=== PATIENT | female | born 1950 | race Caucasian/White ===

== ENCOUNTER → 2019-06-04 15:56 | Outpatient (CLI) | payer MEDICARE, SELFPAY ==
--- NOTE | 2019-06-04 16:10 | RAD_ITS ---
STUDY: X-RAY - PELVIS AND RIGHT HIP REASON FOR EXAM: Female, 69 years old. Right hip pain TECHNIQUE: 3 views of the pelvis and hip. COMPARISON: None. FINDINGS: There is a non-specific bowel gas pattern. Normal visualized soft tissue structures. Normal bilateral iliac wings, sacroiliac joints and visualized sacrum. Normal bilateral superior and inferior pubic rami. Normal pubic symphysis. Normal bilateral ischial tuberosities. Normal visualized femoral head. Normal acetabulum. Normal hip joint. RAD/HIP, UNI W/ Pelvis 2-3 Views IMPRESSION: Normal x-ray examination of the pelvis and hip. Electronically Signed: Bandar Alfaro MD at 16:38 EDT Tel , Service support ,
--- NOTE | 2019-06-04 16:10 | RAD_ITS ---
STUDY: X-RAY - LUMBAR SPINE REASON FOR EXAM: Female, 69 years old. Low back pain, right hip pain. TECHNIQUE: 3 view(s) of the lumbar spine were obtained. COMPARISON: None FINDINGS: Normal lumbar lordosis. There is no substantial scoliosis. 8 mm of anterolisthesis of L5 on S1. Moderate loss of height of the L5 vertebral body consistent with a moderate compression fracture. There is retropulsion of the superior endplate and the spinal canal. This may be acute, subacute, or chronic. MRI would be useful. Normal disc space heights. The soft tissue structures are unremarkable. RAD/Lumbar Spine 2 or 3 Views IMPRESSION: Moderate compression fracture of L5 which may be acute, subacute, or chronic. MRI would be useful. Electronically Signed: Bandar Alfaro MD at 16:37 EDT Tel , Service support ,
== END ==
LOC: MTRAD 16:04
PROVIDERS: Family Provider Family Medicine; PCP Family Medicine; Referring Provider Family Medicine; Visit Provider Family Medicine
DX: M54.5 Low back pain (principal); M25.551 Pain in right hip
CPT/HCPCS: 72100; 73502

== ENCOUNTER → 2019-06-14 16:15 | Outpatient (CLI) | payer MEDICARE, OTHER, SELFPAY ==
--- NOTE | 2019-06-14 16:24 | MRI_ITS ---
STUDY: MRI LUMBAR SPINE WITHOUT CONTRAST REASON FOR EXAM: Female, 69 years old. low back pain into R hip x 1 mon. TECHNIQUE: Standardized fat and water weighted pulse sequences were obtained in the sagittal and axial planes. COMPARISON: X-ray dated June 04, 2019 FINDINGS: There is straightening of the normal lumbar lordosis. There is no substantial scoliosis. Normal conus medullaris that terminates at the L1 L1-2: There is minimal disc space narrowing and endplate spondylosis. There is no significant disc herniation, central canal or foraminal stenosis. L2-3: There is mild disc space narrowing and endplates spondylosis. There is a minimal disc bulge and facet pathology without significant central canal or foraminal stenosis. L3-4: There is moderate disc space narrowing and endplates spondylosis. 2 small disc bulge and facet arthropathy without significant central canal stenosis. There is mild right and mild left foraminal stenosis. There is a chronic Schmorl's node at superior endplate of L4 L4-5: There is mild disc space narrowing and endplates spondylosis. There is mild disc bulge and facet arthropathy with mild central canal stenosis. There is moderate right and mild left foraminal stenosis. There is superior endplate depression at L5 with edema, consistent with subacute fracture. There is approximately 50% vertebral body height loss. There is minimal retropulsion of the posterior superior endplate resulting in mild central canal stenosis. Findings are stable since the prior examination. L5-S1: There is minimal disc space narrowing and endplates spondylosis. There is mild disc bulge and facet discopathy without significant central canal stenosis. There is mild right and mild left foraminal stenosis. There is spondylolysis with minimal grade 1 anterolisthesis. Normal visualized sacral ala. Normal visualized paraspinous soft tissue structures. MRI/Spine Lumbar (Routine) IMPRESSION: Subacute L5 fracture. Minimal retropulsion. L4/L5: Moderate right foraminal stenosis. L5/S1: Spondylolysis with minimal anterolisthesis. Electronically Signed: Ja Zelaya MD at 12:06 EDT Tel , Service support ,
== END ==
PROVIDERS: Family Provider Family Medicine; PCP Family Medicine; Referring Provider Family Medicine; Visit Provider Family Medicine
DX: S32.000A Wedge compression fracture of unspecified lumbar vertebra, initial encounter for closed fracture (principal)
CPT/HCPCS: 72148

== ENCOUNTER → 2019-07-03 15:39 | Outpatient (CLI) | payer MEDICARE, OTHER, SELFPAY ==
--- NOTE | 2019-07-03 15:46 | BD_ITS ---
STUDY: DUAL ENERGY X-RAY ABSORPTIOMETRY / DXA REASON FOR EXAM: Female, 69 years old. The patient is postmenopausal. Loss of height. TECHNIQUE: Bone Mineral Density (BMD) measurements of lumbar spine and bilateral hips were obtained. COMPARISON: None. FINDINGS: Lumbar Spine (L1-L4): g/cm2 (1.103) / T-score (-0.6) / Z-score (1.1) Findings are suggestive of normal bone density with a low fracture risk. Left Femur Total: g/cm2 (0.880) / T-score (-1.0) / Z-score (0.5) Left Femoral Neck: g/cm2 (0.765) / T-score (-2.0) / Z-score (-0.2) Right Femur Total: g/cm2 (0.858) / T-score (-1.2) / Z-score (0.3) Right Femoral Neck: g/cm2 (0.790) / T-score (-1.8) / Z-score (0.0) BD/Dexa Bone Density Study IMPRESSION: The patient is considered osteopenic as outlined below according to World Christopher Organization (WHO) criteria with a moderate fracture risk. Reference Information: The T-score is the number of standard deviations above or below the standard which is normal for young adults at their peak bone mineral density. The World Health Organization (WHO) interprets the T-scores as follows: Above -1 Normal bone density Between -1 and -2.5 Osteopenia Equal to / or below -2.5 Osteoporosis As a practical clinical guideline, osteopenia may be graded as follows: Mild -1 through -1.5 Moderate -1.6 through -2.0 Severe -2.1 through -2.4 The Z-score is the number of standard deviations above or below age-matched controls. A Z-score of less than -1.5 would be considered abnormal. References: 1. NIH Osteoporosis and Related Bone Diseases http://www.osteo.org 2. International Society for Clinical Densitometry http://www.iscd.org 3. National Osteoporosis Foundation http://www.nof.org Electronically Signed: Jason Oreilly, at 13:18 EST , Service support ,
== END ==
PROVIDERS: Family Provider Family Medicine; PCP Family Medicine; Referring Provider Family Medicine; Visit Provider Family Medicine
DX: S32.009A Unspecified fracture of unspecified lumbar vertebra, initial encounter for closed fracture (principal); Z78.0 Asymptomatic menopausal state
CPT/HCPCS: 77080

== ENCOUNTER 2019-08-21 14:30 | Outpatient (RCR) | payer MEDICARE, OTHER, SELFPAY ==
--- NOTE | 2019-07-05 13:29 | HP.PTEVAL ---
Patient's Visit Information MK ERIC is a 69 year old F referred to Physical Therapy by Alex Neil DO with a diagnosis of spondylolisthesis L5s1. Date of Evaluation: 07/05/19 Physical Therapist: Matt Kennedy, DPT, OCS, CSCS - Visit Plan Frequency: 2x /Week Duration: 4-6 Weeks Plan: 2x/week for 4-6 weeks ... Start in the pool for B HS stretches, LE strength, core strength in neuttral spine and general ex to I. - Subjective Findings: Katherine sister present today. Is here because R hip hurts. Sees Dr. Neil for MRI adn xray showed compression fracture L45, adn stenosis. Pain is in LB adn R hip and upper thigh. It started moving heavy boxes in april at the end. Severe pain the next morning. Thought it was muscle strain and rested adn took ibuprofen. Then saw [place] family and got muscle relaxer which did nto help, 2 days later tried prednisone whcih did not help. Then 5 days later got x ray and MRI and sent to Dr. Neil. Pain 35% better. Has not been able to walk far. Was 8/10 pain early on and now it is closer to 5/10. Worse walking now and comfortable at rest on pain meds sitting. Sleep is good. Denies numness except intermittently right hip. Transfers can be painful. Not employed. When healthy spends day jus. Can still do that. Also does most of cooking and dishwashing and can do those things but has to sit. 200 feet back to eval room is longest she has walked without aid. Feels better walking with walker. - Pain LB adn R hip Pain Intensity (Out of 10): 0 Pain Intensity Range: 0, 5 - Objective Walks slow and hunched and stiff but I to eval room 200 feet short steps. Transfers slow and stiff but I with UE to and fro sit. Has bracing on for LB whcih she is wearing all the time. Trasnfer to adn fro supine is I. LB AROM ext painful and mod limited, flexion fulla dn slightly painful R hip. SB are min limited without pain. R HS -30 adn L -10, - SLR, - slump test. reflexes 0/3 B patella adna chilles. Sensation is WNL to gross light touch in LE. Strength LE hips 3+ B, knees 4- and ankles 4/5 B all without myotomal abnormalities. UE aROM WFL and without pain. Stadning balance is good. - Goals Goal 1:: Walk normal without pain> 2/10 300 feet Goal Time Frame: 4-6 Weeks Goal 2:: Patient feel pain is 75% better and oswestry less than 20% disability Goal Time Frame: 4-6 Weeks Goal 3:: I apporp HEP pool or and for HEP to minimize future problems. Goal Time Frame: 4-6 Weeks Goal 4:: Stand to do dishes without increased pain. Goal Time Frame: 4-6 Weeks - Rehabilitation Potential Physical Therapy Diagnosis: degenerative changes in low back causing pain. Rehabilitation Potential: Fair - Anticipated Interventions Patient/Client Instruction: Educate patient on: Condition, Plan of Care For the Purpose of:: To decrease pain, To improve muscle performance and motor function, To increase tolerance to activity/condition/position, To improve ability of physical actions for home/community/work/leisure, To improve gait and locomotor functions Therapeutic Exercise to Include: Strength training, Postural training, Flexibilty training, Gait and locomotor training, In an aquatic setting, Dynamic Lumbar Stabilization For the Purpose of:: To decrease pain, To increase ROM, To improve muscle performance and motor function, To increase tolerance to activity/condition/position, To improve gait and locomotor functions Thank you for the opportunity to evaluate your patient. For Medicare and Medicare HMO plans, please review the plan of care and approve it. It will need to be FAXED BACK to us at [phone] for Medicare purposes. For Medicare only, by signing this I certify the plan of care. Please let me know if there are questions or concerns regarding this plan of care. Physician Signature: Date:
--- NOTE | 2019-08-03 13:22 | HP.PTREVAL ---
Alex Neil, DO, It has been my pleasure to treat MK ERIC over the last 7 visits for spondylolisthesis L5s1. Please see the progress note below for an update on the physical therapy plan of care! Subjective: Couldn't walk on Tuesday after injections whcih she got due to pain. Hard time walking afterwards for 4 hours but then better. 95% better overall. Pool helped. Was getting better in pool. sleeping wonderfully . Walking better. Walked to the mailbox 100+ feet. Dr Matos gave injection. No f/u with [facility] or pain management. Objective/Function: Full ROM L/S without pain except slight at end of ext. Walking up tall and I with gait and steps reciprocal with one rail. safe adn I with trasnfers adn no walker needed. Plan Plan: f/u two weeks for d/c and possibly progression to mat based core strength if patient wishes. New goal and fair prognosis Goals Goal 1:: Walk normal without pain> 2/10 300 feet Goal Time Frame: 4-6 Weeks Goal Progress: Goal Met Goal 2:: Patient feel pain is 75% better and oswestry less than 20% disability Goal Time Frame: 4-6 Weeks Goal Progress: Goal Met Goal 3:: I apporp HEP pool or and for HEP to minimize future problems. Goal Time Frame: 4-6 Weeks Goal Progress: Goal Met Goal 4:: Stand to do dishes without increased pain. Goal Time Frame: 4-6 Weeks Goal Progress: Goal Met Goal 5:: Maintain improvements in pain with holiday acitivity and HEP Goal Time Frame: 2-4 Weeks Goal Progress: NEW GOAL Anticipated Interventions Patient/Client Instruction: Educate patient on: Condition, Plan of Care For the Purpose of:: To decrease pain, To improve muscle performance and motor function, To increase tolerance to activity/condition/position, To improve ability of physical actions for home/community/work/leisure, To improve gait and locomotor functions Therapeutic Exercise to Include: Strength training, Postural training, Flexibilty training, Gait and locomotor training, In an aquatic setting, Dynamic Lumbar Stabilization For the Purpose of:: To decrease pain, To increase ROM, To improve muscle performance and motor function, To increase tolerance to activity/condition/position, To improve gait and locomotor functions Please do not hesitate to contact me at [phone] by phone or if you have questions or concerns regarding this new plan of care! Sincerely, Matt Kennedy, DPT, OCS, CSCS
--- NOTE | 2019-10-19 13:43 | HP.PT.NRP ---
HP - Discharge Summary (1) - Patient Information MK ERIC was seen in my office for initial evaluation on 07/05/19. The following Plan of Care was established for this patient: Initial Frequency: 2x /Week Initial Duration: 4-6 Weeks - Anticipated Interventions Patient/Client Instruction: Educate patient on: Condition, Plan of Care For the Purpose of:: To decrease pain, To improve muscle performance and motor function, To increase tolerance to activity/condition/position, To improve ability of physical actions for home/community/work/leisure, To improve gait and locomotor functions Therapeutic Exercise to Include: Strength training, Postural training, Flexibilty training, Gait and locomotor training, In an aquatic setting, Dynamic Lumbar Stabilization For the Purpose of:: To decrease pain, To increase ROM, To improve muscle performance and motor function, To increase tolerance to activity/condition/position, To improve gait and locomotor functions This patient was last seen in our office 08/21/19. Pertinent comments regarding their Physical therapy will appear below: Pt seen 8 visits of POC and 75% better. Pt was to call after last session if she wished to cotninue POC but has not. I will discontinue at this time per last POC. At this point I will be discontinuing this patient from physical therapy. I would be happy to see this patient again in the future if found appropriate by the physician. Thank you! Matt Kennedy, DPT, OCS, CSCS
== END 2019-08-21 19:00 | disposition home or self-care (01) ==
LOC: PT 14:30
PROVIDERS: Family Provider Family Medicine; PCP Family Medicine; Referring Provider Orthopaedic Surgery; Visit Provider Orthopaedic Surgery
DX: M43.17 Spondylolisthesis, lumbosacral region (principal)
CPT/HCPCS: 97110; 97113; 97162; 97164; 97530

== ENCOUNTER → 2019-09-19 08:00 | Outpatient (CLI) | payer MEDICARE, OTHER, SELFPAY ==
[2019-09-18 14:48] VITALS: BMI 28.0
--- NOTE | 2019-09-19 08:00 | MRI_ITS ---
STUDY: BILATERAL BREAST MR WITHOUT AND WITH CONTRAST REASON FOR EXAM: Female, 69 years old. History of right breast cancer. TECHNIQUE: Multi-sequence multi-echo imaging of both breasts was performed with a dedicated breast coil. T1-weighted and T2-weighted images were performed before the administration of contrast. T1-weighted images were also performed after the administration of Dotarem 17ml iv without complications. COMPARISON: Right diagnostic mammogram dated September 06, 2019, ultrasound guided biopsy images of right breast dated September 06, 2019, bilateral mammogram dated August 06, 2019 and right diagnostic mammogram with right breast ultrasound dated August 31, 2019 FINDINGS: RIGHT BREAST: The breast tissue is fatty with minimal background enhancement. At the 9:00 position of the right breast approximately 8.5 cm behind the nipple there is an irregular enhancing mass measuring 1.7 cm x 1.1 cm x 1.3 cm corresponding to the index lesion. LEFT BREAST: The breast tissue is fatty with minimal background enhancement. There are no abnormal enhancing masses or areas of non-mass enhancement in the left breast. There are no enlarged or abnormal lymph nodes. There is no abnormality in the visualized regions of the chest or liver. MRI/Breast Bilateral W/O and W IMPRESSION: Irregular enhancing mass measuring 1.7 cm x 1.1 cm x 1.3 cm corresponding to the known index lesion. No other abnormalities in either breast. CATEGORY: BIRADS Category 6: Known Biopsy-Proven Malignancy - Appropriate Action Should Be Taken. A letter regarding these results will be sent to the patient by the facility within 30 days. Electronically Signed: Jay Romero MD at 14:47 EST , Service support ,
[2019-09-19 09:05] LABS: CREATININE FINGERSTICK 0.7 mg/dL (0.55-1.02); EGFR FINGERSTICK > 60.0000 mL/min (>60)
== END ==
PROVIDERS: PCP Family Medicine; Referring Provider Surgery; Visit Provider Surgery
DX: C50.911 Malignant neoplasm of unspecified site of right female breast (principal)
CPT/HCPCS: 77049; A9575; A4216; C8908

== ENCOUNTER → 2019-09-21 07:01 | Outpatient (CLI) | payer MEDICARE, OTHER, SELFPAY ==
[2019-09-18 14:48] VITALS: BMI 28.0
[2019-09-20 11:43] VITALS: BMI 28.4
--- NOTE | 2019-09-21 13:00 | PFTCOMP ---
COMPLETE PULMONARY FUNCTION TEST INTERPRETATION Brief HPI: Patient is a 69 year old female, currently under the care of Dr. Sanchez, who presents to [facility] for complete pulmonary function tests secondary to diagnosis of COPD. Respiratory therapist reports good effort and reproducible results. Interpretation: Forced expiration spirometry shows a moderately severe large airways obstructive ventilatory defect with an FEV1 of 60% predicted. There is no significant bronchodilator response by strict ATS criteria. Spirograms are of good quality and plateau slowly, indicating slowly emptying areas of the lungs. The respiratory flow volume loop shows decreased expiratory flow rates at all lung volumes consistent with airway obstruction. Lung volumes by body plethysmography show a normal total lung capacity at 4.9 L, 92% predicted. FRC and RV are elevated out of proportion. Lung volume measurements are consistent with air-trapping. Diffusion capacity by carbon monoxide is decreased at 58% predicted. The airway resistance is slightly elevated. No previous pulmonary function tests were available for review. Impression: Irreversible moderately severe large airways obstructive ventilatory defect with a symmetric reduction diffusing capacity, and a pattern consistent with COPD.
== END ==
PROVIDERS: PCP Family Medicine; Referring Provider Family Medicine; Visit Provider Family Medicine
DX: J43.9 Emphysema, unspecified (principal)
CPT/HCPCS: 94060; 94726; 94729

== ENCOUNTER 2019-10-04 13:19 | Inpatient (IN) | payer MEDICARE, OTHER, SELFPAY ==
--- NOTE | 2019-09-25 01:11 | HP_ITS ---
Intake Vital Signs 09/25/19 BMI 28.4 Intake Visit Reasons: F/U Discuss Surgery Chief Complaint: discuss surgery Battery Stacker Required: No Is patient in pain?: No Allergies haloperidol [From Haldol] Allergy (Severe, Verified 09/25/19 13:00) Other Medications albuterol sulfate 90 mcg/actuation aerosol inhaler 1 inh INHALATION ONCE 09/18/19 [History Confirmed 09/25/19] levothyroxine 75 mcg capsule 75 mcg PO DAILY 09/18/19 [History Confirmed 09/25/19] meloxicam 15 mg tablet 15 mg PO DAILY 09/18/19 [History Confirmed 09/25/19] olanzapine 7.5 mg tablet 7.5 mg PO DAILY 09/18/19 [History Confirmed 09/25/19] risperidone 4 mg tablet 4 mg PO DAILY 09/18/19 [History Confirmed 09/25/19] Is last menstrual period known: No Post menopausal: Yes Patient : No PFSH Medical History COPD (chronic obstructive pulmonary disease) with emphysema (Chronic) Schizophrenia (Chronic) Hypothyroid (Chronic) Lobular carcinoma of breast (Acute) Breast cancer (Acute) Surgical History S/P arteriovenous (AV) fistula creation (Acute) S/P breast biopsy (Acute) S/P tonsillectomy (Acute) Family History Mother No problems noted. Grandfather No problems noted. Father Leukemia Social History (Updated 09/25/19 @ 13:14 by Barron Bailey MD) Smoking Status: Former smoker alcohol intake: current alcohol intake frequency: a few times a week HPI HPI HPI: MK ERIC, is a 69 F who presents to the office today for HPI HPI Surgical H&P: Yes HPI: MK ERIC, is a 69 F who presents to the office today for Intake Visit Reasons: breast CA/2nd lesion Battery Stacker Required: No Is patient in pain?: Yes (left leg ) Allergies haloperidol [From Haldol] Allergy (Mild, Verified 09/18/19 14:52) Other Medications albuterol sulfate 90 mcg/actuation aerosol inhaler 1 inh INHALATION ONCE 09/18/19 [History Confirmed 09/18/19] levothyroxine 75 mcg capsule 75 mcg PO DAILY 09/18/19 [History] meloxicam 15 mg tablet 15 mg PO DAILY 09/18/19 [History Confirmed 09/18/19] olanzapine 7.5 mg tablet 7.5 mg PO DAILY 09/18/19 [History Confirmed 09/18/19] risperidone 4 mg tablet 4 mg PO DAILY 09/18/19 [History Confirmed 09/18/19] PFS Medical History Breast cancer (Acute) Hypothyroid (Acute) Schizophrenia (Acute) Surgical History S/P arteriovenous (AV) fistula creation (Acute) S/P breast biopsy (Acute) S/P tonsillectomy (Acute) Family History Mother Cancer Grandfather Cancer Social History (Updated 09/18/19 @ 16:29 by Barron Bailey MD) Smoking Status: Former smoker alcohol intake: current alcohol intake frequency: a few times a week HPI HPI HPI: MK ERIC, is a 69 F who presents to the office today for surgical consultation regarding biopsy-proven outer mid right breast cancer. The patient is referred by Dr. Peng Sanchez and a written copy of my surgical consult recommendations will be returned to him. This is a 69-year-old female. G0. Menarche at age 11. No family history of breast cancer. She was on oral Contrave susceptive pills remotely. She was a long-term chronic cigarette smoker having quit in 2016. She has just recently moved from the [facility]. She had routine screening mammograms performed at [facility] on August 06, 2019.. Subsequent diagnostic right mammogram and breast ultrasound showed 2 adjacent irregular masses right breast 9 o'clock position. They are approximately 6 mm apart. Total expanse of these 2 areas 2 cm. She had had previous a focal density in the upper inner right breast that did not persist on diagnostic imaging. Subsequently on September 10, 2019 she had a ultrasound-guided needle core biopsy of 1 of the 2 densities. Invasive lobular carcinoma with tubular lobular features well differentiated. Carcinoma measures 0.5 cm in greatest dimension involves 2 of 2 core fragments. Lymphovascular invasion is not identified. Ductal carcinoma in situ is not identified. Atypical lobular hyperplasia is identified. There was not enough material to obtain receptors. The patient then moved from that area. On August 31, 2019 because of a 40+-pack-year history of cigarette smoking she had a CT scan of the chest. This demonstrated moderate centrilobular emphysema. Scattered linear scarring in the mid and lower lung zones. No suspicious nodules. The patient has had an unusual previous history of schizophrenia which was attempted to be treated with a left forearm AV fistula and hemodialysis. That apparently was not successful. The patient apparently was also treated with high-dose Haldol therapy. As a consequence of that therapy she had seizures but she has not had any since that therapy was discontinued. She is accompanied by her sister today. They both recently have the loss of their mother. Their mother lived locally. HPI HPI HPI: MK ERIC, is a 69 F who presents to the office today for ROS General General: Yes weight change, fatigue and breast cancer; no appetite, colon cancer or weakness HEENT HEENT: No difficulty swallowing, eye injury, eye surgery, swollen glands or hoarseness Endo Endocrine: Yes thyroid disease; no diabetes mellitus, thyroid cancer, Hair loss, heat intolerance or cold intolerance Skin Skin: No rash or changing moles Breast Breast: Yes right breast lump, abnormal mammogram and abnormal US; no left breast lump, nipple discharge, breast pain or breast enlargement Musc Musculoskeletal: Yes back problems; no arthritis, rheumatoid arthritis, gout or joint pain Cardio Cardiovascular: No murmur, pacemaker, heart disease, atrial fibrillation, high blood pressure, heart attack, heart stent, palpitations, shortness of breat with exertion or chest pain Psych Psychiatric: No depression, anxiety or hearing voices Resp Respiratory: Yes shortness of breath, No sleep apnea, No cough, Yes COPD, No asthma, No emphysema, No wheezing Gastro Gastrointestinal: No abdominal pain, Yes nausea or vomiting, No diarrhea, No constipation, No blood in stool, Yes acid reflux, No hemorrhoids, No ulcers, No gallbladder problem, No black,tarry stools Rajendra Hematologic: No blood thinners, Yes blood disorders, No bleeding, No anemia, No blood clots Neuro Neurologic: No system reviewed and no additional complaints, except as docu, No as per HPI, No abnormal walking, No abnormal hearing, No abnormal movements, No abnormal speech, No behavioral changes, No burning sensations, No confusion, No seizure-like activity, No unsteadiness, No dizziness, No localized weakness, No frequent falls, No headache(s), No lack of coordination, No loss of vision, No memory loss, No numbness, No other visual disturbances, No radiating pain, No restless legs, No sensory deficit, No fainting, No tingling, No tremor(s), No weakness, No other Exam Const General: comfortable, no acute distress Nutritional Appearance: overweight Orientation: alert, awake [facility] Head: normal to inspection Chest Breast Palpation: No nipple discharge Other: Increased anterior posterior diameter, mild kyphosis Right breast: Slight retraction of the nipple. No focal mass. No nipple discharge. No axillary or clavicular adenopathy Left breast: No focal mass. No nipple discharge. No axillary or clavicular adenopathy Resp Other: Clear breath sounds in the apices however coarse breath sounds in both bases with fine dry rales, scattered wheeze Cardio Rate: regular rate Rhythm: regular rhythm Heart Sounds: no murmurs Musc Cervical Spine: normal cervical lordosis Neuro Cognition: normal cognition Extrem General: no calf tenderness bilaterally Psych Affect: normal affect Assessment & Plan Problems 1. Lobular carcinoma of right breast C50.911 Plan 69-year-old female. She has biopsy-proven lobular carcinoma 9 o'clock position right breast. There are 2 adjacent similar-appearing lesions. There approximately 6 mm apart. Only the larger of the 2 lesions was biopsied. I recommended the patient bilateral breast MRI. On clinical examination the patient has significant pulmonary findings with coarse bilateral breath sounds and dry rales and scattered wheeze. CT scan recently performed shows moderate centrilobular emphysema. Prior to a general anesthetic I am hopeful that additional medical maximization can be pursued. By patient report she is not currently routinely utilizing an inhaler. I will ask for some additional assistance from Dr. Peng Sanchez in this matter. I have provided written descriptive information in addition to discussing surgical treatment options. We discussed breast conservation surgery. We discussed radiation treatment. We discussed the need for receptor levels to see if she would be a candidate for hormonal treatment. We discussed that staging will determine the benefit risk of chemotherapy. We compared and contrasted this to a right mastectomy with or without reconstruction. We briefly discussed various reconstruction techniques. My present concern is that the patient has baseline pulmonary disease. Her clinical exam is remarkable. The patient has lobular carcinoma on biopsy. I have discussed the potential for multicentric and multifocal disease. Hopefully an MRI will define to some degree possible additional disease. I offered the patient an appointment with but she afterwards asked for a switch to Dr Weldon. I will subsequently have the patient return for further office discussion and treatment planning. She has an initially offered an opinion that she would be leaning toward a right mastectomy. We did discussed sentinel lymph node biopsy utilizing nuclear tracer and blue dye and we did discuss potential conversion to an axillary lymph node dissection if indicated. The patient's schizophrenia does have present with a flat affect. It seems apparent that she is quite sedentary. I have vigorously encouraged the patient with her sister present to be much more physically active as we get closer to definitive surgery. I appreciate the opportunity of assisting with her surgical care Cc: Dr. Sanchez and Dr. Shiraz Bailey M.D., F.A.C.S. Orders Orders: Breast Bilateral W/O and W Today C50.911 Referrals: Oncology C50.911 Coding Level of Care Code Comprehensive,High Diagnoses Lobular carcinoma of right breast C50.911 Laterality: right 09/18/19 1629<Electronically signed by Barron Bailey MD> Date Barron Bailey MD [facility] Imaging Services [address] [place] [address] Breast Bilateral W/O and W MR#: [id number]:[id number] Name: MK ERICRep #:[id number] : [id number] From: Jay Romero MD PCP:Peng Sanchez MD Status:REG CLI Study:Breast Bilateral W/O and W Date of Exam:09/19/19 Exam#[id number] Ordering Dr: Barron Bailey MD STUDY: BILATERAL BREAST MR WITHOUT AND WITH CONTRAST REASON FOR EXAM: Female, 69 years old. History of right breast cancer. TECHNIQUE: Multi-sequence multi-echo imaging of both breasts was performed with a dedicated breast coil. T1-weighted and T2-weighted images were performed before the administration of contrast. T1-weighted images were also performed after the administration of Dotarem 17ml iv without complications. COMPARISON: Right diagnostic mammogram dated September 06, 2019, ultrasound guided biopsy images of right breast dated September 06, 2019, bilateral mammogram dated August 06, 2019 and right diagnostic mammogram with right breast ultrasound dated August 31, 2019 FINDINGS: RIGHT BREAST: The breast tissue is fatty with minimal background enhancement. At the 9:00 position of the right breast approximately 8.5 cm behind the nipple there is an irregular enhancing mass measuring 1.7 cm x 1.1 cm x 1.3 cm corresponding to the index lesion. LEFT BREAST: The breast tissue is fatty with minimal background enhancement. There are no abnormal enhancing masses or areas of non-mass enhancement in the left breast. There are no enlarged or abnormal lymph nodes. There is no abnormality in the visualized regions of the chest or liver. MRI/Breast Bilateral W/O and W IMPRESSION: Irregular enhancing mass measuring 1.7 cm x 1.1 cm x 1.3 cm corresponding to the known index lesion. No other abnormalities in either breast. CATEGORY: BIRADS Category 6: Known Biopsy-Proven Malignancy - Appropriate Action Should Be Taken. A letter regarding these results will be sent to the patient by the facility within 30 days. Electronically Signed: Jay Romero MD at 14:47 EST , Service support , ROS General General: Yes weight change, fatigue and breast cancer; no appetite, colon cancer or weakness HEENT HEENT: No difficulty swallowing, eye injury, eye surgery, swollen glands or hoarseness Endo Endocrine: Yes thyroid disease; no diabetes mellitus, thyroid cancer, Hair loss, heat intolerance or cold intolerance Skin Skin: No rash or changing moles Breast Breast: Yes right breast lump, abnormal mammogram and abnormal US; no left breast lump, nipple discharge, breast pain or breast enlargement Musc Musculoskeletal: Yes back problems; no arthritis, rheumatoid arthritis, gout or joint pain Cardio Cardiovascular: No murmur, pacemaker, heart disease, atrial fibrillation, high blood pressure, heart attack, heart stent, palpitations, shortness of breat with exertion or chest pain Psych Psychiatric: No depression, anxiety or hearing voices Resp Respiratory: Yes shortness of breath, No sleep apnea, No cough, Yes COPD, No asthma, No emphysema, No wheezing Gastro Gastrointestinal: No abdominal pain, Yes nausea or vomiting, No diarrhea, No constipation, No blood in stool, Yes acid reflux, No hemorrhoids, No ulcers, No gallbladder problem, No black,tarry stools Rajendra Hematologic: No blood thinners, Yes blood disorders, No bleeding, No anemia, No blood clots Neuro Neurologic: No weakness Exam Chest Breast Palpation: No nipple discharge Cardio Heart Sounds: no murmurs Assessment & Plan Problems 1. Malignant neoplasm of central portion of right female breast, unspecified estrogen receptor status C50.111 2. Lobular carcinoma of right breast C50.911 Plan The patient returns today with her sister. They have had an opportunity to review the written information provided. They are aware that the MRI does demonstrate 2 foci right breast 9:00 central position. They have also been seen in consultation by Dr. Oksana Weldon. They have had an opportunity to ask and have questions answered. At this point she would like to proceed with a mastectomy. I propose nuclear medicine and blue dye sentinel lymph node biopsy with subsequent right mastectomy and conversion to an axillary lymph node dissection if indicated. She is indeed aware of technique, benefit, risks, alternatives. She has had an extensive opportunity to discuss other surgical treatment options. At the conclusion of her previous appointment she was suggesting that she would desire a mastectomy and again on this appointment she states that she wants to proceed with a mastectomy. We will schedule and proceed at her discretion. CC: Dr. Peng Sanchez and Dr. Oksana Bailey M.D., F.A.C.S. Coding Level of Care Code Off vis,est,level 2 Diagnoses Malignant neoplasm of central portion of right female breast, unspecified estrogen receptor status C50.111 ??Breast location: central portion of breast ??Estrogen receptor status: unspecified Lobular carcinoma of right breast C50.911 ??Laterality: right 09/25/19 1315 <Electronically signed by Barron mercedes MD> Date _ Barron Bailey MD I have re-examined the patient. There are no clinical changes since date of exam.
[2019-09-25 13:10] VITALS: BMI 28.4
[2019-10-01 13:18] VITALS: BP 126/72; PULSE 79; RESP 16; TEMP 36.6; BMI 28.1
--- NOTE | 2019-10-01 13:56 | RAD_ITS ---
STUDY: X-RAY CHEST REASON FOR EXAM: Female, 69 years old. Chest pain and pressure TECHNIQUE: PA and lateral views of the chest. COMPARISON: None. FINDINGS: The lungs are clear and expanded. There is no demonstrated pleural abnormality. Normal size heart. Normal mediastinum and gustavo. Normal visualized pulmonary arteries. Normal visualized aortic arch and descending thoracic aorta. Normal visualized thoracic spine. Normal visualized ribs, clavicles, and shoulders. There is no demonstrated abnormality of the visualized soft tissue structures of the upper abdomen. RAD/Chest PA and Lateral IMPRESSION: No acute pulmonary process Electronically Signed: Denver Alvarez MD at 16:24 EST , Service support ,
[2019-10-01 14:11] LABS: Hematocrit 40.1 % (37-47); Hemoglobin 12.8 g/dL (12.0-15.0); Mean Corp Hgb Conc 31.9 g/dL (32-36); Mean Corpuscular Hgb 28.1 pg (27.0-32.0); Mean Corpuscular Volume 87.9 fL (81-99); Mean Platelet Vol. 8.9 fl (6.2-12.0); Platelet Count 306 K/mm3 (150-450); RBC Distribution Width CV 12.7 % (11.6-14.6); RBC Distribution Width SD 40.9 fl (35.1-43.9); Red Blood Count 4.56 M/mm3 (4.2-5.4); White Blood Count 7.7 K/mm3 (4.4-11.0)
[2019-10-01 14:45] LABS: ALB/GLOB Ratio 1.2 RATIO (0.9-2.4); AST(SGOT) 13 U/L (15-37); Alanine Aminotransfer ALT/SGPT 23 U/L (13-56); Albumin, Serum 3.5 g/dL (3.2-5.0); Alkaline Phosphatase 64 U/L (45-117); Anion Gap 3 (5-15); BUN 7 mg/dL (7-18); BUN/Creat Ratio 10.4 RATIO (10-20); Calcium,Total 8.6 mg/dL (8.5-10.1); Chloride 105 mmol/L (98-107); Creatinine, Serum 0.68 mg/dL (0.55-1.02); EST Glomerular Filtration Rate 91 mL/min (>60); Est Glom Filt Rate - Afr Amer 111 mL/min (>60); Globulin 2.9 g/dL (2.2-4.2); Glucose 108 mg/dL (74-106); Potassium 4.4 mmol/L (3.5-5.1); Protein, Total 6.4 g/dL (6.4-8.2); Sodium Level 138 mmol/L (136-145); Thyroid Stim Hormone (TSH) 2.83 uIU/mL (0.358-3.74)
[2019-10-04] VITALS (16 sets, daily range): BP systolic 86–136; BP diastolic 48–82; PULSE 65–93; RESP 15–18; TEMP 36.2–37.1; O2SAT 92–100; BMI 28.1
--- NOTE | 2019-10-04 | BREAST_PTH ---
PATIENT: MK ERIC LOC: MS3 U#:[id number] AGE/SX: 69/F ROOM: MS311 RE10/04/[address]: Dr. Barron Bailey MD : 1950 BED: 1 DIS: 10/05/2019 SPEC #: [id number] RECD: 10/04/19 12:13 STATUS: ERIKA COLLINSFay #: [id number] KEATON: 10/04/19 00:[address]: Barron Bailey DEPT: SURGICAL PATHOLOGY RECD BY: Brissa Shabazz ENTERED: 10/04/19 13:27 SP TYPE: BREAST OTHR DR: Dr. Peng Sanchez MD Tissues: A - Axillary lymph node, NOS B - Right breast, NOS Procedures: Frozen Section (charge) Frozen Section Add'l ([facility]) Surgery Specimen Level V Surgery Specimen Level HEADER OPERATION: Mastectomy with sentinel lymph node biopsy, Radiotracer PRE-OP DIAGNOSIS: Malignant neoplasm of central portion of right breast, lobular CA right breast TISSUE SUBMITTED: A - Right sentinel nodes for frozen section, B - Right breast, suture kimbrough axillary contents FROZEN SECTION DIAGNOSIS A. Right axillary sentinel lymph nodes, biopsy: Two out of two lymph nodes, negative for carcinoma. AM:cj 10/04/19 MICROSCOPIC DIAGNOSIS A. Right axillary sentinel lymph nodes, biopsy: Two out of two lymph nodes, negative for metastatic carcinoma. See comment. B. Right breast, modified radical mastectomy: Invasive lobular carcinoma. Five out of five lymph nodes are negative for metastatic carcinoma. See cancer summary below.. SJ: 10/09/19 BREAST CANCER SUMMARY Procedure: Total mastectomy (including nipple and skin) Specimen Laterality: Right Tumor site: Lower outer quadrant Tumor size: 1.5 x 1 x 0.7 cm Histologic type: Invasive lobular carcinoma. Histologic grade (Sonu grade): Glandular/tubular differentiation score: 3 Nuclear pleomorphism score: 1 Mitotic count score: 1 Overall grade: 1 (score of 5) Tumor focality: single focus of invasive carcinoma. Ductal Carcinoma In Situ: Not identified Lobular Carcinoma In Situ: Not identified Tumor extension: Skin: Skin is present and uninvolved. Nipple: Ductal carcinoma in situ does not involve nipple epidermis. Skeletal muscle: No skeletal muscle is present. Margins Involved by Invasive Carcinoma: The tumor is 1.5 cm away from the closest inferior margin. Ductal carcinoma in situ margin: Not applicable Regional Lymph Nodes: Number of lymph nodes examined: 7 (including specimen A & B) Number of sentinel lymph nodes examined: 2 Number of lymph nodes with macrometastases, micrometastases or isolated tumor cells: 0 Treatment Effect: No known presurgical therapy. Lymphvascular invasion: Not identified Dermal lymphvascular invasion: Not identified Distant metastasis: Not applicable Additional Pathologic Findings: Fibrocystic changes. Diffuse ductal ectasia with periductal chronic inflammation and focal dystrophic calcification. Ancillary Studies: Previously performed on same tumor ([id number]) ER: positive (>95%, strong intensity) SD: negative (0) Her2: negative (0) Microcalcifications: Not identified Clinical History: Right breast, 9 o'clock, 7 cm from nipple ([facility] [id number]) with diagnosis of invasive lobular carcinoma with tubulolobular features, well differentiated. Carcinoma measures 0.5 cm in greatest dimension and involves 2 of 2 core fragments. Radiologic findings: As per EMR, breast ultrasound showed two irregular masses, right breast, 9 o'clock position. Pathologic Stage: pT1c pN0 Mx The above summary is in compliance with [employer] (CAP) Cancer Protocol Checklist and [place] Joint Committee on Cancer (AJCC) Staging Manual, 8th Ed. COMMENT A. The lymph nodes are negative for metastatic carcinoma on multiple H & E levels and immunohisto-chemical stains for cytokeratins ([id number]). B. The lymph nodes are negative for metastatic carcinoma on multiple H & E levels and immunohisto-chemical stains for cytokeratins ([id number]). Case has been reviewed in consultation with Dr. Lind who concurs with the above diagnosis. IDC:AM MICROSCOPIC DESCRIPTION Slides are reviewed. GROSS DESCRIPTION A - Received fresh for frozen section diagnosis labeled with the patient's name is a specimen designated right sentinel lymph node. The specimen consists of a piece of fibroadipose tissue measuring 3.5 x 2.5 x 1 cm. Two nodules consistent with lymph nodes are identified measuring 1 and 1.5 cm in greatest dimension. The lymph nodes are submitted in entirety for frozen section diagnosis as follows: 1??smaller lymph node, 2 - frozen section, larger lymph node bisected. / AM:cj 10/04/19 B - Received in fixative is one container labeled with the patient's name and designated right breast. The specimen consists of a modified radical mastectomy specimen consisting of breast tissue with overlying skin ellipse and axillary contents. The axillary contents are identified by a suture. The breast tissue measures 25 x 23 x 5 cm and the overlying skin ellipse measures 21 x 7.5 cm. The nipple is retracted and measures 1 cm in greatest dimension. The axillary contents measures 5 x 5.5 x 2 cm. The specimen is inked as follows: posterior - black, superior - blue, inferior - green, medial - red and lateral - orange. Skeletal muscle tissue is not seen. The entire axilla is inked orange. More dictation will follow after overnight fixation. / SJ:cj 10/04/19 Sections of the axillary contents reveal multiple lymph nodes. The largest lymph node consists of fatty lymph node and measures 3 cm in greatest dimension. Sections of the breast tissue reveal a hoffman, indurated mass in the lower outer portion of the breast measuring 1.5 x 1 x 0.7 cm. This mass is 1.5 cm away from the closest inferior margin. Sections of the rest of the breast tissue reveal hoffman-yellow fibroadipose cut surfaces mixed with hoffman-white fibrous areas. A second indurated area is also noted in the central portion of the breast measuring 3 cm in greatest dimension. This area is 4 cm away from the closest posterior margin. Cnc Service Technician sections?are submitted as follows: 1 - one serially sectioned lymph node, 2 - multiple lymph nodes, 3 & 4 - one bisected lymph node, largest lymph node, 5 - nipple, 6??perpendicular superior, inferior and posterior margins, 7??perpendicular medial and lateral margins, 8?& 9 - hoffman, indurated mass, 10-16 - second indurated area, 724 - retail wireless sales representative sections from the other area. Sections will be submitted after additional fixation. / ASA:cj 10/05/19 TC:0 CPT: 49266, 39289, 81062, 18105
--- NOTE | 2019-10-04 | IMM_PTH ---
PATIENT: MK ERIC LOC: MS3 U#:[id number] AGE/SX: 69/F ROOM: MS311 RE10/04/[address]: Dr. Barron Bailey MD : [id number] BED: 1 DIS: 10/05/2019 SPEC #: [id number] RECD: 10/09/19 11:52 STATUS: ERIKA REFay #: [id number] KEATON: 10/04/19 00:[address]: Barron Bailey DEPT: IMMUNOHISTOCHEMISTRY RECD BY: Brissa Shabazz ENTERED: 10/09/19 11:56 SP TYPE: IMMUNO OTHR DR: Dr. Peng Sanchez MD Tissues: A - Axillary lymph node, NOS B - Right breast, NOS Procedures: CALPONIN-1 (add) CK7 (add) CK8 (add) E-CAD (add) ER (add) HER2 LUZ (add) WY (add) Pankeratin (initial) Pankeratin (add) P40 (add) PHYSICIAN & [address] [address] SPECIMEN INFORMATION: Tissue Source: A - Right axillary sentinel lymph nodes, B - Right breast Clinical Info: Malignant neoplasm right breast; lobular CA right breast Specimen Number: [id number] A1, A2, B1, B2, B3, B4, B8 CPT code: 71019 x2, 18664 x15, 21174 x3 METHODOLOGY: Deparaffinized sections of prefer/formalin-fixed tissue or PAP/DQ stained slides are incubated with monoclonal/polyclonal antibodies/oligonucleotide probes. Localization is made via biotin free immunoperoxidase method. Appropriate controls are performed and reacted as expected. Results on target cell population are indicated in the following table: RESULTS: ANTIBODY / CLONE RESULT Block A1 AE1-3 (AE1/AE3/PCK26) negative CK7 (OV-TL12/30) negative Block A2 AE1-3 (AE1/AE3/PCK26) negative CK7 (OV-TL12/30) negative Block B1 AE1-3 (AE1/AE3/PCK26) negative CK7 (OV-TL12/30) negative Block B2 AE1-3 (AE1/AE3/PCK26) negative CK7 (OV-TL12/30) negative Block B3 AE1-3 (AE1/AE3/PCK26) negative CK7 (OV-TL12/30) negative Block B4 AE1-3 (AE1/AE3/PCK26) negative CK7 (OV-TL12/30) negative Block B8 E-Cad (ECH-6) negative CK8 ([id number]) positive, weak P40 (BC28) negative Calponin-1 (GG559B) negative AE1-3 (AE1/AE3/PCK26) positive MORPHOMETRIC ANALYSIS ER (clone 6F11) >95%, strong intensity WY (clone 16/1E2) 0 Her-2Neu (clone CB11) 0 The prognostic test for HER2 is performed on formalin-fixed paraffin embedded tissue. A 3+ (positive) staining pattern is defined as intense, homogeneous, complete, circumferential membranous staining in >10% of contiguous tumor cells. A similar weak (2+) staining pattern is interpreted as equivocal. SUZANNE follow-up testing is recommended for all equivocal cases. Positivity/negativity for ER/WY is reported if > or < 1% of the tumor cells are immuno- reactive, respectively. The ASCO/CAP criteria is used for scoring. Reference: Journal of Clinical Oncology, 2013; 31:0029-7068 & 2010; 16:4437-9070. Duration of fixation: 6.5 Hrs; Sample Adequate: Yes. These assays have not been validated on decalcified tissues. Results should be interpreted with caution given the likelihood of false negativity on decalcified specimens. These tests were developed and their performance characteristics determined by [facility]. They may not have been cleared or approved by the U.S. Food and Drug Administration. The FDA has determined that such clearance or approval is not necessary. The above immunohistochemical/dualISH markers are ordered and reviewed by the Pathologist. INTERPRETATION: A. Right axillary sentinel lymph nodes, biopsy: Two out of two lymph noes, negative for metastatic carcinoma. B. Right breast, mastectomy: Invasive lobular carcinoma. Five out of five lymph nodes, negative for metastatic carcinoma. Positive for estrogen receptors (favorable prognostic indicator). Negative for progesterone receptors (unfavorable prognostic indicator). Negative for overexpression of YHA6alw. This case has been reviewed in consultation with Dr. Lind who concurs with the above diagnosis. SJ:cj 10/10/19
--- NOTE | 2019-10-04 08:16 | NM_ITS ---
PROCEDURE: NUCLEAR MEDICINE Injection [place] Node - RIGHT breast(s). REASON FOR EXAM: Female, 69 years old. Right breast cancer. TECHNIQUE: [place] node localization using radionuclide methods of the RIGHT breast(s) was performed following subcutaneous administration of 1.1 mCi of of sulfur colloid Tc-99m. FINDINGS: 1.1 mCi of technetium labeled sulfur colloid was injected in 4 equal aliquots in the lower outer aspect of the right breast. NM/Lymph Node Injection Only IMPRESSION: Subcutaneous injection of 1.1 mCi of technetium sulfur colloid in the outer slightly lower quadrant of the right breast for sentinel node imaging. Electronically Signed: Jason Oreilly, at 9:54 EST , Service support ,
[2019-10-04] MEDS: Lactated Ringers 1,000 ML 75 ML IV (08:45)
[2019-10-04] MEDS: Cefazolin 2 GM in 0.9% Normal Saline 100 ML IV (11:06)
--- NOTE | 2019-10-04 11:06 | DCINST_ITS ---
Discharge Diet: No Restrictions Discharge Activity: May Not Drive - for 2-3 days or while taking narcotic pain meds., May Not Shower May shower in (days): 0 Lifting Restrictions: 10 pounds for 1 week. Call your doctor if your incision/area has: Continuous Slow Oozing, Sudden Increased Bleeding Call your doctor if you observe: Fever of 101 or Higher Suture Line Care: Avoid Pulling/Pushing, Avoid Pinching/Bending Remove Dressing in (days):: 1 Additional Dressing/Incision Instructions:: You may remove the dressings daily. The incision itself should not require care. Use a Q-tip and peroxide to cleanse around the drain sites. We cover with dry gauze and bias ply wrap. Empty, measure, and record the drain output and bring that recorded she in with you to the office appointment please Allergies/Adverse Reactions: Allergies haloperidol [From Haldol] Allergy (Severe, Verified 10/04/19 08:24) Other Medications to take at Discharge meloxicam 15 mg tablet 7.5 mg PO DAILY PRN 09/18/19 olanzapine 7.5 mg tablet 25 mg PO QHS 09/18/19 risperidone 4 mg tablet 1 mg PO DAILY 09/18/19 Albuterol IH (ProAir) [Proair Hfa] 1 - 2 puff INHALATION Q4H PRN PRN 10/01/19 Levothyroxine [Synthroid] 50 mcg PO DAILY 10/01/19 Risperidone 3.5 mg PO QHS 10/01/19 Umeclidinium Ava Inhaler [Incruse Ellipta Inhaler] 1 puff IH DAILY 10/01/19 Hydrocodone Bitart/Apap 5-325 [[place] 5MG-325MG] 1 tablet PO Q6H PRN PRN 2 Days #5 tablet 10/05/19 The following prescriptions were given: Hydrocodone Bitart/Apap 5-325 [[place] 5MG-325MG] 1 tablet PO Q6H PRN PRN 2 Days #5 tablet PRN Reason: Pain Transmission Status: Sent to [facility]/pharmacy #[id number] Primary Care Physician: Peng Sanchez MD [Primary Care Provider] - Please Follow Up With: Barron Bailey MD When: [phone] Appt. Zandra/Caio Monday 10/09
[2019-10-04] MEDS: Isosulfan Blue 1% 5 ML Vial (12:30)
--- NOTE | 2019-10-04 13:24 | PCM.OPRPT ---
Problem List (1) Cancer of right female breast Status: Acute Qualifiers: Breast location: central portion of breast Estrogen receptor status: positive Qualified Code(s): C50.111 - Malignant neoplasm of central portion of right female breast; Z17.0 - Estrogen receptor positive status [ER+] (2) Lobular carcinoma of breast Status: Acute Qualifiers: Laterality: right Report of Operation Date of Procedure: 10/04/19 Pre-Operative Diagnosis: Invasive lobular carcinoma central 9 o'clock position right breast Post-Operative Diagnosis: Same Surgery/Procedure Performed:: Right total mastectomy with right axillary nuclear tracer and blue dye sentinel lymph node biopsy Description of Surgical Findings:: Timeout and informed consent was obtained. 69-year-old female had nuclear tracer injected in radiology. She was subsequently taken the operating place upon the table. She underwent general anesthesia. The right arm was carefully wrapped with soft roll and placed at regular to the table. The right breast was prepped with alcohol. 2 and half cc cc of isosulfan blue dye was injected retroareolar area massage performed for 4 minutes. The right breast and axilla were sterilely prepped and draped. A transverse elliptical excision was performed of the right breast nipple areolar complex. Superior flaps were created first using sharp dissection electrocautery dissection. Hemostasis was obtained with electrocautery and hemoclips. The dissection was then performed so as to gain access to the right axilla. Blue dye tracking lymphatics were identified to 2 lymph nodes which were dissected free. They were submitted for pathology. Visual inspection of the right axilla failed to demonstrate any additional lymph nodes. The neoprobe was not utilized today intraoperatively. The blue dye tracking was very clear. Inferior flap was now created again with electrocautery. The right breast was taken off the pectoralis major including the fascia with the specimen using electrocautery. Then it was dissected free laterally. A suture was placed in the more axillary tissue area of the specimen. The right chest wall was irrigated with sterile water. Hemostasis was assured. 215 round MAHAMED drains were exited inferiorly and laterally and secured there with 3-0 nylon. The medial drain went to the inferior and superior flaps well the lateral drain went to the axilla and was trimmed. Multiple pleating stitches of 3-0 Vicryl now placed to complete the flaps to the chest wall. The wound was then closed with multiple interrupted 3-0 Vicryl subdermal sutures. Steri-Strips Telfa bulky dry dressings sponge and instrument and needle counts reported to surgically correct. Blood loss was quite minimal at less than 100 cc. She tolerated the procedure well was taken to the recovery room in satisfactory edition without apparent complication. Specimens right axillary sentinel lymph nodes x2. Right mastectomy specimen. Drains two 15 round MAHAMED drains. Blood loss less than 100 cc. Barron Bailey M.D., F.A.C.S. Type of Anesthesia:: General Anesthesiologist: Marvin Bhatti
[2019-10-04] MEDS: Lactated Ringers 1,000 ML 30 ML IV (15:55)
[2019-10-04] MEDS: HYDROcodone Bitartrate/Apap 5/325 Tablet PO (15:55)
[2019-10-04] MEDS: Ipratropium 0.5 MG/2.5 ML SOLUTION INHALATION (19:22)
[2019-10-04] MEDS: OLANZapine 10 MG Tablet 25 MG PO (21:36)
[2019-10-04] MEDS: RisperiDONE 1 MG Tablet 3.5 MG PO (21:37)
[2019-10-05] VITALS (7 sets, daily range): BP systolic 113–120; BP diastolic 55–68; PULSE 72–82; RESP 16–18; TEMP 36.9–37.4; O2SAT 84–94
--- NOTE | 2019-10-05 05:48 | PCM.PN.SRG ---
Subjective: Pt very lethargic C/o back pain - Physical Exam Vitals/I&O's: Vital Signs Temp Pulse Resp BP Pulse Ox 98.4 F 75 18 113/64 94 10/05/19 01:27 10/05/19 01:27 10/05/19 01:33 10/05/19 01:27 10/05/19 01:33 Oxygen Flow Rate (L/min) 2 Oxygen Delivery Method Nasal Cannula Weight: 177 lb 0.499 oz Body Mass Index (BMI) 28.1 Intake and Output for Last 24 Hours 10/03/19 10/04/19 10/05/19 23:59 23:59 23:59 Intake Total 1573.75 / 1573.75 Output Total 82 / 82 Balance 1491.75 / 1491.75 Lungs: Clear to auscultation, - - right chest clean wound, JPs serosanquinous Current Medications Acetaminophen (Tylenol) 650 mg PO Q6H PRN PRN PRN Reason: Pain Score 1-10/10 Hydrocodone Bitart/Acetaminophen ([place] 5mg-325mg) 1 - 2 tablet PO Q4H PRN PRN PRN Reason: Pain Score 1-10/10 Last Admin: 10/04/19 15:55 Dose: 2 tablet Documented by: Albuterol Sulfate (Ventolin Aerosols) 2.5 mg INHALATION Q4H PRN PRN Reason: SHORTNESS OF BREATH Lactated Ringer's () 1,000 mls @ 30 mls/hr IV .[id number] [facility] Last Admin: 10/04/19 15:55 Dose: 30 mls/hr Documented by: Ipratropium [place] (Atrovent) 0.5 mg INHALATION Q6HWA.RT [facility] Last Admin: 10/04/19 19:22 Dose: 0.5 mg Documented by: Levothyroxine Sodium (Synthroid) 50 mcg PO DAILY@0600 [facility] Meloxicam (Mobic) 7.5 mg PO DAILY PRN PRN Reason: Pain or Fever Olanzapine (Zyprexa) 25 mg PO QHS [facility] Last Admin: 10/04/19 21:36 Dose: 25 mg Documented by: Ondansetron HCl (Zofran) 4 mg IV Q8H PRN PRN PRN Reason: NAUSEA Risperidone (Risperdal) 3.5 mg PO QHS [facility] Last Admin: 10/04/19 21:37 Dose: 3.5 mg Documented by: Risperidone (Risperdal) 1 mg PO DAILY VÍCTOR Sodium Chloride () 10 - 40 ml IV UD PRN PRN Reason: SALINE FLUSH Medical Necessity - Tobacco Use Smoking Status: Former smoker Assessment/Plan All Active Problems (Last Reviewed 09/25/19 @ 13:00 by Karen Shook) Cancer of right female breast (Acute) Lobular carcinoma of breast (Acute) Discharge today Back pain likely secondary to bedrest and lack of mobilization Dressing change today
[2019-10-05] MEDS: Levothyroxine 50 MCG Tablet PO (05:49)
[2019-10-05] MEDS: 0.9% Saline Lock 10 ML Syringe IV (06:15)
[2019-10-05] MEDS: Ipratropium 0.5 MG/2.5 ML SOLUTION INHALATION (07:10)
[2019-10-05] MEDS: RisperiDONE 1 MG Tablet PO (07:59)
[2019-10-05] MEDS: HYDROcodone Bitartrate/Apap 5/325 Tablet PO ×2 (07:59→14:16)
--- NOTE | 2019-10-05 09:16 | CASEMGMT ---
Social Work Note MARGOT reviewed chart, pt has recent diagnosis of breast cancer and had mastectomy. SW met with pt and introduced self and role at [facility]. Pt is alert and orientated x3. Pt's sister present in room and pt gave this worker permission to speak to her in front of her guest. Pt states that she recently moved from [place], [place] and confirms she was recently diagnosed with breast cancer. Pt states that she has good support through her family and friends and has had lots of prayers. SW offered support to pt. Pt denied additional needs or concerns at this time, states she was previously independent with ADLs. Hoa Massey [employer], [employer] JOINTER
--- NOTE | 2019-10-05 09:57 | NURSING ---
Was asked to see patient for dressing and drain care. dressing changed with patient's sister Katherine. Katherine states she lives with patient and plans to help her at home. there was minimal old drainage noted on the dressing. incision is well approximated with steri strips in place. cleaned around the drains with peroxide. applied new split gauze followed by gauze pad and taped over entire dressing. showed sister how to empty drains and record drainage to take to follow up appt. sister states understanding and denies further questions. supplies will be sent home with patient. dates for support group given to patient as well.
--- NOTE | 2019-10-05 10:30 | CASEMGMT ---
Addendum entered by Fredrick Carrasco 10/05/19 16:42: 1430: Per MIKE Multani, oxygen has been delivered to pt's room. 1330: Per MIKE Multani, home oxygen testing completed again this afternoon and findings remained the same. Pt qualifies for O2 @ 2 L/M continuously and 4 L/M w/exertion. Addendum entered by Fredrick Carrasco 10/05/19 16:40: 1330: Pt qualifies for Home O2. RN HUGO to room to talk with pt/sister. Given list of local DME companies. [employer] is 1st choice. Script obtained from Dr Bailey's office and faxed to [employer]. Call placed to Vira @ [employer] and she was made aware. She states will have oxygen delivered to pt's room soon. Original Note: RN CM TELECOMMUNICATIONS CONSULTANT CM to room to meet with patient for initial transition planning/care coordination assessment. MIKE ARIAS introduced self and role at [facility]. Pt voices understanding and consents to assessment at this time. Pt sitting up in recliner chair in no distress at this time. SisterKatherine, @ bedside. Pt is A/O at this time. Pt able to answer questions, but Katherine lau, able to give more detail and provide more information. Care providers, pharmacy, and demographics verified/updated at this time. PCP: Dr Peng Sanchez Specialists: Dr Weldon--oncology, Dr Any Bailey Preferred Pharmacy: [facility] [place] Insurance: MCR, [employer] Prescription Benefit: Yes Living Will/HPOA: does not have LW or HCPOA . Interested in more information but does not want to talk with SW at this time to complete paperwork. Provided information on advanced directives and given Social Service rac card with number to call if chooses in the future to utilize [facility] social work for advanced directive completion. LNOK: Katherine Lau. Also has a brother. Living Arrangements: Lives with her sister. Independent with ADL's. Pt/sister share home mgmt tasks. Transportation: Sister. Denies transportation concerns. DME: has the following DME: cane. Does not have home O2. Has a shower chair and walker available but does not use. Pt states no need for further DME at this time. HHC/SNF: No history of either. Denies needs. Pt states she just finished OP PT @ [facility] after a compression fx. Denies needing further therapy at this time. Pt wishes to return home and states has no concerns with going home at time of discharge. CM to follow for home oxygen needs and any further discharge planning/needs. Pt voices no further concerns/needs at this time. Advised pt to ask for CM if any further questions/concerns/needs arise. Voices understanding. PLAN: Home w/family support and discharge plans in place. Follow for Home oxygen needs. Emerson DONG RN CM
--- NOTE | 2019-10-05 10:33 | NURSING ---
Tried to wean off 2L oxygen. Room air pulse ox at rest was 84%. 2L applied while sitting in the chair and oxygen saturation improved to 92%. Walked lap in [place] and pt required 4L oxygen to maintain saturation at 91%. Dr. Bailey updated as well as case management. Sister and pt would like to walk again after lunch to see if there are any improvements. Will keep case management updated on oxygen requirements.
== END 2019-10-05 15:12 | disposition home or self-care (01) | DRG 581 ==
LOC: SDC 10-05 06:56 → MS3 10-05 06:56
PROVIDERS: Anesthesiology; Admitting Provider Surgery; PCP Family Medicine; Referring Provider Surgery; Visit Provider Surgery
PROC: 0HTT0ZZ Resection of Right Breast, Open Approach (ICD-10-PCS; CPT 19307; principal; 2019-10-04 10:45)
DX: C50.111 Malignant neoplasm of central portion of right female breast (principal); F20.9 Schizophrenia, unspecified; J43.2 Centrilobular emphysema; Z87.891 Personal history of nicotine dependence
CPT/HCPCS: 38792; 71046; 80053; 84443; 85027; 88305; 88307; 88309; 88331; 88332; 88341; 88342; 94640; 99251; 99406; A9541; J7120; A4216; G0463; J2405; Q9968

== ENCOUNTER → 2020-03-04 11:04 | Outpatient (CLI) | payer MEDICARE, OTHER, SELFPAY ==
[2020-01-16 13:29] VITALS: BMI 27.6
[2020-03-04 11:00] VITALS: PULSE 74; PULSE 81; PULSE 86; PULSE 95; PULSE 96; PULSE 97; PULSE 98; PULSE 99; O2SAT 85; O2SAT 90; O2SAT 91; O2SAT 92; O2SAT 94
--- NOTE | 2020-03-04 11:54 | CPS ---
Pt arrived on RA with saturation of 90%. At 1 min pt was 85% on RA. Test was stopped and pt was placed on 2lpm. SPO2 increased to 96%. Remainder of test performed with 2 lpm. Tomy and monet notified. Pt picking tank up from [facility]
--- NOTE | 2020-03-04 13:13 | WT_ITS ---
PSN 6 Minute Walk Test - 6 Minute Walk Test 6 Minute Walk Test: 6 Minute Walk Test PSN:6-Minute Walk Test Start: 03/04/20 11:48 Freq: Status: Active Protocol: RESP.6MINW Document 03/04/20 11:00 [facility] (Rec: 03/04/20 12:00 [facility] [id number]) 6 Minute Walk Test Date Performed 03/04/20 Time Performed 11:00 Height 5 ft 6 in Weight: 75.189 kg Weight in Pounds 165.[address]: Dr Morataya Assistive device used: None Pre-test Oxygen Delivery Method Room Air Pulse Ox (%) 90 Pulse Rate (60-100 beats/min) 74 Dyspnea Pradip Scale (0-10) 0 Exertion Pradip Scale (6-20) 6 1st minute Oxygen Delivery Method Room Air Pulse Ox (%) 85 Pulse Rate (60-100 beats/min) 86 Dyspnea Pradip Scale (0-10) 2 Exertion Pradip Scale (6-20) 10 Number of Rests Taken 1 2nd minute Oxygen Flow Rate (L/min) (L/min) 2 Oxygen Delivery Method Nasal Cannula Pulse Ox (%) 94 Pulse Rate (60-100 beats/min) 97 3rd minute Oxygen Flow Rate (L/min) (L/min) 2 Oxygen Delivery Method Nasal Cannula Pulse Ox (%) 92 Pulse Rate (60-100 beats/min) 98 4th minute Oxygen Flow Rate (L/min) (L/min) 2 Oxygen Delivery Method Nasal Cannula Pulse Ox (%) 94 Pulse Rate (60-100 beats/min) 95 5th minute Oxygen Flow Rate (L/min) (L/min) 2 Oxygen Delivery Method Nasal Cannula Pulse Ox (%) 92 Pulse Rate (60-100 beats/min) 96 6th minute Oxygen Flow Rate (L/min) (L/min) 2 Oxygen Delivery Method Nasal Cannula Pulse Ox (%) 91 Pulse Rate (60-100 beats/min) 99 Dyspnea Pradip Scale (0-10) 1 Exertion Pradip Scale (6-20) 8 Post-test Oxygen Delivery Method Room Air Pulse Ox (%) 92 Pulse Rate (60-100 beats/min) 81 Full Laps Walked 11 Partial Lap, Number of Tiles Walked 0 Total Distance Walked (ft) 649 03/04/20 11:54 Cardiopulmonary Services by Rhonda Mckenna Pt arrived on RA with saturation of 90%. At 1 min pt was 85% on RA. Test was stopped and pt was placed on 2lpm. SPO2 increased to 96%. Remainder of test performed with 2 lpm. Tomy and monet notified. Pt picking tank up from [facility] Initialized on 03/04/20 11:54 - END OF NOTE - Interpretation Interpretation: The patient was noted to be 90% on room air at rest. However, patient desaturated to 85% within the first minute. The patient was then placed on 2 L nasal cannula for the remaining the study. In total, the patient traveled 649 feet over the course of 6 minutes with no assistive devices. No significant tachycardia was noted. These findings are consistent with a respiratory limitation exercise tolerance. - Recommendations Recommendations: The patient requires no supplemental oxygen at rest, but should be using 2 L nasal cannula with any exertion.
== END ==
PROVIDERS: PCP Family Medicine; Referring Provider Internal Medicine Critical Care Medicine; Visit Provider Internal Medicine Critical Care Medicine
DX: J43.9 Emphysema, unspecified (principal)
CPT/HCPCS: 94618

== ENCOUNTER → 2020-09-02 12:02 | Outpatient (CLI) | payer MEDICARE, OTHER, SELFPAY ==
[2020-03-24 09:40] VITALS: BMI 28.0
[2020-07-23 14:50] VITALS: BMI 30.2
--- NOTE | 2020-09-02 12:05 | BI_ITS ---
MAMMOGRAPHY - UNILATERAL SCREENING: LEFT BREAST REASON FOR EXAM: Female, 70 years old. Routine annual screening examination (unilateral). PERTINENT HISTORY: Personal history of breast cancer. Prior right mastectomy. TECHNIQUE: Digital unilateral breast bhavna (3D mammographic acquisition) in the CC and MLO projections. 2-D mediolateral oblique (MLO) and craniocaudad (CC) views of both breasts were obtained. CAD: Full Field Digital Mammography with Computer Added Detection was performed. COMPARISON: Comparison is made with prior outside examination dated 08/06/2019. FINDINGS: Breast Composition: The breasts are heterogeneously dense, which may obscure small masses. Possible new 1.5 cm nodular density in the medial retroareolar region of the left breast No other significant abnormalities are identified. BI/SCREEN MAMM (CAD) W/BHAVNA UNI L IMPRESSION: Possible new 1.5 cm nodular density in the medial retroareolar region of the left breast. Correlation with ultrasound is recommended. ASSESSMENT CATEGORY: BIRADS Category 0: Incomplete. Need additional imaging evaluation. A letter regarding these results will be sent to the patient by the facility within 30 days. Approximately 10% of breast cancers are not detected by mammography. A normal mammogram should not delay biopsy of a clinically suspicious abnormality. [id number] Electronically Signed: Jason Oreilly MD at 14:11 EST , Service support ,
== END ==
PROVIDERS: PCP Family Medicine; Referring Provider Surgery; Visit Provider Surgery
DX: Z12.31 Encounter for screening mammogram for malignant neoplasm of breast (principal)
CPT/HCPCS: 77063; 77067

== ENCOUNTER → 2020-09-03 11:03 | Outpatient (CLI) | payer MEDICARE, OTHER, SELFPAY ==
--- NOTE | 2020-09-03 11:05 | US_ITS ---
STUDY: ULTRASOUND BREAST - LEFT REASON FOR EXAM: Female, 70 years old. Abnormal screening mammogram. TECHNIQUE: Axial and longitudinal images of the LEFT breast were performed with a high resolution ultrasound transducer. # OF IMAGES: 58 COMPARISON: Comparison is made with prior mammogram dated 09/02/2020. FINDINGS: LEFT Breast: The area of concern was examined by ultrasound. There is dense fibroglandular tissue. No sonographic abnormality is seen. US/Breast Limited Unilateral IMPRESSION: No sonographic abnormality is seen. ASSESSMENT CATEGORY: BIRADS Category 1: Negative. A letter regarding these results will be sent to the patient by the facility within 30 days. Electronically Signed: Jason Oreilly MD at 13:34 EST , Service support ,
== END ==
PROVIDERS: PCP Family Medicine; Referring Provider Surgery; Visit Provider Surgery
DX: R92.8 Other abnormal and inconclusive findings on diagnostic imaging of breast (principal)
CPT/HCPCS: 76642

== ENCOUNTER → 2020-09-16 15:49 | Outpatient (CLI) | payer MEDICARE, OTHER, SELFPAY ==
--- NOTE | 2020-09-16 14:30 | PET_ITS ---
EXAMINATION: FDG PET/CT INDICATIONS: A 70-year-old female with reported history of pulmonary nodularity. COMPARISON EXAMINATION: CT of the chest report dated 09/02/20 TECHNIQUE: Following the intravenous administration of 14.6 mCi of F-18 deoxyglucose via the left antecubital fossa, multiplanar image acquisitions of the neck, chest, abdomen and pelvis to level of mid thigh, obtained at one hour post radiopharmaceutical administration contemporaneously interpreted with the current CT of the neck, chest, abdomen and pelvis to level of mid thigh, dated 09/16/[address] of the chest report dated 09/02/20 reveal: SERUM GLUCOSE LEVEL: 90 mg/dl. HEIGHT: 66 inches. WEIGHT: 175 lbs. FINDINGS: 1. There is no quantitative scintigraphic evidence of abnormal increased glucose metabolism within the context of the right hemithorax pulmonary parenchyma-right middle lobe to correlate with structural changes noted on review of CT of the thorax dated 09/16/20. 2. Normal physiologic distribution of the radiopharmaceutical is apparent in the hepatic and splenic parenchyma, both renal units, bladder and visualized intestinal tract. The visualized portion of the cerebral cortex demonstrate symmetric and preserved glucose metabolism. Diffuse radiopharmaceutical concentration is noted in all four quadrants of the abdomen and pelvis. Prominent uptake is defined in the left ventricular myocardium commensurate with the [place]. (Jeny and Sheila, Journal of Nuclear Medicine Technology 31:3, 2003). Pertinent CT findings are as follows: CHEST: There is atherosclerotic calcification defined in the thoracic aorta without evidence of dilatation-aneurysm formation. Coronary arterial calcification is observed. Bilateral axillary soft tissue densities with fatty hilus are ametabolic. Surgical clip placement is noted in the right axillary region. The right breast is surgically absent. Emphysematous changes are defined in the bilateral upper lung zones. Parenchymal densities defined in the right lower anterior lung-right middle lobe, right lower posterior lung-right lower lobe reveal no evidence of increased tracer uptake. ABDOMEN AND PELVIS: There is atherosclerotic calcification defined in the abdominal aorta without evidence of dilatation-aneurysm formation. Pelvic arterial calcification is observed. The urinary bladder appears distended. Right and left inguinal soft tissue densities reveal no evidence of increased tracer uptake. SKELETAL: Degenerative changes are noted in the cervical, thoracic and lumbar spine without evidence of increased radiopharmaceutical concentration. PET/PET/CT Tumor Base -Thigh Init IMPRESSION: 1. NEGATIVE EXAMINATION. There is no quantitative scintigraphic evidence of abnormal increased glucose metabolism within the context of the right lower anterior lung-right middle lobe and right lower posterior lung-right lower lobe to correlate with structural changes noted on review of CT of the thorax dated 09/16/20. 2. Anatomic stability may be ensured in the nonglucose avid right middle and right lower lobe parenchymal densities with repeat CT of the thorax in 3-6 months if clinically indicated. (Mic, Seminars in Thoracic and Cardiovascular Surgery 14:292, 2002). Electronic Signature Bandar Tom D.O. Accurate Quantification of SUVs for this report are calculated using the exclusive [employer]? Technology.??Exclusive U.S. Patent [employer]an? Technology (U.S. Patent No. [id number] [id number]). Electronically Signed: Bandar Tom DO at 22:59 EST Tel , Service support ,
== END ==
PROVIDERS: PCP Family Medicine; Referring Provider Nurse Practitioner Acute Care; Visit Provider Nurse Practitioner Acute Care
DX: R91.8 Other nonspecific abnormal finding of lung field (principal)
CPT/HCPCS: 78815; A9552

== ENCOUNTER → 2020-09-17 11:33 | Outpatient (CLI) | payer MEDICARE, OTHER, SELFPAY ==
[2020-07-23 14:50] VITALS: BMI 30.2
--- NOTE | 2020-09-17 11:35 | MRI_ITS ---
STUDY: BILATERAL BREAST MR WITHOUT AND WITH CONTRAST REASON FOR EXAM: Female, 70 years old. History of right breast cancer status post mastectomy. Follow-up. TECHNIQUE: Multi-sequence multi-echo imaging of both breasts was performed with a dedicated breast coil. T1-weighted and T2-weighted images were performed before the administration of contrast. T1-weighted images were also performed after the administration of IV Yes without complications. COMPARISON: Mammogram dated 09/02/2020 and left breast ultrasound dated 09/03/2020. FINDINGS: RIGHT BREAST: Right mastectomy. No abnormality of the mastectomy site. LEFT BREAST: The breast tissue is heterogeneously dense with minimal background enhancement. There are no abnormal enhancing masses or areas of non-mass enhancement in the left breast. There are no enlarged or abnormal lymph nodes. There is no abnormality in the visualized regions of the chest or liver. MRI/Breast Bilateral W/O and W IMPRESSION: Changes of right mastectomy with no abnormality in the mastectomy site. Left breast shows no suspicious nodules. Yearly follow-up mammogram would be appropriate. CATEGORY: BIRADS Category 2: Benign. A letter regarding these results will be sent to the patient by the facility within 30 days. Electronically Signed: Jay Romero MD at 13:58 EST , Service support ,
== END ==
PROVIDERS: PCP Family Medicine; Referring Provider Surgery; Visit Provider Surgery
DX: R92.8 Other abnormal and inconclusive findings on diagnostic imaging of breast (principal); C50.911 Malignant neoplasm of unspecified site of right female breast
CPT/HCPCS: 77049; A9575; C8908

== ENCOUNTER → 2020-09-18 10:55 | Outpatient (CLI) | payer MEDICARE, OTHER, SELFPAY ==
[2020-06-18 12:51] VITALS: BMI 29.2
[2020-07-23 14:50] VITALS: BMI 30.2
--- NOTE | 2020-09-18 14:41 | PFTCOMP ---
COMPLETE PULMONARY FUNCTION TEST INTERPRETATION Brief HPI: Patient is a 70 year old female, currently under the care of myself, who presents to [facility] for complete pulmonary function tests secondary to diagnosis of chronic respiratory failure. Respiratory therapist reports good effort and reproducible results. Interpretation: Forced expiration spirometry shows a moderate large airways obstructive ventilatory defect with an FEV1 of 66% predicted. There is no significant bronchodilator response by strict ATS criteria. Spirograms are of good quality and plateau slowly, indicating slowly emptying areas of the lungs. The respiratory flow volume loop shows decreased expiratory flow rates at all lung volumes consistent with airway obstruction. Lung volumes by body plethysmography show a normal total lung capacity at 5.17 L, 99% predicted. All other lung volumes are within normal limits. Diffusion capacity by carbon monoxide is decreased at 52% predicted. The airway resistance is normal. Compared to previous pulmonary function tests from 09/21/2019, there is been a significant improvement in FVC and FEV1 by 15% and 20% respectively. Impression: Irreversible moderate large airways obstructive ventilatory defect with a symmetric reduction diffusing capacity, but some improvement compared to previous testing.
== END ==
PROVIDERS: PCP Family Medicine; Visit Provider Internal Medicine Critical Care Medicine
DX: J96.11 Chronic respiratory failure with hypoxia (principal)
CPT/HCPCS: 94060; 94726; 94729

== ENCOUNTER → 2021-01-13 11:00 | Outpatient (CLI) | payer MEDICARE, OTHER, SELFPAY ==
[2020-10-27 15:08] VITALS: BMI 30.7
[2021-01-13 12:25] LABS: Absolute Lymphocyte Count 1.87 X10^3/uL (0.83-4.51); Absolute Neutrophil Count 4.6 X10^3/uL (2.0-7.7); Basophil# 0.07 X10^3/uL; Eosinophil# 0.08 X10^3/uL; Eosinophils% 1.1 % (0-5); Hematocrit 41.4 % (37-47); Lymphocyte # 1.87 X10^3/ul (0.83-4.51); Mean Corp Hgb Conc 31.4 g/dL (32-36); Mean Corpuscular Hgb 27.7 pg (27.0-32.0); Mean Corpuscular Volume 88.1 fL (81-99); Mean Platelet Vol. 9.3 fl (6.2-12.0); Monocyte# 0.59 X10^3/uL; Monocyte% 8.2 % (0-10); NRBC Flagged by Analyzer 0 % (0-5); Neutrophil # 4.55 X10^3/uL (2.7-7.7); Neutrophil % 63.4 % (47-70); Platelet Count 359 K/mm3 (150-450); RBC Distribution Width CV 12.2 % (11.6-14.6); RBC Distribution Width SD 39.7 fl (35.1-43.9); White Blood Count 7.2 K/mm3 (4.4-11.0)
[2021-01-13 12:56] LABS: ALB/GLOB Ratio 1.2 RATIO (0.9-2.4); AST(SGOT) 12 U/L (15-37); Alanine Aminotransfer ALT/SGPT 28 U/L (13-56); Albumin, Serum 3.7 g/dL (3.2-5.0); Alkaline Phosphatase 43 U/L (45-117); Anion Gap 7 (5-15); BUN 8 mg/dL (7-18); BUN/Creat Ratio 12.5 RATIO (10-20); Calcium,Total 8.5 mg/dL (8.5-10.1); Chloride 99 mmol/L (98-107); Creatinine, Serum 0.64 mg/dL (0.55-1.02); EST Glomerular Filtration Rate 97 mL/min (>60); Est Glom Filt Rate - Afr Amer 117 mL/min (>60); Glucose 114 mg/dL (74-106); Potassium 4.5 mmol/L (3.5-5.1); Protein, Total 6.7 g/dL (6.4-8.2); Sodium Level 133 mmol/L (136-145); Thyroid Stim Hormone (TSH) 4.01 uIU/mL (0.358-3.74)
== END ==
PROVIDERS: PCP Family Medicine; Referring Provider Family Medicine; Visit Provider Family Medicine
DX: E03.9 Hypothyroidism, unspecified (principal)
CPT/HCPCS: 36415; 80053; 84443; 85025

== ENCOUNTER → 2021-02-05 15:44 | Outpatient (CLI) | payer MEDICARE, OTHER, SELFPAY ==
[2021-01-22 10:47] VITALS: BMI 29.6
== END ==
PROVIDERS: PCP Family Medicine; Referring Provider Family Medicine; Visit Provider Family Medicine
DX: K52.9 Noninfective gastroenteritis and colitis, unspecified (principal)
CPT/HCPCS: 87177; 87209

== ENCOUNTER → 2021-02-06 11:34 | Outpatient (CLI) | payer MEDICARE, OTHER, SELFPAY ==
[2021-01-22 10:47] VITALS: BMI 29.6
== END ==
PROVIDERS: PCP Family Medicine; Referring Provider Family Medicine; Visit Provider Family Medicine
DX: K52.9 Noninfective gastroenteritis and colitis, unspecified (principal)
CPT/HCPCS: 87493; 87506

== ENCOUNTER 2021-03-27 08:22 | Day surgery (SDC) | payer MEDICARE, OTHER, SELFPAY ==
[2021-03-06 09:11] VITALS: BMI 29.2
--- NOTE | 2021-03-27 08:29 | PCM.HP.BLA ---
History and Physical Date of Admission: 03/27/21 Intake Visit Reasons: Diarrhea Chief Complaint: diarrhea [employer] Supervisor Required: No Is patient in pain?: No Allergies haloperidol [From Haldol] Allergy (Severe, Verified 03/06/21 09:12) Other Medications meloxicam 15 mg tablet 7.5 mg PO DAILY PRN 09/18/19 [History Confirmed 03/06/21] olanzapine 7.5 mg tablet 25 mg PO QHS 09/18/19 [History Confirmed 03/06/21] risperidone 4 mg tablet 1 mg PO DAILY 09/18/19 [History Confirmed 03/06/21] levothyroxine 50 mcg PO DAILY 10/01/19 [History Confirmed 03/06/21] risperidone 3.5 mg PO QHS 10/01/19 [History Confirmed 03/06/21] albuterol sulfate 90 mcg/actuation aerosol inhaler 1 - 2 puff INHALATION Q4H PRN PRN #18 g 09/24/20 [Rx Confirmed 03/06/21] umeclidinium 62.5 mcg-vilanterol 25 mcg/actuation powdr for inhalation 1 inh INHALATION Q24H #60 ea 09/24/20 [Rx Confirmed 03/06/21] anastrozole 1 mg tablet 1 mg PO DAILY #90 tab 01/22/21 [Rx Confirmed 03/06/21] bhqspvu-jewxevhlm-pqex 333 mg-133 mg-5 mg tablet tab PO 01/22/21 [History Confirmed 03/06/21] cholecalciferol (vitamin D3) 25 mcg (1,000 unit) tablet 25 mcg PO DAILY 01/22/21 [History Confirmed 03/06/21] inositol-choline qky-wwkldpkgb-taw B complex and C 500 mg tablet tab PO 01/22/21 [History Confirmed 03/06/21] multivitamin 1 tab PO DAILY 01/22/21 [History Confirmed 03/06/21] dicyclomine 20 mg tablet tablet PO 03/06/21 [History Confirmed 03/06/21] [facility] Medical History (Updated 03/06/21 @ 09:[address] Barron Bailey MD) Abnormal mammogram of left breast Back pain Breast cancer COPD (chronic obstructive pulmonary disease) with emphysema Hypothyroid Lobular carcinoma of breast Nausea Schizophrenia Surgical History History of right mastectomy (~09/2019) S/P arteriovenous (AV) fistula creation S/P breast biopsy S/P tonsillectomy Family History Mother No problems noted. Grandfather No problems noted. Father Leukemia Social History Smoking Status: Former smoker alcohol intake: current alcohol intake frequency: a few times a week HPI HPI HPI: MK ERIC, is a 70 F who presents to the office today for surgical consultation regarding chronic diarrhea. The patient is being referred by Dr. Peng Sanchez and a written copy of my surgical consult and recommendations will return to him. One of the patient's additional complaints is that she is having nausea. Complaining that her stomach is bothering her. She states her symptoms are somewhat better after eating.. Patient is accompanied by her sister today. She has not noticed any bright red blood per rectum or melena. For 3 to 4 months though she has had distinct change in bowel habits. Much looser stools. She thinks her previous colonoscopy was 5 years ago. She thinks there were polyps present then. She has not had unexpected weight loss. As of January 22, 2021 white count was 8.2 with a hemoglobin 13.1 hematocrit 40.3 platelet count 317,000. BUN was 9 creatinine 0.73. Liver function tests essentially normal. Ova and parasite exam on February 05 was unremarkable ROS General General: Yes weight change, fatigue and breast cancer; No appetite, colon cancer or weakness HEENT HEENT: No difficulty swallowing, eye injury, eye surgery, swollen glands or hoarseness Endo Endocrine: No thyroid disease, diabetes mellitus, thyroid cancer, Hair loss, heat intolerance or cold intolerance Skin Skin: No rash or changing moles Breast Breast: No left breast lump, right breast lump, nipple discharge, breast pain, abnormal mammogram, abnormal US or breast enlargement Musc Musculoskeletal: No back problems, arthritis, rheumatoid arthritis, gout or joint pain Cardio Cardiovascular: No murmur, pacemaker, heart disease, atrial fibrillation, high blood pressure, heart attack, heart stent, palpitations, shortness of breat with exertion or chest pain Psych Psychiatric: Yes depression; No anxiety or hearing voices Resp Respiratory: Yes shortness of breath, No sleep apnea, No cough, Yes COPD, No asthma, No emphysema and No wheezing Gastro Gastrointestinal: No abdominal pain, No nausea or vomiting, Yes diarrhea, No constipation, No blood in stool, Yes acid reflux, No hemorrhoids, No ulcers, No gallbladder problem and No black,tarry stools Rajendra Hematologic: No blood thinners, No blood disorders, No bleeding, No anemia and No blood clots Neuro Neurologic: No system reviewed and no additional complaints, except as documented, No as per HPI, No abnormal gait, No abnormal hearing, No abnormal movements, No abnormal speech, No behavioral changes, No burning sensations, No confusion, No convulsions, No disequilibrium, No dizziness, No localized weakness, No frequent falls, No headache(s), No lack of coordination, No loss of vision, No memory loss, No numbness, No other visual disturbances, No radicular pain, No restless legs, No sensory deficit, No syncope, No tingling, No tremor(s), No weakness and No other Exam Const General: cooperative, comfortable and no acute distress Nutritional Appearance: overweight HENMT Head: normal to inspection Eyes General: appearance normal, both eyes and all related structures Resp Effort & Inspection: normal respiratory effort Auscultation: clear to auscultation bilaterally Cardio Rate: regular rate Rhythm: regular rhythm GI Palpation: soft Percussion: normal to percussion Musc Cervical Spine: normal cervical lordosis Skin General: no rashes or lesions noted Neuro General: patient alert and patient awake Extrem General: no calf tenderness Psych Affect: flat COVID (Procedure Consent) Procedure Criteria Procedure Criteria: Yes Elective The surgeon/proceduralist and patient have discussed in detail the risk of exposure to and/or potential harm posed by the COVID-19 virus with having a surgery/procedure at this time versus the risk of delaying the surgery/procedure. It is not possible to know either the risk of delaying the surgery or procedure or chance of getting an infection with perfect accuracy, but a joint decision was made between the patient and the surgeon/proceduralist to proceed at this time with the scheduled surgery/procedure as indicated on the consent form. Assessment and Plan Assessment and Plan (1) Diarrhea: Qualifiers: Diarrhea type: unspecified type Qualified Code(s): R19.7 - Diarrhea, unspecified (2) Heartburn: Status: Acute Plan - Dr. Barron Bailey MD: 70-year-old female. She has problems with aggravated generalized abdominal discomfort cramping increased heartburn and looser stools. Previous colonoscopy about 5 years ago. Report verbally of colon polyps. This exam might have been performed at [facility]. The patient is accompanied by her sister. The patient does have schizophrenia. I propose for her a esophagogastroduodenoscopy with possible biopsy very careful inspection for any type of upper GI discomfort. I propose for her a colonoscopy with possible biopsy or polypectomy as indicated. Careful inspection and/or biopsy of potential source for looser diarrheal stools. She has had an opportunity to ask and have questions answered. We will schedule and proceed at her discretion. I very much appreciate the kind opportunity of continue to assist with her surgical care. Copy: Dr. Peng Bailey M.D., F.A.C.S. I have re-examined the patient. There are no clinical changes since date of exam.
[2021-03-27 08:57] VITALS: BP 115/77; PULSE 79; RESP 16; TEMP 36.3; O2SAT 94; BMI 28.7
[2021-03-27] MEDS: Lactated Ringers 1,000 ML 100 ML IV (09:17)
--- NOTE | 2021-03-27 09:30 | COLBX_PTH ---
PATIENT: MK ERIC LOC: EN U#:[id number] AGE/SX: 70/F ROOM: RE03/27/[address]: Dr. Barron Bailey MD : 1950 BED: DIS: 03/27/2021 SPEC #: [id number] RECD: 03/27/21 10:54 STATUS: ERIKA STOUT #: [id number] KEATON: 03/27/21 09:[address]: Barron Bailey DEPT: SURGICAL PATHOLOGY RECD BY: Preethi Wells ENTERED: 03/27/21 14:00 SP TYPE: COLON BX OTHR DR: Dr. Peng Sanchez MD Tissues: A - Duodenum, NOS B - Gastric mucous membrane C - Esophagus, NOS D - Colon, NOS E - Descending colon Procedures: Surgery Specimen Level IV HEADER OPERATION: Colonoscopy, EGD ([facility] [place]) PRE-OP DIAGNOSIS: Diarrhea, heartburn TISSUE SUBMITTED: A ? Duodenum biopsy, B ? Antrum biopsy for H. pylori and path, C ? Distal esophagus biopsy, D ? Random colon biopsy, E ? Descending colon polyp biopsy MICROSCOPIC DIAGNOSIS A. Duodenum, biopsy: A fragment of small intestine mucosa, no pathologic diagnosis. B. Antrum, biopsy: Mild gastritis. See microscopic description and comment. C. Distal esophagus, biopsy: Fragments of squamous mucosa with changes consistent with gastroesophageal reflux disease. Mild chronic inflammation. D. Colon, random biopsy: Fragments of colonic mucosa, no pathologic diagnosis. E. Descending colon polyp, biopsy: A fragment of colonic mucosa, no pathologic diagnosis.. See comment. SJ:cj 03/30/2021 COMMENT B. The results of immunohistochemistry for Helicobacter pylori will be reported separately ([id number]). E. Hyperplastic or adenomatous changes are not identified. MICROSCOPIC DESCRIPTION Slides are reviewed. GROSS DESCRIPTION A - Received in fixative is one container labeled with the patient's name and designated duodenum biopsy. The specimen consists of one irregular fragment of light hoffman soft tissue that measures 0.4 x 0.4 x 0.1 cm. The specimen is totally submitted in one cassette. B - Received in fixative is one container labeled with the patient's name and designated antrum biopsy. The specimen consists of two irregular fragments of light hoffman soft tissue that in aggregate measure 0.6 x 0.3 x 0.1 cm. The specimen is totally submitted in one cassette. C - Received in fixative is one container labeled with the patient's name and designated distal esophagus biopsy. The specimen consists of two irregular fragments of light hoffman soft tissue that in aggregate measure 0.5 x 0.2 x 0.1 cm. The specimen is totally submitted in one cassette. D - Received in fixative is one container labeled with the patient's name and designated random colonic biopsy. The specimen consists of multiple irregular fragments of light hoffman soft tissue that in aggregate measure 1.2 x 1 x 0.1 cm. The specimen is totally submitted in one cassette. E - Received in fixative is one container labeled with the patient's name and designated descending colon polyp biopsy. The specimen consists of one irregular fragment of light hoffman soft tissue that measures 0.4 x 0.4 x 0.1 cm. The specimen is totally submitted in one cassette. / SJ:rg 03/27/21 TC:5 CPT: 59716 x5
--- NOTE | 2021-03-27 09:30 | IMM_PTH ---
PATIENT: MK ERIC LOC: EN U#:[id number] AGE/SX: 70/F ROOM: RE03/27/[address]: Dr. Barron Bailey MD : 1950 BED: DIS: 03/27/2021 SPEC #: [id number] RECD: 03/27/21 13:03 STATUS: ERIKA STOUT #: [id number] KEATON: 03/27/21 09:[address]: Barron Bailey DEPT: IMMUNOHISTOCHEMISTRY RECD BY: Brissa Shabazz ENTERED: 03/27/21 13:05 SP TYPE: IMMUNO OTHR DR: Dr. Peng Sanchez MD Tissues: B - Stomach, NOS Procedures: H Pylori (initial) PHYSICIAN & INSTITUTION [place] [address] SPECIMEN INFORMATION: Tissue Source: B ? Antrum biopsy Clinical Info: Diarrhea, heartburn Specimen Number: [id number] CPT code: 84018 METHODOLOGY: Deparaffinized sections of prefer/formalin-fixed tissue or PAP/DQ stained slides are incubated with monoclonal/polyclonal antibodies/oligonucleotide probes. Localization is made via biotin free immunoperoxidase method. Appropriate controls are performed and reacted as expected. Results on target cell population are indicated in the following table: RESULTS: ANTIBODY / CLONE RESULT Block B H Pylori (polyclonal) negative These tests were developed and their performance characteristics determined by [facility]. They may not have been cleared or approved by the U.S. Food and Drug Administration. The FDA has determined that such clearance or approval is not necessary. INTERPRETATION: B. Antrum biopsy: Negative for Helicobacter pylori organisms. SJ:cj 03/30/2021
[2021-03-27 10:45] VITALS: BP 113/80; BP 115/77; PULSE 74; RESP 16; TEMP 36.3; O2SAT 94
[2021-03-27 10:50] VITALS: BP 115/77; BP 127/70; PULSE 68; RESP 16; O2SAT 95
[2021-03-27 10:55] VITALS: BP 115/77; BP 132/77; PULSE 73; RESP 16; O2SAT 96
[2021-03-27 11:00] VITALS: BP 115/77; BP 123/81; PULSE 67; RESP 16; TEMP 36.3; O2SAT 93
[2021-03-27 11:32] VITALS: BP 115/77
--- NOTE | 2021-03-30 09:54 | OP.EGD_ITS ---
Patient Name: Nargis Song Procedure Date: 03/27/2021 9:50 AM Date of : 1950 Age: 70 Procedure: Upper GI endoscopy Indications: Generalized abdominal pain Providers: Barron Bailey MD Medicines: See the Anesthesia note for documentation of the administered medications Complications: No immediate complications. Procedure: Pre-Anesthesia Assessment: - Prior to the procedure, a History and Physical was performed, and patient medications and allergies were reviewed. The patient's tolerance of previous anesthesia was also reviewed. The risks and benefits of the procedure and the sedation options and risks were discussed with the patient. All questions were answered, and informed consent was obtained. Prior Anticoagulants: The patient has taken no previous anticoagulant or antiplatelet agents. ASA Grade Assessment: II - A patient with mild systemic disease. After reviewing the risks and benefits, the patient was deemed in satisfactory condition to undergo the procedure. After obtaining informed consent, the endoscope was passed under direct vision. Throughout the procedure, the patient's blood pressure, pulse, and oxygen saturations were monitored continuously. The gastroscope was introduced through the mouth, and advanced to the second part of duodenum. The upper GI endoscopy was accomplished without difficulty. The patient tolerated the procedure well. Scope In: 9:58:41 AM Scope Out: 10:04:01 AM Total Procedure Duration Time 0 hours 5 minutes 20 seconds Findings: Esophagitis with no bleeding was found 39 cm from the incisors. Biopsies were taken with a cold forceps for histology. Diffuse mildly erythematous mucosa without bleeding was found in the entire examined stomach. Biopsies were taken with a cold forceps for histology. The examined duodenum was normal. Biopsies were taken with a cold forceps for histology. A small hiatal hernia was present. Impression: - Reflux esophagitis. Biopsied. - Erythematous mucosa in the stomach. Biopsied at antrum - Normal examined duodenum. Biopsied. Recommendation: - Discharge patient to home. - Resume previous diet. - Continue present medications. - Use Pepcid (famotidine) 20 mg PO daily. Mild gastritis could correlate with pts concern over pain. Procedure Code(s): --- Professional --- 85047, Esophagogastroduodenoscopy, flexible, transoral; with biopsy, single or multiple Diagnosis Code(s): --- Professional --- K21.0, Gastro-esophageal reflux disease with esophagitis K31.89, Other diseases of stomach and duodenum R10.84, Generalized abdominal pain CPT copyright 2017 [employer]. All rights reserved. The codes documented in this report are preliminary and upon decorating consultant review may be revised to meet current compliance requirements. Barron Bailey MD 03/27/2021 10:42:28 AM This report has been signed electronically. Number of Addenda: 0 Note Initiated On: 03/27/2021 9:50 AM
--- NOTE | 2021-03-30 09:54 | OP.COLON_ITS ---
Patient Name: Nargis Song Procedure Date: 03/27/2021 10:07 AM Date of : 1950 Age: 70 Procedure: Colonoscopy Indications: Generalized abdominal pain Providers: Barron Bailey MD Medicines: See the Anesthesia note for documentation of the administered medications Patient Profile: Last Colonoscopy: none. The patient's first colonoscopy is today. Complications: No immediate complications. Procedure: Pre-Anesthesia Assessment: - Prior to the procedure, a History and Physical was performed, and patient medications and allergies were reviewed. The patient's tolerance of previous anesthesia was also reviewed. The risks and benefits of the procedure and the sedation options and risks were discussed with the patient. All questions were answered, and informed consent was obtained. Prior Anticoagulants: The patient has taken no previous anticoagulant or antiplatelet agents. ASA Grade Assessment: II - A patient with mild systemic disease. After reviewing the risks and benefits, the patient was deemed in satisfactory condition to undergo the procedure. After I obtained informed consent, the scope was passed under direct vision. Throughout the procedure, the patient's blood pressure, pulse, and oxygen saturations were monitored continuously. The Colonoscope was introduced through the anus and advanced to the cecum, identified by appendiceal orifice and ileocecal valve. The colonoscopy was extremely difficult due to a redundant colon. The patient tolerated the procedure well. The quality of the bowel preparation was good. The ileocecal valve was photographed. Scope In: 10:08:31 AM Scope Withdrawal Time 0 hours 8 minutes 12 seconds Scope Out: 10:34:26 AM Total Procedure Duration Time 0 hours 25 minutes 55 seconds Findings: lax anal tone A 5 mm polyp was found in the descending colon. The polyp was sessile. The polyp was removed with a cold biopsy forceps. Resection and retrieval were complete. The colon (entire examined portion) was significantly redundant. Advancing the scope required changing the patient to a supine position and using manual pressure. Biopsies for histology were taken with a cold forceps from the entire colon for evaluation of microscopic colitis. Impression: - One 5 mm polyp in the descending colon, removed with a cold biopsy forceps. Resected and retrieved. - Redundant colon. - Biopsies were taken with a cold forceps from the entire colon for evaluation of microscopic colitis. Recommendation: - Discharge patient to home. - Resume previous diet. - Continue present medications. - Repeat colonoscopy in 5 years for surveillance based on pathology results. - Telephone my office for pathology results in 1 week. Procedure Code(s): --- Professional --- 23744, Colonoscopy, flexible; with biopsy, single or multiple Diagnosis Code(s): --- Professional --- D12.4, Benign neoplasm of descending colon R10.84, Generalized abdominal pain Q43.8, Other specified congenital malformations of intestine CPT copyright 2017 [employer]. All rights reserved. The codes documented in this report are preliminary and upon cake winder review may be revised to meet current compliance requirements. Barron Bailey MD 03/27/2021 10:46:28 AM This report has been signed electronically. Number of Addenda: 0 Note Initiated On: 03/27/2021 10:07 AM
--- NOTE | 2021-03-30 09:54 | OP.CCLET_ITS ---
03/30/2021 Peng Sanchez Md Re : Upper GI endoscopy procedure for Nargis Song Dear Laura This procedure was performed on Saturday, March 27, 2021. My impressions and recommendations are as follows: Impressions : - Reflux esophagitis. Biopsied. - Erythematous mucosa in the stomach. Biopsied at antrum - Normal examined duodenum. Biopsied. Recommendations : - Discharge patient to home. - Resume previous diet. - Continue present medications. - Use Pepcid (famotidine) 20 mg PO daily. Mild gastritis could correlate with pts concern over pain. My findings are described in the full procedure note, which is enclosed. If I can be of further assistance, please feel free to contact me at Doctor phone number(s): Work: . Sincerely, Barron Bailey MD 03/27/2021 10:42:28 AM This report has been signed electronically.
--- NOTE | 2021-03-30 09:54 | OP.CCLET_ITS ---
03/30/2021 Peng Sanchez Md Re : Colonoscopy procedure for Nargis Song Myrar Laura This procedure was performed on Saturday, March 27, 2021. My impressions and recommendations are as follows: Impressions : - One 5 mm polyp in the descending colon, removed with a cold biopsy forceps. Resected and retrieved. - Redundant colon. - Biopsies were taken with a cold forceps from the entire colon for evaluation of microscopic colitis. Recommendations : - Discharge patient to home. - Resume previous diet. - Continue present medications. - Repeat colonoscopy in 5 years for surveillance based on pathology results. - Telephone my office for pathology results in 1 week. My findings are described in the full procedure note, which is enclosed. If I can be of further assistance, please feel free to contact me at Doctor phone number(s): Work: . Sincerely, Barron Bailey MD 03/27/2021 10:46:28 AM This report has been signed electronically.
== END 2021-03-27 11:33 ==
LOC: EN 08:23 → AC 08:24
PROVIDERS: PCP Family Medicine; Referring Provider Family Medicine; Visit Provider Surgery
PROC: 0DJD8ZZ Inspection of Lower Intestinal Tract, Via Natural or Artificial Opening Endoscopic (ICD-10-PCS; CPT 45378; principal; 2021-03-27 09:25)
DX: R10.84 Generalized abdominal pain (principal); Q43.8 Other specified congenital malformations of intestine; D12.3 Benign neoplasm of transverse colon; J44.9 Chronic obstructive pulmonary disease, unspecified; E03.9 Hypothyroidism, unspecified; F20.9 Schizophrenia, unspecified; Z87.891 Personal history of nicotine dependence; Z79.899 Other long term (current) drug therapy; K21.00 Gastro-esophageal reflux disease with esophagitis, without bleeding
CPT/HCPCS: 43239; 45380; 88305; 88342; J7120; J2405

== ENCOUNTER → 2021-04-04 09:52 | Outpatient (CLI) | payer MEDICARE, OTHER, SELFPAY ==
[2021-03-06 09:11] VITALS: BMI 29.2
--- NOTE | 2021-04-04 09:53 | CT_ITS ---
STUDY: CT CHEST WITHOUT CONTRAST REASON FOR EXAM: Female, 71 years old. Follow mass RADIATION DOSAGE (If Supplied By Facility): CTDIvol = ( 14.82 ) mGy, DLP = ( 541.00 ) mGycm TECHNIQUE: Transaxial imaging was performed without the administration of intravenous contrast material. Multiplanar coronal and sagittal images were reformatted. Individualized dose optimization techniques were used for this CT. COMPARISON: 09/16/2020 PET/CT FINDINGS: There are emphysematous changes of the lungs with several areas of parenchymal scarring and a small right lung base bleb. There is no demonstrated pleural abnormality. Normal heart and pericardium. Normal mediastinum. Normal hilar regions. Normal unenhanced pulmonary arteries. Normal aorta arch and descending thoracic aorta. There are multi-level degenerative changes of the thoracic spine. Right mastectomy noted. There is no demonstrated abnormality of the visualized upper abdomen. CT/Chest without Contrast IMPRESSION: Emphysema and areas of scarring in both lungs without finding of nodularity or mass. Electronically Signed: Alphonso Carr MD at 8:13 EDT Tel , Service support ,
== END ==
PROVIDERS: PCP Family Medicine; Referring Provider Nurse Practitioner Acute Care; Visit Provider Nurse Practitioner Acute Care
DX: R91.8 Other nonspecific abnormal finding of lung field (principal)
CPT/HCPCS: 71250

== ENCOUNTER → 2021-08-05 15:28 | Outpatient (CLI) | payer MEDICARE, OTHER, SELFPAY ==
[2021-08-05 20:49] LABS: Thyroid Stim Hormone (TSH) 2.39 uIU/mL (0.358-3.74); Vitamin D,25 Hydroxy 30.6 ng/mL
== END ==
PROVIDERS: PCP Nurse Practitioner Family; Referring Provider Nurse Practitioner Family; Visit Provider Nurse Practitioner Family
DX: E03.9 Hypothyroidism, unspecified (principal); E55.9 Vitamin D deficiency, unspecified
CPT/HCPCS: 36415; 82306; 84443

== ENCOUNTER 2021-09-21 11:19 | Outpatient (CLI) | payer MEDICARE, OTHER, SELFPAY | END 2021-09-21 23:59 | disposition home or self-care (01) | PROVIDERS: PCP Family Medicine; Visit Provider Nurse Practitioner Acute Care | DX: G47.33 Obstructive sleep apnea (adult) (pediatric) (principal) | CPT/HCPCS: 95806 ==

== ENCOUNTER 2021-09-23 09:24 | Outpatient (CLI) | payer MEDICARE, OTHER, SELFPAY ==
--- NOTE | 2021-09-24 10:47 | PFT ---
INTRODUCTION: The patient is a 71-year-old female that presents for pulmonary function studies secondary to a diagnosis of emphysema. Respiratory therapy reported good patient effort. Bronchodilators were used during testing. INTERPRETATION: Forced expiration spirometry demonstrates the presence of a moderate large airways obstructive ventilatory defect. There was no significant response to aerosolized bronchodilators, based upon strict ATS criteria. Spirograms are of good quality but do not plateau indicating slow emptying of the lungs. Body plethysmography was performed and revealed an elevated RV to 177% of predicted, indicative of underlying air trapping. Diffusion capacity by single breath CO is reduced at 52% of predicted. IMPRESSION: Irreversible moderate large airways obstructive ventilatory defect with associated air trapping and symmetric reduction in diffusing capacity.
== END 2021-09-23 23:59 | disposition home or self-care (01) ==
LOC: PSN 09:30
PROVIDERS: PCP Family Medicine; Referring Provider Internal Medicine Critical Care Medicine; Visit Provider Internal Medicine Critical Care Medicine
DX: J43.2 Centrilobular emphysema (principal)
CPT/HCPCS: 94060; 94726; 94729

== ENCOUNTER 2021-09-30 09:48 | Outpatient (CLI) | payer MEDICARE, OTHER, SELFPAY ==
--- NOTE | 2021-09-30 09:52 | BI_ITS ---
MAMMOGRAPHY - UNILATERAL SCREENING: LEFT BREAST REASON FOR EXAM: Female, 71 years old. Routine annual screening examination (unilateral). PERTINENT HISTORY: Personal history of breast cancer. Prior right mastectomy. Aunt with breast cancer. TECHNIQUE: Digital unilateral breast bhavna (3D mammographic acquisition) in the CC and MLO projections. 2-D mediolateral oblique (MLO) and craniocaudad (CC) views of both breasts were obtained. CAD: Full Field Digital Mammography with Computer Added Detection was performed. COMPARISON: Comparison is made with prior examination dated 09/02/2020. FINDINGS: Breast Composition: The breasts are heterogeneously dense, which may obscure small masses. There are no dominant masses or suspicious calcifications. No other significant abnormalities are identified. There has been no significant change since the prior study. BI/SCREEN MAMM (CAD) W/BHAVNA UNI L IMPRESSION: Stable unilateral screening mammogram. Yearly follow-up mammogram recommended. (A) ASSESSMENT CATEGORY: BIRADS Category 1: Negative. A letter regarding these results will be sent to the patient by the facility within 30 days. Approximately 10% of breast cancers are not detected by mammography. A normal mammogram should not delay biopsy of a clinically suspicious abnormality. [id number] Electronically Signed: Jason Oreilly MD at 11:01 EST ,
--- NOTE | 2021-09-30 09:56 | BD_ITS ---
STUDY: DUAL ENERGY X-RAY ABSORPTIOMETRY / DXA REASON FOR EXAM: Female, 71 years old. H/O BREAST CANCER ON AI THERAPY TECHNIQUE: Bone Mineral Density (BMD) measurements of lumbar spine and bilateral hips were obtained. COMPARISON: Comparison is made with prior study dated 07/03/2019. FINDINGS: Lumbar Spine (L1-L4): g/cm2 (0.972) / T-score (-0.4) / Z-score (1.8) Findings are suggestive of normal bone density with a low fracture risk. Left Femur Total: g/cm2 (0.830) / T-score (-0.9) / Z-score (0.8) Left Femoral Neck: g/cm2 (0.685) / T-score (-1.5) / Z-score (0.5) Right Femur Total: g/cm2 (0.828) / T-score (-0.9) / Z-score (0.8) Right Femoral Neck: g/cm2 (0.643) / T-score (-1.9) / Z-score (0.1) The T-Scores on the most recent prior examination were: Lumbar Spine (L1-L4): There has been worsening of bone density since the previous examination. Left Femur Total: which represents an improvement of 1.6%. Right Femur Total: which represents an improvement of 4%. BD/Dexa Bone Density Study IMPRESSION: The patient is considered osteopenic as outlined below according to World Christopher Organization (WHO) criteria with a moderate fracture risk. There has been improvement of bone density since the previous examination. Reference Information: The T-score is the number of standard deviations above or below the standard which is normal for young adults at their peak bone mineral density. The World Health Organization (WHO) interprets the T-scores as follows: Above -1 Normal bone density Between -1 and -2.5 Osteopenia Equal to / or below -2.5 Osteoporosis As a practical clinical guideline, osteopenia may be graded as follows: Mild -1 through -1.5 Moderate -1.6 through -2.0 Severe -2.1 through -2.4 The Z-score is the number of standard deviations above or below age-matched controls. A Z-score of less than -1.5 would be considered abnormal. References: 1. NIH Osteoporosis and Related Bone Diseases www osteo.org 2. International Society for Clinical Densitometry www iscd.org 3. National Osteoporosis Foundation www nof.org Electronically Signed: Jason Oreilly MD at 9:24 EST ,
== END 2021-09-30 23:59 | disposition home or self-care (01) ==
LOC: OPBD 09:49
PROVIDERS: PCP Family Medicine; Referring Provider Internal Medicine Hematology & Oncology; Visit Provider Internal Medicine Hematology & Oncology
DX: Z12.31 Encounter for screening mammogram for malignant neoplasm of breast (principal); Z79.811 Long term (current) use of aromatase inhibitors
CPT/HCPCS: 77063; 77067; 77080

== ENCOUNTER 2021-11-05 10:41 | Outpatient (CLI) | payer MEDICARE, OTHER, SELFPAY ==
[2021-11-05 13:21] LABS: Anion Gap 6 (5-15); BUN 11 mg/dL (7-18); BUN/Creat Ratio 18.8 RATIO (10-20); Calcium,Total 9.5 mg/dL (8.5-10.1); Chloride 102 mmol/L (98-107); Cholesterol 243 mg/dL (200); Creatinine, Serum 0.58 mg/dL (0.55-1.02); EST Glomerular Filtration Rate 107 mL/min (>60); Est Glom Filt Rate - Afr Amer 130 mL/min (>60); Free T3 2.4 pg/mL (2.18-3.98); Glucose 100 mg/dL (74-106); High Density Lipoprotein 78 mg/dL; Potassium 4.2 mmol/L (3.5-5.1); Sodium Level 135 mmol/L (136-145); T4 Free Direct 1.23 ng/dL (0.76-1.46); Triglycerides 126 mg/dL; Very Low Density Lipoprotein 25 mg/dL (5-40)
== END 2021-11-05 23:59 | disposition home or self-care (01) ==
LOC: MFPLAB 10:45
PROVIDERS: PCP Family Medicine; Referring Provider Family Medicine; Visit Provider Family Medicine
DX: Z00.00 Encounter for general adult medical examination without abnormal findings (principal); E03.9 Hypothyroidism, unspecified
CPT/HCPCS: 36415; 80048; 80061; 84439; 84443; 84481

== ENCOUNTER → 2022-03-31 | Outpatient (CLI) | payer MEDICARE, OTHER, SELFPAY ==
--- NOTE | 2022-03-31 16:05 | CT_ITS ---
STUDY: CT Chest W/O Contrast Injection 03/31/2022 5:00 PM REASON FOR EXAM: Female, 71 years old. continued surveil ance Individualized dose optimization techniques were used for this CT. TECHNIQUE: Transaxial imaging was performed withoutIV contrast material. COMPARISON: Apr 04 2021 9:59am . FINDINGS: There are degenerative changes of the shoulders. There is no pneumothorax. There is no demonstrated pleural abnormality. There are scattered blebs and bullae. This can be seen in pulmonary emphysema. There are multiple metallic clips in the right axilla. This is consistent for a prior axillary dissection. There are mastectomy changes noted. There are calcifications of the coronary arteries. Normal mediastinum. Normal hilar regions. Normal pulmonary arteries. There is atherosclerotic calcification of the aortic arch with tortuosity and elongation of the aortic arch and descending thoracic aorta. There are multi-level degenerative changes of the thoracic spine. There are no acute findings of the upper abdomen. CT/Chest without Contrast IMPRESSION: Right mastectomy changes. There are no acute findings. Electronically Signed: Vinayak Jenkins MD at 17:02 EDT ,
== END | disposition home or self-care (01) ==
LOC: CT 16:05
PROVIDERS: PCP Family Medicine; Referring Provider Nurse Practitioner Acute Care; Visit Provider Nurse Practitioner Acute Care
DX: R91.8 Other nonspecific abnormal finding of lung field (principal)
CPT/HCPCS: 71250

== ENCOUNTER → 2022-10-05 | Outpatient (CLI) | payer MEDICARE, OTHER, SELFPAY ==
--- NOTE | 2022-10-05 13:01 | BI_ITS ---
MAMMOGRAPHY - UNILATERAL SCREENING: LEFT BREAST REASON FOR EXAM: Female, 72 years old. Routine annual screening examination (unilateral). PERTINENT HISTORY: Personal history of breast cancer. Prior right mastectomy. Aunt with breast cancer. TECHNIQUE: Digital unilateral breast bhavna (3D mammographic acquisition) in the CC and MLO projections. 2-D mediolateral oblique (MLO) and craniocaudad (CC) views of both breasts were obtained. CAD: Full Field Digital Mammography with Computer Added Detection was performed. COMPARISON: Comparison is made with prior study dated 09/30/2021 and 09/02/2020. FINDINGS: Breast Composition: The breasts are heterogeneously dense, which may obscure small masses. There are no dominant masses or suspicious calcifications. No other significant abnormalities are identified. There has been no significant change since the prior study. BI/SCREEN MAMM (CAD) W/BHAVNA UNI L IMPRESSION: Stable unilateral screening mammogram. Yearly follow-up mammogram recommended. (A) ASSESSMENT CATEGORY: BIRADS Category 1: Negative. A letter regarding these results will be sent to the patient by the facility within 30 days. Approximately 10% of breast cancers are not detected by mammography. A normal mammogram should not delay biopsy of a clinically suspicious abnormality. [id number] Electronically Signed: Jason Oreilly MD at 14:06 EST ,
== END | disposition home or self-care (01) ==
LOC: OPBI 12:59
PROVIDERS: PCP Family Medicine; Visit Provider Internal Medicine Hematology & Oncology
DX: Z12.31 Encounter for screening mammogram for malignant neoplasm of breast (principal)
CPT/HCPCS: 77063; 77067

== ENCOUNTER 2022-10-28 10:00 | Outpatient (RCR) | payer MEDICARE, OTHER, SELFPAY ==
--- NOTE | 2022-06-01 11:22 | HP.PTEVAL_ITS ---
Patient's Visit Information MK ERIC is a 72 year old F referred to Physical Therapy by Dr. Vivian Matos MD with a diagnosis of BACK AND LEG PAIN. Date of Evaluation: 06/01/22 Physical Therapist: Boone Caro, PT, Cert MDT, OCS - Visit Plan Frequency: 2x /Week Duration: 4 Weeks Plan: PT INTERVETIONS DLS ,PSOTURAL EX'S ,STRENGTHENING ESPECIALLY RIGHT LEG ,LUMBAR ROM ,AND MODALTIES ORN - Subjective This 72 y/o female presents to physical therapy with back and leg pain. Patient location symmetrical and right leg. Patient has back pain many years but did have fall 2019 with a fall. Seen family DR recommended pain management. Patient has had several epidural injections although most recent in Mar 2021 . Patient did have MRI showed fracture L5 and and stenosis in 2019. Aggravating walking, standing ,lifting bending affects ADL's. Alleviating factors rest . Meds Meloxicam. Patient denies paresthesia/tingling. Coughing/sneezing-. Bowel/bladder -. Patient pain affects QOL and function. Patient is able to sleep. Patient lives with sister due to mental issues. Patient has seen spine DR in 2019. Patient has had therapy in past in with water. Patient occasional use fww at home. SOCAIL: lives with sister. VOACTION: retired - Pain Bilateral Back Pain Intensity (Out of 10): 8 Pain Intensity Range: 10 Right Lower Extremity Pain Intensity (Out of 10): 5 Pain Intensity Range: 10 - Objective POSTURE: mild forward posture. SYMMTRIES: align. PALAPTION: tender LS. NEURO: denies paresthesia/tingling ,reflexes L3-4 ,L4-L5,L5-S1 1/3. GAIT: reciprocal pattern but leans to right with decrease stance time. LUMBAR ROM: flexion min loss ,extension mod loss ,side glides min loss. FLEXABLITY: hamstrings min tight. MMT( peak force) : quads right 24.9,hip flexion 12,5,hip abd 11.2 ,hamstrings 22.9 - Special Tests L/S Slump test left side: Negative L/S Slump test right side: Negative L/S Left Straight Leg Raise: Negative L/S Right Straight Leg Raise: Negative Lumbar Standing: Flexion - Mechanical Response: No effect Lumbar Standing: Flexion - Symptoms During Testing: Increases Lumbar Standing: Flexion - Symptoms After Testing: No worse Lumbar Standing: Extension - Mechanical Response: No effect Lumbar Standing: Extension - Symptoms During Testing: Increases Lumbar Standing: Extension - Symptoms After Testing: No worse Lumbar Standing: Right Side Glides - Mechanical Response: No effect Lumbar Standing: Right Side [place] - Symptoms During Testing: No effect Lumbar Standing: Right Side [place] - Symptoms After Testing: No effect Lumbar Standing: Left Side [place] - Mechanical Response: No effect Lumbar Standing: Left Side [place] - Symptoms During Testing: No effect Lumbar Standing: Left Side [place] - Symptoms After Testing: No effect - Balance/Special Test Scores Oswestry Low Back Score: 29 - Goals Goal 1:: Patient to be I with HEP for back Goal Time Frame: 4-6 Weeks Goal 2:: Patient to demonstrate 50% improvement with improved function and less pain. Goal Time Frame: 4-6 Weeks Goal 3:: Patient to improve lumbar ROM for function of recovery to tie shoes Goal Time Frame: 4-6 Weeks Goal 4:: Patient to improve MMT peak force right leg by 5-10 to improve gait Goal Time Frame: 4-6 Weeks Goal 5:: Patient to increase back oswestry by 5points to improve function and QOL Goal Time Frame: 4-6 Weeks - Rehabilitation Potential Physical Therapy Diagnosis: This patient has back and right leg pain worse with positioning and motion testing ,weakness in right leg ,thus will benefit from skilled PT Rehabilitation Potential: Good - Anticipated Interventions Patient/Client Instruction: Educate patient on: Condition, Plan of Care For the Purpose of:: To decrease pain, To increase ROM, To improve muscle performance and motor function, To improve ability to perform ADL's, To increase tolerance to activity/condition/position, To improve performance and independence with ADL's, To improve ability of physical actions for home/community/work/leisure, To improve gait and locomotor functions, To improve health of tissue, To decrease soft tissue restriction, To increase flexibility/ROM, To improve tolerance to ADL's Therapeutic Exercise to Include: Strength training, Endurance training, Balance training, Postural training, Flexibilty training, Gait and locomotor training, Dynamic Lumbar Stabilization For the Purpose of:: To decrease pain, To increase ROM, To improve muscle performance and motor function, To increase tolerance to activity/condition/position, To decrease level of supervision to perform tasks, To improve gait and locomotor functions, To improve health of tissue, To decrease soft tissue restriction, To increase flexibility/ROM, To improve tolerance to ADL's Thank you for the opportunity to evaluate your patient. For Medicare and Medicare HMO plans, please review the plan of care and approve it. It will need to be FAXED BACK to us at [phone] for Medicare purposes. For Medicare only, by signing this I certify the plan of care. Please let me know if there are questions or concerns regarding this plan of care. Physician Signature: Date:
--- NOTE | 2022-07-29 14:29 | HP.PTREVAL_ITS ---
Dr. Vivian Matos MD, It has been my pleasure to treat MK ERIC over the last 16 visits for BACK AND LEG PAIN. Please see the progress note below for an update on the physical therapy plan of care! Subjective: Would like to better Objective/Function: POSTURE: mild forward posture. GAIT: reciprocal pattern. LUMBAR ROM: flexion min loss ,extension min/mod ,side glides min. MMT: ( peak force) quads 27.6 right, hams 26.8 ,hip flexion right 25.6 ,left 24.5 ,hamstrings right 26.4 ,left 25.7 Plan Plan: CONT WITH POC. PT INTERVETIONS DLS ,PSOTURAL EX'S ,STRENGTHENING ESPECIALLY RIGHT LEG ,LUMBAR ROM ,AND MODALTIES PRN. ADD BALANCE PROGRAM Balance/Gait/Functional tests - Balance/Special Test Scores Oswestry Low Back Score: 24 Goals Goal 1:: Patient to be I with HEP for back Goal Time Frame: 4-6 Weeks Goal Progress: Progressing Goal 2:: Patient to demonstrate 50% improvement with improved function and less pain. Goal Time Frame: 4-6 Weeks Goal Progress: Progressing Goal 3:: Patient to improve lumbar ROM for function of recovery to tie shoes Goal Time Frame: 4-6 Weeks Goal Progress: Progressing Goal 4:: Patient to improve MMT peak force right leg by 5-10 to improve gait Goal Time Frame: 4-6 Weeks Goal Progress: Progressing Goal 5:: Patient to increase back oswestry by 5points to improve function and QOL Goal Time Frame: 4-6 Weeks Goal Progress: Progressing Anticipated Interventions Patient/Client Instruction: Educate patient on: Condition, Plan of Care For the Purpose of:: To decrease pain, To increase ROM, To improve muscle performance and motor function, To improve ability to perform ADL's, To increase tolerance to activity/condition/position, To improve performance and independence with ADL's, To improve ability of physical actions for home/community/work/leisure, To improve gait and locomotor functions, To improve health of tissue, To decrease soft tissue restriction, To increase flexibility/ROM, To improve tolerance to ADL's Therapeutic Exercise to Include: Strength training, Endurance training, Balance training, Postural training, Flexibilty training, Gait and locomotor training, Dynamic Lumbar Stabilization For the Purpose of:: To decrease pain, To increase ROM, To improve muscle performance and motor function, To increase tolerance to activity/condition/position, To decrease level of supervision to perform tasks, To improve gait and locomotor functions, To improve health of tissue, To decrease soft tissue restriction, To increase flexibility/ROM, To improve berry ance to ADL's Please do not hesitate to contact me at [phone] by phone or if you have questions or concerns regarding this new plan of care! Sincerely, Boone Caro, PT, Cert MDT, OCS
--- NOTE | 2022-08-27 11:13 | HP.PTREVAL_ITS ---
Dr. Vivian Matos MD, It has been my pleasure to treat MK ERIC over the last 24 visits for BACK AND LEG PAIN. Please see the progress note below for an update on the physical therapy plan of care! Subjective: C/O less pain overall. Walking longer with less ,. Patient is able to participate with housework tasks. Sister says compliant with HEP Objective/Function: POSTURE: mild posture. GAIT: reciprocal pattern. MMT quads/hams ,4/5 ,hip flexion 4/5 ,ankle 5/5 Plan Plan: CONT WITH POC. PT INTERVETIONS DLS ,PSOTURAL EX'S ,STRENGTHENING ESPECIALLY RIGHT LEG ,LUMBAR ROM ,AND MODALTIES PRN. ADD BALANCE PROGRAM Balance/Gait/Functional tests - Balance/Special Test Scores Oswestry Low Back Score: 19 Goals Goal 1:: Patient to be I with HEP for back Goal Time Frame: 4-6 Weeks Goal Progress: Progressing Goal 2:: Patient to demonstrate 70% improvement with improved function and less pain. Goal Time Frame: 4-6 Weeks Goal Progress: Progressing Goal 3:: Patient to improve lumbar ROM for function of recovery to tie shoes Goal Time Frame: 4-6 Weeks Goal Progress: Progressing Goal 4:: Patient to improve MMT peak force right leg by 5-10 to improve gait Goal Time Frame: 4-6 Weeks Goal Progress: Progressing Goal 5:: Patient to increase back oswestry by 5points to improve function and QOL( new goal) Goal Time Frame: 4-6 Weeks Goal Progress: Progressing Anticipated Interventions Patient/Client Instruction: Educate patient on: Condition, Plan of Care For the Purpose of:: To decrease pain, To increase ROM, To improve muscle performance and motor function, To improve ability to perform ADL's, To increase tolerance to activity/condition/position, To improve performance and independence with ADL's, To improve ability of physical actions for home/commun ity/work/leisure, To improve gait and locomotor functions, To improve health of tissue, To decrease soft tissue restriction, To increase flexibility/ROM, To improve tolerance to ADL's Therapeutic Exercise to Include: Strength training, Endurance training, Balance training, Postural training, Flexibilty training, Gait and locomotor training, Dynamic Lumbar Stabilization For the Purpose of:: To decrease pain, To increase ROM, To improve muscle performance and motor function, To increase tolerance to activity/condition/position, To decrease level of supervision to perform tasks, To improve gait and locomotor functions, To improve health of tissue, To decrease soft tissue restriction, To increase flexibility/ROM, To improve tolerance to ADL's Please do not hesitate to contact me at [phone] by phone or if you have questions or concerns regarding this new plan of care! Sincerely, Boone Caro, PT, Cert MDT, OCS
--- NOTE | 2022-09-30 10:45 | HP.PTREVAL_ITS ---
Dr. Vivian Matos MD, It has been my pleasure to treat MK ERIC over the last 32 visits for BACK AND LEG PAIN. Please see the progress note below for an update on the physical therapy plan of care! Subjective: Doing better overall ,getting stronger and less. Patient doesnt feel well today have a stomach/nausea Objective/Function: POSTURE: mild forward posture. PALPTION: tender ls. NEURO: denies paresthesia/tingling. GAIT: reciprocal patter. MMT: quads/hams 4/5,hip flexion 4/5,ankle 4/5 Plan Plan: CONT WITH POC 2xweek/ 4weeks. PT INTERVETIONS DLS ,POSTURAL EX'S ,STRENGTHENING ESPECIALLY RIGHT LEG ,LUMBAR ROM ,AND MODALTIES PRN. ADD BALANCE PROGRAM Balance/Gait/Functional tests - Balance/Special Test Scores Oswestry Low Back Score: 17 Goals Goal 1:: Patient to be I with HEP for back Goal Time Frame: 4-6 Weeks Goal Progress: Progressing Goal 2:: Patient to demonstrate 70% improvement with improved function and less pain. Goal Time Frame: 4-6 Weeks Goal Progress: Progressing Goal 3:: Patient to improve lumbar ROM for function of recovery to tie shoes Goal Time Frame: 4-6 Weeks Goal Progress: Progressing Goal 4:: Patient to improve MMT peak force right leg by 5-10 to improve gait Goal Time Frame: 4-6 Weeks Goal Progress: Progressing Goal 5:: Patient to increase back oswestry by 5points to improve function and QOL( new goal) Goal Time Frame: 4-6 Weeks Goal Progress: Progressing Anticipated Interventions Patient/Client Instruction: Educate patient on: Condition, Plan of Care For the Purpose of:: To decrease pain, To increase ROM, To improve muscle performance and motor function, To improve ability to perform ADL's, To increase tolerance to activity/condition/position, To improve performance and independence with ADL's, To improve ability of physical actions for home/community/work/leisure, To improve gait and locomotor functions, To improve health of tissue, To decrease soft tissue restriction, To increase flexibility/ROM, To improve tolerance to ADL's Therapeutic Exercise to Include: Strength training, Endurance training, Balance training, Postural training, Flexibilty training, Gait and locomotor training, Dynamic Lumbar Stabilization For the Purpose of:: To decrease pain, To increase ROM, To improve muscle performance and motor function, To increase tolerance to act ivity/condition/position, To decrease level of supervision to perform tasks, To improve gait and locomotor functions, To improve health of tissue, To decrease soft tissue restriction, To increase flexibility/ROM, To improve tolerance to ADL's Please do not hesitate to contact me at [phone] by phone or if you have questions or concerns regarding this new plan of care! Sincerely, Boone Caro, PT, Cert MDT, OCS
--- NOTE | 2022-10-28 10:59 | HP.PTDCSUM ---
It has been my pleasure to treat MK ERIC referred by Dr. Vivian Matos MD, with the diagnosis of BACK AND LEG PAIN for a total of 40 visit(s). Discharge Date: 10/28/22 Please see the following information for a summary of their discharge status. Subjective: Doing well ..ready for d/c. Sister states dizziness not related to vestibular Bilateral Back Pain Intensity (Out of 10): 0 Right Lower Extremity Pain Intensity (Out of 10): 0 stomach area Pain Intensity (Out of 10): 0 % Improvement: 95 Objective/Function: POSTURE: reciprocal pattern. MMT: quads/hams/hip /ankle 4/5. BALANCE : good -. LUMBAR ROM: flexion/extension WFL Goal 1:: Patient to be I with HEP for back Goal Progress: Goal Met Goal 2:: Patient to demonstrate 70% improvement with improved function and less pain. Goal Progress: Goal Met Goal 3:: Patient to improve lumbar ROM for function of recovery to tie shoes Goal Progress: Goal Met Goal 4:: Patient to improve MMT peak force right leg by 5-10 to improve gait Goal Progress: Goal Met Goal 5:: Patient to increase back oswestry by 5points to improve function and QOL( new goal) Goal Progress: Goal Met Plan: D/C TO [facility] Discharge Comments: [facility] If there are questions or concerns regarding this patient's physical therapy, please feel free to call me at [phone]. Thank you for the referral of this patient. Sincerely, Boone Caro, PT, Cert MDT, OCS Balance/Gait/Functional tests - Balance/Special Test Scores Oswestry Low Back Score: 9
== END 2022-10-28 19:00 | disposition home or self-care (01) ==
LOC: PT 10:00
PROVIDERS: PCP Family Medicine; Referring Provider Anesthesiology Pain Medicine; Visit Provider Anesthesiology Pain Medicine
DX: M54.9 Dorsalgia, unspecified (principal); M79.606 Pain in leg, unspecified
CPT/HCPCS: 97110; 97162; 97530

== ENCOUNTER → 2023-03-16 | Outpatient (CLI) | payer MEDICARE, OTHER, SELFPAY ==
--- NOTE | 2023-03-16 08:46 | US_ITS ---
STUDY: ULTRASOUND BREAST - LEFT REASON FOR EXAM: Female, 72 years old. Left breast pain and lump. TECHNIQUE: Axial and longitudinal images of the LEFT breast were performed with a high resolution ultrasound transducer. # OF IMAGES: 16 COMPARISON: Comparison is made with prior mammogram done earlier in the day. Comparison is also made with prior sonogram dated February 19. FINDINGS: LEFT Breast: The periareolar region of the left breast was examined with ultrasound. There is a heterogeneously dense fibroglandular tissue. No sonographic abnormality is seen. US/Breast Limited Unilateral IMPRESSION: No sonographic abnormality is seen. ASSESSMENT CATEGORY: BIRADS Category 1: Negative. A letter regarding these results will be sent to the patient by the facility within 30 days. Electronically Signed: Jason Oreilly MD at 9:59 EDT ,
--- NOTE | 2023-03-16 08:46 | BI_ITS ---
MAMMOGRAPHY - UNILATERAL DIAGNOSTIC: LEFT BREAST REASON FOR EXAM: Female, 72 years old. Left breast pain. PERTINENT HISTORY: Personal history of breast cancer. Prior right mastectomy. TECHNIQUE: Digital unilateral breast yumiko (3D mammographic acquisition) in the CC and MLO projections. 2-D mediolateral oblique (MLO) and craniocaudad (CC) views of both breasts were obtained. CAD: Full Field Digital Mammography with Computer Added Detection was performed. COMPARISON: Comparison is made with prior study dated October 05, 2022 and September 30, 2021 FINDINGS: Breast Composition: The breasts are heterogeneously dense, which may obscure small masses. There are no dominant masses or suspicious calcifications. No other significant abnormalities are identified. There has been no significant change since the prior study. BI/DIAG MAMM W/CAD, UNILAT IMPRESSION: Stable unilateral diagnostic mammogram. With the patient''s history of a breast pain, targeted correlation with ultrasound is recommended. ASSESSMENT CATEGORY: BIRADS Category 0: Incomplete. Need additional imaging evaluation. A letter regarding these results will be sent to the patient by the facility within 30 days. Approximately 10% of breast cancers are not detected by mammography. A normal mammogram should not delay biopsy of a clinically suspicious abnormality. Electronically Signed: Jason Oreilly MD at 9:58 EDT ,
== END | disposition home or self-care (01) ==
LOC: OPBI 08:43
PROVIDERS: PCP Family Medicine; Referring Provider Nurse Practitioner Family; Visit Provider Nurse Practitioner Family
DX: N64.4 Mastodynia (principal); R92.8 Other abnormal and inconclusive findings on diagnostic imaging of breast
CPT/HCPCS: 76642; 77061; 77065; G0279

== ENCOUNTER → 2023-03-19 | Outpatient (CLI) | payer MEDICARE, OTHER, SELFPAY ==
--- NOTE | 2023-03-19 09:50 | CT_ITS ---
STUDY: LOW DOSE CT LUNG CANCER SCREENING REASON FOR EXAM: Female, 72 years old. and gt;20 pack years RADIATION DOSAGE (If Supplied By Facility): CTDIvol = ( 3.02 ) mGy, DLP = ( 94.02 ) mGycm TECHNIQUE: No contrast was administered. Low dose technique was utilized (average mAS-38 and kVp 120). 1.25 mm axial source images with a slice interval of 1.25-mm were reconstructed in lung windows. 2.5 mm axial source images with a slice interval of 2.5-mm were reconstructed in lung windows. 5.0 mm axial source images with a slice interval of 5.0-mm were reconstructed in soft tissue windows. COMPARISON: 03/31/2022 Emphysema: Mild emphysema. Some right lower lobe discoid atelectasis. No noncalcified nodule or mass. Endobronchial lesion: None Aorta: No aortic aneurysm. CORONARY ARTERIES: Coronary artery calcification is seen. Heart: No cardiomegaly. Pulmonary artery: Normal Mediastinal nodes: Normal Other chest and abdominal findings: Status post right mastectomy. CT/Low Dose CT Lung Screening IMPRESSION: Lung-RADS category 1 - Continue annual screening with LDCT in 12 months. IMPORTANT NOTES FOR USE: ACR Lung-RADS Version 1.1 Assessment Categories Release Date: 2018 Category: Coded 0-4 bases on nodule(s) with highest degree of suspicion. Negative screen is defined as categories 1 and 2; a positive screen is defined as categories 3 and 4. Category 3 and 4A nodules that are unchanged on interval CT should be coded as category 2, and individuals returned to screening in 12 months. Category 4X: Category 3 or 4 nodules with additional imaging findings that increase the suspicion of lung cancer, such as spiculation, GGN that doubles in size in 1 year, enlarged lymph notes, etc. Category Modifiers: S (significant finding unrelated to lung cancer) Electronically Signed: Bandar Alfaro MD at 23:02 EDT ,
== END | disposition home or self-care (01) ==
LOC: CT 09:49
PROVIDERS: PCP Family Medicine; Referring Provider Nurse Practitioner Acute Care; Visit Provider Nurse Practitioner Acute Care
DX: Z87.891 Personal history of nicotine dependence (principal)
CPT/HCPCS: 71271

== ENCOUNTER → 2023-07-04 | Outpatient (CLI) | payer MEDICARE, OTHER, SELFPAY ==
[2023-07-04 13:38] LABS: Vitamin B12 323 pg/mL (211-911)
[2023-07-04 13:54] LABS: Cholesterol 201 mg/dL (200); High Density Lipoprotein 89 mg/dL; T4 Free Direct 1.09 ng/dL (0.76-1.46); Thyroid Stim Hormone (TSH) 3.91 uIU/mL (0.358-3.74); Triglycerides 97 mg/dL; Very Low Density Lipoprotein 19 mg/dL (5-40)
== END | disposition home or self-care (01) ==
LOC: MFPLAB 11:02
PROVIDERS: PCP Family Medicine; Visit Provider Family Medicine
DX: K21.9 Gastro-esophageal reflux disease without esophagitis (principal); E78.2 Mixed hyperlipidemia; E03.9 Hypothyroidism, unspecified
CPT/HCPCS: 36415; 80061; 82607; 84439; 84443

== ENCOUNTER 2023-09-03 08:38 | Outpatient (CLI) | payer MEDICARE, OTHER, SELFPAY ==
--- OUTSIDE RECORDS SUMMARY | 2023-09-03 08:40 | XMS RPT_ITS | CCD ---
Author Name Unknown Address Formerly [facility] [place] [address] Organization [facility] Care Team Providers Care Data Entry Technician Name Role Phone Alex Neil DO Unavailable Allergies Allergy Classification Reported Allergen(s) Allergy Type Date of Onset Reaction(s) Facility (1 source) Haloperidol Drug Allergy 06-25-2019 [facility] Work Phone: Medications Completed/Discontinued Medications Medication Drug Class(es) Dates Sig (Normalized) Sig (Original) acetaminophen 325 mg oral tablet (1 source) Start: 06-25-2019 TYLENOL 325 MG TABS 1 tablet once daily ACETAMINOPHEN [id number] Silvio Shaffer RN 200 actuat albuterol 0.09 mg/actuat metered dose inhaler (1 source) beta2-Adrenergic Agonist Start: 06-25-2019 take 1 dose by inhalation once daily PROAIR HFA 108 (90 Base) MCG/ACT AERS inhale directed dose once daily ALBUTEROL SULFATE [id number] Terrobby Shaffer RN GVHARHG-WEKTKTJCH-SH NC TABS (1 source) Start: 06-25-2019 HPLZELC-YTMAQTUWX-QI NC TABS 1 tablet once daily VEZVQTU-CVVIEUFPP-GX NC TABS [id number] Terena Shaffer RN cholecalciferol 2000 unt oral tablet (1 source) Vitamin D Start: 06-25-2019 VITAMIN D 2000 UNIT TABS 1 tablet once daily CHOLECALCIFEROL [id number] Terena Shaffer RN coenzyme q10 200 mg oral capsule (1 source) Start: 06-25-2019 COQ10 200 MG CAPS 1 capsule once daily COENZYME Q10 [id number] Terena Shaffer RN gabapentin 300 mg oral capsule (1 source) Anti-epileptic Agent Start: 06-25-2019 GABAPENTIN 300 MG CAPS 1 capsule once daily GABAPENTIN [id number] Silvio Shaffer RN levothyroxine sodium 0.05 mg oral tablet (1 source) l-Thyroxine Start: 06-25-2019 LEVOTHYROXINE SODIUM 50 MCG TABS 1 tablet once daily LEVOTHYROXINE SODIUM [id number] Silvio Shaffer RN meloxicam 7.5 mg oral tablet (1 source) Nonsteroidal Anti-inflammatory Drug Start: 06-25-2019 MELOXICAM 7.5 MG TABS 2 tablets (15mg) once daily MELOXICAM [id number] Silvio Shaffer RN MULTIPLE VITAMINS-MINERALS (1 source) Start: 06-25-2019 [facility] S[facility] ADULT 50+ TABS 1 tablet once daily MULTIPLE VITAMINS-MINERALS [id number] Silvio Shaffer RN OLANZapine 5 mg oral tablet (2 sources) Atypical Antipsychotic Start: 06-25-2019 OLANZAPINE 20 MG TABS 1 tablet once daily OLANZAPINE [id number] Silvio Shaffer RN Problems Active Problems Problem Classification Problem Date Documented Date Episodic/Chronic Other acquired deformities (1 source) Spondylolisthesis L5/S1 level; Translations: [Spondylolisthesis, lumbosacral region] Onset: 06-26-2019 06-26-2019 Chronic Spondylosis; intervertebral disc disorders; other back problems (1 source) Degeneration of lumbar intervertebral disc; Translations: [Other intervertebral disc degeneration, lumbar region] Onset: 06-26-2019 06-26-2019 Chronic Past or Other Problems Problem Classification Problem Date Documented Da te Episodic/Chronic Spondylosis; intervertebral disc disorders; other back problems (1 source) Spinal stenosis of lumbar region; Translations: [Spinal stenosis, lumbar region with neurogenic claudication] Onset: 06-26-2019 06-26-2019 Episodic Unclassified (1 source) Problem Results Test Name Value Interpretation Reference Range Facil ity Vital Signs Date Time Vital Sign Value Performing Clinician Facility NEGATED: Highlighted [id number] 10:04-0500 BMI (Body Mass Index) 28.72 kg/m2 Mishel Marie AT [facility] [place] [facility] Work Phone: NEGATED: Highlighted [id number] 10:04-0500 Body weight 81.65 kg Mishel Marie AT [facility] Work Phone: NEGATED: Highlighted [id number] 10:04-0500 Body weight 82 kg Mishel Marie AT [facility] Work Phone: NEGATED: Highlighted [id number] 10:04-0500 BP Diastolic 71 mm[Hg] Mishel Marie AT [facility] Work Phone: NEGATED: Highlighted [id number] 10:04-0500 BP Systolic 122 mm[Hg] Mishel Marie AT [facility] Work Phone: NEGATED: Highlighted [id number] 10:04-0500 Heart rate 2+ Mishel Marie AT [facility] Work Phone: NEGATED: Highlighted [id number] 10:04-0500 Height 168.91 cm Mishel Marie AT [facility] Work Phone: NEGATED: Highlighted [id number] 10:04-0500 Height 169 cm Mishel Marie AT [facility] Work Phone: NEGATED: Highlighted [id number] 10:04-0500 Pulse (Heart Rate) 73 /min Mishel Marie AT [facility] Work Phone: Encounters Encounter Date Encounter Type Care Provider Facility Start: 06-26-2019 End: 06-26-2019 Pt evaluation Alex Neil DO Work Phone: [facility] Work Phone: Procedures Date Procedure Procedure Detail Performing Clinician Start: 06-26-2019 End: 06-26-2019 BASIC LUMBAR SUPPORT (BREG) Alex Neil DO Work Phone: NEGATED: Highlighted rowStart: 06-26-2019 End: 06-26-2019 Documentation of current medications Mishel Marie AT Plan of Treatment Date Care Activity Detail Author Start: 06-26-2019 End: 06-26-2019 Radex spine lumbosacral minimum 4 views XR LUMBAR 4VWS FLEX/EX [facility] Work Phone: Social History Date Type Detail Facility Start: 06-28-2019 End: 06-28-2019 Assertion Unknown if ever smoked [facility] Work Phone: Clinical Note 10-10-2020 Note Date & Type Note Facility 10-10-2020 Note Procedure (OBGYWM) MK ERIC ([id number]) 1950 F Date Time Provider Department 10/10/20 4:40 PM YURY EVANS During your visit today, we recorded the following information about you: Referring Provider: SELF [[id number]] Allergies As of Date: 10/10/2020 Noted Allergy Reaction HALOPERIDOL 07/03/2020 1 - Mental Status Change Date Reviewed: 07/03/2020 Reviewed by: Zandra Nevarez - Fully Assessed Reason for Visit: Ovarian Cyst [288] Primary Visit Diagnosis:Cyst of ovary, unspecified laterality [N83.209] Prescriptions as of 10/10/2020 Sig: LEVOTHYROXINE 50 MCG TABLET Take 1 tablet by mouth once d* ANASTROZOLE 1 MG TABLET Take 1 tablet by mouth once d* MELOXICAM 7.5 MG TABLET Take 1 tablet by mouth as nee* OLANZAPINE 20 MG DISINTEGRATI* Take 1 tablet by mouth once d* OLANZAPINE 5 MG DISINTEGRATIN* Take 1 tablet by mouth once d* RISPERIDONE 0.5 MG TABLET Take 1 tablet by mouth once d* RISPERIDONE 1 MG TABLET Take 1 tablet by mouth once d* RISPERIDONE 3 MG TABLET Take 1 tablet by mouth once d* ANORO ELLIPTA 62.5 MCG-25 MCG* Inhale 1 Inhalation as instru* Problem List As Of Date: 10/10/2020 (None) Encounter Status:Closed by YURY EVANS MD on 10/10/20 [facility] Chief Complaint Chief Complaint Description Start Date lower back pain Preliminary chief co mplaint data, not yet signed by the author as of Instructions Instruction Description Start Date CompletedPatient advised to follow-up with Primary Care Physician for BMI management. Advance Directives There may be information available, but it has not been provided by the sender. No Advanced Directives Records Found Assessments There may be information available, but it has not been provided by the sender. Review of System There may be information available, but it has not been provided by the sender. Family History There may be information available, but it has not been provided by the sender.No Family History Records Found History of Present Illness There may be information available, but it has not been provided by the sender. Summary Purpose Additional Source Comments Reason for Visit (unrecogniz ed section and content) INFORMATION SOURCE (unrecogn ized section and content) FOR RECORDS PERTAINING TO PATIENTS WHO ARE OR HAVE BEEN ENROLLED IN A CHEMICAL DEPENDENCY/SUBSTANCEABUSE PROGRAM, SOME INFORMATION MAY BE OMITTED. This clinical summary was aggregated from multiple sources. Caution should be exercised in using it in the provision of clinical care. This summary normalizes information from multiple sources, and as a consequence, information in this document may materially change the coding, format and clinical context of patient data. In addition, data may be omitted in some cases. CLINICAL DECISIONS SHOULD BE BASED ON THE PRIMARY CLINICAL RECORDS. [employer] provides no warranty or guarantee of the accuracy or completeness of information in this document.
--- NOTE | 2023-09-03 09:03 | MRI_ITS ---
STUDY: MRI BRAIN WITHOUT CONTRAST REASON FOR EXAM: Female, 73 years old. schizophrenia; mild cognitive impairment; gait dis TECHNIQUE: Standardized multiplanar fat and water weighted pulse sequences were obtained. COMPARISON: None. FINDINGS: There is mild cerebral atrophy with widening of the extra-axial spaces and ventricular dilatation. There are multiple white matter hyperintensities, distributed throughout the deep white matter tracts of the cerebral hemispheres, consistent with moderate chronic white matter ischemic changes. Normal T2* images of the brain without demonstrated susceptibility artifact. There is no demonstrated hemosiderin stain. There is no evidence for recent intracranial ischemia or other cause of cytotoxic edema on diffusion weighted imaging (DWI). Normal bilateral basal ganglia. Normal thalami. There is no extra-axial fluid accumulation. Prominent cisterna magna which is a normal variant and does not represent pathology. Normal flow voids within the major intracranial circulation suggesting patency by spin echo criteria. Normal sella turcica, pituitary gland, infundibular stalk, optic chiasm and hypothalamus. Normal tectal plate and pineal gland. Normal midbrain, ryan and medulla. Normal cerebellum. Normal basal cisterns. Normal bilateral temporal bones. Normal bilateral internal auditory canals. No demonstrated orbital abnormality, within the constraints of a routine brain study. Normal visualized paranasal sinuses. Normal calvarium and skull base. Normal visualized soft tissue structures. Normal visualized upper cervical spine. MRI/Brain without Contrast IMPRESSION: 1. Involutional changes of the brain, as described above. 2. No acute infarct or intracranial hemorrhage Electronically Signed: Severo Benavides MD at 15:20 EST ,
--- NOTE | 2023-09-03 09:03 | MRI_ITS ---
STUDY: MRA OF THE HEAD WITHOUT CONTRAST REASON FOR EXAM: Female, 73 years old. Family history of cerebral aneurysm TECHNIQUE: 3-D [id number] (TOF) imaging was performed with MIPs. The study was performed unenhanced. COMPARISON: MRI of the brain dated September 03, 2023 FINDINGS: Normal bilateral petrous carotid arteries. There is atheromatous plaque formation of the right cavernous carotid artery, with a mild stenosis (less than 50%). There is atheromatous plaque formation of the left cavernous carotid artery, with a mild stenosis (less than 50%). Normal right A1 segments of the anterior cerebral artery. Normal left A1 segments of the anterior cerebral artery. Normal intact anterior communicating artery (ACOM). Normal bilateral A2 segments of the anterior cerebral arteries. Normal right M1 and M2 segments of the middle cerebral arteries, with a normal M1 bifurcation. There is irregularity of the left M1 and M2 branches with minimal luminal narrowing, suggesting atherosclerotic plaque formation, without an occlusion. 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 Normal left posterior communicating artery (PCOM). Normal bilateral vertebral arteries. Normal basilar artery with a normal basilar bifurcation. The visualized bilateral superior cerebellar (SCA) arteries are normal. Normal bilateral P1, P2 and visualized P3 segments of the posterior cerebral arteries. There is no demonstrated aneurysm of the [place]. There is no major vessel occlusion or hemodynamically significant stenosis. MRI/MRA Head ONLY without Contrast IMPRESSION: Negative MRA of the head Electronically Signed: Severo Benavides MD at 16:12 EST ,
== END 2023-09-03 23:59 | disposition home or self-care (01) ==
LOC: MRI 08:38
PROVIDERS: PCP Family Medicine; Referring Provider Psychiatry & Neurology Neurology; Visit Provider Psychiatry & Neurology Neurology
DX: F20.9 Schizophrenia, unspecified (principal); G31.84 Mild cognitive impairment of uncertain or unknown etiology; G25.9 Extrapyramidal and movement disorder, unspecified
CPT/HCPCS: 70544; 70551

== ENCOUNTER → 2023-11-24 | Outpatient (CLI) | payer MEDICARE, OTHER, SELFPAY ==
--- NOTE | 2023-11-24 12:45 | RAD_ITS ---
EXAM: XR LEFT SHOULDER COMPLETE, 2 OR MORE VIEWS CLINICAL INDICATION: L shoulder pain and decreased ROM TECHNIQUE: Two or more views of the left shoulder. COMPARISON: CT scan of the chest 03/31/2022. Chest x-ray 10/01/2019. FINDINGS: BONES/JOINTS: Marked joint space narrowing. Prominent marginal osteophytes involving the inferior aspect of the humeral head. This was also seen on the prior CT scan. No acute fracture. No subluxation. Normal alignment. No sclerotic or destructive changes observed. SOFT TISSUES: Unremarkable. No soft tissue swelling or gas. No radiopaque foreign body. RAD/Shoulder min 2 Views IMPRESSION: Severe degenerative changes left shoulder. Electronically Signed: Don Moraes MD at 5:55 EDT ,
== END | disposition home or self-care (01) ==
LOC: MTRAD 12:45
PROVIDERS: PCP Family Medicine; Referring Provider Family Medicine; Visit Provider Family Medicine
DX: M25.512 Pain in left shoulder (principal)
CPT/HCPCS: 73030

== ENCOUNTER → 2023-12-05 | Outpatient (CLI) | payer MEDICARE, OTHER, SELFPAY ==
--- NOTE | 2023-12-05 13:30 | MRI_ITS ---
STUDY: MRI LEFT SHOULDER REASON FOR EXAM: Female, 73 years old. Left shoulder pain and decreased range of motion. TECHNIQUE: Standardized fat and water weighted pulse sequences were obtained in all 3 orthogonal planes. COMPARISON: Left shoulder radiographs dated 11/24/2023. FINDINGS: There is mild supraspinatus and subscapularis tendinosis without a full-thickness tear. Normal infraspinatus tendon. Normal teres minor tendon. Normal supraspinatus muscle. Normal infraspinatus muscle. Normal subscapularis muscle. Normal teres minor muscle. There is severe glenohumeral arthrosis with joint space narrowing, [id number], marginal osteophyte formation, remodeling of the articular surfaces, and subchondral marrow edema on both sides of the joint. There is a moderate to large glenohumeral joint effusion. There is an old healed impacted fracture deformity of the left humeral neck. Normal biceps labral complex. Normal intracapsular long biceps tendon. Normal rotator interval. There is mild acromioclavicular arthrosis. There is a Type II morphology (curved), with a neutral orientation. There is trace subacromial-subdeltoid bursal fluid. Normal visualized coracohumeral and coracoacromial ligaments. Normal quadrilateral space. Normal axillary space. Normal deltoid muscle. Normal trapezius muscle. MRI/Upper Ext Joint Only(Routine) IMPRESSION: Mild supraspinatus and subscapularis tendinosis without a full-thickness rotator cuff tear. Severe glenohumeral arthrosis with a moderate to large glenohumeral joint effusion. Old healed impacted fracture deformity of the left humeral neck. Mild acromioclavicular arthrosis. Minimal subacromial-subdeltoid bursitis. Electronically Signed: Miles Sloan MD at 9:34 EDT ,
== END | disposition home or self-care (01) ==
LOC: MRI 14:15
PROVIDERS: PCP Family Medicine; Referring Provider Family Medicine; Visit Provider Family Medicine
DX: M25.512 Pain in left shoulder (principal)
CPT/HCPCS: 73221

== ENCOUNTER → 2023-12-28 | Outpatient (CLI) | payer MEDICARE, OTHER, SELFPAY ==
[2023-12-28 10:16] LABS: Absolute Lymphocyte Count 1.69 X10^3/uL (0.83-4.51); Absolute Neutrophil Count 5.5 X10^3/uL (2.0-7.7); Basophil# 0.08 X10^3/uL; Basophil% 0.9 % (0-1); Eosinophil# 0.18 X10^3/uL; Eosinophils% 2.1 % (0-5); Hematocrit 39.5 % (37-47); Hemoglobin 12.6 g/dL (12.0-15.0); Lymphocyte # 1.69 X10^3/ul (0.83-4.51); Mean Corp Hgb Conc 31.9 g/dL (32-36); Mean Corpuscular Hgb 27.7 pg (27.0-32.0); Mean Corpuscular Volume 86.8 fL (81-99); Mean Platelet Vol. 9.1 fl (6.2-12.0); Monocyte# 0.93 X10^3/uL; NRBC Flagged by Analyzer 0 % (0-5); Neutrophil # 5.52 X10^3/uL (2.7-7.7); Neutrophil % 65.4 % (47-70); Platelet Count 322 K/mm3 (150-450); RBC Distribution Width CV 12.7 % (11.6-14.6); RBC Distribution Width SD 40.5 fl (35.1-43.9); Red Blood Count 4.55 M/mm3 (4.2-5.4); White Blood Count 8.5 K/mm3 (4.4-11.0)
[2023-12-28 10:33] LABS: Vitamin B12 631 pg/mL (211-911)
[2023-12-28 10:48] LABS: T4 Free Direct 1.07 ng/dL (0.76-1.46)
[2023-12-28 10:54] LABS: ALB/GLOB Ratio 1.2 RATIO (0.9-2.4); AST(SGOT) 11 U/L (15-37); Alanine Aminotransfer ALT/SGPT 18 U/L (13-56); Albumin, Serum 3.6 g/dL (3.2-5.0); Alkaline Phosphatase 48 U/L (45-117); Anion Gap 5 (5-15); BUN 6 mg/dL (7-18); BUN/Creat Ratio 10.7 RATIO (10-20); Calcium,Total 8.8 mg/dL (8.5-10.1); Chloride 100 mmol/L (98-107); Creatinine, Serum 0.56 mg/dL (0.55-1.02); EST Glomerular Filtration Rate 112 mL/min (>60); Est Glom Filt Rate - Afr Amer 136 mL/min (>60); Globulin 3.1 g/dL (2.2-4.2); Glucose 105 mg/dL (74-106); Potassium 4.1 mmol/L (3.5-5.1); Protein, Total 6.7 g/dL (6.4-8.2); Sodium Level 133 mmol/L (136-145); T4 Free Direct 1.09 ng/dL (0.76-1.46); Thyroid Stim Hormone (TSH) 2.17 uIU/mL (0.358-3.74)
[2024-01-03 00:07] LABS: Vitamin B1, Thiamine 115.3 nmol/L (66.5-200.0)
== END | disposition home or self-care (01) ==
PROVIDERS: Family Medicine; PCP Family Medicine; Referring Provider Psychiatry & Neurology Neurology; Visit Provider Psychiatry & Neurology Neurology
DX: E03.9 Hypothyroidism, unspecified (principal); F20.9 Schizophrenia, unspecified; E78.2 Mixed hyperlipidemia; G31.84 Mild cognitive impairment of uncertain or unknown etiology; E53.8 Deficiency of other specified B group vitamins; G25.9 Extrapyramidal and movement disorder, unspecified
CPT/HCPCS: 36415; 80053; 82607; 82746; 84425; 84439; 84443; 85025

== ENCOUNTER 2024-01-03 18:00 | Outpatient (RCR) | payer MEDICARE, OTHER, SELFPAY ==
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
--- NOTE | 2023-10-12 13:41 | HP.SP.EV_ITS ---
Visit History Visit Info Date of Eval: 08/31/23 Visit: 1 Insurance Date Limit: 08/14/24 Energy Conservation Engineer: RAINE History Attending Doctor: Reason for Referral: PARKINSONS DISEASE. RX HERE Previous speech therapy: No Results: Parkinsonism or Parkinson from Dr Gilliam - 2wks [facility] ' - no issues with 10 years of vocal decline with worsening in the last year. balance, gait - over the last few years. Pt had 2 teeth removed & will be getting a bridge soon in [facility]. Increasing cognitive issues over the last year. Difficulty with memory with names, information about people & digestive issues, frequently passing gas, food in mouth after meal, coughing - pt does has COPD & choking for about a year with both food & liquid but especially food. no history of aspiration pneumonia Other Relevant Medical History/Diagnoses/Surgery: pt stopped smoking 7.5 years ago. Medications related to this diagnosis: COPD meds, thyroid meds, pyscrphrina meds, pain meds for back & shoulder. Steriod shots for back & legs. Also cramps in arms, legs & feet. Benstropene is a new medication from Dr. Chaudhary, but she cannot find them. Pt lives with her sister in a critical access hospital community in [place] Pt will have 1 drink in a sitting 1-2x a week. Smoking Status: Former smoker Diagnosis Diagnosis: Parkinsonism Pain Is pain an issue with your current prescribed condition?: Yes Personal Preferred language: Senegalese Patient Allergies Allergies Allergies: Allergies haloperidol [From Haldol] Allergy (Severe, Verified 08/22/23 10:07) Other Objective Dysphagia Administered by Administered by: Self Thin Liquids Administred via: Cup and Straw Oral Transit: WNL Bolus clearance: fully cleared Gagging: No Comments: clear voice after trials - thin via straw & open cup - 3oz open cup water chug Pureed Administered via: Spoon Oral Transit: WNL Bolus clearance: fully cleared Gagging: No Cough: none observed/unable to assess Pharyngeal phase: immediate laryngeal elevation Soft & Bite sized (Mechanical) Administered via: Spoon Oral Preparation: WNL Oral Transit: WNL Bolus clearance: fully cleared Gagging: No Cough: none observed/unable to assess Pharyngeal phase: immediate laryngeal elevation Regular Gagging: No Cough: delayed and throat clear Patient Report: left side food pooling throat clearing with carrots after afterwards. Comments: baked potato chips - pt used tongue sweeps to clear out the bolus. big bites noted beef stick - Carrot - Objective Voice Objective data Objective Data: Objective data: Sound pressure level (SPL acoustic correlation of vocal loudness) was measured with a sound level meter at a distance of 40 cm from the patient's mouth. Average conversational loudness is 70-80 dB and sustained phonation duration is 15 to 20 seconds for a typical adult. Sustained Phonation Intensity (dB SPL): 7.2 - trial 1, 60 db Sustained Phonatin duration (seconds): 12.5 seconds - trial 2 Is the individual stimulable to increase vocal intensity: Yes (72) Pitch Change Range (Hz) High: yes Pitch Change Range (Hz) Low: no Vocal Intensity at Sentence Level (dB SPL): 62, 58, 51 Vocal Intensity at Conversational Level (dB SPL): 56 on avg. Acoustic Analysis Acoustic Analysis: These results represent reading and conversational decibel levels that may significantly reduce speech intelligibility and communicative effectiveness. Amplitude Intensity Sustained (Average) in dB SPL: 11.62 Amplitude Intensity Word (Average) in dB SPL: 75 Amplitude Intensity Conversational (Average) in dB SPL: 51 Reference: Neuro-QoL instrument HDQLIFE - Speech Difficulties In the past 7 days. It was difficult for other people to understand me.: Sometimes Is was difficult to speak clearly?: Sometimes In the past 7 days.. How often did you limit your social activites because you had difficulty speaking?: Sometimes In the past 7 days... I had trouble speaking.: Quite a bit I was frustrated by my speech difficulties.: Quite a bit How much DIFFICULTY do you have... ...saying what you want to say?: A lot of difficulty Score HDQLIFE Speech Difficulties Raw Score: 21 HDQLIFE Speech Difficulties T - Score: 61 Radiation Oncology Patient Plan Plan Plan: Will rx Pt for skilled outpatient tx to address deficits in oropharyngeal dysphagia, dysarthria and vocal function. ST recommends pt participate in Pt would benefit from training and education re: diet tolerance checks and compe nsatory strategies to aid in oropharyngeal strengthening and increase speech intelligibility. Without skilled intervention, Pt is at risk for consuming a restrictive diet putting her at risk for aspiration pneumonia and atrophy of laryngeal musculature and the Pt is at risk for difficulty communicating basic, medical, emergent, social wants & needs, and interacting with family/friends at home, during social interactions, and at work Recommendations MBS: No Treatment Warranted: Yes Treatment Warranted: Speech Sound Production, Dysphagia and Voice Progress Prognosis: Good Frequency Frequency: 1-2x /Week Duration: 4-6 Months Goals that are Established Determination:: Goals will be added/modified as deemed necessary and approp riate. Therapy will be discontinued when results of re-evaluation indicate therapy is no longer needed or lack of progress has been documented. Goal #1-5 Goal #1: An instrumental evaluation (i.e..FEES or MBSS) is required to rule out aspiration and determine an appropriate diet level secondary to s/s of aspiration observed during the evaluation. Goal #2: Pt will utilize recommended compensatory strategies needed to tolerate the least restrictive means of P.O. to facilitate adequate nutrition and hydration. Goal #3: The pt will demonstrate and utilize recommended compensatory strategies and speech intelligibility techniques increased vocal intensity, reduced rate of speech, exaggerated articulation) to reduce articulation errors during conversation with up to minimal verbal cues across 3 measured sessions to facilitate increased expressive communication abilities in the home and social environments. Goal #4: Pt will independently utilize compensatory strategies (i.e. reducing distractions, facing speaker, slow rate, exaggerating speech sound on difficult words) to aid in communication at home as measured an overall score of 3 on self & caregiver reports during 3 measured sessions to help facilitate increased expressive communication abilities in the home and social environments. Education Patient has Indicated that the Following Identified Educational Needs: None The Patient has indicated that they have no educational or learning abilities that may effect their care.: Yes Patient Instruction Patient Education: Diagnosis, Treatment Plan and Goals Person Taught: Patient and Family Teaching Method: Discussion Response to teaching: Verbalize understanding
--- NOTE | 2023-10-19 13:41 | HP.PTREVAL_ITS ---
Re-Evaluation Intro: Dr. Alphonse Chaudhary MD, It has been my pleasure to treat MK ERIC over the last 2 visits for Parkinsonism. Please see the progress note below for an update on the physical therapy plan of care! Subjective Subjective: Pt was doing her exercises up until she went to [facility] for dental care and visiting friends. She reports that her L shoulder still hurts. She reports that it hurts when sitting but more when she moves it. She can not lay on that L side. She struggles to get out of a chair and out of bed. She gets dizzy when she stands or when she sits up. It hangs on when she is walking too. She also gets dizzy when she moves quick too. She is still seeing speech. She had a steroid shot last week in her back and that seems to have helped. Objective Objective/Function: She is R handed..... R shoulder flexion 146 and L 89 R shoulder ABD 128 and L 69 R shoulder ER 58, and L 40 R shoulder IR L5 and L PSIS UE MMT: R shoulder flex 4.6 and L 3.3 R shoulder ABD 4.5 and L 3.3 R shoulder ER 8.1 and L 5.2 PROM: L shoulder to approx 120 degrees flexion with increase pain at end range but did seem to loosen up the more that she did C-spine AROM: flex 100%, Ext 10%, Rot B 50% FGA 10 Plan Plan Plan: Start with PROM/AAROM of the L shoulder and postural exercises and then progress to AROM and strength of the L shoulder. Incorporate c-spine rotation, gait training, balance exercises with and without head turns, curb steps, multi- directional changes with HEP Pt was given supine wand flexion and c-spine rotation for HEP on this day Balance/Gait/Functional tests Balance/Special Test Scores Functional Gait Assessment Score: 10 % Disability: 66.6700 Lower Extremity Functional Score: 30 Goals Goals Goal 1:: I HEP Goal Time Frame: 6-8 Weeks Goal 2:: Increase ability to walk with increase stride length, increase heel to toe gait pattern and no veering with increase head turn. Goal Time Frame: 6-8 Weeks Goal 3:: Be able to complete X 30 seconds head turning horizontal in standing without dizziness Goal Time Frame: 6-8 Weeks Goal 4:: Increase balance (FGA score was 10 at eval) Goal Time Frame: 6-8 Weeks Goal 5:: Increase L shoulder AROM (R shoulder flexion 146 and L 89 R shoulder ABD 128 and L 69 R shoulder ER 58, and L 40 R shoulder IR L5 and L PSIS) Goal Time Frame: 6-8 Weeks Goal 6:: Decrease L shoulder pain by 50% Goal Time Frame: 6-8 Weeks Anticipated Interventions Anticipated Interventions Patient/Client Instruction: Educate patient on: Condition and Plan of Care For the Purpose of:: To decrease pain, To increase ROM, To improve muscle performance and motor function, To improve ability to perform ADL's, To increase tolerance to activity/condition/position, To improve performance and independenc e with ADL's, To decrease level of supervision to perform tasks, To improve ability of physical actions for home/community/work/leisure, To improve gait and locomotor functions, To increase flexibility/ROM, To improve balance and To improve safety with gait Therapeutic Exercise to Include: Strength training, Endurance training, Balance training, Body mechanics, Postural training, Flexibilty training, Gait and locomotor training and Neuromotor development For the Purpose of:: To improve muscle performance and motor function, To improve ability to perform ADL's, To increase tolerance to activity/condition/position, To improve performance and independence with ADL's, To improve ability of physical actions for home/community/work/leisure, To impr ove gait and locomotor functions, To increase flexibility/ROM, To improve endurance, To improve balance and To improve safety with gait Functional Training to Include: Gait training For the Purpose of:: To improve gait and locomotor functions and To improve safety with gait Re-Evaluation Ending Re-evaluation ending: Please do not hesitate to contact me at [phone] by phone or if you have questions or concerns regarding this new plan of care! Sincerely, Ngoc Kim, MPT
--- NOTE | 2023-10-24 13:36 | SP.FEES_ITS ---
FEES Patient Information Date of Evaluation: 10/17/23 Time of Evaluation: 10:10 DIAGNOSIS:: dysphagia Staff Providing this Care/Treatment:: RAINE Direct Billable Minutes: 120 Subjective: Subjective:: Pt arrived for her FEES examination at [facility] with her sister who was present for the session. Current Diet: Drinks/Liquids:: Thin Foods:: Regular Medication Administration:: orally Comment:: Pt has a diagnosis of Parkinsonism and has not previously had a swallow test to establish a baseline. Complaints of occasional choking with water & throat clearing during meals. Dentation/Oral Hygiene: Observations:: Adequate - recently had dental implants placed Vocal Quality: Observations:: Hoarse and Hyponasal Cognition: Observations:: WFL Dysphagia: TX/DX History:: Yes Fiberoptic Endoscope: Size: 3.4 mm Nare:: Right Comments: ST passed the scope through the right nare with no difficulty Position During FEES: Position During FEES:: Upright Location: In Chair Anatomy: + Velopharyngeal Port Observations Movement: Yes and DIninished +Nasopharynx Observations Tissue Description: [place] and Moist +Oropharynx Observations: Tissue Description: [place] and Moist Location: Diffuse +Hypopharynx Observation: Tissue Description: [place] and Moist Location: Diffuse Comments:: Diminished/non-complete velum closure noted when velum movement was elicited through a vocal task. Secretions: Description:: Thick and White Comment:: Thick secretions noted across the vocal cords multiple times during the FEES. Pt throat cleared to clear the secretions x2 and swallowed x2 I Location:: Hypopharynx and Superior Phonation: Arytenoid Adduction & Abduction: Arytenoid movement was elicited through various vocal tasks and the movement was WFL. Vocal Folds:: WFL Penetration-Aspiration Scale Penetration-Aspiration Scale Swallowing: :: Weak pharyngeal contraction noted with large sips of thin via straw and when taking medication. Initiation:: Vallecula and Piriform Sinus Swallowing Trials: Swallowing Trials Results Below: Thin Liquid: Trial 1: water Administered:: via a straw Aspiration: No - aspiration Residue: No PAS Score: PAS Score *1 Trial 2: 3oz water Administered:: via a straw Aspiration: No - aspiration Residue: Yes Residue Location: Residue Location Piriform Sinuses PAS Score: PAS Score *1 Trial 3: thin with pills Administered:: via a straw Strategy: Double Swallow Aspiration: No - aspiration Residue: Yes Residue Location: Residue Location Vallecula PAS Score: PAS Score *1 Puree Texture: Trial 1: pudding Administered:: via a teaspoon Strategy: Double Swallow Aspiration: No - aspiration Residue: Yes Residue Location: Residue Location Vallecula PAS Score: PAS Score *1 Soft & Bite Texture: Trial 1: peaches Administered:: via a teaspoon Strategy: Double Swallow Regular Texture: Trial 1: veggies straws Strategy: Double Swallow and Liquid Wash Aspiration: No - aspiration Residue: Yes Residue Location: Residue Location Laryngeal Vestibule PAS Score: PAS Score *1 Trial 2: trail mix Strategy: Double Swallow and Liquid Wash Aspiration: No - aspiration Residue: Yes Residue Location: Residue Location Vallecula Result: On one trial of trail mix, residue was noted on the posterior side of t he epiglottis. Pt swallowed multiple times and used a liquid wash to clear the residue. Unable to visualize the residue on the epiglottis ejecting so ST was unable to definitively rule out aspiration. Strategies Comments:: Pt I used a double swallow when needed to clear residue with regular and soft & bite sized textures. Pt was cued to use a liquid wash as well during the FEES to clear the remainder of the residue. These strategies were effective in clearing residue from the vallecula and pyriform sinuses during the examination Recommendations: Recommended Diet Grade & Liquid Drinks/Liquids:: Thin Foods:: Regular Medication Administration:: orally Supervision/Cues: Family Recommended Compensatory Strategies: Slow rate, upright at a 90 degree hip flexion, small bites & sips, alternate EVERY bite & sip, minimize distractions, and verbal cues as needed. Recommend Repeat Fiberoptic Endoscopic Evaluation of Swallowing: Yes Comment: In one year or if status changes Prognosis: Prognosis: Good Frequency: Frequency: 1x/Week Duration: 2-4 Months Education: Education Completed: 1. Described result of evaluation. and 2. Pt understands evaluation & agrees with goals and treatment plan. Goals that are Established Determination:: Goals will be added/modified as deemed necessary and appropriate. Therapy will be discontinued when results of re-evaluation indicate therapy is no longer needed or lack of progress has been documented. Goal #1: An instrumental evaluation (i.e..FEES or MBSS) is required to rule out aspiration and determine an appropriate diet level secondary to s/s of aspiration observed during the evaluation. Goal #2: Pt will utilize recommended compensatory strategies needed to tolerate the least restrictive means of P.O. to facilitate adequate nutrition and hydration. Goal #3: The pt will demonstrate and utilize recommended compensatory strategies and speech intelligibility techniques increased vocal intensity, reduced rate of speech, exaggerated articulation) to reduce articulation errors during conversation with up to minimal verbal cues across 3 measured sessions to facilitate increased expressive communication abilities in the home and social environments. Goal #4: Pt will independently utilize compensatory strategies (i.e. reducing distractions, facing speaker, slow rate, exaggerating speech sound on difficult words) to aid in communication at home as measured an overall score of 3 on self & caregiver reports during 3 measured sessions to help facilitate increased expressive communication abilities in the home and social environments.
--- NOTE | 2023-11-15 14:10 | HP.PTREVAL_ITS ---
Re-Evaluation Intro: Dr. Alphonse Chaudhary MD, It has been my pleasure to treat MK ERIC over the last 8 visits for Parkinsonism. Please see the progress note below for an update on the physical therapy plan of care! Subjective Subjective: Not too bad. Pt reports that her L shoulder is ok when she does not move it. 0% better with her shoulder. Dr was going to wait until after PT to do an x-ray. She has to meet her new Dr cause her Dr just left the practice. Objective Objective/Function: (R shoulder flexion 146 and L 94 R shoulder ABD 128 and L 70 R shoulder ER 58, and L 45 R shoulder IR L5 and L L5 FGA 11 Standing making horizontal head turns X 30 seconds ...little bit of dizziness Plan Plan Plan: Pt to go back to her Dr about her shoulder not improving. Incorporate c- spine rotation (VOR), gait training, balance exercises with and without head turns, curb steps, multi- directional changes with HEP. Balance/Gait/Functional tests Balance/Special Test Scores Functional Gait Assessment Score: 11 % Disability: 63.3400 Lower Extremity Functional Score: 21 Goals Goals Goal 1:: I HEP Goal Time Frame: 6-8 Weeks Goal 2:: Increase ability to walk with increase stride length, increase heel to toe gait pattern and no veering with increase head turn. Goal Time Frame: 6-8 Weeks Goal Progress: Progressing Goal 3:: Be able to complete X 30 seconds head turning horizontal in standing without dizziness Goal Time Frame: 6-8 Weeks Goal 4:: Increase balance (FGA score was 10 at eval) Goal Time Frame: 6-8 Weeks Goal Progress: Progressing Goal 5:: Increase L shoulder AROM (R shoulder flexion 146 and L 89 R shoulder ABD 128 and L 69 R shoulder ER 58, and L 40 R shoulder I)R L5 and L PSIS Goal Time Frame: 6-8 Weeks Goal Progress: Not Progressing Goal 6:: Decrease L shoulder pain by 50% Goal Time Frame: 6-8 Weeks Goal Progress: Not Progressing Anticipated Interventions Anticipated Interventions Patient/Client Instruction: Educate patient on: Condition and Plan of Care For the Purpose of:: To decrease pain, To increase ROM, To improve muscle performance and motor function, To improve ability to perform ADL's, To increase tolerance to activity/condition/position, To improve performance and independence with ADL's, To decrease level of supervision to perform tasks, To improve ability of physical actions for home/community/work/leisure, To improve gait and locomotor functions, To increase flexibility/ROM, To improve balance and To improve safety with gait Therapeutic Exercise to Include: Strength training, Endurance training, Balance training, Body mechanics, Postural training, Flexibilty training, Gait and locomotor training and Neuromotor development For the Purpose of:: To improve muscle performance and motor function, To improve ability to perform ADL's, To increase tolerance to activity/condi tion/position, To improve performance and independence with ADL's, To improve ability of physical actions for home/community/work/leisure, To improve gait and locomotor functions, To increase flexibility/ROM, To improve endurance, To improve balance and To improve safety with gait Functional Training to Include: Gait training For the Purpose of:: To improve gait and locomotor functions and To improve safety with gait Re-Evaluation Ending Re-evaluation ending: Please do not hesitate to contact me at [phone] by phone or if you have questions or concerns regarding this new plan of care! Sincerely, Ngoc Kim, MPT
== END 2024-01-03 19:00 | disposition home or self-care (01) ==
LOC: SP 18:00
PROVIDERS: PCP Family Medicine; Visit Provider Psychiatry & Neurology Neurology
DX: G20.C Parkinsonism, unspecified (principal); G25.9 Extrapyramidal and movement disorder, unspecified; R47.1 Dysarthria and anarthria; R13.10 Dysphagia, unspecified
CPT/HCPCS: 92524; 92526; 92610; 92612; 97110; 97140; 97162; 97164; 97530

== ENCOUNTER 2024-03-20 12:42 | Outpatient (CLI) | payer MEDICARE, OTHER, SELFPAY ==
--- NOTE | 2024-03-20 12:43 | BI_ITS ---
MAMMOGRAPHY - UNILATERAL SCREENING: LEFT BREAST REASON FOR EXAM: Female, 73 years old. Routine annual screening examination (unilateral). PERTINENT HISTORY: Personal history of breast cancer. Prior right mastectomy. Aunt with breast cancer. TECHNIQUE: Digital unilateral breast bhavna (3D mammographic acquisition) in the CC and MLO projections. 2-D mediolateral oblique (MLO) and craniocaudad (CC) views of both breasts were obtained. CAD: Full Field Digital Mammography with Computer Added Detection was performed. COMPARISON: Comparison is made with prior study dated March 16, 2023 and October 05, 2022. FINDINGS: Breast Composition: The breasts are heterogeneously dense, which may obscure small masses. There are no dominant masses or suspicious calcifications. No other significant abnormalities are identified. There has been no significant change since the prior study. BI/SCREEN MAMM (CAD) W/BHAVNA UNI L IMPRESSION: Stable unilateral screening mammogram. Yearly follow-up mammogram recommended. (A) ASSESSMENT CATEGORY: BIRADS Category 1: Negative. A letter regarding these results will be sent to the patient by the facility within 30 days. Approximately 10% of breast cancers are not detected by mammography. A normal mammogram should not delay biopsy of a clinically suspicious abnormality. [id number] Electronically Signed: Jason Oreilly MD at 13:28 EDT ,
== END 2024-03-20 23:59 | disposition home or self-care (01) ==
LOC: OPBI 12:43
PROVIDERS: PCP Family Medicine; Referring Provider Internal Medicine Hematology & Oncology; Visit Provider Internal Medicine Hematology & Oncology
DX: Z12.31 Encounter for screening mammogram for malignant neoplasm of breast (principal); Z12.2 Encounter for screening for malignant neoplasm of respiratory organs; Z87.891 Personal history of nicotine dependence
CPT/HCPCS: 71271; 77063; 77067

== ENCOUNTER → 2024-03-20 | Outpatient (CLI) | payer MEDICARE, OTHER, SELFPAY ==
--- NOTE | 2024-03-20 14:43 | CT_ITS ---
STUDY: LOW DOSE CT LUNG CANCER SCREENING REASON FOR EXAM: Female, 73 years old. Lung cancer screening -- and gt; 20 pk yr hx;former smoker; asymptomatic RADIATION DOSAGE (If Supplied By Facility): CTDIvol = ( 3.02 ) mGy, DLP = ( 102.69 ) mGycm TECHNIQUE: No contrast was administered. Low dose technique was utilized (average mAS-38 and kVp 120). 1.25 mm axial source images with a slice interval of 1.25-mm were reconstructed in lung windows. 2.5 mm axial source images with a slice interval of 2.5-mm were reconstructed in lung windows. 5.0 mm axial source images with a slice interval of 5.0-mm were reconstructed in soft tissue windows. COMPARISON: Comparison is made with prior study March 19, 2023. The right breast implant is seen. NODULES: No suspicious nodules are seen. Emphysema: Hyperinflation. Mild emphysematous changes. Stable linear scarring in the anterior medial aspect of the left upper lobe as well as the medial aspect of the right middle lobe and the lingular segment of the left upper lobe. Stable scarring in the posterior aspect of the right lower lobe. Endobronchial lesion: None Aorta: Mild atherosclerotic calcification of the aortic arch. CORONARY ARTERIES: Coronary artery calcification is seen. Heart: Marked Pulmonary artery: Unremarkable Mediastinal nodes: Small mediastinal lymph nodes. Other chest and abdominal findings: CT/Low Dose CT Lung Screening IMPRESSION: Lung-RADS category 2 - Continue annual screening with LDCT in 12 months. IMPORTANT NOTES FOR USE: ACR Lung-RADS Version 1.1 Assessment Categories Release Date: 2018 Category: Coded 0-4 bases on nodule(s) with highest degree of suspicion. Negative screen is defined as categories 1 and 2; a positive screen is defined as categories 3 and 4. Category 3 and 4A nodules that are unchanged on interval CT should be coded as category 2, and individuals returned to screening in 12 months. Category 4X: Category 3 or 4 nodules with additional imaging findings that increase the suspicion of lung cancer, such as spiculation, GGN that doubles in size in 1 year, enlarged lymph notes, etc. Category Modifiers: S (significant finding unrelated to lung cancer) Electronically Signed: Jason Oreilly MD at 15:18 EDT ,
== END | disposition home or self-care (01) ==
LOC: CT 14:43
PROVIDERS: PCP Family Medicine; Referring Provider Nurse Practitioner Acute Care; Visit Provider Nurse Practitioner Family
DX: Z12.2 Encounter for screening for malignant neoplasm of respiratory organs (principal); Z87.891 Personal history of nicotine dependence
CPT/HCPCS: 71271

== ENCOUNTER → 2024-03-28 | Outpatient (CLI) | payer MEDICARE, OTHER, SELFPAY ==
[2024-03-28 10:12] LABS: Absolute Lymphocyte Count 1.96 X10^3/uL (0.83-4.51); Absolute Neutrophil Count 2.7 X10^3/uL (2.0-7.7); Basophil% 1.8 % (0-1); Eosinophil# 0.13 X10^3/uL; Eosinophils% 2.4 % (0-5); Hematocrit 40.5 % (37-47); Lymphocyte # 1.96 X10^3/ul (0.83-4.51); Lymphocyte % 35.6 % (19-41); Mean Corp Hgb Conc 32.1 g/dL (32-36); Mean Corpuscular Hgb 27.6 pg (27.0-32.0); Monocyte% 10.9 % (0-10); NRBC Flagged by Analyzer 0 % (0-5); Neutrophil # 2.69 X10^3/uL (2.7-7.7); Neutrophil % 48.8 % (47-70); Platelet Count 355 K/mm3 (150-450); RBC Distribution Width CV 12.7 % (11.6-14.6); RBC Distribution Width SD 39.8 fl (35.1-43.9); Red Blood Count 4.71 M/mm3 (4.2-5.4); White Blood Count 5.5 K/mm3 (4.4-11.0)
[2024-03-28 10:37] LABS: ALB/GLOB Ratio 1.2 RATIO (0.9-2.4); AST(SGOT) 12 U/L (15-37); Alanine Aminotransfer ALT/SGPT 18 U/L (13-56); Albumin, Serum 3.6 g/dL (3.2-5.0); Alkaline Phosphatase 46 U/L (45-117); Anion Gap 5 (5-15); BUN 11 mg/dL (7-18); BUN/Creat Ratio 19.1 RATIO (10-20); Chloride 101 mmol/L (98-107); Cholesterol 190 mg/dL (200); Creatinine, Serum 0.58 mg/dL (0.55-1.02); EST Glomerular Filtration Rate 108 mL/min (>60); Est Glom Filt Rate - Afr Amer 131 mL/min (>60); Globulin 3.1 g/dL (2.2-4.2); Glucose 102 mg/dL (74-106); High Density Lipoprotein 92 mg/dL; Potassium 4.2 mmol/L (3.5-5.1); Protein, Total 6.7 g/dL (6.4-8.2); Sodium Level 133 mmol/L (136-145); Triglycerides 72 mg/dL; Very Low Density Lipoprotein 14 mg/dL (5-40)
[2024-03-28 12:15] LABS: Hemoglobin A1c 5.6 % (3.8-5.6)
[2024-03-29 04:08] LABS: PROLACTIN 29.3 ng/mL (3.6-25.2)
== END | disposition home or self-care (01) ==
LOC: MFPLAB 08:40
PROVIDERS: PCP Family Medicine; Visit Provider Registered Nurse
DX: E55.9 Vitamin D deficiency, unspecified (principal); R53.83 Other fatigue; Z79.899 Other long term (current) drug therapy
CPT/HCPCS: 36415; 80053; 80061; 83036; 84146; 85025

== ENCOUNTER → 2024-07-11 | Outpatient (CLI) | payer MEDICARE, OTHER, SELFPAY ==
--- NOTE | 2024-07-11 10:09 | ECHOD_ITS ---
Reason For Study: Dyspnea/SOB Procedure This was a 2D Doppler, Color Flow transthoracic echocardiogram. Technically difficult study. Patient scanned supine d/t pain from laying on left side. Exam performed in department. Left Ventricle Normal left ventricular thickness. Severe generalized hypokinesis. Estimated LVEF 35%. Stage I diastolic dysfunction. 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 Right Ventricle Normal right ventricle. Atria The left and right atria are normal. Mitral Valve Trivial mitral valve insufficiency. Tricuspid Valve Trivial tricuspid valve insufficiency. Unable to estimate RV systolic pressure due to insufficient tricuspid regurgitant envelope. Aortic Valve Trisinus/trileaflet aortic valve. Pulmonic Valve The pulmonic valve is not well visualized. Great Vessels Normal sized aortic root. Pericardium/Pleural No pericardial effusion. MMode/2D Measurements & Calculations LVIDd: 4.7 cm IVSd: 1.0 cm Ao root diam: 3.5 cm LVIDs: 3.7 cm LVPWd: 0.84 cm RVDd: 3.6 cm FS: 20.5 % LAV(MOD-bp): 29.5 ml LVAd ap4: 28.1 cm2 LVAd ap2: 29.1 cm2 LAV(MOD-bp) Indexed: 15.7 ml/m2 LVLd ap4: 7.6 cm LVLd ap2: 7.8 cm LAV(MOD-sp2): 22.1 ml EDV(MOD-sp4): 91.7 ml EDV(MOD-sp2): 92.3 ml LAV(MOD-sp4): 27.6 ml EDV(sp4-el): 88.6 ml EDV(sp2-el): 91.9 ml LVAs ap4: 20.4 cm2 LVAs ap2: 19.3 cm2 LVLs ap4: 7.4 cm LVLs ap2: 6.7 cm ESV(MOD-sp4): 47.3 ml ESV(MOD-sp2): 48.9 ml ESV(sp4-el): 47.6 ml ESV(sp2-el): 47.0 ml EF(MOD-sp4): 48.5 % EF(MOD-sp2): 47.0 % EF(sp4-el): 46.3 % SV(MOD-sp4): 44.5 ml SV(MOD-sp2): 43.4 ml SV(sp4-el): 41.0 ml SI(MOD-sp4): 23.7 ml/m2 SI(MOD-sp2): 23.1 ml/m2 LA A4 area: 13.0 cm2 LA dimension(2D): 3.5 cm RA A4 area: 13.1 cm2 TAPSE: 1.5 cm Time Measurements MV dec time: 0.28 sec Doppler Measurements & Calculations MV E max jorge l: 47.1 cm/sec Lat Peak E' Jorge L: 9.9 cm/sec Med Peak E' Jorge L: 6.5 cm/sec MV A max jorge l: 85.4 cm/sec E/E' lat: 4.7 E/E' med: 7.3 MV E/A: 0.55 MV V2 max: 96.4 cm/sec MV P1/2t max jorge l: 56.6 cm/sec Ao V2 max: 103.9 cm/sec MV max P.7 mmHg MV P1/2t: 105.8 msec Ao max P.3 mmHg MV V2 mean: 47.2 cm/sec Ao V2 mean: 74.3 cm/sec MV mean P.1 mmHg MV dec slope: 156.8 cm/sec2 Ao mean P.5 mmHg MV V2 VTI: 24.8 cm MVA(P1/2t): 2.1 cm2 Ao V2 VTI: 22.1 cm AV (velocity ratio): 1.1 LV V1 max: 101.8 cm/sec LV V1 max P.1 mmHg LV V1 mean P.0 mmHg LV V1 mean: 64.9 cm/sec LV V1 VTI: 23.3 cm ECHO/Echo Complete Interpretation Summary Severe generalized hypokinesis. Estimated LVEF 35%. Stage I diastolic dysfuncti on. 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 Recommend cardiac MRI for further evaluation. Ordering Physician: Trudy Bryant Referring Physician: Vadim Jones Performed By: Cirilo Herron RCS
== END | disposition home or self-care (01) ==
LOC: CVS 10:05
PROVIDERS: PCP Family Medicine; Referring Provider Family Medicine; Visit Provider Internal Medicine Cardiovascular Disease
DX: R06.00 Dyspnea, unspecified (principal)
CPT/HCPCS: 93306

== ENCOUNTER → 2024-08-28 | Outpatient (CLI) | payer MEDICARE, OTHER, SELFPAY ==
[2024-08-28 13:28] VITALS: BP 121/62; PULSE 86; RESP 20; TEMP 36.2; O2SAT 90; BMI 26.8
[2024-08-28 13:42] VITALS: BP 121/62; BP 123/60; PULSE 69; PULSE 85; RESP 16; O2SAT 95
[2024-08-28] MEDS: Metoprolol Tartrate 5 MG/5 ML Vial IV ×2 (13:42→14:03)
[2024-08-28] MEDS: 0.9% Saline Lock 10 ML Syringe IV ×2 (13:45→14:10)
[2024-08-28 14:03] VITALS: BP 128/69; PULSE 75
[2024-08-28 14:06] VITALS: BP 128/69; PULSE 75; RESP 16
--- NOTE | 2024-08-28 14:10 | CT_ITS ---
STUDY: CT CHEST WITH CONTRAST REASON FOR EXAM: Female, 74 years old. Chest over-read RADIATION DOSAGE (If Supplied By Facility): CTDIvol = ( 31.63 ) mGy, DLP = ( 1090.21 ) mGycm TECHNIQUE: Transaxial imaging was performed following intravenous administration of IV 75mL Isovue-370. Cardiac ovary the examination. Individualized dose optimization techniques were used for this CT. COMPARISON: No relevant priors. FINDINGS: CHEST Findings suggestion of scarring in the anterior medial aspect of the right upper lobe as well as in the right lower. Mild scarring in the posterior aspect of the lingular segment of the left upper lobe. There is no demonstrated pleural abnormality. There are calcifications of the coronary arteries. Normal mediastinum. Normal hilar regions. Normal unenhanced pulmonary arteries. Normal aorta arch and descending thoracic aorta. There are degenerative changes of the thoracic spine. There is no demonstrated abnormality of the visualized upper abdomen. CT/Limited Chest CT Cardiac Only IMPRESSION: Coronary artery calcification. Electronically Signed: Jason Oreilly MD at 15:00 EST ,
[2024-08-28 14:11] VITALS: BP 128/69; PULSE 67
[2024-08-28] MEDS: Nitroglycerin SL (ED/IMG/CATH) 0.4 MG TABLET SL (14:11)
[2024-08-28 14:20] VITALS: BP 119/58; PULSE 69; RESP 16; O2SAT 90
--- NOTE | 2024-08-29 07:44 | CCTA.WCONT ---
CCTA w/Cont Coronary Arteries Date of Study:: 08/28/24 Chest pain Coronary Calcium Scoring: High-resolution Computed Tomographic imaging of the chest was performed on [08/28/2024], with particular attention paid to the coronary arteries. Intravenous contrast agent was administered per protocol and images reconstructed and displayed. LEFT MAIN CORONARY ARTERY: Arises from the left main coronary cusp and bifurcates into left anterior descending artery and left circumflex artery. No significant stenosis is noted. [] LEFT ANTERIOR DESCENDING CORONARY ARTERY: This arises from the left anterior descending artery. There is an eccentric 40% proximal to mid stenotic soft plaque noted in the rest of the LAD appears to have mild disease. [] LEFT CIRCUMFLEX CORONARY ARTERY: This vessel appears to be calcified in the proximal and mid segment with at least moderate stenosis noted and mild distal disease present. [] RIGHT CORONARY ARTERY: This arises from the right coronary cusp and is noted to have diffuse atherosclerosis with no high-grade plaque noted. [] THORACIC AORTA: [] PULMONARY ARTERY: [] LEFT ATRIUM/APPENDAGE: [] MITRAL VALVE: [] AORTIC VALVE: [] LEFT VENTRICLE: [] CORONARY CALCIUM SCORE: Not done CT angiogram with soft plaque noted in the left anterior descending artery and calcified at least moderate stenosis noted in the proximal to mid circumflex artery. []
== END | disposition home or self-care (01) ==
LOC: CT 13:08
PROVIDERS: PCP Family Medicine; Referring Provider Internal Medicine Cardiovascular Disease; Visit Provider Internal Medicine Cardiovascular Disease
DX: R07.9 Chest pain, unspecified (principal)
CPT/HCPCS: 75574; 76380; 96374; Q9967; A4216

== ENCOUNTER → 2024-10-31 | Outpatient (CLI) | payer MEDICARE, OTHER, SELFPAY ==
--- NOTE | 2024-10-31 14:55 | CT_ITS ---
PROCEDURE: EXTREMITY UPPER WITHOUT CONTRA 10/31/2024 REASON FOR EXAM: BURSITIS L SHOULDER TECHNIQUE: Axial extremity without intravenous contrast. Coronal and Sagittal reconstruction series were provided. One or more dose reduction techniques were used (e.g., Automated exposure control, adjustment of the mA and/or kV according to patient size, use of iterative reconstruction technique). RADIATION DOSE SUMMARY: CTDlvol: 22.11 mGy DLP: 530.18 mGycm COMPARISON: None. FINDINGS: Bones: No evidence of fracture. Degenerative spur seen along the inferior aspect of the humeral head with proliferation. Joints: Marked degree of osteoarthritis and joint space narrowing of the glenohumeral humeral joint. Soft Tissues: Swelling. Shoulder joint effusion. CT/Extremity Upper without Contra IMPRESSION: Marked degree of joint space narrowing and osteoarthritis of the left glenohume ral joint with hypertrophic spur formation. Soft tissue swelling in the shoulder joint effusion. Reading Location: [place] [id number]
== END | disposition home or self-care (01) ==
LOC: CT 14:44
PROVIDERS: PCP Family Medicine; Referring Provider Specialist; Visit Provider Specialist
DX: M19.012 Primary osteoarthritis, left shoulder (principal); M75.52 Bursitis of left shoulder; M25.712 Osteophyte, left shoulder
CPT/HCPCS: 73200

== ENCOUNTER → 2024-11-12 | Outpatient (CLI) | payer MEDICARE, OTHER, SELFPAY | END | disposition home or self-care (01) | LOC: PSN 08:21 | PROVIDERS: PCP Family Medicine; Referring Provider Nurse Practitioner Acute Care; Visit Provider Nurse Practitioner Acute Care | DX: J43.2 Centrilobular emphysema (principal) | CPT/HCPCS: 94060; 94726; 94729 ==

== ENCOUNTER → 2024-11-27 | Outpatient (CLI) | payer MEDICARE, OTHER, SELFPAY ==
[2024-11-27 13:30] VITALS: PULSE 100; PULSE 102; PULSE 103; PULSE 83; PULSE 86; PULSE 93; PULSE 99; O2SAT 88; O2SAT 91; O2SAT 92; O2SAT 93; O2SAT 94
--- NOTE | 2024-11-29 12:31 | WT_ITS ---
PSN 6 Minute Walk Test 6 Minute Walk Test 6 Minute Walk Test: 6 Minute Walk Test PSN:6-Minute Walk Test Start: 11/27/24 13:30 Freq: Status: Active Protocol: [id number] Document 11/27/24 13:30 GAIL (Rec: 11/27/24 13:33 ENTON [id number]) 6 Minute Walk Test Date Performed 11/27/24 Time Performed 13:15 Height 5 ft 6.5 in Weight: 165 lb Weight in Pounds 165.[address]: Jess Otero [employer] Assistive device None used: Pre-test Oxygen Delivery Room Air Method Pulse Ox (%) 88 Pulse Rate (60-100 83 beats/min) Dyspnea Pradip Scale ( 0.5 0-10) Exertion Pradip Scale 6 (6-20) 1st minute Oxygen Flow Rate (L/ 2 min) (L/min) Oxygen Delivery Nasal Cannula Method Pulse Ox (%) 93 Pulse Rate (60-100 93 beats/min) 2nd minute Oxygen Flow Rate (L/ 2 min) (L/min) Oxygen Delivery Nasal Cannula Method Pulse Ox (%) 92 Pulse Rate (60-100 100 beats/min) 3rd minute Oxygen Flow Rate (L/ 2 min) (L/min) Oxygen Delivery Nasal Cannula Method Pulse Ox (%) 91 Pulse Rate (60-100 102 H beats/min) 4th minute Oxygen Flow Rate (L/ 2 min) (L/min) Oxygen Delivery Nasal Cannula Method Pulse Ox (%) 92 Pulse Rate (60-100 103 H beats/min) 5th minute Oxygen Flow Rate (L/ 2 min) (L/min) Oxygen Delivery Nasal Cannula Method Pulse Ox (%) 93 Pulse Rate (60-100 99 beats/min) Number of Rests 1 Taken 6th minute Oxygen Flow Rate (L/ 2 min) (L/min) Oxygen Delivery Nasal Cannula Method Pulse Ox (%) 93 Pulse Rate (60-100 102 H beats/min) Dyspnea Pradip Scale ( 3 0-10) Exertion Pradip Scale 14 (6-20) Post-test Oxygen Flow Rate (L/ 2 min) (L/min) Oxygen Delivery Nasal Cannula Method Pulse Ox (%) 94 Pulse Rate (60-100 86 beats/min) Full Laps Walked 12 Partial Lap, Number 22 of Tiles Walked Total Distance 730 Walked (ft) Interpretation Interpretation: The patient ambulated 730 feet over the course of 6 minutes beginning on room air without assistive devices. Pretesting oxygen saturation was noted to be 88% on room air. 2 L/min of supplemental oxygen was applied and the patient was able to complete the remainder of the test while maintaining appropriate saturations. Recommendations Recommendations: 2 L/min of supplemental oxygen should be utilized both at rest and with exertion.
== END | disposition home or self-care (01) ==
LOC: PSN 13:02
PROVIDERS: PCP Family Medicine; Referring Provider Nurse Practitioner Acute Care; Visit Provider Nurse Practitioner Acute Care
DX: J43.2 Centrilobular emphysema (principal)
CPT/HCPCS: 94618

== ENCOUNTER → 2024-11-28 | Outpatient (CLI) | payer MEDICARE, OTHER, SELFPAY ==
--- NOTE | 2024-11-28 12:43 | BD_ITS ---
PROCEDURE: DEXA BONE DENSITY STUDY 11/28/2024 REASON FOR EXAM: SCREENING F, age 74 y/o . Postmenopausal. TECHNIQUE: DXA scan of the lumbar spine and bilateral hips., Using make and model. REFERENCE LINKS: ISCD Adult Positions COMPARISON: Comparison is made with prior study dated September 30, 2021. FINDINGS: BMD and T-SCORES Lumbar spine: 1.088 g/cm2, T-Score 0.7 L1 through L4 Change from prior: Improvement by 9.9% Left femoral neck: 0.645 g/cm2, T-Score -1.8 Femoral neck comparison data not recommended for monitoring change. Left total hip: 0.836 g/cm2, T-Score -0.9 Change from prior: Improvement by 0.6% Right femoral neck: 0.651 g/cm2, T-Score -1.8 Femoral neck comparison data not recommended for monitoring change. Right total hip: 0.816 g/cm2, T-Score -1.0 Change from prior: Loss of 1.5% Fracture Risk Calculation: FRAX (10-year Fracture Risk) Score: FRAX scores should never be reported in a patient with osteoporosis on DEXA or for any patient that is on bone medication. The patient doesmeet the pharmacological treatment recommendations for prevention of osteoporosis BD/Dexa Bone Density Study IMPRESSION: OSTEOPENIA. Recommend follow-up as clinically warranted. Reading Location: [place] [id number]
== END | disposition home or self-care (01) ==
LOC: OPBD 12:39
PROVIDERS: PCP Family Medicine; Referring Provider Internal Medicine Hematology & Oncology; Visit Provider Internal Medicine Hematology & Oncology
DX: Z78.0 Asymptomatic menopausal state (principal)
CPT/HCPCS: 77080

== ENCOUNTER 2024-12-10 07:03 | Observation (INO) | payer MEDICARE, OTHER, SELFPAY ==
--- NOTE | 2024-11-15 12:54 | EKG12_ITS ---
Test Reason : PRE OP Blood Pressure : */* mmHG Vent. Rate : 88 BPM Atrial Rate : 88 BPM P-R Int : 156 ms QRS Dur : 86 ms QT Int : 360 ms P-R-T Axes : 69 78 72 degrees QTcB Int : 435 ms Sinus rhythm with occasional Premature ventricular complexes Nonspecific ST and T wave abnormality Abnormal ECG Confirmed by YVETTE OWUSU, COMPA ([id number]), staff editor LAURA ORTEGA ([id number]) on 11/16/2024 9:32:31 AM Referred By: Larry Ellis Confirmed By: COMPA CRAWFORD MD
[2024-11-15 13:45] LABS: Absolute Lymphocyte Count 1.53 X10^3/uL (0.83-4.51); Basophil# 0.07 X10^3/uL; Basophil% 1.1 % (0-1); Eosinophil# 0.11 X10^3/uL; Eosinophils% 1.8 % (0-5); Hematocrit 38.1 % (37-47); Hemoglobin 12.3 g/dL (12.0-15.0); Lymphocyte # 1.53 X10^3/ul (0.83-4.51); Lymphocyte % 24.4 % (19-41); Mean Corp Hgb Conc 32.3 g/dL (32-36); Mean Corpuscular Hgb 27.5 pg (27.0-32.0); Mean Platelet Vol. 9.2 fl (6.2-12.0); Monocyte# 0.58 X10^3/uL; Monocyte% 9.3 % (0-10); NRBC Flagged by Analyzer 0 % (0-5); Neutrophil # 3.96 X10^3/uL (2.7-7.7); Neutrophil % 63.1 % (47-70); Platelet Count 335 K/mm3 (150-450); RBC Distribution Width CV 13.2 % (11.6-14.6); RBC Distribution Width SD 41.4 fl (35.1-43.9); Red Blood Count 4.48 M/mm3 (4.2-5.4); White Blood Count 6.3 K/mm3 (4.4-11.0)
[2024-11-15 15:12] LABS: Magnesium 2.2 mg/dL (1.5-2.2)
[2024-11-15 15:15] LABS: Albumin, Serum 4.2 g/dL (3.4-4.8); Anion Gap 11 (5-15); BUN 9 mg/dL (4-19); BUN/Creat Ratio 12.1 RATIO (10-20); Calcium,Total 9.2 mg/dL (7.6-11.0); Carbon Dioxide 25.3 mmol/L (21.0-32.0); Chloride 99 mmol/L (98-108); Creatinine, Serum 0.76 mg/dL (0.70-1.20); EST Glomerular Filtration Rate 81 (>60); Glucose 107 mg/dL (70-99); Potassium 4.6 mmol/L (3.3-5.1); Sodium Level 136 mmol/L (133-145)
--- NOTE | 2024-11-15 21:32 | PAT.ANESEVAL ---
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 When Was Last Pacemaker Check QUESTION #4 FULL TEXT: You/Your Family Experience fever (hyperthermia) with Anesthesia Last Oral Intake Last Oral intake: Last Oral Intake NPO since Meds taken in AM with sips of water? Meds patient instructed to take am of surgery PONV PONV - regulatory affairs strategy specialist: PONV - regulatory affairs strategy specialist Female Yes 11/12/24 13:29 HX of Motion Sickness No 11/12/24 13:29 HX of N/V After Surgery No 11/12/24 13:29 Non-Smoker Yes 11/12/24 13:29 Duration of Surgery greater Yes 11/12/24 13:29 than 60 minutes Number of Risk Factors 3 11/12/24 13:29 PONV Score Moderate Risk 11/12/24 13:29 Height & Weight Height & Weight: Anesthesia: Height & Weight Height 5 ft 6 in 08/28/24 13:28 Respiratory Assessment Respiratory Assessment - regulatory affairs strategy specialist: Respiratory Tract Infection Hx - regulatory affairs strategy specialist Hx Respiratory Tract Infection No 11/12/24 13:29 STOP Sleep Apnea STOP Sleep Apnea - regulatory affairs strategy specialist: STOP Sleep Apnea - regulatory affairs strategy specialist Hx Hypertension Yes 11/12/24 13:29 Hx Sleep Apnea No 11/12/24 13:29 CPAP BIPAP Do you snore loudly (louder No 11/12/24 13:29 than talking or can be heard Do you often feel tired/ No 11/12/24 13:29 fatigued/ sleepy during daytime? Has anyone observed you stop No 11/12/24 13:29 breathing during sleep? STOP Results Negative 11/12/24 13:29 QUESTION #5 FULL TEXT : Do you snore loudly (louder than talking or can be heard through closed doors)? 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 Specify any problems Hx of Preganancy in last 3 No 11/12/24 13:29 Months Nurse Filling Out Transfusion MGRIFFITH 11/12/24 13:29 & Questions: Date: 11/12/24 11/12/24 13:29 Time: 13:32 11/12/24 13:29 Patient unable to answer at this time (ie. confused, unrespo /Reproduction History /Reproductive History - regulatory affairs strategy specialist: /Reproductive Hx- regulatory affairs strategy specialist Hx Now No 11/12/24 13:29 Gestational Age (in weeks): EDC: Hx Hx Para Hx Section SAB No 11/12/24 13:29 [facility] Medical History (Updated 11/12/24 @ 13:47 by Corina Tong) Alcohol use High cholesterol Hypertension Restless legs On home oxygen therapy Leg cramps History of Holter monitoring History of echocardiogram Cardiology follow-up encounter Encounter for screening for malignant neoplasm of lung Pain of left breast Wears glasses Cancer Thyroid disease Back pain Injury of head and neck Gastric reflux Former smoker COPD (chronic obstructive pulmonary disease) Shortness of breath on exertion History of pain when walking Chest pain Nausea Abnormal mammogram of left breast 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 Hypothyroid Breast cancer Schizophrenia Home Medications ?Medication ?Instructions ?Recorded ?Last Taken ?Type albuterol sulfate 90 mcg/actuation 1 - 2 puff inhalation Q4H PRN PRN 09/24/20 03/27/21 Rx aerosol inhaler Shortness Of Breath #18 grams cholecalciferol (vitamin D3) 25 25 mcg PO DAILY 01/22/21 Unknown History mcg (1,000 unit) tablet multivitamin 1 tab PO DAILY 01/22/21 Unknown History denosumab 60 mg/mL subcutaneous 60 mg subcut [id number] 08/22/23 Unknown History syringe (Prolia) lactobacillus combination no.4 3 3,000 mmu cells PO DAILY 08/22/23 Unknown History billion cell capsule (Probiotic) levothyroxine 75 mcg capsule 75 mcg PO DAILY 08/22/23 Unknown History omeprazole 20 mg capsule,delayed 20 mg PO DAILY 08/22/23 Unknown History release rosuvastatin 5 mg tablet (Crestor) 5 mg PO DAILY 08/22/23 Unknown History umeclidinium 62.5 mcg-vilanterol 1 inh inhalation Q24H #60 ea 01/03/24 Unknown Rx 25 mcg/actuation powdr for inhalation (Anoro Ellipta) anastrozole 1 mg tablet 1 mg PO DAILY #180 tabs 02/01/24 Unknown Rx mecobalamin (vitamin B12) 1,000 2,000 mcg PO DAILY 06/18/24 Unknown History mcg chewable tablet meloxicam 7.5 mg tablet 7.5 - 15 mg PO QDAY PRN pain 06/18/24 Unknown History risperidone 0.5 mg tablet 0.5 mg PO QHS #90 tabs 07/11/24 Unknown Rx furosemide 40 mg tablet (Lasix) 40 mg PO DAILY PRN shortness of 08/13/24 Unknown Rx breath #90 tabs carvedilol 3.125 mg tablet 3.125 mg PO BID #60 tabs 08/29/24 Unknown Rx aspirin 81 mg tablet,delayed 81 mg PO QDAY #90 tabs 10/09/24 Unknown Rx release (Adult Low Dose Aspirin) lisinopril 5 mg tablet 5 mg PO QDAY #90 tabs 10/09/24 Unknown Rx benztropine 1 mg tablet 1 mg PO BID TO CONTERACT SIDE 10/31/24 Unknown History EFFECTS OF OTHER MEDS mecobalamin (vitamin B12) 10,000 10,000 mcg IM QMONTH 11/12/24 Unknown History mcg solution for injection olanzapine 20 mg tablet 20 mg PO QHS 11/12/24 Unknown History risperidone 2 mg tablet 2 mg PO QHS 11/12/24 Unknown History Allergy/AdvReac Type Severity Reaction Status Date / Time haloperidol (From Haldol) Allergy Severe Other Verified 11/12/24 13:15 Family History Mother No problems noted. Grandfather No problems noted. Father Leukemia Surgical History (Updated 11/12/24 @ 13:47 by Corina Tong) Hx of colonoscopy Hx of wisdom tooth extraction Hx of tonsillectomy History of surgery on left wrist History of right mastectomy (~09/2019) S/P breast biopsy S/P tonsillectomy S/P arteriovenous (AV) fistula creation Social History Smoking Status: Former smoker quit date: 04/03/16 pack-years: 20 Tobacco: How many years used: 50 alcohol intake: current alcohol intake frequency: a few times a week Audit: Pertinent Findings Pertinent Findings EKG Perinent findings: June 25, 2024. Sinus rhythm. Nonspecific T wave abnormality. Echo (EF%) pertinent findings: July 11, 2024. Ejection fraction 35%. Severe generalized hypokinesis. No aortic stenosis is noted. Heart catheterization pertinent findings: Coronary CT angio showed mild to moderate coronary artery disease with no critical stenosis. Consult pertinent findings: October 09, 2024. Dr. Bryant. 1. Nonischemic srkhvxiwfcwmkx-[id number]-omeqcfzv carvedilol. Start LORNE inhibitor.. 2. Coronary artery disease-moderate coronary artery disease noted on coronary CT angio. Start aspirin 81 mg. 3. Dyspnea # history of COPD. Borderline left ventricular systolic dysfunction. Being treated with carvedilol and LORNE inhibitor. 4. Nonsustained ventricular tachycardia. Chronic-treated with carvedilol. Pulmonary function results/spirometer pertinent findings: September 24, 2021. Irreversible moderate large airways obstructive ventilatory defect with associated air trapping and symmetric reduction in diffusing capacity. Additional pertinent findings: 7-day event monitor. April 2024. Predominantly normal sinus rhythm. Atrial tachycardia was 5 episode. Ventricular tachycardia 2 episodes. Cardiac MRI was done which showed ejection fraction of 45%. Recommendation Anesthesia Recommendation Anesthesia recommendation: OPTIMIZED for anesthesia
--- NOTE | 2024-12-05 13:18 | HP.PCM_ITS ---
History and Physical History and Physical Patient Name: Nargis Song : [id number]:? TERRELL HOOD PA-C DATE OF PRE-OPERATIVE EXAM: 12/05/2024 DATE OF SURGERY:? 12/10/2024 SCHEDULED PROCEDURE:? Left reverse shoulder arthroplasty HISTORY OF PRESENT ILLNESS: Preoperative history and physical exam was performed on December 05, 2024.? This is a 74-year-old female who presents with a family member for her preoperative visit for her upcoming reverse left total shoulder arthroplasty.? Patient has been having ongoing pain for over a year.? She is right-hand dominant.? Pain is been intermittent, aching, sharp and sore.? She has difficulty and pain getting out of a chair or bed.? Pain with reaching above her head or across her body with activities of daily living.? She has difficulty with activities of daily living including bathing/showering, getting dressed, hygiene purposes, housework, and leisure activities.? Patient has tried rest, he, corticosteroid injection with minimal relief.? Her pain can reach 9/10 at worst.? She gets popping and catching sensations in the shoulder.? Patient denies past history of surgery on the left shoulder.? She has tried physical therapy without relief.? She has been through pain management in which she currently sees Dr. Matos.? She is only using meloxicam from pain management.? We did reach out to pain management and they would like orthopedics to manage postoperative pain medication for the first 2 weeks.? Patient has also had clearance from the primary care provider Dr. Jones, yeast supervisor Dr. Bryant, and pulmonology Jess Neil.? Patient has medical history pertinent for gastroesophageal reflux disease, previous left breast cancer in which she currently uses anastrozole, schizophrenia, chronic obstructive pulmonary disease with chronic respiratory failure, osteoporosis, shortness of breath, coronary artery disease, nonischemic cardiomyopathy, ventricular tachycardia, dysphagia.? Patient does report she uses nasal oxygen 2 L throughout the day followed by pulmonology.? She denies past history of DVT or pulmonary embolism.? No recent chest pain or fevers/chills.? After failing conservative measures and discussing all treatment options was Dr. Larry Ellis, the patient does wish to proceed with a left reverse total shoulder arthroplasty. REVIEW OF SYSTEMS: Review Of Systems: Constitutional: Denies change in appetite, fever and weight change. Cardiovasular: Reports irregular heartbeat, but denies chest pain and heart murmur. Respiratory: Reports COPD, dyspnea on exertion and shortness of breath, but denies cough, pneumonia, tuberculosis and wheezing. Gastrointestinal: Reports constipation, heartburn, nausea and difficulty swallowing, but denies diarrhea, rectal itching, bloody stools and vomiting. Musculoskeletal: Reports gait disturbance, leg swelling, pain, trouble walking and weakness. Skin: Denies Raynaud's, history of shingles and tattoo. Neurological: Denies ambulatory dysfunction, dizziness, numbness/tingling and tremor. Psychiatric: Reports insomnia and schizophrenia, but denies anxiety and stress. Hematologic/Lymphatic: Denies anemia, bleeding/bruising tendency and past transfusion. Reviewed and updated. PAST MEDICAL HISTORY: Advance Care Plan: No Advance Directives Effective Date: 12/29/2023 Past Medical History: Medical Problems: Acid Reflux Cancer - left breast Chronic Obstructive Pulmonary Disease (COPD), Emphysema Mental Illness - schizophrenia? - chronic Osteoporosis, Covid-19 Vaccine, Asthma, hypoxia, Thyroid Disease, shortness of breath on exertion, Coronary Artery Disease (CAD), hypokinesis, nonischemic cardiomyopathy, Nonsustained Ventricular Tachycardia, Osteopenia, constipation, Dysphagia, history of dialysis treatment for experimental research Accidents: Fracture - ~2016 clavicle Fracture - (2002) left arm Other - head and cervical injury as a child Surgical Hx: Cataracts Mastectomy - (2019) Tonsillectomy - (1952) Anesthesia Complications: None Assistive Devices: Glasses, Oxygen - during the day and at night Reviewed and updated. SOCIAL HISTORY: Social History: Marital: Single.Occupation: Retired.Work Status: Retired.Hand Dominance: Right- handed. Personal Habits:? Cigarette Use: Former, Heavy tobacco smoker (more than 10 cigarettes/day).Smokeless Tobacco: Never Used Smokeless Tobacco.E-Cigarette Use: Never used.Alcohol: Occasionally.Drug Use: Denies Use.Enjoy Exercising: Exercises 1-3 x/month. Reviewed and updated. VITALS: Ht: 65.5 Wt: 168lb Wt k.205 BMI: 27.5 BP: 118/72 Pulse: 70 Resp: 18 T: 97.6 T: 36.4C Pain Level: 9 O2SatR: 90 ALLERGIES: Haldol MEDICATIONS: Amantadine HCL 100 mg 2 x per day, Anastrozole 1 mg 1 x per day, Levothyroxine Sodium 75 mcg 1 x per day, Omeprazole 20 mg 1 x per day, Risperidone 1 mg/ml 1 x per day, Rosuvastatin Calcium 5 mg 1 x per day, Anoro Ellipta 62.5-25 mcg/Act 1 x per day, Olanzapine 20 mg 1 x per day, Prolia 60 mg/ml every 6 months, Benztropine Mesylate 0.5 mg 1 by mouth every day, Meloxicam 7.5 mg 1 x/day, Furosemide 40 mg 1 x/day, Albuterol Sulfate (2.5 mg/3ml) 0.083% as needed (hasn't been needed in ages), Carvedilol 3.125 mg daily PRE-OP EXAM: General appearance:NORMAL? Other: Eyes: Conjunctivae and lids: NORMAL? Pupils: ERR Ears, Nose, Mouth, and Throat: NORMAL? Other: Inspection of lips, teeth and gums: NORMAL?? Other: Neck: Examination of neck: no masses noted. Respiratory: Assessment of respiratory effort: NORMAL?? Other: ? Auscultation of lungs: clear to auscultation no wheezes, rhonchi or rales. Cardiovascular:? Auscultation of heart: regular rate and rhythm, no murmurs, gallops or rubs. PHYSICAL EXAMINATION: On exam of the left shoulder there is no erythema or signs of infection.? She has diffuse tenderness to palpation throughout the shoulder.? Crepitus with range of motion.? She has mild atrophy left shoulder.? Range of motion: Active forward flexion 60, passive forward elevation 90, external rotation 15, internal rotation L4.? Full range of motion of the left elbow.? Sensation intact to light touch to bilateral upper extremities. IMAGING STUDIES: Previous x-rays a left shoulder reveal severe [id number] osteoarthritis with large spurs off the inferior portion of the humeral head with bony erosions of the humeral head and glenoid. IMPRESSION: 1.? Severe left shoulder glenohumeral osteoarthritis 2.? Chronic obstructive pulmonary disease 3.? Chronic respiratory failure: Currently on 2 L daily oxygen 4.? Schizophrenia 5.? Coronary artery disease 6.? Thyroid disease 7.? History of breast cancer 8.? Hypoxia 9.? Nonischemic cardiomyopathy 10.? Ventricular tachycardia 11.? Dysphagia 12.? Overweight with BMI 27.5 PLAN: Dr. Larry Ellis did discuss and review with the patient all treatment options including surgical versus nonsurgical options.? I will continue plan established by Dr. Larry Ellis.? Patient does wish to proceed with the above-stated procedure.? Potential risks, benefits, and complications of the procedure were discussed in detail including but not limited to , infection, nerve and blood vessel damage, persistent pain, numbness, tingling, paresthesias, blood clot, pulmonary embolism, and requirement for possible further surgery.? The patient expressed full understanding and has no further questions for the doctor.? Patient does agree to proceed with the above-stated procedure and has signed the surgery consent form. POST-OP MEDICATION PLAN: Pain Medications: Postoperative pain regimen will be initiated by Dr. Larry Ellis in the hospital.? Patient is currently only on meloxicam and no narcotics.? She has been advised to stop these 5 days prior to surgery.? Pain management with Dr. Matos would like orthopedics to manage for the first 2 wee ks and then pain management would take over from there.? Patient also uses 2 L daily oxygen at home.? She is followed by pulmonology.? All clearances have been obtained. ? DVT Prophylaxis Plan:? Aspirin 81 mg twice daily for 2 weeks postoperatively.? Denies past history of DVT or pulmonary embolism.? Patient does use anastrozole at home.? Case was discussed with Dr. Larry Ellis and we will proceed forward with aspirin for DVT prophylaxis. ? This dictation was created using voice recognition software. Phonetic and/or grammatical errors may exist. ___? I have re-examined the patient.? There are no clinical changes since date of exam. ___? See progress notes for changes. ___? Dictated on admission Date: ? Time: Signature:
[2024-12-10] VITALS (14 sets, daily range): BP systolic 135–165; BP diastolic 71–92; PULSE 72–94; RESP 10–18; TEMP 36.1–37.1; O2SAT 92–99; BMI 27.6
[2024-12-10] MEDS: Acetaminophen 500 MG Tablet 1000 MG PO (06:24)
[2024-12-10] MEDS: Celecoxib 200 MG Capsule 400 MG PO (06:25)
[2024-12-10] MEDS: Gabapentin 600 MG Tablet PO (06:25)
[2024-12-10] MEDS: Magnesium 1 GM over 15 mins IV (06:38)
[2024-12-10] MEDS: Lactated Ringers 1,000 ML 999 ML IV (06:40)
--- NOTE | 2024-12-10 06:52 | PCM.PRE.AN2 ---
ASA Classification* ASA Classification ASA Classification: 3 Assessment & Plan Anesthesia* Anesthesia Assessment Anesthesia Assessment: Discussed sedation and/or anesthesia options, risks, benefits, and alternatives with patient/parents/legal guardian/POA. Questions invited. The patient/parents/legal guardian/POA seems to understand and agrees to proceed with anesthesia plan. Reviewed the physical assessment, medical history, allergy history and patient home medications list prior to surgery/procedure/anesthetic and documented any changes. Performed airway and anesthesia risk assessments. Anesthesia Type Anesthesia Type: General and Block Anesthesia Focused Assessment* Temperature: 98.3 F Pulse Rate: 82 Blood Pressure: 144/92 Respiratory Rate: 18 Pulse Ox: 94 Airway Assessment Mouth opens: >3 cm Mallampati Score: II Focused Labs Anesthesia Preop lab: CBC WBC 6.3 K/mm3 (4.4-11.0) 11/15/24 13:14 11/15/24 RBC 4.48 M/mm3 (4.2-5.4) 11/15/24 13:14 11/15/24 Hgb 12.3 g/dL (12.0-15.0) 11/15/24 13:14 11/15/24 Hct 38.1 % (37-47) 11/15/24 13:14 11/15/24 Plt Count 335 K/mm3 (150-450) 11/15/24 13:14 11/15/24 CHEMISTRY Potassium 4.6 mmol/L (3.3-5.1) 11/15/24 13:14 11/15/24 Sodium 136 mmol/L (133-145) 11/15/24 13:14 11/15/24 Magnesium 2.2 mg/dL (1.5-2.2) 11/15/24 13:14 11/15/24 BUN 9 mg/dL (4-19) 11/15/24 13:14 11/15/24 Creatinine 0.76 mg/dL (0.70-1.20) 11/15/24 13:14 11/15/24 Glucose 107 mg/dL (70-99) H 11/15/24 13:14 11/15/24 TSH 3.180 uIU/mL (0.300-4.200) 11/15/24 13:14 11/15/24 COAG Pre-Assessment Diagnosis/Proposed Procedure Planned Operative Procedure(s): (L) LEFT REVERSE TOTAL SHOULDER ARTHROPLASTY, ERAS Anesthesia History Anesthesia History - board writer: Anesthesia History - board writer Hx Hospitalization No 11/12/24 13:29 Any Problems With Anesthesia No 11/12/24 13:29 Cholinesterase deficiency No 11/12/24 13:29 You/Your Family Experience No 11/12/24 13:29 fever (hyperthermia) with Relationship Recent Exposure to Contagious No 12/10/24 06:13 Disease Does patient have nerve No 11/12/24 13:29 stimulator Patient instructed to have device shut off --Does patient have Pacemaker No 12/10/24 06:13 or ICD? When Was Last Pacemaker Check QUESTION #4 FULL TEXT: You/Your Family Experience fever (hyperthermia) with Anesthesia Last Oral Intake Last Oral intake: Last Oral Intake NPO since 03:30 12/10/24 06:13 Meds taken in AM with sips of Yes 12/10/24 06:13 water? Meds patient instructed to take am of surgery PONV PONV - board writer: PONV - board writer Female Yes 11/12/24 13:29 HX of Motion Sickness No 11/12/24 13:29 HX of N/V After Surgery No 11/12/24 13:29 Non-Smoker Yes 11/12/24 13:29 Duration of Surgery greater Yes 11/12/24 13:29 than 60 minutes Number of Risk Factors 3 11/12/24 13:29 PONV Score Moderate Risk 11/12/24 13:29 Height & Weight Height & Weight: Anesthesia: Height & Weight Height 5 ft 6.5 in 12/10/24 06:13 Weight: 78.9 kg 12/10/24 06:13 Body Mass Index (BMI) 27.6 12/10/24 06:13 Respiratory Assessment Respiratory Assessment - board writer: Respiratory Tract Infection Hx - board writer Hx Respiratory Tract Infection No 11/12/24 13:29 STOP Sleep Apnea STOP Sleep Apnea - board writer: STOP Sleep Apnea - board writer Hx Hypertension Yes 12/03/24 15:01 Hx Sleep Apnea No 11/12/24 13:29 CPAP BIPAP Do you snore loudly (louder No 11/12/24 13:29 than talking or can be heard Do you often feel tired/ No 11/12/24 13:29 fatigued/ sleepy during daytime? Has anyone observed you stop No 11/12/24 13:29 breathing during sleep? STOP Results Negative 11/12/24 13:29 QUESTION #5 FULL TEXT : Do you snore loudly (louder than talking or can be heard through closed doors)? Tobacco Use History Tobacco Use History - board writer: Tobacco Use History - board writer Tobacco Use Smoking Status Former smoker 11/12/24 13:29 Hx Tobacco Use No 11/12/24 13:29 Years Smoking Packs Smoked per Day Smoking Cessation Date was Yes - quit smoking within 15 11/12/24 13:29 within the last 15 years years Hx Smoking Cessation Date 04/03/16 11/12/24 13:29 Hx Smoking Cessation Counseling Hematologic Medial History Hematologic Hx - board writer: Hematologic Medical Hx - lugger Hx of Blood Transfusion No 11/12/24 13:29 Hx of Transfusion in last 3 No 11/12/24 13:29 Months Date of Last Transfusion (if within last 3 months) Ever experience any problems No 11/12/24 13:29 with transfusion(s)? Specify any problems Hx of Preganancy in last 3 No 11/12/24 13:29 Months Nurse Filling Out Transfusion MGRIFFITH 11/12/24 13:29 & Questions: Date: 11/12/24 11/12/24 13:29 Time: 13:32 11/12/24 13:29 Patient unable to answer at this time (ie. confused, unrespo /Reproduction History /Reproductive History - board writer: /Reproductive Hx- board writer Hx Now No 11/12/24 13:29 Gestational Age (in weeks): EDC: Hx Hx Para Hx Section SAB No 11/12/24 13:29 Active Medications Active Medications: Current Medications Generic Name Dose Route Start Last Admin Trade Name Freq PRN Reason Stop Dose Admin Acetaminophen 1,000 mg 12/10/24 07:30 12/10/24 06:24 Acetaminophen 500 Mg Tablet PO 12/10/24 07:31 1,000 mg X1 ONE Administration Celecoxib 400 mg 12/10/24 07:30 12/10/24 06:25 Celecoxib 200 Mg Capsule PO 12/10/24 07:31 400 mg X1 ONE Administration Sodium Chloride 77.4 ml/ 0 ml 12/10/24 07:30 Ropivacaine 200 mg/ OPERA.SITE 12/10/24 07:31 Epinephrine HCl 0.6 mg/ X1 ONE Ketorolac Tromethamine 30 mg/ Morphine Sulfate 5 mg Dexamethasone Sodium Phosphate 10 mg 12/10/24 07:30 Dexamethasone 10 Mg/Ml Vial IV 12/10/24 07:31 X1 ONE Gabapentin 600 mg 12/10/24 07:30 12/10/24 06:25 Gabapentin 600 Mg Tablet PO 12/10/24 07:31 600 mg X1 ONE Administration Lactated Ringer's 1,000 mls @ 999 mls/hr 12/10/24 07:30 12/10/24 06:40 IV 12/10/24 08:30 999 mls/hr .Q1H1M VÍCTOR Administration Cefazolin Sodium 2 gm/ N/A 20 mls @ 400 mls/hr 12/10/24 07:30 IV 12/10/24 07:32 PREOP ONE Tranexamic Acid 1,000 mg/ 110 mls @ 660 mls/hr 12/10/24 07:30 Sodium Chloride IV 12/10/24 07:39 X1 ONE Tranexamic Acid 1,000 mg/ 110 mls @ 660 mls/hr 12/10/24 08:30 Sodium Chloride IV 12/10/24 08:39 X1 ONE Lactated Ringer's 1,000 mls @ 999 mls/hr 12/10/24 08:30 IV 12/10/24 09:30 .Q1H1M VÍCTOR Lactated Ringer's 1,000 mls @ 125 mls/hr 12/10/24 09:30 IV 12/10/24 17:29 .Q8H VÍCTOR Magnesium Sulfate 1 gm/ 102 mls @ 408 mls/hr 12/10/24 07:30 12/10/24 06:38 Dextrose IV 12/10/24 07:44 408 mls/hr X1 ONE Administration Vancomycin HCl 1,250 mg/ 275 mls @ 167 mls/hr 12/10/24 07:30 Sodium Chloride IV 12/10/24 09:08 X1 ONE Insulin Human Lispro 1 - 6 unit 12/10/24 07:30 Insulin Lispro 100 Unit/Ml Insuln.Pen SC 12/10/24 13:30 Q4H PRN PRN BG>/= 180, SEE PROTOCOL Protocol PFSH Medical History Alcohol use High cholesterol Hypertension Restless legs On home oxygen therapy Leg cramps History of Holter monitoring History of echocardiogram Cardiology follow-up encounter Encounter for screening for malignant neoplasm of lung Pain of left breast Wears glasses Cancer Thyroid disease Back pain Injury of head and neck Gastric reflux Former smoker COPD (chronic obstructive pulmonary disease) Shortness of breath on exertion History of pain when walking Chest pain Nausea Abnormal mammogram of left breast 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 Hypothyroid Breast cancer Schizophrenia Home Medications ?Medication ?Instructions ?Recorded ?Last Taken ?Type albuterol sulfate 90 mcg/actuation 1 - 2 puff inhalation Q4H PRN PRN 09/24/20 03/27/21 Rx aerosol inhaler Shortness Of Breath #18 grams cholecalciferol (vitamin D3) 25 25 mcg PO DAILY 01/22/21 12/09/24 History mcg (1,000 unit) tablet multivitamin 1 tab PO DAILY 01/22/21 12/08/24 History denosumab 60 mg/mL subcutaneous 60 mg subcut [id number] 08/22/23 Unknown History syringe (Prolia) lactobacillus combination no.4 3 3,000 mmu cells PO DAILY 08/22/23 Unknown History billion cell capsule (Probiotic) levothyroxine 75 mcg capsule 75 mcg PO DAILY 08/22/23 12/10/24 History omeprazole 20 mg capsule,delayed 20 mg PO DAILY 08/22/23 12/10/24 History release rosuvastatin 5 mg tablet (Crestor) 5 mg PO DAILY 08/22/23 12/09/24 History anastrozole 1 mg tablet 1 mg PO DAILY #180 tabs 02/01/24 12/09/24 Rx meloxicam 7.5 mg tablet 7.5 - 15 mg PO QDAY PRN pain 06/18/24 12/08/24 History furosemide 40 mg tablet (Lasix) 40 mg PO DAILY PRN shortness of 08/13/24 12/09/24 Rx breath #90 tabs carvedilol 3.125 mg tablet 3.125 mg PO BID #60 tabs 08/29/24 12/10/24 Rx aspirin 81 mg tablet,delayed 81 mg PO QDAY #90 tabs 02/25/25 04/23/25 Rx release (Adult Low Dose Aspirin) lisinopril 5 mg tablet 5 mg PO QDAY #90 tabs 10/09/24 12/09/24 Rx benztropine 1 mg tablet 1 mg PO BID TO CONTERACT SIDE 10/31/24 12/09/24 History EFFECTS OF OTHER MEDS mecobalamin (vitamin B12) 10,000 10,000 mcg IM QMONTH 11/12/24 Unknown History mcg solution for injection olanzapine 20 mg tablet 20 mg PO QHS 11/12/24 12/09/24 History risperidone 2 mg tablet 2 mg PO QHS 11/12/24 12/09/24 History fluticasone fur. 200 mcg-umeclid 1 inh inhalation DAILY #60 ea 11/30/24 12/10/24 Rx 62.5 mcg-vilant 25 mcg inhalat.powder (Trelegy Ellipta) Allergy/AdvReac Type Severity Reaction Status Date / Time haloperidol (From Haldol) Allergy Severe Other Verified 12/10/24 06:09 Family History Mother No problems noted. Grandfather No problems noted. Father Leukemia Surgical History Hx of colonoscopy Hx of wisdom tooth extraction Hx of tonsillectomy History of surgery on left wrist History of right mastectomy (~09/2019) S/P breast biopsy S/P tonsillectomy S/P arteriovenous (AV) fistula creation Social History Smoking Status: Former smoker quit date: 04/03/16 pack-years: 20 Tobacco: How many years used: 50 alcohol intake: current alcohol intake frequency: a few times a week Review of Systems (Anesthesia) ROS Narrative System reviewed and no additional complaints, except as documented.
[2024-12-10] MEDS: Cefazolin 2 GM in Syringe 10 ML IV (07:56)
[2024-12-10] MEDS: TXA 1000mg in NS100 100ml (IVPB at Incision) 660 MG IV (07:58)
[2024-12-10] MEDS: Vancomycin HCl 1,250 MG in 0.9% Normal Saline (250mL Bag) 250 ML 167 MG IV (08:07)
[2024-12-10] MEDS: Lactated Ringers 1,000 ML 15 ML IV (08:10)
[2024-12-10] MEDS: TXA 1000mg in NS100 100ml (IVPB at Closure) 660 MG IV (08:30)
--- NOTE | 2024-12-10 08:56 | PCM.OPRPT ---
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 Surgery/Procedure Performed: Left reverse total shoulder replacement uniform designer: Yes Energy Technician: Winnie Olivares Tasks completed by multimedia production assistant: Other (See body of operative report) Additional academic assistant?: No Type of Anesthesia: General/Regional RN Documented Start/Stop Times: Operation Date: 12/10/24 07:30 Case Time Into Pre-Op 12/10/24 05:42 Out of Pre-Op 12/10/24 07:39 Anesthesia Start 12/10/24 07:41 Into Room 12/10/24 07:41 Procedure Start 12/10/24 08:08 Procedure End 12/10/24 09:37 Anesthesia End 12/10/24 09:47 Out of Room 12/10/24 09:47 Into Recovery 12/10/24 09:50 Out of Recovery Procedure Start Time: 08:08 Procedure Stop Time: 09:37 Select all DRAINS/GRAFTS/IMPLANTS that apply: Prosthetic device Prosthetic device details: See body of operative report Special Medications: Ancef, vancomycin, TXA Estimated Blood Loss: 100 mL Fluids Replaced: 1000 mL crystalloid Specimen collected: Yes Description of specimen(s) removed: Bony cuts Description of surgery: Components used 1. Tornier perform glenoid 25 mm baseplate 2. Tornier perform 36 mm, 3mm Glenosphere 3. Tornier perform 36mm, 0mm humeral liner 4. Tornier perform humeral stem primary press-fit 2 size Brief history/Operative indications: 74 yo F with history of L shoulder pain and cuff tear arthropathy. Patient failed conservative measures as mentioned in the H&P. After discussion of risk and benefits of reverse total shoulder replacement including but not limited to blood loss, DVTs, PEs, nerve vessel damage, infection, general risk of anesthesia including loss of life, instability and stiffness patient demonstrating understanding wish to proceed was able to sign informed consent. Medical clearance was obtained. Procedure: On the date of the procedure, patient's L upper extremity was marked in the preoperative area. Patient was taken back to the operating room where they were placed on the table in the supine position. Anesthesia assumed control of the C-spine and airway, then administered anesthetic. All bony prominences were identified well-padded, the head was secured and the patient was placed in the beachchair position at about 35? inclination. Anesthesia remained in control of the C-spine airway throughout the remainder of the procedure. Patient was then appropriately fastened to the table and the L upper extremity was prepped in a sterile fashion. The surgeons then scrubbed. Upon reentering the room, the L upper extremity was draped in a sterile fashion and the incision was marked out. Timeout was called, everyone agreed upon the side, the site, the procedure to be performed, patient identity and antibiotics given. Incision was taken down through skin and subcutaneous tissue, fat down to fascia. The stripe of the deltopectoral interval and cephalic vein were identified and blunt dissection was used to retract the deltoid. The cephalic vein was retracted laterally. Clavipectoral fascia was then incised and a cobra retractor was placed in the wound. The proximal one third of the pectoralis major insertion was released. Pectoralis tendon insertion was used to tenodesed the biceps tendon which was identified in the bicipital groove. Tenodesis was done with #1 Vicryl. Proximally we followed the biceps tendon after transecting it into the rotator interval. The rotator interval was split and the arm was externally rotated. The split was 1 cm medial to the bicipital groove. Subscapularis tendon was released. We released down the anterior portion of the humeral head and a flynn elevator was used to release the inferior portion of the humeral head. The arm was externally rotated and the shoulder was dislocated. The humeral head was then cut at its natural retroversion. Once his humeral head cut was made humerus was retracted out of the way and the glenoid was exposed. After exposing the glenoid, the labrum and the remaining proximal biceps were debrided. At this time we are able to view the entire outer edge of the glenoid. A central pin was placed we sequentially reamed over this central pin to 25mm. Once this was completed the central screw was measured and found to be. The glenoid baseplate was screwed into place. Wound was closely irrigated out with normal saline we then drilled sequentially for 2 screws. Screws were placed superiorly and inferiorly and tightened down the screws. Once the screws were appropriately tightened into place the glenoid baseplate was compressed against the exposed subchondral bone. A 36mm glenosphere was impacted into place engaging the Jaime taper, central screw was tightened down. Attention was then turned towards the humerus. The humerus was again externally rotated exposing the proximal portion of the humerus. Central canal finder was then used to open up the canal. We reamed to a 2 reamer. We then broached to a 2 stem. We trialed the 0mm liner. We obtained an adequate reduction at this time with a nice stable shoulder. Good internal rotation to the gluteus, forward elevation to 140?, external rotation to 20?. Final components were then assembled on the back table, trials were removed and the wound was copiously irrigated with normal saline after dislocating the shoulder. Once the final components were assembled they were impacted into place. Shoulder was then reduced and found to be stable with good range of motion. Subscapularis tendon was repaired using #2 FiberWire. The wound was with chlorhexidine solution then copiously irrigated out with a 1 L normal saline lavage. The deltopectoral fascia was then closed using #1 Vicryl skin was closed using 2-0 Vicryl interrupted sutures and final skin closure was done with 3-0 Monocryl. Steri-Strips are placed for final skin closure. Sterile dressing was placed patient was then placed in a sling and awakened by anesthesia. Patient was then transferred to the PACU for recovery. Postoperative plan: Patient will be admitted to the hospital overnight. They will get physical therapy starting in 2 weeks with normal postoperative regimen. Patient will be placed on aspirin 81 mg p.o. twice daily for DVT prophylaxis. The first postoperative appointment will be in 2 weeks for wound check and initiation of phase 1 physical therapy. During the course of the procedure the physician academic assistant played a vital role. His intimate knowledge of my steps in the procedure aided in safe and expedient completion of the procedure. The PA played a vital rolls in positioning particularly in obtaining the appropriate beach chair position and securing the patient's body and head to the table. The PA was also vital in the retraction of soft tissues during the exposure and especially the glenoid work as this is a vital part of the procedure to prevent neurovascular damage. the PA was also vital and protecting soft tissues during times of bony cuts and reaming. He also played a vital role in closure with my direct supervision. The PA was also important during reduction and dislocation of the joint and trials intraoperatively. Surgical Findings: Stable shoulder. Severe glenoid erosion. Complications Complications: No Admit VTE Documentation VTE Present on Admission: Yes VTE Mechan Device Prophylaxis: SCD's and Knee High JACKIE Hose VTE Pharm Prophylaxis ordered?: Yes
--- NOTE | 2024-12-10 09:57 | PCM.POST.ANE ---
Anesthesia: Postop Eval I Current Vital Signs Temperature: 97.5 F Pulse Rate: 82 Blood Pressure: 162/85 Respiratory Rate: 17 Pulse Ox: 92 (baseline for patient) Oxygen Delivery Method: Nasal Cannula Oxygen Flow Rate (L/min): 3 Assessment Airway patent: Yes Spontaneous unlabored respirations: Yes Mental status: Awake nausea: No Vomiting: No Anesthesia Complication: No Fluid Hydration Crystalloid volume administer (ml): 1,000 Total IV fluid infused: 1,000 Progress Note Anesthesia document: Postop Eval 1 completed: Yes
[2024-12-10 10:05] LABS: Bedside Glucose 92 mg/dL (74-106)
--- NOTE | 2024-12-10 10:14 | POSTOPAN2_ITS ---
Anesthesia Postop Eval I Sum Postop Eval Completion status Anesthesia document: Postop Eval 1 completed: Yes Anesthesia Postop Eval I Summary Anesthesia Postop Eval I Summary: Anesthesia Postop Eval I: Assessment Summary Airway patent Yes 12/10/24 09:58 CEMENT TESTER ASSISTANT.SOBR Spontaneous unlabored Yes 12/10/24 09:58 CEMENT TESTER ASSISTANT.SOBR respirations Mental status Awake 12/10/24 09:58 CEMENT TESTER ASSISTANT.SOBR nausea No 12/10/24 09:58 CEMENT TESTER ASSISTANT.SOBR Vomiting No 12/10/24 09:58 CEMENT TESTER ASSISTANT.SOBR Anesthesia Postop Eval I: Fluid Summary Crystalloid volume administer 1,000 12/10/24 09:58 CEMENT TESTER ASSISTANT.SOBR (ml) Colloids volume administered ( ml) Blood Product volume administered (ml) Total IV fluid infused 1,000 12/10/24 09:58 CEMENT TESTER ASSISTANT.SOBR Anesthesia Postop Eval I: Summary Notes Anesthesia Complication No 12/10/24 09:58 CEMENT TESTER ASSISTANT.SOBR Anesthesia Complication Comment: Post-operative progress note Anesthesia: Postop Eval II Evaluation Mental status: Awake Pain Level: 2 nausea: No Vomiting: No
--- NOTE | 2024-12-10 10:14 | PCM.POSTANE2 ---
Anesthesia Postop Eval I Sum Postop Eval Completion status Anesthesia document: Postop Eval 1 completed: Yes Anesthesia Postop Eval I Summary Anesthesia Postop Eval I Summary: Anesthesia Postop Eval I: Assessment Summary Airway patent Yes 12/10/24 09:58 PRODUCT [email or web address] Spontaneous unlabored Yes 12/10/24 09:58 PRODUCT [email or web address].SOBR respirations Mental status Awake 12/10/24 09:58 PRODUCT [email or web address].SOBR nausea No 12/10/24 09:58 PRODUCT [email or web address].SOBR Vomiting No 12/10/24 09:58 PRODUCT [email or web address].SOBR Anesthesia Postop Eval I: Fluid Summary Crystalloid volume administer 1,000 12/10/24 09:58 PRODUCT [email or web address].SOBR (ml) Colloids volume administered ( ml) Blood Product volume administered (ml) Total IV fluid infused 1,000 12/10/24 09:58 PRODUCT [email or web address] Anesthesia Postop Eval I: Summary Notes Anesthesia Complication No 12/10/24 09:58 PRODUCT [email or web address].SOBR Anesthesia Complication Comment: Post-operative progress note Anesthesia: Postop Eval II Evaluation Mental status: Awake Pain Level: 2 nausea: No Vomiting: No
--- NOTE | 2024-12-10 10:15 | RAD_ITS ---
PROCEDURE: SHOULDER MIN 2 VIEWS 12/10/2024 REASON FOR EXAM: LEFT SHOULDER REPLACEMENT TECHNIQUE: Left shoulder two views COMPARISON: None FINDINGS: There is a reverse shoulder prosthesis which appears in good position. Soft tissue air is noted consistent with recent surgery. The AC joint is aligned. Mineralization is normal. RAD/Shoulder min 2 Views IMPRESSION: Hardware in position. Reading Location: [facility]
--- NOTE | 2024-12-10 12:54 | SHO_PTH ---
PATIENT: MK ERIC LOC: [facility] U#:[id number] AGE/SX: 74/F ROOM: MI323 RE12/10/[address]: Dr. Larry Ellis MD : 1950 BED: 1 DIS: 12/11/2024 SPEC #: [id number] RECD: 12/10/24 13:50 STATUS: ERIKA COLLINSFay #: [id number] KEATON: 12/10/24 12:[address]: Larry Ellis DEPT: SURGICAL PATHOLOGY RECD BY: Jayden Calloway ENTERED: 12/10/24 13:50 SP TYPE: HUMERUS OTHR DR: MD Dr. Farzana Mclean MD Tissues: A - Humerus, NOS Procedures: Decalcification bone/plaque Surgery Specimen Level IV HEADER OPERATION: Reverse total shoulder arthroplasty PRE-OP DIAGNOSIS: Severe left shoulder glenohumeral osteoarthritis TISSUE SUBMITTED: A- Left humeral head MICROSCOPIC DIAGNOSIS A. Left shoulder, humeral head, total arthroplasty: * Benign cartilage and bone with degenerative changes MICROSCOPIC DESCRIPTION Slides are reviewed. GROSS DESCRIPTION A. Received in formalin in a container labeled with the patient's name, date of , and left humeral head is a semispherical fragment of firm bone measuring 5.5 x 5.0 x 1.5 cm. The margin is smooth and firm and the opposing cortical surface exhibits smooth eburnation. Sectioning reveals firm and unremarkable surfaces. Multiple hoffman-pink soft tissue fragments are identified measuring 4.0 x 2.0 x 1.0 cm in aggregate. Sectioning reveals unremarkable surfaces. Plumbing Technician sections of bone and soft tissue submitted in A1 following decalcification. [facility] 12-10-2024 CPT:43106,51802
--- NOTE | 2024-12-10 14:48 | PN_ITS ---
Subjective Subjective Patient is a 74-year-old female with a past medical history as outlined who was admitted to the orthopedic service for reverse left total shoulder arthroplasty. She had been having pain for a year in the pain had not improved with conservative management and pain management. She had a past medical history of COPD, schizophrenia, nonischemic cardiomyopathy and ventricular tachycardia as well as dysphagia. She also uses 2 L of oxygen chronically for COPD. She had the reverse left total shoulder arthroplasty on 12/10/2024. Hospitalist service was consulted for medical management. Patient was seen in her bed. She was very drowsy and somnolent so unable to do comprehensive review of systems. She had vitals were stable. Objective Data Objective Data Vital Signs: Vital Signs Temp Pulse Resp BP Pulse Ox O2 Del Method O2 Flow Rate 97 F L 77 18 155/86 H 95 Nasal Cannula 3 12/10/24 13:11 12/10/24 13:11 12/10/24 13:11 12/10/24 13:11 12/10/24 13:11 12/10/24 13:11 12/10/24 13:11 Oxygen Flow Rate (L/min) 3 Oxygen Delivery Method Nasal Cannula Weight: 173 lb 15.115 oz Body Mass Index (BMI) 27.6 Intake & Output: Intake and Output for Last 24 Hours 12/08/24 12/09/24 12/10/24 23:59 23:59 23:59 Intake Total 1617 / 1617 Balance 1617 / 1617 Lab / Micro Data 11/15/24 13:14 11/15/24 13:14 Labs: Laboratory Results - last 24 hr 12/10/24 06:07: POC Glucose 92 Micro: Microbiology 11/15/24 13:14 Swab (Method) Nasal Screen MRSA/MSSA - Final Radiography Diagnostic Testing: Radiology Impression Shoulder X-Ray 12/10/24 10:15 IMPRESSION: Hardware in position. Reading Location: [facility] Physical Exam Const Constitutional Narrative: patient somnolent HEENT normocephalic, head/scalp atraumatic and moist oral mucous membranes Eyes PERRL and EOMs intact bilaterally Neck no lymphadenopathy and supple Resp normal respiratory effort, normal air movement and clear to auscultation bilaterally Cardio regular rate, regular rhythm, S1 normal heart sound, S2 normal heart sound and no murmurs GI normal to inspection, nondistended, normoactive bowel sounds, soft to palpation, non-tender and non-distended Extremity normal capillary refill and no clubbing, cyanosis or edema Extremity Narrative: INtact dressing over surgical site at LUE, LUE in sling Skin General Skin Exam: no breakdown Neuro Neuro Narrative: patient very somnolent, likely from effect of anesthesia Assessment & Plan Assessment/Plan (1) NSVT (nonsustained ventricular tachycardia): PLAN: Plan #Left shoulder pain s/p left reverse shoulder arthroplasty * Today's postop day 0. Management as per primary team orthopedics. * PT OT on board. Incentive spirometry. * Fall precautions. * #History of nonsustained ventricular tachycardia: On carvedilol as well as rosuvastatin #HIMANSHU: CPAP qhs #History of chronic respiratory failure due to COPD: * On 2 L of oxygen. Not in exacerbation. Breathing treatment bronchodilators. * Titrate oxygen as needed to maintain saturation above 90%. #History of right breast cancer: On anastrozole #History of parkinsonism: Stable #Schizophrenia: On Risperdal and benztropine as well as olanzapine #Hypothyroidism: On Synthroid #Hypertension: On carvedilol and lisinopril DVT prophylaxis: As per primary service orthopedics Thank you for the courtesy of the consult. Hospitalist service continue to follow with you. Charges/Coding Visit Charges Inpatient E&M: 23195 Subs Hosp L2
[2024-12-10] MEDS: Cefazolin 1 GM/50 ML BAG IV (16:54)
[2024-12-10] MEDS: Aspirin 81 MG TAB.CHEW PO (16:54)
[2024-12-10] MEDS: 0.9% Saline Lock 10 ML Syringe IV (16:54)
[2024-12-11] VITALS (8 sets, daily range): BP systolic 134–163; BP diastolic 57–86; PULSE 74–96; RESP 15–16; TEMP 36.6–37.2; O2SAT 90–94
[2024-12-11] MEDS: RisperiDONE 2 MG Tablet PO
[2024-12-11] MEDS: OLANZapine 10 MG Tablet 20 MG PO
[2024-12-11] MEDS: 0.9% Saline Lock 10 ML Syringe IV ×2 (00:02→01:59)
[2024-12-11] MEDS: Cefazolin 1 GM/50 ML BAG IV (00:20)
[2024-12-11] MEDS: Acetaminophen 500 MG Tablet 1000 MG PO ×3 (05:55→13:32)
[2024-12-11] MEDS: Levothyroxine 75 MCG Tablet PO (05:55)
[2024-12-11] MEDS: Budesonide Respules 0.5 MG/2 ML AMPUL.NEB. INHALATION (07:40)
[2024-12-11] MEDS: Ipratropium/Albuterol Sulfate 3 ML AMPUL.NEB INHALATION ×2 (07:40→12:59)
[2024-12-11 08:49] LABS: Hematocrit 32.3 % (37-47); Hemoglobin 10.5 g/dL (12.0-15.0); Mean Corp Hgb Conc 32.5 g/dL (32-36); Mean Corpuscular Volume 86.1 fL (81-99); Mean Platelet Vol. 8.7 fl (6.2-12.0); Platelet Count 272 K/mm3 (150-450); RBC Distribution Width CV 13.1 % (11.6-14.6); RBC Distribution Width SD 41.1 fl (35.1-43.9); Red Blood Count 3.75 M/mm3 (4.2-5.4); White Blood Count 8.5 K/mm3 (4.4-11.0)
[2024-12-11] MEDS: Aspirin 81 MG TAB.CHEW PO ×2 (08:49→16:38)
[2024-12-11] MEDS: Lactobacillis Acidophilus 1 CAP PO (08:49)
[2024-12-11] MEDS: Anastrozole 1 MG TABLET PO (08:50)
[2024-12-11] MEDS: Benztropine Mesylate 0.5 MG TABLET 1 MG PO ×2 (08:51)
[2024-12-11] MEDS: Atorvastatin Calcium 10 MG Tablet PO (08:51)
[2024-12-11] MEDS: Pantoprazole Sodium 20 MG Tablet PO (08:52)
[2024-12-11] MEDS: Senna/Docusate Sodium 1 Tablet 2 TABLET PO ×2 (08:52)
[2024-12-11] MEDS: Cholecalciferol (VIT D3) 25 MCG TABLET (1,000 UNITS) PO (08:52)
[2024-12-11] MEDS: Famotidine 20 MG Tablet PO (08:52)
[2024-12-11] MEDS: Ensure Surgery 237 ML LIQUID PO ×3 (08:58→16:38)
--- NOTE | 2024-12-11 09:36 | PN.ORTHO_ITS ---
Subjective Subjective Patient appears to be comfortable in bed. Patient is a poor historian. Patient states that her pain is adequately controlled. Patient states that she worked with occupational therapy yesterday day and felt that it went okay. Patient states that she is ready to go home. Patient is currently living with her sister. Patient denies any nausea, vomiting, dizziness. Patient denies any new numbness or tingling. Patient denies any fever, chills, signs of infection. Patient denies any shortness of breath, chest pain, calf pain. Patient denies any adverse events overnight. Objective Data Objective Data Vital Signs: Vital Signs Temp Pulse Resp BP Pulse Ox O2 Del Method O2 Flow Rate 98.4 F 78 16 134/59 H 93 Nasal Cannula 2 12/11/24 05:44 12/11/24 07:35 12/11/24 07:35 12/11/24 05:44 12/11/24 07:35 12/11/24 09:07 12/11/24 09:07 Oxygen Flow Rate (L/min) 2 Oxygen Delivery Method Nasal Cannula Weight: 78.9 kg Body Mass Index (BMI) 27.6 Intake & Output: Intake and Output for Last 24 Hours 12/09/24 12/10/24 12/11/24 23:59 23:59 23:59 Intake Total 1830.5 / 1830.5 50 / 50 Output Total 700 / 700 Balance 1130.5 / 1130.5 50 / 50 Lab / Micro Data 12/11/24 08:40 11/15/24 13:14 Labs: Laboratory Results - last 24 hr 12/10/24 06:07: POC Glucose 92 12/11/24 08:40: WBC 8.5, RBC 3.75 L, Hgb 10.5 L, Hct 32.3 L, MCV 86.1, MCH 28.0, MCHC 32.5, RDW Std Deviation 41.1, RDW Coeff of Cleo 13.1, Plt Count 272, MPV 8.7 Micro: Microbiology 11/15/24 13:14 Swab (Method) Nasal Screen MRSA/MSSA - Final Radiography Diagnostic Testing: Radiology Impression Shoulder X-Ray 12/10/24 10:15 IMPRESSION: Hardware in position. [facility] Exam Narrative Vital signs are stable and afebrile. Dressing is clean dry and intact. Ultrasound has been appropriately fitted. Sensation intact axillary, radial, median, ulnar nerve distribution. Motor intact with patient able to make okay sign, cross fingers, thumbs up. JACKIE hose in place bilaterally. SCDs in place bilaterally. Const alert, oriented x3 and no apparent distress Assessment & Plan Assessment/Plan (1) Status post reverse total arthroplasty of left shoulder: PLAN: Status post left reverse total shoulder arthroplasty day 1. 1. Physical therapy. Patient will continue with UltraSling at all times. Patient is okay to take the sling off for range of motion of elbow and pendulum exercises 2-3 times daily. No range of motion of the operative shoulder. Will begin outpatient physical therapy after the 2-week follow-up at [facility] [place]. 2. DVT prophylaxis: Patient will be taking aspirin 81 mg twice daily for 2 weeks postoperatively. Patient was also educated to wear JACKIE hose for 2 weeks postoperatively. 3. Pain control: Patient was instructed to take Tylenol 1000 mg every 8 hours [id number] taking no more than 3000 mg in 24 hours. Patient is currently in pain management with Dr. Matos. She is only getting meloxicam from pain management. Pain management was consulted who wanted orthopedics to manage for the first 2 weeks. Patient will be on meloxicam for 2 weeks postoperatively. Patient was educated not to take any anti-inflammatory medications with meloxicam. Patient was then instructed to take her oxycodone 1-2 every 4-6 hours as needed for breakthrough pain. OARRS report was reviewed today. The risk of abuse potential for narcotic pain medication was discussed and reviewed. Patient voiced understanding. 4. Constipation: Patient was instructed to take senna as instructed until her first bowel movement to decrease risk of infection following surgery. Patient was instructed if she has not had a bowel movement in 3 days contact our office. Patient states that she already has senna at home. 5. Labs: H&H: 10.5/32.3. Patient is afebrile and vital signs are stable. Hemoglobin is currently above the threshold of 10 and patient does not have to begin anemia protocol. 6. Incentive spirometry: Patient was encouraged to use incentive spirometer every hour if she is awake for the first week to exercise the lungs and decrease risk of postoperative lung infection. 7. Patient is to follow-up per postoperative instructions. 8. Patient will be seen by medicine to evaluate chronic disease. Appreciate recommendations from medicine for safe and proper discharge. 9. Patient does have outpatient physical therapy and follow-up appointment scheduled. 10. Patient is okay for discharge if pain is adequately controlled, has worked with and is cleared by physical therapy and Occupational Therapy and is okay per medicine doctors instructions. 11. Appreciate recommendations for safe and proper discharge planning from case management at this time. 12. Disposition: At this time patient states that she does feel safe to go home. Patient states that her sister is at home. Patient states that she lives with her sister. Patient states that she is sure her sister will be able to help take care of her. Case management is going to talk to sister to determine that sister feels comfortable taking care of patient at home at this time. Patient states that her pain is adequately controlled. Patient states occupational therapy went okay. Patient stated she did not need Tylenol or baby aspirin. Patient's medications were sent to patient's pharmacy of choice. Patient does have a 2-week follow-up appointment and physical therapy scheduled. Patient was encouraged to call with any questions, concerns, new problems.
--- NOTE | 2024-12-11 09:38 | CASEMGMT ---
Met with patient to complete ARBOLEDA form. ARBOLEDA form explained to patient who voiced understanding and signed form. Original form placed in pt?s chart and copy provided to patient. Lela Falcon, Discharge Planning Asst
--- NOTE | 2024-12-11 09:45 | CASEMGMT ---
MIKE ARIAS Assessment: Face to Face with pt for initial transition planning/care coordination assessment. MIKE ARIAS introduced self and role at [facility], pt voices understanding and consents to assessment. Pt is A&O x4 and answers all questions appropriately at this time. Pt sitting up in chair with oxygen on and sister at bedside. Pt agreeable to assessment with sister present. Care providers, pharmacy, and demographics verified/updated. Admitting Dx: L reverse total shoulder Strata Score: 2 PCP:Robert Specialists:Rhonda, ortho; Jet, neuro; Lilian, pulm; Shawna, pain mgmt; Seese, psych, [place] Preferred Pharmacy: [facility] Retail Insurance: [employer], [employer] Sr Supp Prescription Benefit: yes LNOK: Katherine Crouch, sister Living Arrangements: Pt lives with sister in a single story home with 2 steps to enter with a rail. Pt reports prior to surgery she was I in ADLs other than fastening bra, pt and sister perform IADLs together. Pt sister states she realizes pt is not going to be able to do tasks right away that she used to and she is comfortable and available to help pt. She will be present when therapy works with pt for education. Pt and sister deny concerns at home. Transportation: Pt sister provides transportation to pt. DME:pox, port oxygen tank (present to dc home on), oxygen through [employer], raised toilet seat, quad cane, ww HHC/SNF: Denies hx of Pt states no concerns with going home at time of dc. Therapy to start in 2 wks. Updated PA that sister can care for pt. Pt states no further concerns/needs. CM to follow. Advised pt to ask CM if any further questions/concerns/needs arise, voices understanding. Pt Goal: Home Plan: Home Jose Alejandro MCKEON CM
[2024-12-11 10:01] LABS: Anion Gap 10 (5-15); BUN 10 mg/dL (4-19); BUN/Creat Ratio 17.6 RATIO (10-20); Calcium,Total 8.1 mg/dL (7.6-11.0); Carbon Dioxide 24.1 mmol/L (21.0-32.0); Chloride 94 mmol/L (98-108); Creatinine, Serum 0.58 mg/dL (0.70-1.20); EST Glomerular Filtration Rate 94 (>60); Estimated Creatinine Clearance 63.41 ml/min (50-250); Glucose 105 mg/dL (70-99); Potassium 4.4 mmol/L (3.3-5.1); Sodium Level 128 mmol/L (133-145)
--- NOTE | 2024-12-11 11:23 | PN_ITS ---
Subjective Subjective Patient seen and examined. She is more awake, alert and communicative today. She denies any pain and has no active complaints. Review of systems is otherwise negative. SHe has remained hemodynamically stable. She is on 2L of oxygen by nasal canula. Objective Data Objective Data Vital Signs: Vital Signs Temp Pulse Resp BP Pulse Ox O2 Del Method O2 Flow Rate 98.2 F 75 16 148/86 H 93 Nasal Cannula 2 12/11/24 10:05 12/11/24 10:05 12/11/24 10:05 12/11/24 10:05 12/11/24 10:05 12/11/24 10:05 12/11/24 10:05 Oxygen Flow Rate (L/min) 2 Oxygen Delivery Method Nasal Cannula Weight: 173 lb 15.115 oz Body Mass Index (BMI) 27.6 Intake & Output: Intake and Output for Last 24 Hours 12/09/24 12/10/24 12/11/24 23:59 23:59 23:59 Intake Total 1830.5 / 1830.5 50 / 50 Output Total 700 / 700 Balance 1130.5 / 1130.5 50 / 50 Lab / Micro Data 12/11/24 08:40 12/11/24 08:40 Labs: Laboratory Results - last 24 hr 12/11/24 08:40: WBC 8.5, RBC 3.75 L, Hgb 10.5 L, Hct 32.3 L, MCV 86.1, MCH 28.0, MCHC 32.5, RDW Std Deviation 41.1, RDW Coeff of Cleo 13.1, Plt Count 272, MPV 8.7, Sodium 128 L, Potassium 4.4, Chloride 94 L, Carbon Dioxide 24.1, Anion Gap 10, BUN 10, Creatinine 0.58 L, Estim Creat Clear Calc 63.41, Est GFR (MDRD) Non- Af 94, BUN/Creatinine Ratio 17.6, Glucose 105 H, Calcium 8.1 Micro: Microbiology 11/15/24 13:14 Swab (Method) Nasal Screen MRSA/MSSA - Final Physical Exam Const alert, oriented x3 and no apparent distress General Appearance: cooperative HEENT normocephalic, head/scalp atraumatic, moist oral mucous membranes and oropharynx normal Eyes PERRL and EOMs intact bilaterally Neck no lymphadenopathy and supple Resp normal respiratory effort, normal air movement and clear to auscultation bilaterally Resp Narrative: on 2L of oxygen by nasal canula Cardio regular rate, regular rhythm, S1 normal heart sound, S2 normal heart sound and no murmurs GI normal to inspection, nondistended, normoactive bowel sounds, soft to palpation and non-tender Extremity normal capillary refill and no clubbing, cyanosis or edema Extremity Narrative: INtact dressing over surgical site at LUE, LUE in sling Skin General Skin Exam: no breakdown Neuro CN's II-XII intact bilaterally Psych thought process normal and cooperative Appearance: appropriate Assessment & Plan Assessment/Plan (1) NSVT (nonsustained ventricular tachycardia): PLAN: Plan #Left shoulder pain s/p left reverse shoulder arthroplasty * Today's postop day 1. Management as per primary team orthopedics. * PT OT on board. Incentive spirometry. * Fall precautions. * #History of nonsustained ventricular tachycardia: On carvedilol as well as rosuvastatin #Hyponatremia: * sodium is 128 today. Was 136 yesterday. * However, she does have a history of hyponatremia. Hydrate gently with IVF and trend. * #HIMANSHU: CPAP qhs #History of chronic respiratory failure due to COPD: * On 2 L of oxygen. Not in exacerbation. Breathing treatment bronchodilators. * Titrate oxygen as needed to maintain saturation above 90%. #History of right breast cancer: On anastrozole #History of parkinsonism: Stable #Schizophrenia: On Risperdal and benztropine as well as olanzapine #Hypothyroidism: On Synthroid #Hypertension: On carvedilol and lisinopril DVT prophylaxis: As per primary service orthopedics Thank you for the courtesy of the consult. Hospitalist service continue to follow with you. Charges/Coding Visit Charges Inpatient E&M: 27317 Subs Hosp L2
--- NOTE | 2024-12-11 11:50 | PCM.DC ---
Discharge Instructions Diet Discharge Diet: No restrictions DC O2, CPAP, BIPAP needs Home O2 Discharge instructions: Yes Type of respiratory needs?: Oxygen (Patient is on home oxygen regularly.) Oxygen frequency: Continuous Continuous oxygen liters per minute: 2L and Other Dressing / Incision Discharge Activity: May Not Drive (While in sling.) Keep extremity elevated above heart level: Left Arm (Ice and elevate operative left arm.) Dressing / Incision Call your doctor if your incision/area has: Continuous Slow Oozing, Sudden Increased Bleeding, Increased Pain/ Swelling, Increased Redness, Foul Smelling Discharge and Swelling at the incision site Call your doctor if you observe: Fever of 101 or Higher, Coldness, Increased Pain, Numbness or Tingling, Change in Color, Inability to urinate, Inability to have a bowel movement, Using more than 1 pad per hour, Shortness of breath, Dizziness, Fainting spells, Swelling in the ankles, Chest pain, Prolonged hiccupping, Increased palpitations (irregular heartbeat), Calf discomfort and Uncontrolled pain Remove Dressing in: 5 days (Patient was educated she is able to remove dressing on postop day 5. This is 12/15/2024. Patient was educated she can leave open to air as long as incision is clean dry and intact. Patient was educated there are Steri-Strips under her incision. Patient was educated to leave the little white strips) Cleanse incision/area with: Soap & Water (Gentle soap and water.) Additional Dressing/Incision Instructions:: No soaking, submerging until 6 weeks postoperatively. No lotions, oils directly on incision until 6 weeks postoperatively. Patient will continue with UltraSling at all times. Patient was educated to okay to take sling off for elbow range of motion and pendulum exercises 2-3 times daily. No range of motion of operative shoulder. Will begin outpatient physical therapy after 2-week follow-up at [facility]. OARRS report was reviewed by myself today. Follow Up Care Test Results: Test results from this visit will be discussed in further detail at your follow-up appointment, if applicable. Discharge Plan Admission Admit Date/Time: 12/10/24 07:03 Attending Provider: Larry Ellis Primary Care Provider: Vadim Jones Consulting Providers: Farzana Gomez Discharge Orders/Prescriptions Prescriptions: New acetaminophen 500 mg Tablet 1,000 mg PO TID Qty: 0 0RF aspirin 81 mg capsule 81 mg PO BID Qty: 0 0RF sennosides-docusate sodium [Stimulant Laxative Plus] 8.6-50 mg Tablet 2 tab PO BID 3 Days Qty: 12 0RF Rx Instructions: Take until first bowel movement and then as needed. famotidine 20 mg Tablet 20 mg PO DAILY 30 Days Qty: 30 0RF oxycodone 5 mg Tablet 5 - 10 mg PO Q4H PRN PRN (Reason: As needed for pain.) 7 Days Qty: 42 0RF meloxicam 7.5 mg Tablet 7.5 mg PO BIDCM 30 Days Qty: 60 0RF Rx Instructions: Do not take with any other anti-inflammatory medications. Continued albuterol sulfate 90 mcg/actuation HFA aerosol inhaler 1 - 2 puff INHALATION Q4H PRN PRN (Reason: Shortness Of Breath) Qty: 18 6RF cholecalciferol (vitamin D3) 25 mcg (1,000 unit) tablet 25 mcg PO DAILY Patient Comments: PT SHOULD BE TAKING BUT CURRENTLY IS NOT multivitamin Tablet 1 tab PO DAILY rosuvastatin [Crestor] 5 mg tablet 5 mg PO DAILY levothyroxine 75 mcg capsule 75 mcg PO DAILY omeprazole 20 mg capsule,delayed release(DR/EC) 20 mg PO DAILY Prolia 60 mg/mL syringe 60 mg subcut [id number] Probiotic 3 billion cell capsule 3,000 mmu cells PO DAILY Rx Instructions: administer with a meal benztropine 1 mg tablet 1 mg PO BID lisinopril 5 mg tablet 5 mg PO QDAY Qty: 90 3RF Trelegy Ellipta 200-62.5-25 mcg blister with device 1 inh inhalation DAILY Qty: 60 11RF risperidone 2 mg tablet 2 mg PO QHS olanzapine 20 mg tablet 20 mg PO QHS mecobalamin (vitamin B12) 10,000 mcg recon soln 10,000 mcg IM QMONTH Patient Comments: PT UNSURE OF DOSAGE Rx Instructions: PT UNSURE OF DOSAGE anastrozole 1 mg tablet 1 mg PO DAILY Qty: 180 4RF furosemide [Lasix] 40 mg tablet 40 mg PO DAILY PRN (Reason: shortness of breath) Qty: 90 3RF carvedilol 3.125 mg tablet 3.125 mg PO BID Qty: 60 6RF Rx Instructions: must administer with a meal/food Held meloxicam 7.5 mg tablet 7.5 - 15 mg PO QDAY PRN (Reason: pain) Hold Instructions: Until finished with 30-day supply of postoperative meloxicam. aspirin [Adult Low Dose Aspirin] 81 mg tablet,delayed release (DR/EC) 81 mg PO QDAY Qty: 90 3RF Hold Instructions: Hold until finished with aspirin 81 mg twice daily until 2 weeks postoperatively. Other Ambulatory Orders: 12 Lead EKG (Routine) Timeframe: 20241115 Location: None Selected Ordered By: Dr. Larry Ellis Referrals / Follow Up: Vadim Jones MD [Primary Care Provider] - Disposition Disposition (needs filled in before D/C Order can be placed): Home, Self Care
[2024-12-11] MEDS: 0.9% Normal Saline (1000mL) 1,000 ML 100 ML IV (13:32)
[2024-12-11] MEDS: Multivitamins,Therapeutic Tablet 1 TABLET PO (13:32)
[2024-12-11] MEDS: oxyCODONE 5 MG Tablet PO (16:38)
[2024-12-11 17:23] LABS: Sodium Level 133 mmol/L (133-145)
== END 2024-12-11 19:39 | disposition home or self-care (01) ==
LOC: SDC 10:48 → MS3 10:48
PROVIDERS: Anesthesiology; Student in an Organized Health Care Education/Training Program; Admitting Provider Specialist; PCP Family Medicine; Referring Provider Specialist; Visit Provider Specialist
PROC: (CPT 23472; principal; 2024-12-10 07:00)
DX: M19.012 Primary osteoarthritis, left shoulder (principal); G20.C Parkinsonism, unspecified; F20.9 Schizophrenia, unspecified; J96.10 Chronic respiratory failure, unspecified whether with hypoxia or hypercapnia; J43.9 Emphysema, unspecified; I42.8 Other cardiomyopathies; R13.10 Dysphagia, unspecified; M81.0 Age-related osteoporosis without current pathological fracture; Z79.890 Hormone replacement therapy; E03.9 Hypothyroidism, unspecified; I25.10 Atherosclerotic heart disease of native coronary artery without angina pectoris; E87.1 Hypo-osmolality and hyponatremia; K21.9 Gastro-esophageal reflux disease without esophagitis; Z87.891 Personal history of nicotine dependence; Z99.81 Dependence on supplemental oxygen; Z79.899 Other long term (current) drug therapy; G47.33 Obstructive sleep apnea (adult) (pediatric)
CPT/HCPCS: 23472; 01638; 36415; 73030; 80048; 82040; 82962; 83735; 84295; 84443; 85025; 85027; 87081; 88305; 88311; 93005; 94640; 94668; 96365; 96366; 97166; 97535; 99221; C1713; C1776; A4216; G0378; J2405; J3475

== ENCOUNTER → 2025-03-22 | Outpatient (CLI) | payer MEDICARE, OTHER, SELFPAY ==
--- NOTE | 2025-03-22 17:11 | CT_ITS ---
PROCEDURE: LOW DOSE CT LUNG SCREENING 03/22/2025 REASON FOR EXAM: SMOKER QUIT 2016 Patient has smoked 3 packs per day for 50 years. Prior left mastectomy. TECHNIQUE: LOW DOSE CT LUNG SCREENING Coronal and Sagittal reconstruction series were provided. One or more dose reduction techniques were used (e.g., Automated exposure control, adjustment of the mA and/or kV according to patient size, use of iterative reconstruction technique). REFERENCE LINK: [id number] Lung-RADS RADIATION DOSE SUMMARY: CTDlvol: 2.39 mGy DLP: 77.43 mGycm COMPARISON: Prior study dated March 20, 2024. FINDINGS: PULMONARY NODULES: (Only nodules >3mm are reported) Nodules described below are on series 1 unless otherwise specified. Pulmonary Nodules: No suspicious pulmonary nodules are seen. Hardware:Right breast prostheses. Lymph Nodes:No suspicious lymph nodes are present. Heart and Vasculature:The heart is nonenlarged. Coronary Artery Calcifications: Present Lungs and Airways: Mild emphysematous changes are present. Stable scarring1 in the lingular segment of the left upper lobe as well as in the right middle lobe. Stable scarring in the right lower lobe. Pleura:No pleural effusion. Upper Abdomen:Calcification of the splenic artery. Bones:Degenerative changes of the thoracic spine. CT/Low Dose CT Lung Screening IMPRESSION: Stable examination. Coronary artery calcification (CAC) is is present Lung-RADS Category: 2 BENIGN (BASED ON IMAGING FEATURES OR INDOLENT BEHAVIOR). RECOMMEND 12-MONTH SCREENING LDCT. Other Significant Findings: Reading Location: [place] [id number]
--- OUTSIDE RECORDS SUMMARY | 2025-03-22 17:14 | XMS RPT_ITS | CCD ---
Author Organization [facility] Care Team Providers Care Real Estate Loan Processor Name Role Phone Alex Neil DO D Unavailable Dr. Argenis Sanchez Primary Care Provider [phone] Argenis Sanchez Referring Provider Dr. Oksana Weldon Attending Provider MANUEL Saleem Referring Provider Shanna CHA, SEMAJ-C Jess Attending Provider [phone] Dr. Evan Morataya Referring Provider Dr. Evan Morataya Other Provider Dr. Argenis Byrd Primary Care Provider [phone] Dr. Tom Field Attending Provider Dr. Argenis Byrd Referring Provider Dr. Argenis Byrd Primary Care Provider [phone] Dr. Argenis Byrd Referring Provider Dr. Oksana Weldon Attending Provider Dr. Alphonso Rodriguez Primary Care Provider Dr. Alphonso Rodriguez Referring Provider Dr. Oksana Weldon Attending Provider MANUEL Otero NP Attending Provider [phone] Dr. Alphonso Rodriguez Primary Care Provider Dr. Alphonso Rodriguez Referring Provider Jessica CHA NP-Reba Moya Attending Provider Guera, DO Chel M Primary Care Provider Guera, DO Chel M Referring Provider Dr. Alphonso Rodriguez Primary Care Provider Dr. Alphonso Rodriguez Referring Provider Jessica DYE FEEDER, DYE FEEDER-C Nita Attending Provider Guera, DO Chel M Primary Care Provider Guera, DO Chel M Referring Provider Dr. Evan Morataya Attending Provider Dr. Oksana Weldon Attending Provider Guera, DO Chel M Primary Care Provider Guera, DO Chel M Referring Provider Dr. Alphonse Chaudhary Attending Provider Guera, DO Chel M Primary Care Provider [phone] Guera, DO Chel M Referring Provider Dr. Alphonse Chaudhary Attending Provider Shanna DYE FEEDER, DYE FEEDER-C Jess Attending Provider Dr. Oksana Weldon Attending Provider Unavailable Primary Care Provider Unavailabl e ROOF, ARGENIS Referring Unavailable Manny, Trudy Referring Unavailable Mahin, Chalon Primary Care Unavailable Manny, Trudy Attending Unavailable Mahin, Chalon Referring Unavailable Mahin, Chalon Primary Care Unavailable Manny, Trudy Attending Unavailable Mahin, Chalon Primary Care Unavailable Mahin, Chalon Referring Unavailable Shanna DYE FEEDER, Jess Attending Unavailable Mahin, Chalon Primary Care Unavailable Shanna DYE FEEDER, Jess Referring Unavailable Shanna DYE FEEDER, Jess Attending Unavailable Mahin, Chalon Primary Care Unavailable Oksana Weldon Referring Unavailable Oksana Weldon Attending Unavailable Mahin, Chalon Primary Care Unavailable Sherita DYE FEEDER, Irma Attending Unavailable Mahin, Chalon Primary Care Unavailable Farzana Gomez Consulting Unavailable Rhonda, Larry Admitting Unavailable Rhonda, Larry Attending Unavailable Rhonda, Larry Referring Unavailable Mahin, Chalon Primary Care Unavailable Rhonda, Larry Attending Unavailable Rhonda, Larry Referring Unavailable Mahin, Chalon Primary Care Unavailable Alphonse Chaudhary Attending Unavailable Jet, Alphonse Referring Unavailable Manny, Trudy Attending Unavailable Mahin, Chalon Referring Unavailable Mahin, Chalon Primary Care Unavailable Mahin, Chalon Primary Care Unavailable Alphonse Chaudhary Attending Unavailable Jet Alphonse Referring Unavailable Mahin, Chalon Referring Unavailable Mahin, Chalon Primary Care Unavailable IsckarusOksana Attending Unavailable Mahin, Chalon Primary Care Unavailable Tom Field Attending Unavailable Otero DYE FEEDER, Jess Referring Unavailable Mahin, Chalon Primary Care Unavailable Rhonda, Larry Referring Unavailable Diamante, Calvin Attending Unavailable Mahin, Chalon Primary Care Unavailable Diamante, Quentin Attending Unavailable Diamante, Calvin Referring Unavailable Mahin, Chalon Primary Care Unavailable Oksana Weldon Attending Unavailable Isckarus, Mansour Referring Unavailable Mahin, Chalon Referring Unavailable Mahin, Chalon Primary Care Unavailable Otero DYE FEEDER, Jess Attending Unavailable Isckarus, Oksana Attending Unavailable Barron Bailey Referring Unavailable Rodriguez, Alphonso Primary Care Unavailable Manny, Trudy Referring Unavailable Manny, Trudy Consulting Unavailable Mahin, Chalon Primary Care Unavailable Diamante, Quentin Attending Unavailable Mahin, Chalon Primary Care Unavailable Koram, Farzana Eguenie Consulting Unavailable Rhonda, Larry Referring Unavailable Rhonda, Larry Admitting Unavailable Koram, Farzana Eugenie Attending Unavailable Rhonda, Larry Consulting Unavailable Mahin, Chalon Primary Care Unavailable Manny, Trudy Attending Unavailable Mahin, Chalon Primary Care Unavailable Jessica DYE FEEDER, Nita Attending Unavailable Jessica DYE FEEDER, Nita Referring Unavailable Mahin, Chalon Primary Care Unavailable Jessica DYE FEEDER, Nita Attending Unavailable Otero DYE FEEDER, Jess Referring Unavailable Mahin, Chalon Referring Unavailable Mahin, Chalon Primary Care Unavailable Otero DYE FEEDER, Jess Attending Unavailable Mahin, Chalon Referring Unavailable Mahin, Chalon Primary Care Unavailable Alphonse Chaudhary Attending Unavailable Mahin, Chalon Primary Care Unavailable Alphonse Chaudhary Attending Unavailable Jet Alphonse Referring Unavailable Mahin, Chalon Primary Care Unavailable Larry Foley Attending Unavailable Manny, Trudy Attending Unavailable Mahin, Chalon Primary Care Unavailable Mahin, Chalon Referring Unavailable Mahin, Chalon Primary Care Unavailable Larry Foley Attending Unavailable Trudy Bryant Attending Unavailable Mahin, Chalon Referring Unavailable Mahin, Chalon Primary Care Unavailable Mahin, Chalon Referring Unavailable Mahin, Chalon Primary Care Unavailable Oksana Weldon Attending Unavailable Mahin, Chalon Primary Care Unavailable Shanna CHA, Jess Attending Unavailable Chel Lynne Referring Unavailable Mahin, Chalon Primary Care Unavailable Larry Foley Attending Unavailable Mahin, Chalon Primary Care Unavailable Tom Field Attending Unavailable Shanna DYE FEEDER, Jess Referring Unavailable Shanna DYE FEEDER, Jess Consulting Unavailable Mahin, Chalon Primary Care Unavailable Shanna DYE FEEDER, Jess Attending Unavailable Shanna DYE FEEDER, Jess Referring Unavailable Allergies Allergy Classification Reported Allergen(s) Allergy Type Date of Onset Reaction(s) Facility (1 source) Haloperidol Drug Allergy 9 [facility] Work Phone: (11 sources) Haloperidol; Translations: [HALOPERIDOL] Drug Allergy 0 Mental Status Change [facility] (1 source) Haloperidol Drug Allergy 5 [facility] Repository Medications Current Medications Medication Drug Class(es) Dates Sig (Normalized) Sig (Original) [id number] 200 actuat albuterol 0.09 mg/actuat metered dose inhaler (17 sources) beta2-Adrenergic Agonist Start: 10-01-2019 End: 09-24-2020 take 1 puff(s) by inhalation every four hours as needed Albuterol Sulfate Active 1 - 2 PUFF INHALATION EVERY 4 HOURS NEEDED September 24, 2020 12:07pm Start: 06-25-2019 take 1 dose by inhal ation once daily PROAIR HFA 108 (90 Base) MCG/ACT AERS inhale directed dose once daily ALBUTEROL SULFATE [id number] Silvio Shaffer RN amantadine hydrochloride 100 mg oral capsule (3 sources) Influenza A M2 Protein Inhibitor Start: 08-22-2023 take 100 mg by mouth twice daily Amantadine Hcl Active 100 MG PO TWICE A DAY August 22, 2023 1:00am anastrozole 1 mg oral tablet (20 sources) Aromatase Inhibitor Start: 01-24-2020 End: 06-20-2023 take 1 tablet by mouth once daily anastrozole (ARIMIDEX) 1 mg tablet Take 1 tablet by mouth once daily. 05/01/2020 Active Start: 10-18-2019 End: 01-16-2020 take 1 mg by mouth once daily Anastrozole Discontinued 1 MG PO DAILY 90 90 October 18, 2019 1:00am January 16, 2020 12:02am benztropine mesylate 0.5 mg oral tablet (3 sources) Anticholinergic, Antihistamine Start: 08-22-2023 take 1 tablet by mouth once daily, then take 1 tablet by mouth twice daily Benztropine Active 0.5 MG .ROUTE .COMPLEX 60 August 22, 2023 1:00am Take 1 tablet orally daily for 1 week then 1 tablet twice daily thereafter Calcium-Magnesium -Zinc (8 sources) Start: 01-22-2021 take 3 tablets by mouth once daily Calcium-Magnesium -Zinc Active 3 TABLET PO DAILY January 22, 2021 10:45am Start: 01-22-2021 End: 08-22-2023 take 3 tablets by mouth once daily Tuesoql-Evlheydhn-Dqlp Discontinued 3 TABLET PO DAILY January 22, 2021 12:00am August 22, 2023 12:52pm Start: 01-22-2021 End: 08-22-2023 take 3 tablets by mouth once daily Smkwdqq-Rofdiqmet-Slqp Discontinued 3 TABLET PO DAILY January 21, 2021 11:00pm August 22, 2023 11:52am Start: 01-22-2021 take [address] [facility] once daily Joocyjm-Kknjymtdx-Tiwa Active 3 TABLET P O DAILY January 21, 2021 11:00pm Start: 01-22-2021 take 3 tablets by [facility] once daily Zqqjdyh-Yvpeznemb-Fadg Active 3 TABLET P O DAILY January 22, 2021 12:00am cholecalciferol 0.025 mg oral tablet (9 sources) Vitamin D Start: 01-22-2021 take 25 ug by mouth once daily Cholecalciferol (Vitamin D3) Active 25 MCG PO DAILY January 22, 2021 12:00am Start: 06-25-2019 VITAMIN D 2000 UNIT TABS 1 tablet once daily CHOLECALCIFEROL [id number] Terena Shaffer RN 1 ml denosumab 60 mg/ml prefilled syringe (3 sources) RANK Ligand Inhibitor Start: 08-22-2023 Denosumab (Prolia) 60 mg/mL syringe Active 60 MG SC every 6 months August 22, 2023 1:00am dicyclomine hydrochloride 20 mg oral tablet (8 sources) Anticholinergic Start: 03-25-2021 take 20 mg by mouth three times daily Dicyclomine Active 20 MG PO THREE TIMES A DAY March 25, 2021 12:00am Inositol-Choline Kcz-Czonp-T-C (Inner Ear Plus) 500 mg tablet (8 sources) Start: 01-22-2021 take 3 tablets by mouth once daily Inositol-Choline Rto-Knwrj-O-C (Inner Ear Plus) 500 mg tablet Active 3 TABLET PO DAILY January 22, 2021 10:44am Start: 01-22-2021 End: 08-22-2023 take 3 tablets by mouth once daily Inositol-Choline Xih-Tlmca-D-C (Inner Ear Plus) 500 mg tablet Discontinued 3 TABLET PO DAILY January 22, 2021 12:00am August 22, 2023 12:53pm Start: 01-22-2021 End: 08-22-2023 take 3 tablets by mouth once daily Inositol-Choline Wud-Lbvki-Q-C (Inner Ear Plus) 500 mg tablet Discontinued 3 TABLET PO DAILY January 21, 2021 11:00pm August 22, 2023 11:53am Start: 01-22-2021 take [address] [facility] once daily Inositol-Choline Zis-Gxsde-E-C (Inner Ear Plus) 500 mg tablet Active 3 TABLET PO DAILY January 21, 2021 11:00pm Start: 01-22-2021 take [address] [facility] once daily Inositol-Choline Elj-Tdqpx-Q-C (Inner Ear Plus) 500 mg tablet Active 3 TABLET PO DAILY January 22, 2021 12:00am Lactobacillus Combination No.4 (Probiotic) 3 billion cell capsule (3 sources) Start: 08-22-2023 take 3 capsules by mouth once daily Lactobacillus Combination No.4 (Probiotic) 3 billion cell capsule Active 3000 MMU CELLS PO DAILY August 22, 2023 1:00am administer with a meal Start: 08-22-[address] [facility] once daily Lactobacillus Combination No.4 (Probiotic) 3 billion cell capsule Active 3000 MMU CELLS PO DAILY August 22, 2023 12:00am administer with a meal levothyroxine sodium 0.075 mg oral capsule (14 sources) l-Thyroxine Start: 08-22-2023 take 75 ug by mouth once daily Levothyroxine Active 75 MCG PO DAILY August 22, 2023 1:00am Start: 06-25-2020 take 1 tablet by [facility] once daily levothyroxine (SYNTHROID) 50 mcg tablet Take 1 tablet by mouth once daily. 06/25/2020 Active Start: 10-01-2019 End: 08-22-2023 take 50 ug by mouth once daily Levothyroxine Discontin ued 50 MCG PO DAILY October 01, 2019 1:00am August 22, 2023 12:39pm Start: 06-25-2019 LEVOTHYROXINE SODIUM 50 MCG TABS 1 tablet once daily LEVOTHYROXINE SODIUM [id number] Silvio Shaffer RN mecobalamin 1 mg chewable tablet (1 source) Start: 11-30-2023 take 1000 ug by mouth once daily Mecobalamin (Vitamin B12) Active 1000 MCG PO DAILY November 30, 2023 12:00am meloxicam 7.5 mg oral tablet (11 sources) Nonsteroidal Anti-inflammatory Drug Start: 07-02-2020 meloxicam (MOBIC) 7.5 mg tablet Take 1 tablet by mouth as needed. 07/02/2020 Active Start: 09-18-2019 take 7.5 mg by mouth once tray y Meloxicam Active 7.5 MG PO DAILY September 18, 2019 1:00am Start: 06-25-2019 MELOXICAM 7.5 MG TABS 2 tablets (15mg) once daily MELOXICAM [id number] Silvio Shaffer RN Multivitamin preparation (8 sources) Start: 01-22-2021 take 1 tablet by mouth once daily Multivitamin Active 1 TABLET PO DAILY January 22, 2021 10:44am Start: 01-22-2021 take 1 tablet by [facility] once daily Multivitamin Active 1 TABLET PO DAILY January 21, 2021 11:00pm Start: 01-22-2021 take 1 tablet by [facility] once daily Multivitamin Active 1 TABLET PO DAILY January 22, 2021 12:00am OLANZapine 20 mg oral tablet (17 sources) Atypical Antipsychotic Start: 08-22-2023 take 20 mg by mouth once daily Olanzapine Active 20 MG PO DAILY August 22, 2023 1:00am Start: 06-11-2020 take 1 tablet by [facility] once daily OLANZapine orally disintegrating (ZYPREXA ZYDIS) 5 mg disintegrating tablet Take 1 tablet by mouth once daily. 06/11/2020 Active Start: 06-03-2020 take 1 tablet by [facility] once daily OLANZapine orally disintegrating (ZYPREXA ZYDIS) 20 mg disintegrating tablet Take 1 tablet by mouth once daily. 06/03/2020 Active Start: 09-18-2019 End: 08-22-2023 Olanzapine (Zyprexa) 7.5 mg tablet Discontinued 25 MG PO AT BEDTIME September 18, 2019 1:00am August 22, 2023 11:39am Start: 06-25-2019 OLANZAPINE 20 MG TABS 1 tablet once daily OLANZAPINE [id number] Silvio Shaffer RN Start: 06-25-2019 OLANZAPINE 5 M G TABS 1 tablet once daily OLANZAPINE [id number] Silvio Shaffer RN omeprazole 20 mg delayed release oral capsule (3 sources) Proton Pump Inhibitor Start: 08-22-2023 take 20 mg by mouth once daily Omeprazole Active 20 MG PO DAILY August 22, 2023 1:00am risperiDONE 0.5 mg oral tablet (20 sources) Atypical Antipsychotic Start: 06-17-2020 take 1 tablet by mouth once daily risperiDONE (RISPERDAL) 0.5 mg tablet Take 1 tablet by mouth once daily. 06/17/2020 Active Start: 06-03-2020 take 1 tablet by [facility] once daily risperiDONE (RISPERDAL) 1 mg tablet Take 1 tablet by mouth once daily. 06/03/2020 Active Start: 06-03-2020 End: 08-22-2023 take 1 tablet by mouth once daily risperiDONE (RISPERDAL) 3 mg tablet Take 1 tablet by mouth once daily. 06/03/2020 Active Start: 10-01-2019 End: 04-26-2022 take 3.5 mg by mouth at bedtime Risperidone Discontinu ed 3.5 MG PO AT BEDTIME October 01, 2019 1:00am April 26, 2022 2:08pm Start: 09-18-2019 End: 08-22-2023 take 1 mg by mouth once daily Risperidone Discontinued 1 MG PO DAILY September 18, 2019 1:00am August 22, 2023 12:47pm Start: 06-25-2019 RISPERIDONE 0. 5 MG TABS 1 tablet once daily (Total daily dose= 4.5mg) RISPERIDONE [id number] Silvio Shaffer RN Start: 06-25-2019 RISPERIDONE 1 MG TABS 1 tablet once daily (Toal daily dose= 4.5mg) RISPERIDONE [id number] Silvio Shaffer RN Start: 06-25-2019 RISPERIDONE 3 MG TABS 1 tablet once daily (Total daily dose= 4.5mg) RISPERIDONE [id number] Silvio Shaffer RN rosuvastatin calcium 5 mg oral tablet (3 sources) HMG-CoA Reductase Inhibitor Start: 08-22-2023 take 1 tablet by mouth once daily Rosuvastatin (Crestor) 5 mg tablet Active 5 MG PO DAILY August 22, 2023 1:00am Completed/Discontinued Medications Medication Drug Class(es) Dates Sig (Normalized) Sig (Original) acetaminophen 325 mg oral tablet (1 source) Start: 06-25-2019 TYLENOL 325 MG TABS 1 tablet once daily ACETAMINOPHEN [id number] Silvio Shaffer RN acetaminophen 325 mg / HYDROcodone bitartrate 5 mg oral tablet (8 sources) Opioid Agonist Start: 10-05-2019 End: 10-07-2019 take 1 tablet by mouth every six hours as needed Hydrocodone-Acetami nophen Discontinued 1 TABLET PO EVERY 6 HOURS NEEDED 5 2 October 05, 2019 October 07, 2019 1:09am EOSAMHK-WNJAFMWVI-QR NC TABS (1 source) Start: 06-25-2019 EMKVSIA-HTAPWIEJC-K INC TABS 1 tablet once daily QKXMLFO-OATYZYNMU-L INC TABS [id number] Silvio Shaffer RN coenzyme q10 200 mg oral capsule (1 source) Start: 06-25-2019 COQ10 200 MG CAPS 1 capsule once daily COENZYME Q10 [id number] Silvio Shaffer RN gabapentin 100 mg oral capsule (7 sources) Anti-epileptic Agent Start: 04-26-2022 End: 05-04-2023 take 100 mg by mouth once daily Gabapentin Discontinued 100 MG PO DAILY April 26, 2022 12:00am May 04, 2023 9:51am Start: 06-25-2019 GABAPENTIN 300 MG CAPS 1 capsule once daily GABAPENTIN [id number] Silvio Shaffer RN MULTIPLE VITAMINS-MINERALS (1 source) Start: 06-25-2019 [facility] SPECTRAVITE ADULT 50+ TABS 1 tablet once daily MULTIPLE VITAMINS-MINERALS [id number] Silvio Shaffer RN Umeclidinium (8 sources) Anticholinergic Start: 10-01-2019 End: 11-27-2019 take 1 puff(s) by inhalation once daily Umeclidinium Discontinued 1 PUFF IH DAILY October 01, 2019 2:09pm November 27, 2019 11:47am Start: 10-01-2019 End: 11-27-2019 take 1 puff(s) by inhalation once daily Umeclidinium Discontinued 1 PUFF IH DAILY October 01, 2019 12:00am November 27, 2019 10:47am Start: 10-01-2019 End: 11-27-2019 take 1 puff(s) by inhalation once daily Umeclidinium Discontinued 1 PUFF IH DAILY October 01, 2019 1:00am November 27, 2019 11:47am 7 actuat umeclidinium 0.0625 mg/actuat / vilanterol 0.025 mg/actuat dry powder inhaler (20 sources) Anticholinergic, beta2-Adrenergic Agonist Start: 06-18-2020 End: 04-20-2023 Umeclidinium-Vilanterol (Anoro Ellipta) 62.5-25 mcg/actuation blister with device Discontinued 1 INH INHALATION Q24H 60 November 01, 2022 10:39am April 20, 2023 9:41am Start: 06-17-2020 ANORO ELLIPTA 62.5-25 mcg/actuation inhaler Inhale 1 Inhalation as instructed once daily. 06/17/2020 Active Start: 11-27-2019 End: 06-18-2020 Umeclidinium-Vilanterol (Ano ro Ellipta) 62.5-25 mcg/actuation blister with device Discontinued 1 INH INHALATION Q24H 60 November 27, 2019 11:47am June 18, 2020 2:15pm Start: 11-27-2019 End: 06-18-2020 Umeclidinium-Vilanterol (Ano ro Ellipta) 62.5-25 mcg/actuation blister with device Discontinued 1 INH INHALATION Q24H 60 November 26, 2019 11:00pm June 18, 2020 1:15pm Start: 11-27-2019 End: 06-18-2020 Umeclidinium-Vilanterol (Ano ro Ellipta) 62.5-25 mcg/actuation blister with device Discontinued 1 INH INHALATION Q24H 60 November 27, 2019 12:00am June 18, 2020 2:15pm VITAMIN E (1 source) Start: 06-25-2019 VITAMIN E 1000 UNIT CAPS 1 capsule once daily VITAMIN E [id number] Silvio Shaffer RN VITAMINS-LIPOTROPICS (1 source) Start: 06-25-2019 [facility] INNER EAR PLUS TABS 3 tablets daily as directed VITAMINS-LIPOTROPICS [id number] Silvio Shaffer RN Problems Active Problems Problem Classification Problem Date Documented Da te Episodic/Chronic Administrative/social admission (13 sources) Patient encounter status; Translations: [Counseling, unspecified] Episodic Cancer of breast (20 sources) Malignant neoplasm of female breast; Translations: [Malignant neoplasm of unspecified site of right female breast] Onset: 5 Chronic Chronic obstructive pulmonary disease and bronchiectasis (18 sources) Pulmonary emphysema; Translations: [Emphysema, unspecified] Onset: 4 Chronic Coronary atherosclerosis and other heart disease (1 source) Atherosclerotic heart disease of [place] coronary artery without angina pectoris; Translations: [Atherosclerotic heart disease of [place] coronary artery without angina pectoris] Onset: 5 Chronic Disorders of lipid metabolism (1 source) Hyperlipidemia, unspecified; Translations: [Hyperlipidemia, unspecified] Onset: 5 Chronic Malaise and fatigue (1 source) Other fatigue; Translations: [Other fatigue] Onset: 5 Episodic Nausea and vomiting (8 sources) Nausea; Translations: [Nausea] 01-22-2021 Episodic Nonmalignant breast conditions (5 sources) Mastodynia; Translations: [Pain of left breast] 03-10-2023 Episodic Nutritional deficiencies (1 source) Vitamin D deficiency, unspecified; Translations: [Vitamin D deficiency, unspecified] Onset: 4 Chronic Osteoarthritis (1 source) Primary osteoarthritis, left shoulder; Translations: [Primary osteoarthritis, left shoulder] Onset: 5 Chronic Other acquired deformities (1 source) Spondylolisthesis L5/S1 level; Translations: [Spondylolisthesis, lumbosacral region] Onset: 9 06-26-2019 Chronic Other bone disease and musculoskeletal deformities (8 sources) Postmenopausal osteopenia; Translations: [Other specified disorders of bone density and structure, unspecified site] 10-17-2019 Episodic Other connective tissue disease (1 source) Presence of left artificial shoulder joint; Translations: [Presence of left artificial shoulder joint] Onset: Chronic Other gastrointestinal disorders (8 sources) Heartburn; Translations: [Heartburn] 03-06-2021 Episodic Other gastrointestinal disorders (3 sources) Dysphagia; Translations: [Dysphagia, unspecified] 08-22-2023 Episodic Other gastrointestinal disorders (3 sources) Dysphagia, unspecified; Translations: [Dysphagia, unspecified] 08-22-2023 Episodic Other hereditary and degenerative nervous system conditions (3 sources) Extrapyramidal disease; Translations: [Extrapyramidal and movement disorder, unspecified] 08-22-2023 Chronic Other hereditary and degenerative nervous system conditions (3 sources) Impaired cognition; Translations: [Mild cognitive impairment, so stated] 08-22-2023 Chronic Other hereditary and degenerative nervous system conditions (4 sources) Extrapyramidal and movement disorder, unspecified; Translations: [Unspecified extrapyramidal disease and abnormal movement disorder] Onset: 5 08-22-2023 Chronic Other hereditary and degenerative nervous system conditions (4 sources) Mild cognitive impairment, so stated; Translations: [Mild cognitive impairment, so stated] Onset: 5 08-22-2023 Chronic Other lower respiratory disease (8 sources) Lung mass; Translations: [Other nonspecific abnormal finding of lung field] 10-22-2020 Episodic Other lower respiratory disease (8 sources) Hypoxia; Translations: [Hypoxemia] 11-27-2019 Episodic Other lower respiratory disease (8 sources) Nodule of lung; Translations: [Solitary pulmonary nodule] 05-03-2022 Episodic Other lower respiratory disease (10 sources) Solitary pulmonary nodule; Translations: [Solitary pulmonary nodule] Episodic Other lower respiratory disease (1 source) Other nonspecific abnormal finding of lung field; Translations: [Swelling, mass, or lump in chest] Episodic Other lower respiratory disease (1 source) Dyspnea, unspecified; Translations: [Dyspnea, unspecified] Onset: 5 Episodic Other nervous system disorders (3 sources) Dysarthria; Translations: [Dysarthria and anarthria] 08-22-2023 Episodic Other nervous system disorders (3 sources) Dysarthria and anarthria; Translations: [Dysarthria] 08-22-2023 Episodic Arlen-; endo-; and myocarditis; cardiomyopathy (except that caused by tuberculosis or sexually transmitted disease) (1 source) Other cardiomyopathies; Translations: [Other cardiomyopathies] Onset: 5 Chronic Respiratory failure; insufficiency; arrest (adult) (12 sources) Chronic respiratory failure; Translations: [Chronic respiratory failure, unspecified whether with hypoxia or hypercapnia] 03-10-2020 Chronic Schizophrenia and other psychotic disorders (15 sources) Schizophrenia; Translations: [Schizophrenia, unspecified] Onset: 5 09-04-2020 Chronic Spondylosis; intervertebral disc disorders; other back problems (1 source) Degeneration of lumbar intervertebral disc; Translations: [Other intervertebral disc degeneration, lumbar region] Onset: 9 06-26-2019 Chronic Substance-related disorders (2 sources) Nicotine dependence, cigarettes, uncomplicated; Translations: [Nicotine dependence, cigarettes, uncomplicated] Onset: 4 Chronic Thyroid disorders (8 sources) Hypothyroidism; Translations: [Hypothyroidism, unspecified] 09-20-2019 Chronic Unclassified (6 sources) Parkinsonism; Translations: [Parkinsonism] 08-22-2023 Chronic Unclassified (2 sources) Other ventricular tachycardia; Translations: [Other ventricular tachycardia] Onset: 5 Unclassified (1 source) Parkinsonism, unspecified; Translations: [Parkinsonism, unspecified] Onset: 5 Past or Other Problems Problem Classification Problem Date Documented Da te Episodic/Chronic Cardiac dysrhythmias (2 sources) Tachycardia, unspecified; Translations: [Palpitations] Onset: 06-25-2024 Episodic Nonspecific chest pain (2 sources) Chest pain, unspecified; Translations: [Chest pain, unspecified] Onset: 09-17-2024 Episodic Other bone disease and musculoskeletal deformities (16 sources) Other specified disorders of bone density and structure, unspecified site; Translations: [Disorder of bone and cartilage, unspecified] Onset: 12-03-2024 Episodic Other screening for suspected conditions (not mental disorders or infectious disease) (11 sources) Mammography abnormal; Translations: [Other abnormal and inconclusive findings on diagnostic imaging of breast] Onset: 04-19-2024 09-09-2020 Episodic Residual codes; unclassified (1 source) Estrogen receptor positive status [ER+]; Translations: [Estrogen receptor positive status [ER+]] Onset: 12-03-2024 Episodic Residual codes; unclassified (1 source) Asymptomatic menopausal state; Translations: [Asymptomatic menopausal state] Onset: 12-03-2024 Episodic Screening and history of mental health and substance abuse codes (10 sources) Ex-smoker; Translations: [Personal history of nicotine dependence] Onset: 03-27-2024 11-01-2022 Episodic Spondylosis; intervertebral disc disorders; other back problems (1 source) Spinal stenosis of lumbar region; Translations: [Spinal stenosis, lumbar region with neurogenic claudication] Onset: 06-26-2019 06-26-2019 Episodic Unclassified (1 source) Problem Results Test Name Value Interpretation Reference Range Facility MR/BMS.BPon 02-21-2025 MR/BMS.BP [facility] [address] [place] [address], [address] [place] [address] OFFICE VISIT Date of Service: 02/21/25 MR#: [id number] Acct: [id number] Name: NARGIS ERIC Rep #: [id number] : 1950 Provider: Dr. Larry Herrera se, DO Age/Sex: 74/F [place] [facility] [place] Status: Signed Intake Vital Signs 11/21/24 14:21 01/08/25 08:29 02/21/25 14:03 Height 5 ft 6 in 5 ft 6.5 in 5 ft 6 in Weight: 169 lb BMI 27.2 BP 122/76 H Blood Pressure Location Lt brachial Position Sitting Respiration 16 Pulse 79 Pulse Source Monitor BP Intake Visit Reasons: 3mfu Accompanied by: Sister Allergies haloperidol (From Haldol) Allergy (Severe, Verified 02/21/25 14:05) Other Medications ???Medication ???Instructions ???Recorded ???Confirmed ???Type cholecalciferol (vitamin D3) 25 25 mcg PO DAILY 01/22/21 02/21/25 History mcg (1,000 unit) tablet multivitamin 1 tab PO DAILY 01/22/21 02/21/25 H istory denosumab 60 mg/mL subcutaneous 60 mg subcut [id number] 08/22/2306/08 History syringe (Prolia) lactobacillus combination no.4 3 3,000 mmu cells PO DAILY 08/22/23 02/21/25 History billion cell capsule (Probiotic) levothyroxine 75 mcg capsule 75 mcg PO DAILY 08/22/23 02/21/25 History omeprazole 20 mg capsule,delayed 20 mg PO DAILY 08/22/23 02/21/25 H istory release rosuvastatin 5 mg tablet (Crestor) 5 mg PO DAILY 08/22/23 02/21/25 History meloxicam 7.5 mg tablet 7.5 - 15 mg PO QDAY PRN pain 06/1802/21/25 History Held on 12/11/24. Instructions: Until finished with 30-day supply of postoperative meloxicam. furosemide 40 mg tablet (Lasix) 40 mg PO DAILY PRN shortness of 02/21/25 Rx breath #90 tabs aspirin 81 mg tablet,delayed 81 mg PO QDAY #90 tabs 10/09/24 Rx release (Adult Low Dose Aspirin) Held on 12/11/24. Instructions: Hold until finished with aspirin 81 mg twice daily until 2 weeks postoperatively. lisinopril 5 mg tablet 5 mg PO QDAY #90 tabs 10/09/2406/08 Rx benztropine 1 mg tablet 1 mg PO BID TO CONTERACT SIDE 10/1302/21/25 History EFFECTS OF OTHER MEDS mecobalamin (vitamin B12) 10,000 10,000 mcg IM QMONTH 11/12/2402/12 History mcg solution for injection fluticasone fur. 200 mcg-umeclid 1 inh inhalation DAILY #60 ea 11/1302/21/25 Rx 62.5 mcg-vilant 25 mcg inhalat.powder (Trelegy Ellipta) acetaminophen 500 mg tablet 1,000 mg (2 x 500 mg) PO TID #0 02/21/25 Rx tabs meloxicam 7.5 mg tablet 7.5 mg PO BIDCM 30 days #60 tabs 0 12/11/24 02/21/25 Rx olanzapine 20 mg tablet 20 mg PO QHS #90 tabs 12/24/2406/08 Rx carvedilol 6.25 mg tablet 6.25 mg PO BID #180 tabs 01/08/25 02/21/25 Rx albuterol sulfate 90 mcg/actuation 1 - 2 puff inhalation Q4H PRN NJ N 02/08/25 02/21/25 Rx aerosol inhaler Shortness Of Breath #18 grams risperidone 1 mg tablet 1.5 mg (1.5 x 1 mg) PO QHS 90 days 02/21/25 02/21/25 Rx #135 tabs Have you fallen in the past year?: Yes PFSH Medical History Alcohol use High cholesterol Hypertension Restless legs On home oxygen therapy Leg cramps History of Holter monitoring History of echocardiogram Cardiology follow-up encounter Encounter for screening for malignant neoplasm of lung Pain of left breast Wears glasses Cancer Thyroid disease Back pain Injury of head and neck Gastric reflux Former smoker COPD (chronic obstructive pulmonary disease) Shortness of breath on exertion History of pain when walking Chest pain Nausea Abnormal mammogram of left breast 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 Hypothyroid Breast cancer Schizophrenia Surgical History Hx of colonoscopy Hx of wisdom tooth extraction Hx of tonsillectomy History of surgery on left wrist History of right mastectomy ( 09/2019) S/P breast biopsy S/P tonsillectomy S/P arteriovenous (AV) fistula creation Family History Mother No problems noted. Grandfather No problems noted. Father Leukemia Social History Smoking Status: Former smoker quit date: 04/03/16 pack-years: 20 Tobacco: How many years used: 50 alcohol intake: current alcohol intake frequency: a few times a week HPI History of Present Illness History provided by: patient HPI: Nargis Eric is a 74 year old female who presents today as a follow up evaluation. Patient reports that she has been alright. Patient reports that she is doing ok. Since reducing risperidone has been doing largely the same mentally. Dysphonia is possibly somewhat worse (more content not included)... Normal [facility] Office Visit Reporton 2024 Office Visit Report [facility] [address] [address] OFFICE VISIT Date of Service: 02/18/25 MR#: [id number] Acct: [id number] Patient: NARGIS ERIC Rep #: [id number] : 1950 Provider: Dr. Alphonse benoit MD Age/Sex: 74/F [place] [facility] [place]: Signed Intake Vital Signs 01/08/25 08:29 02/18/25 15:04 Height 5 ft 6.5 in Weight: 242 lb 167 lb 6 oz BMI 38.5 BP 107/71 96/61 Blood Pressure Location Lt brachial Lt brachial Position Sitting Sitting Respiration 18 17 Pulse 80 81 Pulse Source NIBP Monitor Temp 98.2 F Temp Source Temporal Pulse Oximetry (%) 93 Oxygen Delivery Method room air Intake Visit Reasons: B12 Chief Complaint: Allergies haloperidol (From Haldol) Allergy (Severe, Verified 01/08/25 10:58) Other Have you fallen in the past year?: Yes Office Meds cyanocobalamin (vitamin B-12) 1,000 mcg/mL injection solution Performing Provider: Alphonse Chaudhary MD Performing Location: [facility] Administered by: Sol Caba on 02/18/25 14:34 Dose Route Admin Location Dispensed Lot Number Expiration Date [facility] ufacturer 1,000 mcg IM left deltoid 1 mL [id number] 02/11/26 8298-2307-09 [facility] D/HIKMA Comments: The patient presents for B12 injection for treatment of fatigue. She has fatigue. Her last B12 injection was of benefit for fatigue. The patient is awake and alert. B12 1000mcg IM was administered today. There were no complications. Assessment and Plan Assessment and Plan (1) Fatigue: Orders: Orders Vitamin B12 Today R53.83 - Other fatigue Clinical Quality Measures Falls Risk Screening/Assistive Devices Have you fallen in the past year?: Yes 02/18/25 1702 Date Alphonse Chaudhary MD [facility] Signature: Date (if applicable) CC: Normal [facility] Office Visit Reporton 2024 Office Visit Report [facility] [address] [place] [address] OFFICE VISIT Date of Service: 01/17/25 MR#: [id number] Acct: [id number] Patient: NARGIS ERIC Rep #: [id number] : 1950 Provider: Dr. Alphonse benoit MD Age/Sex: 74/F Location: [facility] Status: Signed Intake Vital Signs 12/10/24 11:11 01/08/25 08:29 01/17/25 15:10 Height 5 ft 6.5 in 5 ft 6.5 in Weight: 242 lb 170 lb 10 oz BMI 38.5 BP 107/71 107/68 Blood Pressure Location Lt brachial Rt brachial Position Sitting Sitting Respiration 18 17 Pulse 80 76 Pulse Source NIBP Monitor Temp 98.2 F Temp Source Temporal Pulse Oximetry (%) 92 Oxygen Delivery Method room air Intake Visit Reasons: B12 inject Chief Complaint: Allergies haloperidol (From Haldol) Allergy (Severe, Verified 01/08/25 10:58) Other Have you fallen in the past year?: Yes Office Meds cyanocobalamin (vitamin B-12) 1,000 mcg/mL injection solution Performing Provider: Alphonse Chaudhary MD Performing Location: [facility] Administered by: Sol Caab on 01/17/25 15:08 Dose Route Admin Location Dispensed Lot Number Expiration Date [facility] Man ufacturer 1,000 mcg IM right deltoid 1 mL [id number] 01/12/27 49039-034-85 TOMMIEUVI THERA Comments: The patient presents for B12 injection for treatment of fatigue. She has fatigue. Her last B12 injection was of benefit for fatigue. The patient is awake and alert. B12 1000mcg IM was administered today. There were no complications. Assessment and Plan Assessment and Plan (1) Fatigue: Orders: Orders Vitamin B12 Today R53.83 - Other fatigue Clinical Quality Measures Falls Risk Screening/Assistive Devices Have you fallen in the past year?: Yes 01/17/25 1724 Date Alphonse Bunn Signature: Date (if applicable) CC: Normal [facility] Cardiology Visit Reporton Cardiology Visit Report [facility] [address] [place] [address] OFFICE VISIT Date of Service: 01/08/25 MR#: [id number] Acct: [id number] Name: NARGIS ERIC Rep #: [id number] : 1950 Provider: Dr. Trudy Bryant MD Age/Sex: 74/F [place] [facility] [place]: Signed with Addenda ADDENDUM by MANUEL Monsivais on 02/05/25 at 0909 Addendum Addendum Details:: Patient states her weight is 170lbs. Assessment and Plan Assessment and Plan (1) Nonischemic cardiomyopathy: Status: Chronic (2) Coronary artery disease: Status: Chronic (3) Dyspnea: Status: Chronic (4) NSVT (nonsustained ventricular tachycardia): Status: Chronic (5) Dyslipidemia: Status: Chronic (6) Schizophrenia: Status: Chronic Qualifiers: Schizophrenia type: unspecified Qualified Code(s): F20.9 - Schizophrenia, unspecified Medications: New carvedilol must administer with a meal/food 6.25 mg PO BID 180 tabs 3RF Discontinued carvedilol must administer with a meal/food Discontinued Reason: Order Changed 3.125 mg PO BID 60 tabs 6RF Plan Details Follow Up: 6 Months 02/05/25 0908 Date Elvira Monsivais NP [facility] [employer] cc: Dr. Vadim Jones MD * Signed HPI HPI History of Present Illness Details: Patient is here for follow-up visit. She has had shoulder surgery done. Uneventful recovery. Denies any chest pains. No palpitations. No orthopnea or PND. Denies any ankle edema. No lightheadedness or dizziness. No syncope or presyncope. Intake Vital Signs 11/27/24 13:30 01/08/25 08:29 Height 5 ft 6.5 in 5 ft 6.5 in Weight: 242 lb BMI 38.5 BP 107/71 Blood Pressure Location Lt brachial Position Sitting Respiration 18 Pulse 80 Pulse Source NIBP Intake Visit Reasons: 3 M FU Director Of Partnerships Required: No Accompanied by: Sister Is patient in pain?: No Allergies haloperidol (From Haldol) Allergy (Severe, Verified 01/08/25 10:58) Other Medications ???Medication ???Instructions ???Recorded ???Confirmed ???Type albuterol sulfate 90 mcg/actuation 1 - 2 puff inhalation Q4H PRN NJ N 09/24/20 01/08/25 Rx aerosol inhaler Shortness Of Breath #18 grams cholecalciferol (vitamin D3) 25 25 mcg PO DAILY 01/22/21 01/08/25 History mcg (1,000 unit) tablet multivitamin 1 tab PO DAILY 01/22/21 01/08/25 H istory denosumab 60 mg/mL subcutaneous 60 mg subcut [id number] 08/22/23 History syringe (Prolia) lactobacillus combination no.4 3 3,000 mmu cells PO DAILY 08/22/23 01/08/25 History billion cell capsule (Probiotic) levothyroxine 75 mcg capsule 75 mcg PO DAILY 08/22/23 01/08/25 History omeprazole 20 mg capsule,delayed 20 mg PO DAILY 08/22/23 01/08/25 H istory release rosuvastatin 5 mg tablet (Crestor) 5 mg PO DAILY 08/22/23 01/08/25 History meloxicam 7.5 mg tablet 7.5 - 15 mg PO QDAY PRN pain 06/1801/08/25 History Held on 12/11/24. Instructions: Until finished with 30-day supply of postoperative meloxicam. furosemide 40 mg tablet (Lasix) 40 mg PO DAILY PRN shortness of 01/08/25 Rx breath #90 tabs carvedilol 3.125 mg tablet 3.125 mg PO BID #60 tabs 08/29/24 01/08/25 Rx aspirin 81 mg tablet,delayed 81 mg PO QDAY #90 tabs 10/09/24 Rx release (Adult Low Dose Aspirin) Held on 12/11/24. Instructions: Hold until finished with aspirin 81 mg twice daily until 2 weeks postoperatively. lisinopril 5 mg tablet 5 mg PO QDAY #90 tabs 10/09/24 Rx benztropine 1 mg tablet 1 mg PO BID TO CONTERACT SIDE 10/1301/08/25 History EFFECTS OF OTHER MEDS mecobalamin (vitamin B12) 10,000 10,000 mcg IM QMONTH 11/12/2412/14 History mcg solution for injection fluticasone fur. 200 mcg-umeclid 1 inh inhalation DAILY #60 ea 11/1301/08/25 Rx 62.5 mcg-vilant 25 mcg inhalat.powder (Trelegy Ellipta) acetaminophen 500 mg tablet 1,000 mg (2 x 500 mg) PO TID #0 01/08/25 Rx tabs aspirin 81 mg capsule 81 mg PO BID #0 caps 12/11/2412/14 Rx famotidine 20 mg tablet 20 mg PO DAILY 30 days #30 tabs 01/08/25 Rx meloxicam 7.5 mg tablet 7.5 mg PO BIDCM 30 days #60 tabs 0 12/11/24 01/08/25 Rx olanzapine 20 mg tablet 20 mg PO QHS #90 tabs 12/24/24 Rx risperidone 2 mg tablet 2 mg PO QHS #90 tabs 12/24/2412/14 Rx Ejection fraction %: 35 Have you fallen in the past year?: No [facility] Medical History Alcohol use High cholesterol Hypertension Restless legs On home oxygen therapy Leg cramps History of Holter monitoring History of echocardiogram Cardiology follow-up encounter Encounter for screening for malignant neoplasm of lung (more content not included)... Normal [facility] Office Visit Reporton [address] [facility] [address] [place] [address] OFFICE VISIT Date of Service: 12/18/24 MR#: [id number] Acct: [id number] Patient: NARGIS ERIC Rep #: [id number] : 1950 Provider: Dr. Alphonse benoit MD Age/Sex: 74/F Location: [facility] Status: Signed Intake Vital Signs 12/10/24 11:11 12/18/24 13:56 Height 5 ft 6.5 in Weight: 174 lb 3 oz BP 102/62 Blood Pressure Location Rt brachial Position Sitting Respiration 17 Pulse 69 Pulse Source Monitor Temp 98.0 F Temp Source Temporal Pulse Oximetry (%) 98 Oxygen Delivery Method room air Intake Visit Reasons: B12 inject Chief Complaint: Allergies haloperidol (From Haldol) Allergy (Severe, Verified 12/10/24 06:09) Other Have you fallen in the past year?: Yes Office Meds cyanocobalamin (vitamin B-12) 1,000 mcg/mL injection solution Performing Provider: Alphonse Chaudhary MD Performing Location: [facility] Administered by: Sol Caba on 12/18/24 13:29 Dose Route Admin Location Dispensed Lot Number Expiration Date [facility] Man ufacturer 1,000 mcg IM right deltoid 1 mL [id number] 11/12/26 88995-160-45 VITRUVI THERA Comments: The patient presents for B12 injection for treatment of fatigue. She has fatigue. Her last B12 injection was of benefit for fatigue. The patient is awake and alert. B12 1000mcg IM was administered today. There were no complications. Assessment and Plan Assessment and Plan (1) Fatigue: Orders: Orders Vitamin B12 Today R53.83 - Other fatigue Clinical Quality Measures Falls Risk Screening/Assistive Devices Have you fallen in the past year?: Yes 12/18/24 174 Date Alphonse Bunn Signature: Date (if applicable) CC: Normal [facility] Basic Metabolic Profile (BMP )on 12-11-2024 BUN/CRE 17.6 RATIO Normal 10-20 [facility] Comment on above: Performed By: #### L 500.2500, L100.0500 ####[facility] [address] [place], [address] Calcium [Mass/Vol] 8.1 mg/dL Normal 7.6-11.0 [facility] Comment on above: Performed By: #### L 500.2500, L100.0500 ####[facility] [address] [place], [address] Chloride [Moles/Vol] 94 mmol/L Low 98-108 [facility] Comment on above: Performed By: #### L 500.2500, L100.0500 ####[facility] [address] [place], [address] CO2 [Moles/Vol] 24.1 mmol/L Normal 21.0-32.0 [facility] Comment on above: Performed By: #### L 500.2500, L100.0500 ####[facility] [address] [place], [address] Creatinine [Mass/Vol] 0.58 mg/dL Low 0.70-1.20 [facility] Comment on above: Performed By: #### L 500.2500, L100.0500 ####[facility] [address] [place], [address] ECRCL 63.41 ml/min Normal 50-250 [facility] Comment on above: Performed By: #### L 500.2500, L100.0500 ####[facility] [address] [place], [address] GAP 10 Normal 5-15 [facility] Comment on above: Performed By: #### L 500.2500, L100.0500 ####[facility] [address] [place], [address] GFR/1.73 sq M.predicted among non-blacks MDRD (S/P/Bld) [Vol rate/Area] 94 mL/min/{1.73_m2} Normal >60 [facility] Comment on above: Result Comment: mL/m in/1.73m2 CKD-EPI Creatinine Equation (2020) Performed By: #### L 500.2500, L100.0500 ####[facility] [address] [place], [address] Glucose [Mass/Vol] 105 mg/dL High 70-99 [facility] Comment on above: Performed By: #### L 500.2500, L100.0500 ####[facility] [address] [place], [address] Potassium [Moles/Vol] 4.4 mmol/L Normal 3.3-5.1 [facility] Comment on above: Performed By: #### L 500.2500, L100.0500 ####[facility] [address] [place], [address] Sodium [Moles/Vol] 128 mmol/L Low 133-145 [facility] Comment on above: Performed By: #### L 500.2500, L100.0500 ####[facility] [address] [place], [address] Urea nitrogen [Mass/Vol] 10 mg/dL Normal 4-19 [facility] Comment on above: Performed By: #### L 500.2500, L100.0500 ####[facility] [address] [place], [address] CBC-Complete Blood Cnt No eRbecca magallon 12-11-2024 Erythrocyte distribution width (RBC) [Ratio] 13.1 % Normal 11.6-14.6 [facility] Comment on above: Performed By: #### L 500.2500, L100.0500 ####[facility] [address] [place], [address] Hematocrit (Bld) [Volume fraction] 32.3 % Low 37-47 [facility] Comment on above: Performed By: #### L 500.2500, L100.0500 ####[facility] [address] [place], [address] Hemoglobin (Bld) [Mass/Vol] 10.5 g/dL Low 12.0-15.0 [facility] Comment on above: Performed By: #### L 500.2500, L100.0500 ####[facility] [address] [place], [address] MCH (RBC) [Entitic mass] 28.0 pg Normal 27.0-32.0 [facility] Comment on above: Performed By: #### L 500.2500, L100.0500 ####[facility] [address] [place], [address] MCHC (RBC) [Mass/Vol] 32.5 g/dL Normal 32-36 [facility] Comment on above: Performed By: #### L 500.2500, L100.0500 ####[facility] [address] [place], [address] MCV (RBC) [Entitic vol] 86.1 fL Normal 81-99 [facility] Comment on above: Performed By: #### L 500.2500, L100.0500 ####[facility] [address] [place], [address] Platelet mean volume (Bld) [Entitic vol] 8.7 fL Normal 6.2-12.0 [facility] Comment on above: Performed By: #### L 500.2500, L100.0500 ####[facility] [address] [place], [address] Platelets (Bld) [#/Vol] 272 10*3/uL Normal 150-450 [facility] Comment on above: Performed By: #### L 500.2500, L100.0500 ####[facility] [address] [place], [address] RBC (Bld) [#/Vol] 3.75 10*6/uL Low 4.2-5.4 [facility] Comment on above: Performed By: #### L 500.2500, L100.0500 ####[facility] [address] [place], [address] RDW SD 41.1 fl Normal 35.1-43.9 [facility] Comment on above: Performed By: #### L 500.2500, L100.0500 ####[facility] [address] [place], [address] WBC (Bld) [#/Vol] 8.5 10*3/uL Normal 4.4-11.0 [facility] Comment on above: Performed By: #### L 500.2500, L100.0500 ####[facility] [address] [place], [address] Discharge Instructionon 11-14 Discharge Instruction [facility] Medical Records Department [address] [place] [address] Instructions for Home/Discharge Instructions 12/11/24 1150 MR#: [id number] Acct: [id number] Name: NARGIS ERIC Rep #: [id number] : 1950 74 From: Winnie EMANUEL PCP: Dr. Vadim Jones MD Status:ADM EDWIN Discharge Instructions Diet Discharge Diet: No restrictions DC O2, CPAP, BIPAP needs Home O2 Discharge instructions: Yes Type of respiratory needs?: Oxygen (Patient is on home oxygen regularly.) Oxygen frequency: Continuous Continuous oxygen liters per minute: 2L and Other Dressing / Incision Discharge Activity: May Not Drive (While in sling.) Keep extremity elevated above heart level: Left Arm (Ice and elevate operative left arm.) Dressing / Incision Call your doctor if your incision/area has: Continuous Slow Oozing, Sudden Increased Bleeding, Increased Pain/ Swelling, Increased Redness, Foul Smelling Discharge and Swelling at the incision site Call your doctor if you observe: Fever of 101 or Higher, Coldness, Increased Pain, Numbness or Tingling, Change in Color, Inability to urinate, Inability to have a bowel movement, Using more than 1 pad per hour, Shortness of breath, Dizziness, Fainting spells, Swelling in the ankles, Chest pain, Prolonged hiccupping, Increased palpitations (irregular heartbeat), Calf discomfort and Uncontrolled pain Remove Dressing in: 5 days (Patient was educated she is able to remove dressing on postop day 5. This is 12/15/2024. Patient was educated she can leave open to air as long as incision is clean dry and intact. Patient was educated there are Steri-Strips under her incision. Patient was educated to leave the little white strips) Cleanse incision/area with: Soap Water (Gentle soap and water.) Additional Dressing/Incision Instructions:: No soaking, submerging until 6 weeks postoperatively. No lotions, oils directly on incision until 6 weeks postoperatively. Patient will continue with UltraSling at all times. Patient was educated to okay to take sling off for elbow range of motion and pendulum exercises 2-3 times daily. No range of motion of operative shoulder. Will begin outpatient physical therapy after 2-week follow-up at [facility]. [facility] report was reviewed by myself today. Follow Up Care Test Results: Test results from this visit will be discussed in further detail at your follow-up appointment, if applicable. Discharge Plan Admission Admit Date/Time: 12/10/24 07:03 Attending Provider: Larry Ellis Primary Care Provider: Vadim Jones Consulting Providers: Farzana Gomez Discharge Orders/Prescription s Prescriptions: New acetaminophen 500 mg Tablet 1,000 mg PO TID Qty: 0 0RF aspirin 81 mg capsule 81 mg PO BID Qty: 0 0RF sennosides-docusate sodium [Stimulant Laxative Plus] 8.6-50 mg Tablet 2 tab PO BID 3 Days Qty: 12 0RF Rx Instructions: Take until first bowel movement and then as needed. famotidine 20 mg Tablet 20 mg PO DAILY 30 Days Qty: 30 0RF oxycodone 5 mg Tablet 5 - 10 mg PO Q4H PRN PRN (Reason: As needed for pain.) 7 Days Qty: 42 0RF meloxicam 7.5 mg Tablet 7.5 mg PO BIDCM 30 Days Qty: 60 0RF Rx Instructions: Do not take with any other anti-inflammatory medications. Continued albuterol sulfate 90 mcg/actuation HFA aerosol inhaler 1 - 2 puff INHALATION Q4H PRN PRN (Reason: Shortness Of Breath) Qty: 18 6RF cholecalciferol (vitamin D3) 25 mcg (1,000 unit) tablet 25 mcg PO DAILY Patient Comments: PT SHOULD BE TAKING BUT CURRENTLY IS NOT multivitamin Tablet 1 tab PO DAILY rosuvastatin [Crestor] 5 mg tablet 5 mg PO DAILY levothyroxine 75 mcg capsule 75 mcg PO DAILY omeprazole 20 mg capsule,delayed release(DR/EC) 20 mg PO DAILY Prolia 60 mg/mL syringe 60 mg subcut [id number] Probiotic 3 billion cell capsule 3,000 mmu cells PO DAILY Rx Instructions: administer with a meal benztropine 1 mg tablet 1 mg PO BID lisinopril 5 mg tablet 5 mg PO QDAY Qty: 90 3RF Trelegy Ellipta 200-62.5-25 mcg blister with device 1 inh inhalation DAILY Qty: 60 11RF risperidone 2 mg tablet 2 mg PO QHS olanzapine 20 mg tablet 20 mg PO QHS mecobalamin (vitamin B12) 10,000 mcg recon soln 10,000 mcg IM QMONTH Patient Comments: PT UNSURE OF DOSAGE Rx Instructions: PT UNSURE OF DOSAGE anastrozole 1 mg tablet 1 mg PO DAILY Qty: 180 4RF furosemide [Lasix] 40 mg tablet 40 mg PO DAILY PRN (Reason: shortness of breath) Qty: 90 3RF carvedilol 3.125 mg tablet 3.125 mg PO BID Qty: 60 6RF Rx Instructions: must administer with a meal/food Held meloxicam 7.5 mg tablet 7.5 - 15 mg PO QDAY PRN (Reason: pain) Hold Instructions: Until finished with 30-day supply of postoperative meloxicam. aspirin [Adult Low Dose Aspirin] 81 mg tablet,delayed release (DR/EC) 81 mg PO QDAY Qty: 90 3RF Hold Instructions: Hold until fi (more content not included)... Normal [facility] Sodium Levelon 12-11-2024 Sodium [Moles/Vol] 133 mmol/L Normal 133-145 [facility] Comment on above: Performed By: #### L [id number] #### [facility] [address] [place], [place], [address] Bedside Glucoseon 12-10-2024 FINGERSTICK GLU 92 mg/dL Normal 74-106 [facility] Comment on above: Result Comment: [place] ELIZONDO OF PATIENT CARE PER NURSING PROTOCOL Performed By: #### L 501.080 ####[facility] [address] [place], [place], [address] Decalcification bone/plaqueo n 12-10-2024 Decalcification bone/plaque Patient Age/Sex Location Account Attending Physician NARGIS ERIC 74/F MS3 [id number] Dr. Larry Ellis MD Specimen: [id number] Received: 12/10/24 Status: ERIKA Guaman Num: [id number] Spec Type: HUMERUS Subm Dr: Dr. Larry Ellis MD HEADER OPERATION: Reverse total shoulder arthroplasty PRE-OP DIAGNOSIS: Severe left shoulder glenohumeral osteoarthritis TISSUE SUBMITTED: A- Left humeral head MICROSCOPIC DIAGNOSIS A. Left shoulder, humeral head, total arthroplasty: * Benign cartilage and bone with degenerative changes MICROSCOPIC DESCRIPTION Slides are reviewed. GROSS DESCRIPTION A. Received in formalin in a container labeled with the patient's name, date of , and left humeral head is a semispherical fragment of firm bone measuring 5.5 x 5.0 x 1.5 cm. The margin is smooth and firm and the opposing cortical surface exhibits smooth eburnation. Sectioning reveals firm and unremarkable surfaces. Multiple hoffman-pink soft tissue fragments are identified measuring 4.0 x 2.0 x 1.0 cm in aggregate. Sectioning reveals unremarkable surfaces. Bean Picker sections of bone and soft tissue submitted in A1 following decalcification. [facility] 12-10-2024 CPT:93826,09490 Patient Age/Sex Location Account Attending Physician NARGIS ERIC 74/F MS3 [id number] Dr. Larry Ellis MD Signed (signatur e on file) Dr. Elizabeth Boyle DO 12/13/24 1546 Normal [facility] Comment on above: Performed By: #### P DEC ####[facility] [address] [place], [place], [id number] MR/POSTOP.ANEalison 12-10-2024 MR/POSTOP.[facility] Medical Records Department [address] [place] [address] Anesthesia Postop Eval I 12/10/24 0957 MR#: [id number] Acct: [id number] Name: NARGIS ERIC Rep #: [id number] : 1950 74 From: Vinayak Farfan GEAR MACHINE OPERATOR GENERAL PCP: Dr. Vadim Jones MD Status:REG KYC Y Race: C Location: [place] [address] Anesthesia: Postop Eval I Current Vital Signs Temperature: 97.5 F Pulse Rate: 82 Blood Pressure: 162/85 Respiratory Rate: 17 Pulse Ox: 92 (baseline for patient) Oxygen Delivery Method: Nasal Cannula Oxygen Flow Rate (L/min): 3 Assessment Airway patent: Yes Spontaneous unlabored respirations: Yes Mental status: Awake nausea: No Vomiting: No Anesthesia Complication: No Fluid Hydration Crystalloid volume administer (ml): 1,000 Total IV fluid infused: 1,000 Progress Note Anesthesia document: Postop Eval 1 completed: Yes 12/10/24 0958 Date Vinayak Farfan GEAR MACHINE OPERATOR GENERAL Cosigner Signature: Date CC: Signed [facility] MR/[id number] 12-10-2024 [facility] Medical Records Department [address] [place] [address] Anesthesia Postop Eval II 12/10/24 1014 MR#: [id number] Acct: [id number] Name: NARGIS ERIC Rep #: [id number] : 1950 74 From: Isacc Brownlee MD PCP: Dr. Vadim Jones MD Status:REG NICOLAS Y Race: C Location: [place] [address] Anesthesia Postop Eval I Sum Postop Eval Completion status Anesthesia document: Postop Eval 1 completed: Yes Anesthesia Postop Eval I Summary Anesthesia Postop Eval I Summary: Anesthesia Postop Eval I: Assessment Summary Airway patent Yes 12/10/24 09:58 GEAR MACHINE OPERATOR GENERAL.SOBR Spontaneous unlabored Yes 12/10/24 09:58 GEAR MACHINE OPERATOR GENERAL.SOBR respirations Mental status Awake 12/10/24 09:58 GEAR MACHINE OPERATOR GENERAL.SOBR nausea No 12/10/24 09:58 GEAR MACHINE OPERATOR GENERAL.SOBR Vomiting No 12/10/24 09:58 GEAR MACHINE OPERATOR GENERAL.SOBR Anesthesia Postop Eval I: Fluid Summary Crystalloid volume administer 1,000 12/10/24 09:58 GEAR MACHINE OPERATOR GENERAL.SOBR (ml) Colloids volume administered ( ml) Blood Product volume administered (ml) Total IV fluid infused 1,000 12/10/24 09:58 GEAR MACHINE OPERATOR GENERAL.SOBR Anesthesia Postop Eval I: Summary Notes Anesthesia Complication No 12/10/24 09:58 GEAR MACHINE OPERATOR GENERAL.SOBR Anesthesia Complication Comment: Post-operative progress note Anesthesia: Postop Eval II Evaluation Mental status: Awake Pain Level: 2 nausea: No Vomiting: No 12/10/24 1015 Date Isacc Brownlee MD Cosigngerman Signature: Date CC: Signed [facility] Operative Reporton Operative Report [facility] Medical Records Department [address] [place] [address] Operative Report 12/10/24 0856 MR#: [id number] Acct: [id number] Name: NARGIS ERIC Rep #: [id number] : 1950 74 From: Larry Ellis MD PCP: Dr. Vadim Jones MD Status:[facility] Location: [place] [address] 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 Surgery/Procedure Performed: Left reverse total shoulder replacement instructional design manager: Yes Manager Treasury: Winnie Olivares Tasks completed by delivery driver assistant: Other (See body of operative report) Additional commercial escrow assistant?: No Type of Anesthesia: General/Regional RN Documented Start/Stop Times: Operation Date: 12/10/24 07:30 Case Time Into Pre-Op 12/10/24 05:42 Out of Pre-Op 12/10/24 07:39 Anesthesia Start 12/10/24 07:41 Into Room 12/10/24 07:41 Procedure Start 12/10/24 08:08 Procedure End 12/10/24 09:37 Anesthesia End 12/10/24 09:47 Out of Room 12/10/24 09:47 Into Recovery 12/10/24 09:50 Out of Recovery Procedure Start Time: 08:08 Procedure Stop Time: 09:37 Select all DRAINS/GRAFTS/IMPLA NTS that apply: Prosthetic device Prosthetic device details: See body of operative report Special Medications: Ancef, vancomycin, TXA Estimated Blood Loss: 100 mL Fluids Replaced: 1000 mL crystalloid Specimen collected: Yes Description of specimen(s) removed: Bony cuts Description of surgery: Components used 1. Tornier perform glenoid 25 mm baseplate 2. Tornier perform 36 mm, 3mm Glenosphere 3. Tornier perform 36mm, 0mm humeral liner 4. Tornier perform humeral stem primary press-fit 2 size Brief history/Operative indications: 74 yo F with history of L shoulder pain and cuff tear arthropathy. Patient failed conservative measures as mentioned in the H P. After discussion of risk and benefits of reverse total shoulder replacement including but not limited to blood loss, DVTs, PEs, nerve vessel damage, infection, general risk of anesthesia including loss of life, instability and stiffness patient demonstrating understanding wish to proceed was able to sign informed consent. Medical clearance was obtained. Procedure: On the date of the procedure, patient's L upper extremity was marked in the preoperative area. Patient was taken back to the operating room where they were placed on the table in the supine position. Anesthesia assumed control of the C-spine and airway, then administered anesthetic. All bony prominences were identified well-padded, the head was secured and the patient was placed in the beachchair position at about 35??? inclination. Anesthesia remained in control of the C-spine airway throughout the remainder of the procedure. Patient was then appropriately fastened to the table and the L upper extremity was prepped in a sterile fashion. The surgeons then scrubbed. Upon reentering the room, the L upper extremity was draped in a sterile fashion and the incision was marked out. Timeout was called, everyone agreed upon the side, the site, the procedure to be performed, patient identity and antibiotics given. Incision was taken down through skin and subcutaneous tissue, fat down to fascia. The stripe of the deltopectoral interval and cephalic vein were identified and blunt dissection was used to retract the deltoid. The cephalic vein was retracted laterally. Clavipectoral fascia was then incised and a cobra retractor was placed in the wound. The proximal one third of the pectoralis major insertion was released. Pectoralis tendon insertion was used to tenodesed the biceps tendon which was identified in the bicipital groove. Tenodesis was done with #1 Vicryl. Proximally we followed the biceps tendon after transecting it into the rotator interval. The rotator interval was split and the arm was externally rotated. The split was 1 cm medial to the bicipital groove. Subscapularis tendon was released. We released down the anterior portion of the humeral head and a flynn elevator was used to release the inferior portion of the humeral head. The arm was externally rotated and the shoulder was dislocated. The humeral head was then cut at its natural retroversion. Once his humeral head cut was made humerus was retracted out of the way and the glenoid was exposed. After exposing the glenoid, the labrum and the remaining proximal biceps were debrided. At this time we are able to view the entire outer edge of the glenoid. A central pin was placed we sequentially reamed over this central pin to 25mm. Once this was completed the central screw was measured and found to be. The glenoid baseplate was screwed into place. Wound was closely irrigated out with normal saline we (more content not included)... Normal [facility] Shoulder min 2 Viewson 12-10 Shoulder min 2 Views [facility] Imaging Services [address] [place], [place] [id number] Shoulder min 2 Views MR#: [id number] Acct: [id number] Name: NARGIS ERIC Rep #: [id number] : 1950 F 74 From: Panchito Wu MD PCP: Dr. Vadim Jones MD Status: ADM [facility] Study: Shoulder min 2 Views Date of Exam: 12/10/24 Exam# [id number] Ordering Dr: Larry Ellis MD PROCEDURE: SHOULDER MIN 2 VIEWS 12/10/2024 REASON FOR EXAM: LEFT SHOULDER REPLACEMENT TECHNIQUE: Left shoulder two views COMPARISON: None FINDINGS: There is a reverse shoulder prosthesis which appears in good position. Soft tissue air is noted consistent with recent surgery. The AC joint is aligned. Mineralization is normal. RAD/Shoulder min 2 Views IMPRESSION: Hardware in position. Reading Location: [facility] CC: Dr. Vadim Jones MD; Dr. Larry Ellis MD Registered Dental Hygienist: Signed [facility] Oncology Visit Reporton 11-14 Oncology Visit Report [facility] [address] [place] [address]. [place] [address] OFFICE VISIT Date of Service: 12/03/24 1353 MR#: [id number] Acct: [id number] Name: NARGIS ERIC Rep #: [id number] : 1950 From: Oksana Weldon MD Age/Sex: 74/F Location: [facility] Status: Signed HPI Subjective Date of Service 12/03/24 Chief Complaint Breast cancer on treatment History of Present Illness 74-year-old female with a past medical history notable for schizophrenia medically controlled, COPD due to prior cigarette smoking (quit 2 years ago) and hypothyroidism. July 2019 she had a screening mammography and ultrasound that showed 2 adjacent abnormalities in the right breast, 9 o'clock position, with an expanse of 2 cm. September 06, 2019 a needle biopsy showed an invasive lobular carcinoma with tubular lobular features, well-differentiated measuring 1.5 cm in greatest dimension and involving 2 of 2 core fragments. Further testing including receptor status and had to antigen was not done due to insufficient specimen. August 2019: She then moved to [place] to be closer to family members from her prior residence in [place]. September 19, 2019 breasts MRI: RIGHT BREAST: The breast tissue is fatty with minimal background enhancement. At the 9:00 position of the right breast approximately 8.5 cm behind the nipple there is an irregular enhancing mass measuring 1.7 cm x 1.1 cm x 1.3 cm corresponding to the index lesion. LEFT BREAST: The breast tissue is fatty with minimal background enhancement. There are no abnormal enhancing masses or areas of non-mass enhancement in the left breast. There are no enlarged or abnormal lymph nodes. There is no abnormality in the visualized regions of the chest or liver. IMPRESSION: Irregular enhancing mass measuring 1.7 cm x 1.1 cm x 1.3 cm corresponding to the known index lesion. No other abnormalities in either breast. She has no prior personal history or family history of breast, colon or ovarian cancer. October 04, 2019 she underwent a right modified radical mastectomy with right axillary sentinel lymph node biopsy: MICROSCOPIC DIAGNOSIS A. Right axillary sentinel lymph nodes, biopsy: Two out of two lymph nodes, negative for metastatic carcinoma. See comment. B. Right breast, modified radical mastectomy: Invasive lobular carcinoma. Five out of five lymph nodes are negative for metastatic carcinoma. . BREAST CANCER SUMMARY Procedure: Total mastectomy (including nipple and skin) Specimen Laterality: Right Tumor site: Lower outer quadrant Tumor size: 1.5 x 1 x 0.7 cm Histologic type: Invasive lobular carcinoma. Histologic grade (Sonu grade): Glandular/tubular differentiation score: 3 Nuclear pleomorphism score: 1 Mitotic count score: 1 Overall grade: 1 (score of 5) Tumor focality: single focus of invasive carcinoma. Ductal Carcinoma In Situ: Not identified Lobular Carcinoma In Situ: Not identified Tumor extension: Skin: Skin is present and uninvolved. Nipple: Ductal carcinoma in situ does not involve nipple epidermis. Skeletal muscle: No skeletal muscle is present. Margins Involved by Invasive Carcinoma: The tumor is 1.5 cm away from the closest inferior margin. Ductal carcinoma in situ margin: Not applicable Regional Lymph Nodes: Number of lymph nodes examined: 7 (including specimen A B) Number of sentinel lymph nodes examined: 2 Number of lymph nodes with macrometastases, micrometastases or isolated tumor cells: 0 Treatment Effect: No known presurgical therapy. Lymphvascular invasion: Not identified Dermal lymphvascular invasion: Not identified Distant metastasis: Not applicable Additional Pathologic Findings: Fibrocystic changes. Diffuse ductal ectasia with periductal chronic inflammation and focal dystrophic calcification. Ancillary Studies: Previously performed on same tumor ([id number]) ER: positive (>95%, strong intensity) [place]: negative (0) Her2: negative (0) Microcalcifications : Not identified Clinical History: Right breast, 9 o???clock, 7 cm from nipple ([facility] [id number]) with diagnosis of invasive lobular carcinoma with tubulolobular features, well differentiated. Carcinoma measures 0.5 cm in greatest dimension and involves 2 of 2 core fragments. Radiologic findings: As per EMR, breast ultrasound showed two irregular masses, right breast, 9 o???clock position. Pathologic Stage: pT1c pN0 Mx Treatment summary: October 04, 2019 right modified radical mastectomy with sentinel lymph node biopsy . Adjuvant anastrozole October 2019???October 2024 (5 years) Bone supportive therapy with Prolia April 2020 [facility] Medical History Alcohol use High cholesterol Hypertension Restless legs On home oxygen therapy Leg cramps History of Holter monitori (more content not included)... Normal [facility] Pulmonary Visit Reporton Pulmonary Visit Report [facility] [place] [address] [place] [address] OFFICE VISIT Date of Service: 11/30/24 MR#: [id number] Acct: [id number] Name: NARGIS ERIC Rep #: [id number] : 1950 Provider: MANUEL Otero Age/Sex: 74/F [place] [facility] Status: Signed Assessment and Plan Assessment and Plan (1) COPD (chronic obstructive pulmonary disease) with emphysema: Status: Chronic Qualifiers: Emphysema type: centrilobular Qualified Code(s): J43.2 - Centrilobular emphysema Comment: FEV1 61% of predicted with partial reversibility Plan: Stable, she does not appear to be an exacerbation of COPD today. No need for prednisone or antibiotic. Escalating the patient to triple therapy, as the most recent PFT indicates that she has asthma/COPD overlap syndrome. She was provided with samples of Trelegy today. I would like to keep the patient on a medication by the same medical company, as she is familiar with the Ellipta device and once daily dosing. I did give her instructions to rinse her mouth out after each use. I also instructed her to stop Anoro when she starts Trelegy. She typically takes her dose in the evening and plans to start Trelegy tonight. Prescription was provided as well. Contact the office for any new or worsening symptoms. An acute visit and typically be arranged within 1-2 days. Keep previously scheduled follow-up in April. (2) Chronic respiratory failure: Status: Chronic Qualifiers: Respiratory failure complication: hypoxia Qualified Code(s): J96.11 - Chronic respiratory failure with hypoxia Comment: Uses 2 L/min with activity Plan: She is using and benefiting from supplemental oxygen. She has been compliant with the use of the supplemental oxygen when in her home. After the recent 6-minute walk test I have advised the patient that she should be utilizing supplemental oxygen at all times, including when she is away from home. The patient's sister reports that they need a tutorial on how to operate the small tanks. They plan to stop at the [employer] today to refresh their memory on how to utilize the small tanks. With the use of the supplemental oxygen she will be optimized for surgery. A letter stating this has been printed and will be faxed to her orthopedic surgeon. (3) Schizophrenia: Status: Chronic Qualifiers: Schizophrenia type: unspecified Qualified Code(s): F20.9 - Schizophrenia, unspecified Plan: Complicates exam, plan, care and prognosis. (4) Former smoker: Status: Chronic Comment: Quit 2016 Plan: Encourage ongoing smoking cessation. The patient remains appropriate for LDCT which is due in March 2025, ordered previously. Follow-up in April to discuss test results. Medications: New fluticasone-umeclid in-vilanter 200-62.5-25 mcg (Trelegy Ellipta) 1 inh inhalation DAILY 60 ea 11RF Discontinued umeclidinium-vilant rosibel 62.5-25 mcg/actuation (Anoro Ellipta) Discontinued Reason: Order Changed 1 inh inhalation Q24H 60 ea 11RF J44.9 - Chronic obstructive pulmonary disease, unspecified HPI Surgery Clearance Chief Complaint: Test results HPI Comments Details: This patient presents to the office today for follow-up of her COPD with hypoxia. She is ambulatory, and accompanied today by her sister. She is here to discuss test results and get pulmonary clearance for a left reverse shoulder replacement that is scheduled for December 10, 2024. She has not recently been seen in the ED or urgent care for any respiratory illness. She has not required any antibiotics or prednisone for any breathing problems. She is compliant with the use of Anoro 1 puff daily. She denies any medication side effects. She has not used her rescue inhaler. She continues complete smoking cessation since March 2016. She has shortness of breath on exertion. She is having a dry cough, but denies any hemoptysis. She reports occasional wheezing, but denies any chest tightness, chest pain or palpitations. She also denies any fever, chills or body aches. She is compliant with supplemental oxygen wearing 2 L/min on exertion. She also sleeps with 2 L/min most nights. Test results personally viewed patient: Pulmonary function test completed on November 12, 2024. Impression is partially reversible moderate large airway obstructive dilatory defect with associated air trapping and symmetric reduction using capacity. FEV1 61% of predicted. Pulmonary stress test completed on November 27, 2024. The patient was able to ambulate total of 730 feet over the course of 6 minutes. She requires 2 L/min of supplemental oxygen at rest and on exertion. Intake Vital Signs 11/21/24 14:21 11/30/24 08:25 Height 5 ft 6 in 5 ft 6.5 in Weight: 169 lb BMI 26.9 Blood Pressure Location Rt brachial Position Sitting Respi (more content not included)... Normal [facility] 6 Minute Walk Teston 025 6 Minute Walk Test y [facility] [address] [place] [address] MR#: [id number] Acct: [id number] Name: NARGIS ERIC Rep #: [id number] : 1950 74 From: Tom Field DO Referring Dr: Jess Otero NP DYE FEEDER-C Status: REG CLI Location: PSN Date: Sex: F C PSN 6 Minute Walk Test 6 Minute Walk Test 6 Minute Walk Test: 6 Minute Walk Test PSN:6-Minute Walk Test Start: 11/27/24 13:30 Freq: Status: Active Protocol: RESP.6MINW Document 11/27/24 13:30 ABEON (Rec: 11/27/24 13:33 SFENTON [id number]) 6 Minute Walk Test Date Performed 11/27/24 Time Performed 13:15 Height 5 ft 6.5 in Weight: 165 lb Weight in Pounds 165.[address]: Jess Otero NP Assistive device None used: Pre-test Oxygen Delivery Room Air Method Pulse Ox (%) 88 Pulse Rate (60-100 83 beats/min) Dyspnea Pradip Scale ( 0.5 0-10) Exertion Pradip Scale 6 (6-20) 1st minute Oxygen Flow Rate (L/ 2 min) (L/min) Oxygen Delivery Nasal Cannula Method Pulse Ox (%) 93 Pulse Rate (60-100 93 beats/min) 2nd minute Oxygen Flow Rate (L/ 2 min) (L/min) Oxygen Delivery Nasal Cannula Method Pulse Ox (%) 92 Pulse Rate (60-100 100 beats/min) 3rd minute Oxygen Flow Rate (L/ 2 min) (L/min) Oxygen Delivery Nasal Cannula Method Pulse Ox (%) 91 Pulse Rate (60-100 102 H beats/min) 4th minute Oxygen Flow Rate (L/ 2 min) (L/min) Oxygen Delivery Nasal Cannula Method Pulse Ox (%) 92 Pulse Rate (60-100 103 H beats/min) 5th minute Oxygen Flow Rate (L/ 2 min) (L/min) Oxygen Delivery Nasal Cannula Method Pulse Ox (%) 93 Pulse Rate (60-100 99 beats/min) Number of Rests 1 Taken 6th minute Oxygen Flow Rate (L/ 2 min) (L/min) Oxygen Delivery Nasal Cannula Method Pulse Ox (%) 93 Pulse Rate (60-100 102 H beats/min) Dyspnea Pradip Scale ( 3 0-10) Exertion Pradip Scale 14 (6-20) Post-test Oxygen Flow Rate (L/ 2 min) (L/min) Oxygen Delivery Nasal Cannula Method Pulse Ox (%) 94 Pulse Rate (60-100 86 beats/min) Full Laps Walked 12 Partial Lap, Number 22 of Tiles Walked Total Distance 730 Walked (ft) Interpretation Interpretation: The patient ambulated 730 feet over the course of 6 minutes beginning on room air without assistive devices. Pretesting oxygen saturation was noted to be 88% on room air. 2 L/min of supplemental oxygen was applied and the patient was able to complete the remainder of the test while maintaining appropriate saturations. Recommendations Recommendations: 2 L/min of supplemental oxygen should be utilized both at rest and with exertion. 11/29/24 1232 Date Tom Field DO CC: Date Dictated: 11/29/24 1231 Date Transcribed: 11/29/24 123 Registered Dental Hygienist: Dr. Tom Field, Signed [facility] Dexa Bone Density Studyon Dexa Bone Density Study [facility] Imaging Services [address] [address] Dexa Bone Density Study MR#: [id number] Acct: [id number] Name: NARGIS ERIC Rep #: [id number] : 1950 F 74 From: Jason hodge MD PCP: Dr. Vadim Jones MD Status: REG CLI Study: Dexa Bone Density Study Date of Exam: 11/28/24 Exam# [id number] Ordering Dr: Oksana Weldon MD PROCEDURE: DEXA BONE DENSITY STUDY 11/28/2024 REASON FOR EXAM: SCREENING F, age 74 y/o . Postmenopausal. TECHNIQUE: DXA scan of the lumbar spine and bilateral hips., Using make and model. RE[facility]ENCE LINKS: [facility] COMPARISON: Comparison is made with prior study dated September 30, 2021. FINDINGS: BMD and T-SCORES Lumbar spine: 1.088 g/cm2, T-Score 0.7 L1 through L4 Change from prior: Improvement by 9.9% Left femoral neck: 0.645 g/cm2, T-Score -1.8 Femoral neck comparison data not recommended for monitoring change. Left total hip: 0.836 g/cm2, T-Score -0.9 Change from prior: Improvement by 0.6% Right femoral neck: 0.651 g/cm2, T-Score -1.8 Femoral neck comparison data not recommended for monitoring change. Right total hip: 0.816 g/cm2, T-Score -1.0 Change from prior: Loss of 1.5% Fracture Risk Calculation: FRAX (10-year Fracture Risk) Score: FRAX scores should never be reported in a patient with osteoporosis on DEXA or for any patient that is on bone medication. The patient doesmeet the pharmacological treatment recommendations for prevention of osteoporosis BD/Dexa Bone Density Study IMPRESSION: OSTEOPENIA. Recommend follow-up as clinically warranted. Reading Location: [place] [address] CC: Dr. Vadim Jones MD; Dr. Oksana Weldon MD Registered Dental Hygienist: Signed Normal [facility] MR/BMS.BPon 11-21-2024 MR/BMS.BP [place] [id number] [facility], [address] [place] [address] OFFICE VISIT Date of Service: 11/21/24 MR#: [id number] Acct: [id number] Name: NARGIS ERIC Rep #: [id number] : 1950 Provider: Dr. Larry Herrera se, DO Age/Sex: 74/F [place] [facility] [place] Status: Signed Intake Vital Signs 10/09/24 13:19 10/31/24 08:17 11/21/24 14:21 Height 5 ft 6 in 5 ft 6 in 5 ft 6 in Weight: 170 lb BMI 27.4 BP 133/71 H Blood Pressure Location Lt radial Position Sitting Respiration 18 Pulse 84 Pulse Source Monitor Temp 97.2 F L Temperature Source Temporal Artery Pulse Oximetry (%) 94 Oxygen Delivery Method room air BP Intake Visit Reasons: follow up Allergies haloperidol (From Haldol) Allergy (Severe, Verified 11/12/24 13:15) Other Have you fallen in the past year?: No PFSH Medical History (Updated 11/12/24 @ 13:47 by Corina Tong) Alcohol use High cholesterol Hypertension Restless legs On home oxygen therapy Leg cramps History of Holter monitoring History of echocardiogram Cardiology follow-up encounter Encounter for screening for malignant neoplasm of lung Pain of left breast Wears glasses Cancer Thyroid disease Back pain Injury of head and neck Gastric reflux Former smoker COPD (chronic obstructive pulmonary disease) Shortness of breath on exertion History of pain when walking Chest pain Nausea Abnormal mammogram of left breast 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 Hypothyroid Breast cancer Schizophrenia Surgical History (Updated 11/12/24 @ 13:47 by Corina Tong) Hx of colonoscopy Hx of wisdom tooth extraction Hx of tonsillectomy History of surgery on left wrist History of right mastectomy ( 09/2019) S/P breast biopsy S/P tonsillectomy S/P arteriovenous (AV) fistula creation Family History Mother No problems noted. Grandfather No problems noted. Father Leukemia Social History Smoking Status: Former smoker quit date: 04/03/16 pack-years: 20 Tobacco: How many years used: 50 alcohol intake: current alcohol intake frequency: a few times a week HPI History of Present Illness History provided by: patient HPI: Nargis Eric is a 74 year old female who presents today as a follow up evaluation. Patient reports that she has been ok. Has been busy doing cooking and doing laundry. Patient is somewhat difficult to understand throughout encounter. Since reducing risperidone has not noticed any significant difference either positive or negative. However she does subsequently report that she has had some improvement in her muscle cramping. Commenting that symptoms have nearly resolved. Sleep has been worse.' Does lie awake about twice per week. Speech has been worsening over the last year. Per sister, does chuckle very frequently. Review of Systems Constitutional Reports: fatigue Eyes Reports: eye discomfort Ears, Nose, Mouth, Throat Reports: vertigo Cardiovascular Reports: dyspnea Respiratory Reports: dyspnea; Denies: wheezing Gastrointestinal Reports: constipation Genitourinary Reports: urinary incontinence (stress incontinence) Musculoskeletal Reports: extremity pain and joint pain Integumentary/Breas t Denies: rash or new lesions Neurological Reports: headache(s), lack of coordination, dizziness, vertigo, confusion, slurred speech and involuntary movements Psychiatric Reports: hopelessness and memory loss Endocrine Reports: fatigue Hematologic/Lymphat ic Denies: easy bruising or easy bleeding Allergic/Immunologi c Denies: wheezing Exam Mental Status Exam - Psych Appearance adequately groomed Attitude calm Activity/Motor Behavior psychomotor slowing and staring Speech slow, soft and slurred (More pronounced today) Mood OK Affect blunted Thought Process linear, logical and coherent Thought Content no delusions and no hallucinations Suicidal Ideation none Homicidal Ideation none Attention intact Concentration intact Sensorium/Orientati on awake, alert and oriented x3 Memory/Cognition other (appropriate for stated age) Insight good Judgement good Assessment Plan Assessment Plan (1) Schizophrenia: Qualifiers: Schizophrenia type: unspecified Qualified Code(s): F20.9 - Schizophrenia, unspecified Plan: - We will further reduce risperidone from 2.5 mg every day to 2 mg every day as she has had some improvement in muscle cramping however still having some fairly significant dysphonia which has been getting worse according to family. I do have some concern that this may be secondary to medication burden -Longitudinal (more content not included)... Normal [facility] MRSA/SAID NASAL SCREENon MRSA+SAID SCRN Reason for Exam: PREOP MRSA MRSA Negative S. AUREUS S. aureus Negative Normal [facility] Comment on above: Performed By: #### L 500.2500, L100.0100, M100.651, L501.1800 ####[facility] [address] [facility] [place], [address] 12 Lead EKGon 11-15-2024 12 Lead EKG [facility] [address] [place] [address] 12 Lead EKG 11/15/24 1300 MR#: [id number] Acct: [id number] Name: NARGIS ERIC Rep #: [id number] : 1950 74 From: Calvin Bobby MD Attending Dr: Dr. Larry Ellis MD Status: PRE [facility] [place] Ordering Dr: Larry Ellis MD Date: 11/15/24 Location: [facility] Sex: F C Admitted: Test Reason : PRE OP Blood Pressure : */* mmHG Vent. Rate : 88 BPM Atrial Rate : 88 BPM P-R Int : 156 ms QRS Dur : 86 ms QT Int : 360 ms P-R-T Axes : 69 78 72 degrees QTcB Int : 435 ms Sinus rhythm with occasional Premature ventricular complexes Nonspecific ST and T wave abnormality Abnormal ECG Confirmed by CALVIN BOBBY MD ([id number]), news editor LAURA ORTEGA ([id number]) on 11/16/2024 9:32:31 AM Referred By: Larry Ellis Confirmed By: CALVIN BOBBY MD 04/04931 Calvin Bobby MD CC: Dr. Vadim Jones MD; Dr. Larry Ellis MD Signed Normal [facility] Albumin, Serumon 11-15-2024 Albumin [Mass/Vol] 4.2 g/dL Normal 3.4-4.8 [facility] Comment on above: Performed By: #### L 500.2500, L100.0100, M100.651, L501.1800 ####[facility] [address] [place], [address] Basic Metabolic Profile (BMP )on 11-15-2024 BUN/CRE 12.1 RATIO Normal 10-20 [facility] Comment on above: Performed By: #### L 500.2500, L100.0100, M100.651, L501.1800 ####[facility] [address] [place], [address] Calcium [Mass/Vol] 9.2 mg/dL Normal 7.6-11.0 [facility] Comment on above: Performed By: #### L 500.2500, L100.0100, M100.651, L501.1800 ####[facility] [address] [place], [address] Chloride [Moles/Vol] 99 mmol/L Normal 98-108 [facility] Comment on above: Performed By: #### L 500.2500, L100.0100, M100.651, L501.1800 ####[facility] [address] [place], [address] CO2 [Moles/Vol] 25.3 mmol/L Normal 21.0-32.0 [facility] Comment on above: Performed By: #### L 500.2500, L100.0100, M100.651, L501.1800 ####[facility] [address] [place], [address] Creatinine [Mass/Vol] 0.76 mg/dL Normal 0.70-1.20 [facility] Comment on above: Performed By: #### L 500.2500, L100.0100, M100.651, L501.1800 ####[facility] [address] [place], [address] GAP 11 Normal 5-15 [facility] Comment on above: Performed By: #### L 500.2500, L100.0100, M100.651, L501.1800 ####[facility] [address] [place], [address] GFR/1.73 sq M.predicted among non-blacks MDRD (S/P/Bld) [Vol rate/Area] 81 mL/min/{1.73_m2} Normal >60 [facility] Comment on above: Result Comment: mL/m in/1.73m2 CKD-EPI Creatinine Equation (2020) Performed By: #### L 500.2500, L100.0100, M100.651, L501.1800 ####[facility] [address] [place], [address] Glucose [Mass/Vol] 107 mg/dL High 70-99 [facility] Comment on above: Performed By: #### L 500.2500, L100.0100, M100.651, L501.1800 ####[facility] [address] [place], [address] Potassium [Moles/Vol] 4.6 mmol/L Normal 3.3-5.1 [facility] Comment on above: Performed By: #### L 500.2500, L100.0100, M100.651, L501.1800 ####[facility] [address] [place], [address] Sodium [Moles/Vol] 136 mmol/L Normal 133-145 [facility] Comment on above: Performed By: #### L 500.2500, L100.0100, M100.651, L501.1800 ####[facility] [address] [place], [address] Urea nitrogen [Mass/Vol] 9 mg/dL Normal 4-19 [facility] Comment on above: Performed By: #### L 500.2500, L100.0100, M100.651, L501.1800 ####[facility] [address] [place], [address] CBC W/Diff, Automatedon 04-0 3-5 Absolute Lymph 1.53 X10 3/uL Normal 0.83-4.51 [facility] Comment on above: Performed By: #### L 500.2500, L100.0100, M100.651, L501.1800 ####[facility] [address] [place], [address] Absolute Neut 4.0 X10 3/uL Normal 2.0-7.7 [facility] Comment on above: Performed By: #### L 500.2500, L100.0100, M100.651, L501.1800 ####[facility] [address] [place], [address] Basophils/100 WBC (Bld) 1.1 % High 0-1 [facility] Comment on above: Performed By: #### L 500.2500, L100.0100, M100.651, L501.1800 ####[facility] [address] [place], [address] Eosinophils/100 WBC (Bld) 1.8 % Normal 0-5 [facility] Comment on above: Performed By: #### L 500.2500, L100.0100, M100.651, L501.1800 ####[facility] [address] [place], [address] Erythrocyte distribution width (RBC) [Ratio] 13.2 % Normal 11.6-14.6 [facility] Comment on above: Performed By: #### L 500.2500, L100.0100, M100.651, L501.1800 ####[facility] [address] [place], [address] Hematocrit (Bld) [Volume fraction] 38.1 % Normal 37-47 [facility] Comment on above: Performed By: #### L 500.2500, L100.0100, M100.651, L501.1800 ####[facility] [address] [place], [address] Hemoglobin (Bld) [Mass/Vol] 12.3 g/dL Normal 12.0-15.0 [facility] Comment on above: Performed By: #### L 500.2500, L100.0100, M100.651, L501.1800 ####[facility] [address] [place], [address] IG% 0.300 Normal 0.0-0.9 [facility] Comment on above: Result Comment: IG% - Immature Granulocytes (promyelocytes, myelocytes and metamyelocytes) > 1% indicates that a LEFT SHIFT is Present. Performed By: #### L 500.2500, L100.0100, M100.651, L501.1800 ####[facility] [address] [place], [address] Lymphocytes/100 WBC (Bld) 24.4 % Normal 19-41 [facility] Comment on above: Performed By: #### L 500.2500, L100.0100, M100.651, L501.1800 ####[facility] [address] [place], [address] MCH (RBC) [Entitic mass] 27.5 pg Normal 27.0-32.0 [facility] Comment on above: Performed By: #### L 500.2500, L100.0100, M100.651, L501.1800 ####[facility] [address] [place], [address] MCHC (RBC) [Mass/Vol] 32.3 g/dL Normal 32-36 [facility] Comment on above: Performed By: #### L 500.2500, L100.0100, M100.651, L501.1800 ####[facility] [address] [place], [address] MCV (RBC) [Entitic vol] 85.0 fL Normal 81-99 [facility] Comment on above: Performed By: #### L 500.2500, L100.0100, M100.651, L501.1800 ####[facility] [address] [place], [address] Monocytes/100 WBC (Bld) 9.3 % Normal 0-10 [facility] Comment on above: Performed By: #### L 500.2500, L100.0100, M100.651, L501.1800 ####[facility] [address] [place], [address] Neutrophils/100 WBC (Bld) 63.1 % Normal 47-70 [facility] Comment on above: Performed By: #### L 500.2500, L100.0100, M100.651, L501.1800 ####[facility] [address] [place], [address] Nucleated RBC (Bld) [#/Vol] 0 10*3/uL Normal 0-5 [facility] Comment on above: Performed By: #### L 500.2500, L100.0100, M100.651, L501.1800 ####[facility] [address] [place], [address] Platelet mean volume (Bld) [Entitic vol] 9.2 fL Normal 6.2-12.0 [facility] Comment on above: Performed By: #### L 500.2500, L100.0100, M100.651, L501.1800 ####[facility] [address] [place], [address] Platelets (Bld) [#/Vol] 335 10*3/uL Normal 150-450 [facility] Comment on above: Performed By: #### L 500.2500, L100.0100, M100.651, L501.1800 ####[facility] [address] [place], [address] RBC (Bld) [#/Vol] 4.48 10*6/uL Normal 4.2-5.4 [facility] Comment on above: Performed By: #### L 500.2500, L100.0100, M100.651, L501.1800 ####[facility] [address] [place], [address] RDW SD 41.4 fl Normal 35.1-43.9 [facility] Comment on above: Performed By: #### L 500.2500, L100.0100, M100.651, L501.1800 ####[facility] [address] [place], [address] WBC (Bld) [#/Vol] 6.3 10*3/uL Normal 4.4-11.0 [facility] Comment on above: Performed By: #### L 500.2500, L100.0100, M100.651, L501.1800 ####[facility] [address] [place], [address] MR/Felisa 11-15-2024 MR/SANJAY.PAULA [facility] Medical Records Department [address] [place] [address] PAT - Anesthesia 11/15/242131 MR#: [id number] Acct: [id number] Name: NARGIS ERIC Rep #: [id number] : 1950 74 From: Jimmy Kaplan MD PCP: Dr. 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 When Was Last Pacemaker Check QUESTION #4 FULL TEXT: You/Your Family Experience fever (hyperthermia) with Anesthesia Last Oral Intake Last Oral intake: Last Oral Intake NPO since Meds taken in AM with sips of water? Meds patient instructed to take am of surgery PONV PONV - digital publishing specialist: PONV - digital publishing specialist Female Yes 11/12/24 13:29 HX of Motion Sickness No 11/12/24 13:29 HX of N/V After Surgery No 11/12/24 13:29 Non-Smoker Yes 11/12/24 13:29 Duration of Surgery greater Yes 11/12/24 13:29 than 60 minutes Number of Risk Factors 3 11/12/24 13:29 PONV Score Moderate Risk 11/12/24 13:29 Height Weight Height Weight: Anesthesia: Height Weight Height 5 ft 6 in 08/28/24 13:28 Respiratory Assessment Respiratory Assessment - digital publishing specialist: Respiratory Tract Infection Hx - digital publishing specialist Hx Respiratory Tract Infection No 11/12/24 13:29 STOP Sleep Apnea STOP Sleep Apnea - digital publishing specialist: STOP Sleep Apnea - digital publishing specialist Hx Hypertension Yes 11/12/24 13:29 Hx Sleep Apnea No 11/12/24 13:29 CPAP BIPAP Do you snore loudly (louder No 11/12/24 13:29 than talking or can be heard Do you often feel tired/ No 11/12/24 13:29 fatigued/ sleepy during daytime? Has anyone observed you stop No 11/12/24 13:29 breathing during sleep? STOP Results Negative 11/12/24 13:29 QUESTION #5 FULL TEXT : Do you snore loudly (louder than talking or can be heard through closed doors)? 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 Specify any problems Hx of Preganancy in last 3 No 11/12/24 13:29 Months Nurse Filling Out Transfusion MGJHONY 11/12/24 13:29 Questions: Date: 11/12/24 11/12/24 13:29 Time: 13:32 11/12/24 13:29 Patient unable to answer at this time (ie. confused, unrespo /Reproduct ion History /Reproduct vazquez History - digital publishing specialist: /Reproduct vazquez Hx- digital publishing specialist Hx Now No 11/12/24 13:29 Gestational Age (in weeks): EDC: Hx Hx Para Hx Section SAB No 11/12/24 13:29 [facility] Medical History (Updated 11/12/24 @ 13:47 by Corina Tong) Alcohol use High cholesterol Hypertension Restless legs On home oxygen therapy Leg cramps History of Holter monitoring History of echocardiogram Cardiology follow-up encounter Encounter for screening for malignant neoplasm of lung Pain of left breast Wears glasses Cancer Thyroid disease Back pain Injury of head and neck Gastric reflux Former smoker COPD (chronic obstructive pulmonary disease) Shortness of breath on exertion History of pain when walking Chest pain Nausea Abnormal mammogram of left breast 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 Hypothyroid Breast cancer Schizophrenia Home Medications ???Medication ???Instructions ???Recorded ???Last Taken ???Type albuterol sulfate 90 mcg/actuation 1 - (more content not included)... Normal [facility] Magnesiumon 11-15-2024 Magnesium [Mass/Vol] 2.2 mg/dL Normal 1.5-2.2 [facility] Comment on above: Performed By: #### L 501.9520, L501.5200 ####[facility] [address] [place], [address] Thyroid Stim Hormone (TSH)on 11-15-2024 TSH 3.180 uIU/mL Normal 0.300-4.200 [facility] Comment on above: Performed By: #### L 501.9520, L501.5200 ####[facility] [address] [place], [address] Extremity Upper without Cont raon 10-31-2024 Extremity Upper without Contra [facility] Services [address] [place] [address] Extremity Upper without Contra MR#: [id number] Acct: [id number] Name: NARGIS ERIC Rep #: [id number] : 1950 F 74 From: Jason hodge MD PCP: Dr. Vadim Jones MD Status: REG CLI Study: Extremity Upper without Contra Date of Exam: 0 10/31/24 Exam# [id number] Ordering Dr: Larry Ellis MD PROCEDURE: EXTREMITY UPPER WITHOUT CONTRA 10/31/2024 REASON FOR EXAM: BURSITIS L SHOULDER TECHNIQUE: Axial extremity without intravenous contrast. Coronal and Sagittal reconstruction series were provided. One or more dose reduction techniques were used (e.g., Automated exposure control, adjustment of the mA and/or kV according to patient size, use of iterative reconstruction technique). RADIATION DOSE SUMMARY: CTDlvol: 22.11 mGy DLP: 530.18 mGycm COMPARISON: None. FINDINGS: Bones: No evidence of fracture. Degenerative spur seen along the inferior aspect of the humeral head with proliferation. Joints: Marked degree of osteoarthritis and joint space narrowing of the glenohumeral humeral joint. Soft Tissues: Swelling. Shoulder joint effusion. CT/Extremity Upper without Contra IMPRESSION: Marked degree of joint space narrowing and osteoarthritis of the left glenohumeral joint with hypertrophic spur formation. Soft tissue swelling in the shoulder joint effusion. Reading Location: [place] [address] CC: Dr. Vadim Jones MD; Dr. Larry Ellis MD Registered Dental Hygienist: Signed Normal [facility] Pulmonary Visit Reporton Pulmonary Visit Report [facility] [place] [address] [place] [address] OFFICE VISIT Date of Service: 10/31/24 MR#: [id number] Acct: [id number] Name: NARGIS ERIC Rep #: [id number] : 1950 Provider: MANUEL Otero Age/Sex: 74/F Location: [facility] Status: Signed Assessment and Plan Assessment and Plan (1) COPD (chronic obstructive pulmonary disease) with emphysema: Status: Chronic Qualifiers: Emphysema type: centrilobular Qualified Code(s): J43.2 - Centrilobular emphysema Plan: Stable, she does not appear to be an exacerbation of COPD today. No need for prednisone or antibiotic. Continue current maintenance medication, symptomatically controlled with the use of Anoro. Repeating a pulmonary function test for clarification and quantification, last test was done back in 2021. The patient is going to require pulmonary clearance for upcoming shoulder surgery with general anesthesia. Contact the office for any new or worsening symptoms. An acute visit and typically be arranged within 1-2 days. Follow-up in April. (2) Chronic respiratory failure: Status: Chronic Qualifiers: Respiratory failure complication: hypoxia Qualified Code(s): J96.11 - Chronic respiratory failure with hypoxia Comment: Uses 2 L/min with activity Plan: She is using and benefiting from supplemental oxygen. Repeat 6-minute walk test with the weekend make recommendations to the patient on how much supplemental oxygen she should be using on ambulation. No additional testing at this time. (3) Schizophrenia: Status: Chronic Qualifiers: Schizophrenia type: unspecified Qualified Code(s): F20.9 - Schizophrenia, unspecified Plan: Complicates exam, plan, care and prognosis. (4) Former smoker: Status: Chronic Comment: >20 pack years Quit 2016 Plan: Encourage ongoing smoking cessation. The patient remains appropriate for LDCT which is due in March 2025, ordered accordingly. Orders: Orders PFT Complete - DLCO, Spirometry b/a bronchodilators, lung volumes Today J43.2 - Centrilobular emphysema Simple Pulmonary Exercise Test Today J43.2 - Centrilobular emphysema Plan Details Follow Up: 04/15/25 HPI 6 M FU Chief Complaint: routine follow up HPI Comments Details: This patient presents to the office today for follow-up of her COPD with hypoxia. She is ambulatory, and accompanied today by her sister. She has not recently been seen in the ED or urgent care for any respiratory illness. She has not required any antibiotics or prednisone for any breathing problems. She is compliant with the use of Anoro 1 puff daily. She denies any medication side effects. She has not used her rescue inhaler. She continues complete smoking cessation. She quit March 2016. She has shortness of breath on exertion. She is having a dry cough, but denies any hemoptysis. She reports occasional wheezing, but denies any chest tightness, chest pain or palpitations. She also denies any fever, chills or body aches. She is compliant with supplemental oxygen wearing 2 L/min on exertion. She also sleeps with 2 L/min most nights. She is going to need pulmonary clearance for an upcoming shoulder surgery that will require general anesthesia. Intake Vital Signs 05/03/24 07:59 10/31/24 08:17 Height 5 ft 6 in 5 ft 6 in Weight: 170 lb BMI 27.4 BP 133/71 H Blood Pressure Location Lt radial Position Sitting Respiration 18 Pulse 84 Pulse Source Monitor Temp 97.2 F L Temperature Source Temporal Artery Pulse Oximetry (%) 94 Oxygen Delivery Method room air Intake Visit Reasons: 6 M FU Chief Complaint: cough Director Of Partnerships Required: No DME Vendor: [employer] Accompanied by: Sister Allergies haloperidol (From Haldol) Allergy (Severe, Verified 10/31/24 13:55) Other Medications ???Medication ???Instructions ???Recorded ???Confirmed ???Type albuterol sulfate 90 mcg/actuation 1 - 2 puff inhalation Q4H PRN NJ N 09/24/20 10/31/24 Rx aerosol inhaler Shortness Of Breath #18 grams cholecalciferol (vitamin D3) 25 25 mcg PO DAILY 01/22/21 10/31/24 History mcg (1,000 unit) tablet multivitamin 1 tab PO DAILY 01/22/21 10/31/24 H istory denosumab 60 mg/mL subcutaneous 60 mg subcut [id number] 08/22/23 History syringe (Prolia) lactobacillus combination no.4 3 3,000 mmu cells PO DAILY 08/22/23 10/31/24 History billion cell capsule (Probiotic) levothyroxine 75 mcg capsule 75 mcg PO DAILY 08/22/23 10/31/24 History omeprazole 20 mg capsule,delayed 20 mg PO DAILY 08/22/23 10/31/24 H istory release rosuvastatin 5 mg tablet (Crestor) 5 mg PO DAILY 08/22/23 10/31/24 History umeclidinium 62.5 mcg-vilanterol 1 inh inhalation Q24H #60 ea 01/0210/31/24 Rx 25 mcg/actuation pow (more content not included)... Normal [facility] Cardiology Visit Reporton Cardiology Visit Report [facility] [place] [address] OFFICE VISIT Date of Service: 10/09/24 MR#: [id number] Acct: [id number] Name: NARGIS ERIC Rep #: [id number] : 1950 Provider: Dr. Trudy Bryant MD Age/Sex: 74/F [place] [facility] [place] Status: Signed HPI HPI History of Present Illness Details: This lady with history of nonsustained ventricular tachycardia noted on event monitoring has had an echocardiogram done. It showed LV systolic dysfunction. Subsequently cardiac MRI was also done. It showed ejection fraction of 45%. A coronary CT angio showed mild to moderate CAD with no critical stenosis. Patient denies any chest pains either at rest or with exertion. She does complain of shortness of breath with climbing a flight of stairs. This is not new for her and remains stable. Denies any orthopnea or PND. No ankle edema. No palpitations. Denies any lightheadedness or dizziness. No syncope or presyncope. Intake Vital Signs 08/28/24 13:28 10/09/24 08:37 10/09/24 11:13 10/09/24 13:19 Height 5 ft 6 in 5 ft 6 in 5 ft 6 in 5 ft 6 in Weight: 170 lb BMI 27.4 BP 118/82 H Blood Pressure Location Lt brachial Position Sitting Respiration 18 Pulse 89 Pulse Source NIBP Intake Visit Reasons: 6 WK FU/See Clinical Note Accompanied by: Sister Is patient in pain?: Yes (left shoulder, pending surgery) Allergies haloperidol (From Haldol) Allergy (Severe, Verified 10/09/24 13:10) Other Medications ???Medication ???Instructions ???Recorded ???Confirmed ???Type albuterol sulfate 90 mcg/actuation 1 - 2 puff inhalation Q4H PRN NJ N 09/24/20 10/09/24 Rx aerosol inhaler Shortness Of Breath #18 grams cholecalciferol (vitamin D3) 25 25 mcg PO DAILY 01/22/21 10/09/24 History mcg (1,000 unit) tablet multivitamin 1 tab PO DAILY 01/22/21 10/09/24 H istory denosumab 60 mg/mL subcutaneous 60 mg subcut [id number] 08/22/23 History syringe (Prolia) lactobacillus combination no.4 3 3,000 mmu cells PO DAILY 08/22/23 10/09/24 History billion cell capsule (Probiotic) levothyroxine 75 mcg capsule 75 mcg PO DAILY 08/22/23 10/09/24 History omeprazole 20 mg capsule,delayed 20 mg PO DAILY 08/22/23 10/09/24 H istory release rosuvastatin 5 mg tablet (Crestor) 5 mg PO DAILY 08/22/23 10/09/24 History benztropine 0.5 mg tablet 0.5 mg PO BID #60 tabs 12/22/23 Rx umeclidinium 62.5 mcg-vilanterol 1 inh inhalation Q24H #60 ea 01/0210/09/24 Rx 25 mcg/actuation powdr for inhalation (Anoro Ellipta) anastrozole 1 mg tablet 1 mg PO DAILY #180 tabs 02/01/24 0 10/09/24 Rx mecobalamin (vitamin B12) 1,000 2,000 mcg PO DAILY 06/18/24 History mcg chewable tablet meloxicam 7.5 mg tablet 7.5 - 15 mg PO QDAY PRN pain 06/1810/09/24 History olanzapine 20 mg tablet 20 mg PO DAILY #90 tabs 07/11/24 0 10/09/24 Rx risperidone 0.5 mg tablet 0.5 mg PO QHS #90 tabs 07/11/24 Rx risperidone 2 mg tablet 2 mg PO DAILY 90 days #90 tabs 10/09/24 Rx furosemide 40 mg tablet (Lasix) 40 mg PO DAILY PRN shortness of 10/09/24 Rx breath #90 tabs carvedilol 3.125 mg tablet 3.125 mg PO BID #60 tabs 08/29/24 10/09/24 Rx Ejection fraction %: 35 Have you fallen in the past year?: Yes (a few; no major injuries) [facility] Medical History Abnormal mammogram of left breast Back pain Back pain Breast cancer Cancer Chest pain COPD (chronic obstructive pulmonary disease) COPD (chronic obstructive pulmonary disease) with emphysema Encounter for screening for malignant neoplasm of lung Former smoker Gastric reflux History of pain when walking Hypothyroid Injury of head and neck Lobular carcinoma of breast Nausea Pain of left breast Schizophrenia Shortness of breath on exertion Thyroid disease Wears glasses Surgical History History of right mastectomy ( 09/2019) History of surgery on left wrist Hx of colonoscopy Hx of tonsillectomy Hx of wisdom tooth extraction S/P arteriovenous (AV) fistula creation S/P breast biopsy S/P tonsillectomy Family History Mother No problems noted. Grandfather No problems noted. Father Leukemia Social History Smoking Status: Former smoker (Quit 2016 ) quit date: 04/03/16 pack-years: 20 Tobacco: How many years used: 50 alcohol intake: current alcohol intake frequency: a few times a week ROS Const Const: Positive for fatigue; Negative for weakness, headache(s) or weight gain ENT ENT: Negative for headache(s), dizziness, Nos (more content not included)... Normal [facility] Neurology Visit Reporton Neurology Visit Report [facility] [address] [place] [address], [address] [place] [address] OFFICE VISIT Date of Service: 10/09/24 MR#: [id number] Acct: [id number] Name: NARGIS ERIC Rep #: [id number] : 1950 Provider: Dr. Alphonse benoit MD Age/Sex: 74/F [place] [facility] [place] Status: Signed HPI HPI Chief Complaint: Details: Interim History: Nargis returns for follow-up visit. She has a history of hyperlipidemia, COPD (she uses supplemental oxygen), hypothyroidism, breast cancer status post mastectomy in 2019 (now in remission), and schizophrenia who presented for evaluation of abnormal gait. She is accompanied by her sister. The patient been exhibiting slowing and shuffling of her gait since at least 2022 and this worsened over time; she feels that her gait has slowed further within recent months. She is able to ambulate independently. She occasionally has a left wrist tremor. She has hypophonia however this may be a lifelong pattern. She has some dysarthria. She occasionally has some dysphagia. In years past, she was treated with haloperidol for her schizophrenia. She apparently had some extrapyramidal dysfunction though details regarding this are presently not available. Currently, she is taking risperidone and olanzapine and has been on these medications for years; her dose of risperidone was reduced to 2.5mg daily since her last visit in 2023. She is under the care of of [facility] condition. She denied having depression or anxiety. Amantadine caused muscle cramps and was discontinued. Benztropine was initiated in 2023 and the patient reports having some improvement of her gait. She has tolerated benztropine well. She had physical therapy for her gait in 2023. She has had physical therapy for her left shoulder pain. She has had speech therapy. She has had some memory difficulty since around 2019 and this worsened over time. She has a tendency to forget conversations. She has not driven since the . She has some difficulty remembering future appointments. She resides with her sister. Her sister manages her finances. The patient is independent in dressing, bathing and meal preparation however she feels that her memory has worsened further within recent months. She has had mild headaches since childhood. Per prior report, these occurred up to 2 days/week. She does not have associated nausea, photophobia or phonophobia. She has low back pain and left lower extremity radicular pain. She is seeing a paint sprayer sandblaster, Dr. Matos, and has had lumbar injections and has been treated with meloxicam and these have been of benefit. She has numbness in the legs and hips and also reported some weakness in the lower extremities. She denied having vision change. She has experienced positional vertigo and in years past was diagnosed with M???ni???re's disease though on subsequent evaluation she was thought not to have M???ni???re's disease. She denied having hearing loss. She experiences occasional tinnitus. Mini-Mental status exam score was 28/30 in August 2023. She has fatigue. Her B12 level was near the low end of the normal range. A B12 injection was of benefit for her fatigue. She is to have left shoulder replacement surgery. Physical Exam: Neuro: The patient is awake; mini-mental status exam score is 29/30; gait is slow Neck: No bruits Supplemental Info Left knee x-rays (10/25/2016): FINDINGS: Normal visualized distal femur. Normal visualized proximal tibia and fibula. Normal proximal tibiofibular articulation. Normal medial femorotibial compartment. Normal lateral femorotibial compartment. Normal patellofemoral articulation. Minimal joint effusion. IMPRESSION: Minimal joint effusion. Right hip and pelvic x-rays (06/04/2019): FINDINGS: There is a non-specific bowel gas pattern. Normal visualized soft tissue structures. Normal bilateral iliac wings, sacroiliac joints and visualized sacrum. Normal bilateral superior and inferior pubic rami. Normal pubic symphysis. Normal bilateral ischial tuberosities. Normal visualized femoral head. Normal acetabulum. Normal hip joint. IMPRESSION: Normal x-ray examination of the pelvis and hip. Lumbar x-rays (06/04/2019): FINDINGS: Normal lumbar lordosis. There is no substantial scoliosis. 8 mm of anterolisthesis of L5 on S1. Moderate loss of height of the L5 vertebral body consistent with a moderate compression fracture. There is retropulsion of the superior endplate and the spinal canal. This may be acute, subacute, or chronic. MRI would be useful. Normal disc space heights. The soft tissue structures are unremarkable. IMPRESSION: Moderate compression fracture of L5 which may be acute, subacute, or chronic. MRI would be useful. Lumbar spine MRI (06/14/2019): FINDINGS: There is straightening of the normal lumb (more content not included)... Normal [facility] MR Heart cine for blood flow velocity mappingon 10-01-2024 * * *Final Report* * * DATE OF EXAM: Oct 01 2024 5:10PM [place] [id number] - MRI CARDIAC VELOCITY FLOW MAP / PROCEDURE REASON: R93.1 * * * * Physician Interpretation * * * * Cardiac MRI Report: [facility] Date of service: 10/01/2024 3:32:30 PM Linked orders:[id number] I CARD MORPH FUNC WO/W IVCON;[id number] CARDIAC VELOCITY FLOW MAP. Ordering physician: ARGENIS JORDAN Technologist: DOMITILA WHITNEY Interpreting physician: Daija Marrufo MD PATIENT: Name: NARGIS ERIC Age: 74 years Gender: F MRI Scanner: Siemens Maia 1.5T 74 year old female with suspected cardiomyopathy. 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 MRI Techniques: * Turbo spin echo and gradient echo imaging for anatomic definition. * Dynamic cine imaging (SSFP and GRE) for cardiac chamber and wall-motion analysis, and valvular analysis. * Flow quantification sequences for hemodynamics in 2 locations: aortic root and mid-ascending aorta. * Delayed gadolinium enhancement analysis after injection of gadolinium-chelate. * T2STIR/ T2 Fat Saturated Imaging. * T1 mapping. Gadolinium Agent: 12 cc of Gadavist was administered. Baseline vital signs: 74 bpm Height: 165.10 cm BSA: 1.92 m Weight: 80.70 kg BMI: 29.6 kg/m FINDINGS: Extracardiac findings: The chest wall appears normal. No significant adenopathy is identified. Limited imaging of the lungs reveals no gross abnormalities. Aorta: The thoracic aorta is normal in course, caliber and contour. Sinus: 3.1 cm Sinotubular junction: 2.2 cm Mid ascendin.2 cm Descending mid thoracic: 2.3 cm Pulmonary Arteries: Pulmonary Arteries: Normal Measurements: - Main pulmonary artery diameter: 2.2 cm - Right pulmonary artery diameter: 1.7 cm - Left pulmonary artery diameter: 2.1 cm Left Atrium: The left atrium is normal in size. LA volume: 31 ml (normal range: 28-100 ml) LA volume index: 16 ml/m (normal range: 17-54 ml/m ) LA area (4ch): 15 cm LA area (2ch): 11 cm Right Atrium: The right atrium is normal in size. RA volume: 56 ml (normal range: 24-81 ml) RA volume index: 29 ml/m (normal range: 18-58 ml/m ) RA area (4ch): 18 cm Left Ventricle: The left ventricle is normal in size. Left ventricular systolic function is mildly decreased. value (normal range) indexed (normal range) EDV: 103 ml (70-155 ml) EDVi: 54 ml/m (45-93 ml/m ) ESV: 59 ml (15-64 ml) ESVi: 30 ml/m (10-38 ml/m ) SV: 45 ml (47-99 ml) SVi: 23 ml/m (30-59 ml/m ) REYNALDO: 4.7 cm (3.9-5.9 cm) Monty: 2.5 cm/m (2.5-3.8 cm/m ) ESD: 3.8 cm (1.6-4.0 cm) ESDi: 2.0 cm/m (1.0-2.6 cm/m ) EF: 43 % (52-79 %) CO: 3.3 l/min (3.0-6.9 l/min) CI: 1.7 l/min/m (1.9-4.0 ml/min/m ) mass: 75 g (43-103 g) LVMi: 39 g/m (30-59 g/m ) LV segment wall thickness: basal anteroseptum: 0.8 cm basal inferolateral: 0.6 cm Wall Motion: There are no wall motion abnormalities. Delayed Enhancement: There is no delayed enhancement. Constellation of findings could be suggestive of non-ischemic cardiomyopathy. Right Ventricle: The right ventricle is normal in size. Right ventricular systolic function is mildly decreased. value (normal range) indexed (normal range) EDV: 123 ml (68-176 ml) EDVi: 64 ml/m (48-104 ml/m ) ESV: 73 ml (20-80 ml) ESVi: 38 ml/m (13-48 ml/m ) SV: 50 ml (39-109 ml) SVi: 26 ml/m (29-66 ml/m ) EF: 41 % (46-74 %) CO: 3.7 l/min (2.4-6.4 l/min) CI: 1.9 l/min/m (1.6-4.0 l/min/m ) T1 / T2 / ECV T2 * : T2 mapping: Global: 60.23 +/- 7.55 ms Aortic Valve: AV Flow Quantification: ST Junction Forward Volume: 43 ml Reverse Volume: 3 ml Net Forward Volume: 40 ml Regurgitant Fraction: 7 % Pulmonic Valve: PV Flow Quantification: Inaccurate due to technical limitations. Mitral Valve: Mitral Flow Quantification: Integrating LV volumetric and aortic flow quantification data (ST junction level) reveals: Regurgitant Volume: 2 ml Regurgitant Fraction: 3 % Limited imaging of the abdomen reveals no gross abnormalities. [facility] Provider, [facility] [place] - 10/01/2024 * * *Final Report* * * DATE OF EXAM: Oct 01 2024 5:10PM [facility] 0704 - MRI CARDIAC VELOCITY FLOW MAP / PROCEDURE REASON: R93.1 * * * * Physician Interpretation * * * * Cardiac MRI Report: [facility] Date of service: 10/01/2024 3:32:30 PM Linked orders:[id number] I CARD MORPH FUNC WO/W IVCON;[id number] CARDIAC VELOCITY FLOW MAP. Ordering physician: ARGENIS JORDAN Technologist: DOMITILA WHITNEY Interpreting physician: Daija Marrufo MD PATIENT: Name: NARGIS ERIC Age: 74 years Gender: F MRI Scanner: Siemens Maia 1.5T 74 year old female with suspected cardiomyopathy. 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 MRI Techniques: * Turbo spin echo and gradient echo imaging for anatomic definition. * Dynamic cine imaging (SSFP and GRE) for cardiac chamber and wall-motion analysis, and valvular analysis. * Flow quantification sequences for hemodynamics in 2 locations: aortic root and mid-ascending aorta. * Delayed gadolinium enhancement analysis after injection of gadolinium-chelate. * T2STIR/ T2 Fat Saturated Imaging. * T1 mapping. Gadolinium Agent: 12 cc of Gadavist was administered. Baseline vital signs: 74 bpm Height: 165.10 cm BSA: 1.92 m Weight: 80.70 kg BMI: 29.6 kg/m FINDINGS: Extracardiac findings: The chest wall appears normal. No significant adenopathy is identified. Limited imaging of the lungs reveals no gross abnormalities. Aorta: The thoracic aorta is normal in course, caliber and contour. Sinus: 3.1 cm Sinotubular junction: 2.2 cm Mid ascendin.2 cm Descending mid thoracic: 2.3 cm Pulmonary Arteries: Pulmonary Arteries: Normal Measurements: - Main pulmonary artery diameter: 2.2 cm - Right pulmonary artery diameter: 1.7 cm - Left pulmonary artery diameter: 2.1 cm Left Atrium: The left atrium is normal in size. LA volume: 31 ml (normal range: 28-100 ml) LA volume index: 16 ml/m (normal range: 17-54 ml/m ) LA area (4ch): 15 cm LA area (2ch): 11 cm Right Atrium: The right atrium is normal in size. RA volume: 56 ml (normal range: 24-81 ml) RA volume index: 29 ml/m (normal range: 18-58 ml/m ) RA area (4ch): 18 cm Left Ventricle: The left ventricle is normal in size. Left ventricular systolic function is mildly decreased. value (normal range) indexed (normal range) EDV: 103 ml (70-155 ml) EDVi: 54 ml/m (45-93 ml/m ) ESV: 59 ml (15-64 ml) ESVi: 30 ml/m (10-38 ml/m ) SV: 45 ml (47-99 ml) SVi: 23 ml/m (30-59 ml/m ) REYNALDO: 4.7 cm (3.9-5.9 cm) Monty: 2.5 cm/m (2.5-3.8 cm/m ) ESD: 3.8 cm (1.6-4.0 cm) ESDi: 2.0 cm/m (1.0-2.6 cm/m ) EF: 43 % (52-79 %) CO: 3.3 l/min (3.0-6.9 l/min) CI: 1.7 l/min/m (1.9-4.0 ml/min/m ) mass: 75 g (43-103 g) LVMi: 39 g/m (30-59 g/m ) LV segment wall thickness: basal anteroseptum: 0.8 cm basal inferolateral: 0.6 cm Wall Motion: There are no wall motion abnormalities. Delayed Enhancement: There is no delayed enhancement. Constellation of findings could be suggestive of non-ischemic cardiomyopathy. Right Ventricle: The right ventricle is normal in size. Right ventricular systolic function is mildly decreased. value (normal range) indexed (normal range) EDV: 123 ml (68-176 ml) EDVi: 64 ml/m (48-104 ml/m ) ESV: 73 ml (20-80 ml) ESVi: 38 ml/m (13-48 ml/m ) SV: 50 ml (39-109 ml) SVi: 26 ml/m (29-66 ml/m ) EF: 41 % (46-74 %) CO: 3.7 l/min (2.4-6.4 l/min) CI: 1.9 l/min/m (1.6-4.0 l/min/m ) T1 / T2 / ECV T2 * : T2 mapping: Global: 60.23 +/- 7.55 ms Aortic Valve: AV Flow Quantification: ST Junction Forward Volume: 43 ml Reverse Volume: 3 ml Net Forward Volume: 40 ml Regurgitant Fraction: 7 % Pulmonic Valve: PV Flow Quantification: Inaccurate due to technical limitations. Mitral Valve: Mitral Flow Quantification: Integrating LV volumetric and aortic flow quantification data (ST junction level) reveals: Regurgitant Volume: 2 ml Regurgitant Fraction: 3 % Limited imaging of the abdomen reveals no gross abnormalities. IMPRESSION IMPRESSION: - The left ventricle is normal in size (LV EDVi = 54 ml/m ). The left ventricular systolic function is mildly decreased (LV EF = 43 %). - The right ventricle is normal in size (RV EDVi = 64 ml/m ). The right ventricular systolic function is mildly decreased (RV EF = 41 %). - Mild increase in trabeculation is noted along the distal anterolateral, apical schulte. The ratio of the trabeculated to the known trabeculated portion of the left ventricular myocardium is calculated at 1.7 cm. This ratio does not meet the diagnost (more content not included)... [facility] MRI CARD MORPH FUNC WO/W IVC ONon 10-01-2024 MRI CARD MORPH FUNC WO/W IVCON * * *Final Report* * * DATE OF EXAM: Oct 01 2024 5:10PM [facility] 0703 - MRI CARD MORPH FUNC WO/W IVCON / PROCEDURE REASON: R93.1 * * * * Physician Interpretation * * * * Cardiac MRI Report: [facility] Date of service: 10/01/2024 3:32:30 PM Linked orders:[id number] I CARD MORPH FUNC WO/W IVCON;[id number] CARDIAC VELOCITY FLOW MAP. Ordering physician: ARGENIS JORDAN Technologist: DOMITILA WHITNEY Interpreting physician: Daija Marrufo MD PATIENT: Name: NARGIS ERIC Age: 74 years Gender: F MRI Scanner: Siemens Maia 1.5T 74 year old female with suspected cardiomyopathy. 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 MRI Techniques: * Turbo spin echo and gradient echo imaging for anatomic definition. * Dynamic cine imaging (SSFP and GRE) for cardiac chamber and wall-motion analysis, and valvular analysis. * Flow quantification sequences for hemodynamics in 2 locations: aortic root and mid-ascending aorta. * Delayed gadolinium enhancement analysis after injection of gadolinium-chelate. * T2STIR/ T2 Fat Saturated Imaging. * T1 mapping. Gadolinium Agent: 12 cc of Gadavist was administered. Baseline vital signs: 74 bpm Height: 165.10 cm BSA: 1.92 m? Weight: 80.70 kg BMI: 29.6 kg/m? FINDINGS: Extracardiac findings: The chest wall appears normal. No significant adenopathy is identified. Limited imaging of the lungs reveals no gross abnormalities. Aorta: The thoracic aorta is normal in course, caliber and contour. Sinus: 3.1 cm Sinotubular junction: 2.2 cm Mid ascendin.2 cm Descending mid thoracic: 2.3 cm Pulmonary Arteries: Pulmonary Arteries: Normal Measurements: - Main pulmonary artery diameter: 2.2 cm - Right pulmonary artery diameter: 1.7 cm - Left pulmonary artery diameter: 2.1 cm Left Atrium: The left atrium is normal in size. LA volume: 31 ml (normal range: 28-100 ml) LA volume index: 16 ml/m? (normal range: 17-54 ml/m?) LA area (4ch): 15 cm? LA area (2ch): 11 cm? Right Atrium: The right atrium is normal in size. RA volume: 56 ml (normal range: 24-81 ml) RA volume index: 29 ml/m? (normal range: 18-58 ml/m?) RA area (4ch): 18 cm? Left Ventricle: The left ventricle is normal in size. Left ventricular systolic function is mildly decreased. value (normal range) indexed (normal range) EDV: 103 ml (70-155 ml) EDVi: 54 ml/m? (45-93 ml/m?) ESV: 59 ml (15-64 ml) ESVi: 30 ml/m? (10-38 ml/m?) SV: 45 ml (47-99 ml) SVi: 23 ml/m? (30-59 ml/m?) REYNALDO: 4.7 cm (3.9-5.9 cm) Monty: 2.5 cm/m? (2.5-3.8 cm/m?) ESD: 3.8 cm (1.6-4.0 cm) ESDi: 2.0 cm/m? (1.0-2.6 cm/m?) EF: 43 % (52-79 %) CO: 3.3 l/min (3.0-6.9 l/min) CI: 1.7 l/min/m? (1.9-4.0 ml/min/m?) mass: 75 g (43-103 g) LVMi: 39 g/m? (30-59 g/m?) LV segment wall thickness: basal anteroseptum: 0.8 cm basal inferolateral: 0.6 cm Wall Motion: There are no wall motion abnormalities. Delayed Enhancement: There is no delayed enhancement. Constellation of findings could be suggestive of non-ischemic cardiomyopathy. Right Ventricle: The right ventricle is normal in size. Right ventricular systolic function is mildly decreased. value (normal range) indexed (normal range) EDV: 123 ml (68-176 ml) EDVi: 64 ml/m? (48-104 ml/m?) ESV: 73 ml (20-80 ml) ESVi: 38 ml/m? (13-48 ml/m?) SV: 50 ml (39-109 ml) SVi: 26 ml/m? (29-66 ml/m?) EF: 41 % (46-74 %) CO: 3.7 l/min (2.4-6.4 l/min) CI: 1.9 l/min/m? (1.6-4.0 l/min/m?) T1 / T2 / ECV T2 * : T2 mapping: Global: 60.23 +/- 7.55 ms Aortic Valve: AV Flow Quantification: ST Junction Forward Volume: 43 ml Reverse Volume: 3 ml Net Forward Volume: 40 ml Regurgitant Fraction: 7 % Pulmonic Valve: PV Flow Quantification: Inaccurate due to technical limitations. Mitral Valve: Mitral Flow Quantification: Integrating LV volumetric and aortic flow quantification data (ST junction level) reveals: Regurgitant Volume: 2 ml Regurgitant Fraction: 3 % Limited imaging of the abdomen reveals no gross abnormalities. IMPRESSION: - The left ventricle is normal in size (LV EDVi = 54 ml/m?). The left ventricular systolic function is mildly decreased (LV EF = 43 %). - The right ventricle is normal in size (RV EDVi = 64 ml/m?). The right ventricular systolic function is mildly decreased (RV EF = 41 %). - Mild increase in trabeculation is noted along the distal anterolateral, apical schulte. The ratio of the trabeculated to the known trabeculated portion of the left ventricular myocardium is calculated at 1.7 cm. This ratio does not meet the diagnostic criteria for cardiomyopathy with increased trabeculation (often referred to as noncompaction cardiomyopathy) Late gadolinium enhancement (LGE) (more content not included)... Normal [facility] MRI CARDIAC MORPH FUNC WO/W IVCONon 10-01-2024 * * *Final Report* * * DATE OF EXAM: Oct 01 2024 5:10PM [facility] 0703 - MRI CARD MORPH FUNC WO/W IVCON / PROCEDURE REASON: R93.1 * * * * Physician Interpretation * * * * Cardiac MRI Report: [facility] Date of service: 10/01/2024 3:32:30 PM Linked orders:[id number] I CARD MORPH FUNC WO/W IVCON;[id number] CARDIAC VELOCITY FLOW MAP. Ordering physician: ARGENIS JORDAN Technologist: DOMITILA WHITNEY Interpreting physician: Daija Marrufo MD PATIENT: Name: NARGIS ERIC Age: 74 years Gender: F MRI Scanner: Siemens Maia 1.5T 74 year old female with suspected cardiomyopathy. 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 MRI Techniques: * Turbo spin echo and gradient echo imaging for anatomic definition. * Dynamic cine imaging (SSFP and GRE) for cardiac chamber and wall-motion analysis, and valvular analysis. * Flow quantification sequences for hemodynamics in 2 locations: aortic root and mid-ascending aorta. * Delayed gadolinium enhancement analysis after injection of gadolinium-chelate. * T2STIR/ T2 Fat Saturated Imaging. * T1 mapping. Gadolinium Agent: 12 cc of Gadavist was administered. Baseline vital signs: 74 bpm Height: 165.10 cm BSA: 1.92 m Weight: 80.70 kg BMI: 29.6 kg/m FINDINGS: Extracardiac findings: The chest wall appears normal. No significant adenopathy is identified. Limited imaging of the lungs reveals no gross abnormalities. Aorta: The thoracic aorta is normal in course, caliber and contour. Sinus: 3.1 cm Sinotubular junction: 2.2 cm Mid ascendin.2 cm Descending mid thoracic: 2.3 cm Pulmonary Arteries: Pulmonary Arteries: Normal Measurements: - Main pulmonary artery diameter: 2.2 cm - Right pulmonary artery diameter: 1.7 cm - Left pulmonary artery diameter: 2.1 cm Left Atrium: The left atrium is normal in size. LA volume: 31 ml (normal range: 28-100 ml) LA volume index: 16 ml/m (normal range: 17-54 ml/m ) LA area (4ch): 15 cm LA area (2ch): 11 cm Right Atrium: The right atrium is normal in size. RA volume: 56 ml (normal range: 24-81 ml) RA volume index: 29 ml/m (normal range: 18-58 ml/m ) RA area (4ch): 18 cm Left Ventricle: The left ventricle is normal in size. Left ventricular systolic function is mildly decreased. value (normal range) indexed (normal range) EDV: 103 ml (70-155 ml) EDVi: 54 ml/m (45-93 ml/m ) ESV: 59 ml (15-64 ml) ESVi: 30 ml/m (10-38 ml/m ) SV: 45 ml (47-99 ml) SVi: 23 ml/m (30-59 ml/m ) REYNALDO: 4.7 cm (3.9-5.9 cm) Monty: 2.5 cm/m (2.5-3.8 cm/m ) ESD: 3.8 cm (1.6-4.0 cm) ESDi: 2.0 cm/m (1.0-2.6 cm/m ) EF: 43 % (52-79 %) CO: 3.3 l/min (3.0-6.9 l/min) CI: 1.7 l/min/m (1.9-4.0 ml/min/m ) mass: 75 g (43-103 g) LVMi: 39 g/m (30-59 g/m ) LV segment wall thickness: basal anteroseptum: 0.8 cm basal inferolateral: 0.6 cm Wall Motion: There are no wall motion abnormalities. Delayed Enhancement: There is no delayed enhancement. Constellation of findings could be suggestive of non-ischemic cardiomyopathy. Right Ventricle: The right ventricle is normal in size. Right ventricular systolic function is mildly decreased. value (normal range) indexed (normal range) EDV: 123 ml (68-176 ml) EDVi: 64 ml/m (48-104 ml/m ) ESV: 73 ml (20-80 ml) ESVi: 38 ml/m (13-48 ml/m ) SV: 50 ml (39-109 ml) SVi: 26 ml/m (29-66 ml/m ) EF: 41 % (46-74 %) CO: 3.7 l/min (2.4-6.4 l/min) CI: 1.9 l/min/m (1.6-4.0 l/min/m ) T1 / T2 / ECV T2 * : T2 mapping: Global: 60.23 +/- 7.55 ms Aortic Valve: AV Flow Quantification: ST Junction Forward Volume: 43 ml Reverse Volume: 3 ml Net Forward Volume: 40 ml Regurgitant Fraction: 7 % Pulmonic Valve: PV Flow Quantification: Inaccurate due to technical limitations. Mitral Valve: Mitral Flow Quantification: Integrating LV volumetric and aortic flow quantification data (ST junction level) reveals: Regurgitant Volume: 2 ml Regurgitant Fraction: 3 % Limited imaging of the abdomen reveals no gross abnormalities. [facility] Provider, [facility] [place] - 10/01/2024 * * *Final Report* * * DATE OF EXAM: Oct 01 2024 5:10PM [facility] 0703 - MRI CARD MORPH FUNC WO/W IVCON / PROCEDURE REASON: R93.1 * * * * Physician Interpretation * * * * Cardiac MRI Report: [facility] Date of service: 10/01/2024 3:32:30 PM Linked orders:[id number] I CARD MORPH FUNC WO/W IVCON;[id number] CARDIAC VELOCITY FLOW MAP. Ordering physician: ARGENIS JORDAN Technologist: DOMITILA WHITNEY Interpreting physician: Daija Marrufo MD PATIENT: Name: NARGIS ERIC Age: 74 years Gender: F MRI Scanner: Siemens Maia 1.5T 74 year old female with suspected cardiomyopathy. 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 MRI Techniques: * Turbo spin echo and gradient echo imaging for anatomic definition. * Dynamic cine imaging (SSFP and GRE) for cardiac chamber and wall-motion analysis, and valvular analysis. * Flow quantification sequences for hemodynamics in 2 locations: aortic root and mid-ascending aorta. * Delayed gadolinium enhancement analysis after injection of gadolinium-chelate. * T2STIR/ T2 Fat Saturated Imaging. * T1 mapping. Gadolinium Agent: 12 cc of Gadavist was administered. Baseline vital signs: 74 bpm Height: 165.10 cm BSA: 1.92 m Weight: 80.70 kg BMI: 29.6 kg/m FINDINGS: Extracardiac findings: The chest wall appears normal. No significant adenopathy is identified. Limited imaging of the lungs reveals no gross abnormalities. Aorta: The thoracic aorta is normal in course, caliber and contour. Sinus: 3.1 cm Sinotubular junction: 2.2 cm Mid ascendin.2 cm Descending mid thoracic: 2.3 cm Pulmonary Arteries: Pulmonary Arteries: Normal Measurements: - Main pulmonary artery diameter: 2.2 cm - Right pulmonary artery diameter: 1.7 cm - Left pulmonary artery diameter: 2.1 cm Left Atrium: The left atrium is normal in size. LA volume: 31 ml (normal range: 28-100 ml) LA volume index: 16 ml/m (normal range: 17-54 ml/m ) LA area (4ch): 15 cm LA area (2ch): 11 cm Right Atrium: The right atrium is normal in size. RA volume: 56 ml (normal range: 24-81 ml) RA volume index: 29 ml/m (normal range: 18-58 ml/m ) RA area (4ch): 18 cm Left Ventricle: The left ventricle is normal in size. Left ventricular systolic function is mildly decreased. value (normal range) indexed (normal range) EDV: 103 ml (70-155 ml) EDVi: 54 ml/m (45-93 ml/m ) ESV: 59 ml (15-64 ml) ESVi: 30 ml/m (10-38 ml/m ) SV: 45 ml (47-99 ml) SVi: 23 ml/m (30-59 ml/m ) REYNALDO: 4.7 cm (3.9-5.9 cm) Monty: 2.5 cm/m (2.5-3.8 cm/m ) ESD: 3.8 cm (1.6-4.0 cm) ESDi: 2.0 cm/m (1.0-2.6 cm/m ) EF: 43 % (52-79 %) CO: 3.3 l/min (3.0-6.9 l/min) CI: 1.7 l/min/m (1.9-4.0 ml/min/m ) mass: 75 g (43-103 g) LVMi: 39 g/m (30-59 g/m ) LV segment wall thickness: basal anteroseptum: 0.8 cm basal inferolateral: 0.6 cm Wall Motion: There are no wall motion abnormalities. Delayed Enhancement: There is no delayed enhancement. Constellation of findings could be suggestive of non-ischemic cardiomyopathy. Right Ventricle: The right ventricle is normal in size. Right ventricular systolic function is mildly decreased. value (normal range) indexed (normal range) EDV: 123 ml (68-176 ml) EDVi: 64 ml/m (48-104 ml/m ) ESV: 73 ml (20-80 ml) ESVi: 38 ml/m (13-48 ml/m ) SV: 50 ml (39-109 ml) SVi: 26 ml/m (29-66 ml/m ) EF: 41 % (46-74 %) CO: 3.7 l/min (2.4-6.4 l/min) CI: 1.9 l/min/m (1.6-4.0 l/min/m ) T1 / T2 / ECV T2 * : T2 mapping: Global: 60.23 +/- 7.55 ms Aortic Valve: AV Flow Quantification: ST Junction Forward Volume: 43 ml Reverse Volume: 3 ml Net Forward Volume: 40 ml Regurgitant Fraction: 7 % Pulmonic Valve: PV Flow Quantification: Inaccurate due to technical limitations. Mitral Valve: Mitral Flow Quantification: Integrating LV volumetric and aortic flow quantification data (ST junction level) reveals: Regurgitant Volume: 2 ml Regurgitant Fraction: 3 % Limited imaging of the abdomen reveals no gross abnormalities. IMPRESSION IMPRESSION: - The left ventricle is normal in size (LV EDVi = 54 ml/m ). The left ventricular systolic function is mildly decreased (LV EF = 43 %). - The right ventricle is normal in size (RV EDVi = 64 ml/m ). The right ventricular systolic function is mildly decreased (RV EF = 41 %). - Mild increase in trabeculation is noted along the distal anterolateral, apical schulte. The ratio of the trabeculated to the known trabeculated portion of the left ventricular myocardium is calculated at 1.7 cm. This ratio does not meet the diagnos (more content not included)... [facility] MRI CARDIAC VELOCITY FLOW MA Rudy 10-01-2024 MRI CARDIAC VELOCITY FLOW MAP * * *Final Report* * * DATE OF EXAM: Oct 01 2024 5:10PM [facility] 0704 - MRI CARDIAC VELOCITY FLOW MAP / PROCEDURE REASON: R93.1 * * * * Physician Interpretation * * * * Cardiac MRI Report: [facility] Date of service: 10/01/2024 3:32:30 PM Linked orders:[id number] I CARD MORPH FUNC WO/W IVCON;[id number] CARDIAC VELOCITY FLOW MAP. Ordering physician: ARGENIS JORDAN Technologist: DOMITILA WHITNEY Interpreting physician: Daija Marrufo MD PATIENT: Name: NARGIS ERIC Age: 74 years Gender: F MRI Scanner: Siemens Maia 1.5T 74 year old female with suspected cardiomyopathy. 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 MRI Techniques: * Turbo spin echo and gradient echo imaging for anatomic definition. * Dynamic cine imaging (SSFP and GRE) for cardiac chamber and wall-motion analysis, and valvular analysis. * Flow quantification sequences for hemodynamics in 2 locations: aortic root and mid-ascending aorta. * Delayed gadolinium enhancement analysis after injection of gadolinium-chelate. * T2STIR/ T2 Fat Saturated Imaging. * T1 mapping. Gadolinium Agent: 12 cc of Gadavist was administered. Baseline vital signs: 74 bpm Height: 165.10 cm BSA: 1.92 m? Weight: 80.70 kg BMI: 29.6 kg/m? FINDINGS: Extracardiac findings: The chest wall appears normal. No significant adenopathy is identified. Limited imaging of the lungs reveals no gross abnormalities. Aorta: The thoracic aorta is normal in course, caliber and contour. Sinus: 3.1 cm Sinotubular junction: 2.2 cm Mid ascendin.2 cm Descending mid thoracic: 2.3 cm Pulmonary Arteries: Pulmonary Arteries: Normal Measurements: - Main pulmonary artery diameter: 2.2 cm - Right pulmonary artery diameter: 1.7 cm - Left pulmonary artery diameter: 2.1 cm Left Atrium: The left atrium is normal in size. LA volume: 31 ml (normal range: 28-100 ml) LA volume index: 16 ml/m? (normal range: 17-54 ml/m?) LA area (4ch): 15 cm? LA area (2ch): 11 cm? Right Atrium: The right atrium is normal in size. RA volume: 56 ml (normal range: 24-81 ml) RA volume index: 29 ml/m? (normal range: 18-58 ml/m?) RA area (4ch): 18 cm? Left Ventricle: The left ventricle is normal in size. Left ventricular systolic function is mildly decreased. value (normal range) indexed (normal range) EDV: 103 ml (70-155 ml) EDVi: 54 ml/m? (45-93 ml/m?) ESV: 59 ml (15-64 ml) ESVi: 30 ml/m? (10-38 ml/m?) SV: 45 ml (47-99 ml) SVi: 23 ml/m? (30-59 ml/m?) REYNALDO: 4.7 cm (3.9-5.9 cm) Monty: 2.5 cm/m? (2.5-3.8 cm/m?) ESD: 3.8 cm (1.6-4.0 cm) ESDi: 2.0 cm/m? (1.0-2.6 cm/m?) EF: 43 % (52-79 %) CO: 3.3 l/min (3.0-6.9 l/min) CI: 1.7 l/min/m? (1.9-4.0 ml/min/m?) mass: 75 g (43-103 g) LVMi: 39 g/m? (30-59 g/m?) LV segment wall thickness: basal anteroseptum: 0.8 cm basal inferolateral: 0.6 cm Wall Motion: There are no wall motion abnormalities. Delayed Enhancement: There is no delayed enhancement. Constellation of findings could be suggestive of non-ischemic cardiomyopathy. Right Ventricle: The right ventricle is normal in size. Right ventricular systolic function is mildly decreased. value (normal range) indexed (normal range) EDV: 123 ml (68-176 ml) EDVi: 64 ml/m? (48-104 ml/m?) ESV: 73 ml (20-80 ml) ESVi: 38 ml/m? (13-48 ml/m?) SV: 50 ml (39-109 ml) SVi: 26 ml/m? (29-66 ml/m?) EF: 41 % (46-74 %) CO: 3.7 l/min (2.4-6.4 l/min) CI: 1.9 l/min/m? (1.6-4.0 l/min/m?) T1 / T2 / ECV T2 * : T2 mapping: Global: 60.23 +/- 7.55 ms Aortic Valve: AV Flow Quantification: ST Junction Forward Volume: 43 ml Reverse Volume: 3 ml Net Forward Volume: 40 ml Regurgitant Fraction: 7 % Pulmonic Valve: PV Flow Quantification: Inaccurate due to technical limitations. Mitral Valve: Mitral Flow Quantification: Integrating LV volumetric and aortic flow quantification data (ST junction level) reveals: Regurgitant Volume: 2 ml Regurgitant Fraction: 3 % Limited imaging of the abdomen reveals no gross abnormalities. IMPRESSION: - The left ventricle is normal in size (LV EDVi = 54 ml/m?). The left ventricular systolic function is mildly decreased (LV EF = 43 %). - The right ventricle is normal in size (RV EDVi = 64 ml/m?). The right ventricular systolic function is mildly decreased (RV EF = 41 %). - Mild increase in trabeculation is noted along the distal anterolateral, apical schulte. The ratio of the trabeculated to the known trabeculated portion of the left ventricular myocardium is calculated at 1.7 cm. This ratio does not meet the diagnostic criteria for cardiomyopathy with increased trabeculation (often referred to as noncompaction cardiomyopathy) Late gadolinium enhancement (LGE) f (more content not included)... Normal [facility] No Panel Informationon 10-01 IMPRESSION: - The left ventricle is normal in size (LV EDVi = 54 ml/m ). The left ventricular systolic function is mildly decreased (LV EF = 43 %). - The right ventricle is normal in size (RV EDVi = 64 ml/m ). The right ventricular systolic function is mildly decreased (RV EF = 41 %). - Mild increase in trabeculation is noted along the distal anterolateral, apical schulte. The ratio of the trabeculated to the known trabeculated portion of the left ventricular myocardium is calculated at 1.7 cm. This ratio does not meet the diagnostic criteria for cardiomyopathy with increased trabeculation (often referred to as noncompaction cardiomyopathy) Late gadolinium enhancement (LGE) findings do not suggest any evidence of LGE involving either the left or the right ventricles. 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 - No mural thrombi are identified within the left ventricular cavity. - Only trivial mitral regurgitation is seen. No other significant valvular heart disease seen. - No significant pericardial effusion evident. - The patient has not had a prior CC cardiac MR exam for comparison. * * * Final * * * RP Registered Dental Hygienist: CHRISTY Transcriyadira Date/Time: Oct 01 2024 3:32P Dictated by : DAIJA MARRUFO MD This examination was interpreted and the report reviewed and electronically signed by: DAIJA MARRUFO MD on Oct 01 2024 11:30PM [facility] [employer] Study observation (narrative) [facility] No Panel InformationOrdered By: [facility]24 [facility] Telephone (ZIAI) ---- NARGIS ERIC ([id number]) 1950 F Date Time Provider Department 09/25/24 CASSANDRA LAW During your visit today, we recorded the following information about you: Cassandra Law, secretary to the vice president 09/25/2024 8:[address] Marrufo, Please provide a CMR Protocol for Nargis Eric 1950. She is scheduled for a Cardiac MRI Tuesday at 3:00pm. Her orders can be found in scanned documents from 07/18/2024. Order appears to be from [facility] due to abnormal findings on dx imaging of heart and circulatory system. Thank you. Sincerely, Cassandra Law RT(R)EBNEDICTO Marrufo, Daija Mejias MD 09/26/2024 10:31 AM Signed Noncompaction cardiomyopathy protocol. Hello, Get the dark, and bright bloods, all regular cines required. Short axis cine stack is most important. STIR the 4 C, 2 C, one short axis, inject contrast, get first pass, and get delayed images at 8 min (4C, 2C, 3C, SA). T1 ( 3 levels base, mid apex), T2 mapping, T2* required. Qp, Qs if ordered. If you do them, pls make sure there is no aliasing in the Qp or Qs. I would get QS ( ascending aorta at the level of the main PA. Make sure that you are perpendicular to the ascending aorta using the 3C, LVOT long) at venc 200, 250, 300 or even higher until the aliasing disappears completely. Thanks, Dr Marrufo Allergies As of Date: 09/25/2024 Noted Allergy Reaction HALOPERIDOL 07/03/2020 1 - Mental Status Change Date Reviewed: 07/03/2020 Reviewed by: Zandra Nevarez (Anh) - Fully Assessed Reason for Visit: Orders [681] Prescriptions as of 09/26/2024 - levothyroxine (SYNTHROID) 50 mcg tablet Take 1 tablet by mouth once daily. - anastrozole (ARIMIDEX) 1 mg tablet Take 1 tablet by mouth once daily. - meloxicam (MOBIC) 7.5 mg tablet Take 1 tablet by mouth as needed. - OLANZapine orally disintegrating (ZYPREXA ZYDIS) 20 mg disintegrating tablet Take 1 tablet by mouth once daily. - OLANZapine orally disintegrating (ZYPREXA ZYDIS) 5 mg disintegrating tablet Take 1 tablet by mouth once daily. - risperiDONE (RISPERDAL) 0.5 mg tablet Take 1 tablet by mouth once daily. - risperiDONE (RISPERDAL) 1 mg tablet Take 1 tablet by mouth once daily. - risperiDONE (RISPERDAL) 3 mg tablet Take 1 tablet by mouth once daily. - ANORO ELLIPTA 62.5-25 mcg/actuation inhaler Inhale 1 Inhalation as instructed once daily. Problem List As Of Date: 09/25/2024 (None) Encounter Status:Closed by CASSANDRA LAW on 09/25/24 Normal [facility] Coronary Angiography CTon Coronary Angiography CT [facility] Imaging Services [address] [place] [address] 08/29/24 0744 MR#: [id number] Acct: [id number] Name: NARGIS ERIC Rep #: [id number] : 1950 74 From: Calvin Bobby MD PCP: Dr. Vadim Jones MD Status:REG CLI Y Location: CT CCTA w/Cont Coronary Arteries Date of Study:: 08/28/24 Chest pain Coronary Calcium Scoring: High-resolution Computed Tomographic imaging of the chest was performed on [08/28/2024], with particular attention paid to the coronary arteries. Intravenous contrast agent was administered per protocol and images reconstructed and displayed. LEFT MAIN CORONARY ARTERY: Arises from the left main coronary cusp and bifurcates into left anterior descending artery and left circumflex artery. No significant stenosis is noted. [] LEFT ANTERIOR DESCENDING CORONARY ARTERY: This arises from the left anterior descending artery. There is an eccentric 40% proximal to mid stenotic soft plaque noted in the rest of the LAD appears to have mild disease. [] LEFT CIRCUMFLEX CORONARY ARTERY: This vessel appears to be calcified in the proximal and mid segment with at least moderate stenosis noted and mild distal disease present. [] RIGHT CORONARY ARTERY: This arises from the right coronary cusp and is noted to have diffuse atherosclerosis with no high-grade plaque noted. [] THORACIC AORTA: [] PULMONARY ARTERY: [] LEFT ATRIUM/APPENDAGE: [] MITRAL VALVE: [] AORTIC VALVE: [] LEFT VENTRICLE: [] CORONARY CALCIUM SCORE: Not done CT angiogram with soft plaque noted in the left anterior descending artery and calcified at least moderate stenosis noted in the proximal to mid circumflex artery. [] 08/29/24 0746 Date Calvin Bobby MD Cosigner Signature (if applicable): Date CC: Dr. Trudy Bryant MD; Dr. Vadim Jones MD; Dr. Calvin Bobby MD Signed Normal [facility] Limited Chest CT Cardiac Onl yon 08-28-[address] Cardiac Only [facility] Imaging Services [address] [place] [id number] Cardiac Only MR#: [id number] Acct: [id number] Name: NARGIS ERIC Rep #: [id number] : 1950 F 74 From: Jason hodge MD PCP: Dr. Vadim Jones MD Status: [facility] Study: Limited Chest CT Cardiac Only Date of Exam: Exam# [id number] Ordering Dr: Trudy Bryant MD -[id number] STUDY: CT CHEST WITH CONTRAST REASON FOR EXAM: Female, 74 years old. Chest over-read RADIATION DOSAGE (If Supplied By Facility): CTDIvol = ( 31.63 ) mGy, DLP = ( 1090.21 ) mGycm TECHNIQUE: Transaxial imaging was performed following intravenous administration of IV 75mL Isovue-370. Cardiac ovary the examination. Individualized dose optimization techniques were used for this CT. COMPARISON: No relevant priors. FINDINGS: CHEST Findings suggestion of scarring in the anterior medial aspect of the right upper lobe as well as in the right lower. Mild scarring in the posterior aspect of the lingular segment of the left upper lobe. There is no demonstrated pleural abnormality. There are calcifications of the coronary arteries. Normal mediastinum. Normal hilar regions. Normal unenhanced pulmonary arteries. Normal aorta arch and descending thoracic aorta. There are degenerative changes of the thoracic spine. There is no demonstrated abnormality of the visualized upper abdomen. CT/Limited Chest CT Cardiac Only IMPRESSION: Coronary artery calcification. Electronically Signed: Jason Oreilly MD at 15:00 EST , CC: Dr. Trudy Bryant MD; Dr. Vadim Jones MD Registered Dental Hygienist: Signed Normal [facility] Echo Completeon 07-11-2024 Echo Complete [facility] [address] [place] [address] Echo Complete 07/11/24 1014 MR#: [id number] Acct: [id number] Name: NARGIS ERIC Rep #: [id number] : 1950 74 From: Trudy Bryant MD Attending Dr: Dr. Trudy Bryant MD Status: REG CLI Ordering Dr: Trudy Bryant MD Date: 07/11/24 Location: [facility] Sex: F C Admitted: Reason For Study: Dyspnea/SOB Procedure This was a 2D Doppler, Color Flow transthoracic echocardiogram. Technically difficult study. Patient scanned supine d/t pain from laying on left side. Exam performed in department. Left Ventricle Normal left ventricular thickness. Severe generalized hypokinesis. Estimated LVEF 35%. Stage I diastolic dysfunction. 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 Right Ventricle Normal right ventricle. Atria The left and right atria are normal. Mitral Valve Trivial mitral valve insufficiency. Tricuspid Valve Trivial tricuspid valve insufficiency. Unable to estimate RV systolic pressure due to insufficient tricuspid regurgitant envelope. Aortic Valve Trisinus/trileaflet aortic valve. Pulmonic Valve The pulmonic valve is not well visualized. Great Vessels Normal sized aortic root. Pericardium/Pleural No pericardial effusion. MMode/2D Measurements Calculations LVIDd: 4.7 cm IVSd: 1.0 cm Ao root diam: 3.5 cm LVIDs: 3.7 cm LVPWd: 0.84 cm RVDd: 3.6 cm FS: 20.5 % LAV(MOD-bp): 29.5 ml LVAd ap4: 28.1 cm2 LVAd ap2: 29.1 cm2 LAV(MOD-bp) Indexed: 15.7 ml/m2 LVLd ap4: 7.6 cm LVLd ap2: 7.8 cm LAV(MOD-sp2): 22.1 ml EDV(MOD-sp4): 91.7 ml EDV(MOD-sp2): 92.3 ml LAV(MOD-sp4): 27.6 ml EDV(sp4-el): 88.6 ml EDV(sp2-el): 91.9 ml LVAs ap4: 20.4 cm2 LVAs ap2: 19.3 cm2 LVLs ap4: 7.4 cm LVLs ap2: 6.7 cm ESV(MOD-sp4): 47.3 ml ESV(MOD-sp2): 48.9 ml ESV(sp4-el): 47.6 ml ESV(sp2-el): 47.0 ml EF(MOD-sp4): 48.5 % EF(MOD-sp2): 47.0 % EF(sp4-el): 46.3 % SV(MOD-sp4): 44.5 ml SV(MOD-sp2): 43.4 ml SV(sp4-el): 41.0 ml SI(MOD-sp4): 23.7 ml/m2 SI(MOD-sp2): 23.1 ml/m2 LA A4 area: 13.0 cm2 LA dimension(2D): 3.5 cm RA A4 area: 13.1 cm2 TAPSE: 1.5 cm Time Measurements MV dec time: 0.28 sec Doppler Measurements Calculations MV E max ken: 47.1 cm/sec Lat Peak E' Ken: 9.9 cm/sec Med Peak E' Ken: 6.5 cm/sec MV A max ken: 85.4 cm/sec E/E' lat: 4.7 E/E' med: 7.3 MV E/A: 0.55 MV V2 max: 96.4 cm/sec MV P1/2t max ken: 56.6 cm/sec Ao V2 max: 103.9 cm/sec MV max P.7 mmHg MV P1/2t: 105.8 msec Ao max P.3 mmHg MV V2 mean: 47.2 cm/sec Ao V2 mean: 74.3 cm/sec MV mean P.1 mmHg MV dec slope: 156.8 cm/sec2 Ao mean P.5 mmHg MV V2 VTI: 24.8 cm MVA(P1/2t): 2.1 cm2 Ao V2 VTI: 22.1 cm AV (velocity ratio): 1.1 LV V1 max: 101.8 cm/sec LV V1 max P.1 mmHg LV V1 mean P.0 mmHg LV V1 mean: 64.9 cm/sec LV V1 VTI: 23.3 cm ECHO/Echo Complete Interpretation Summary Severe generalized hypokinesis. Estimated LVEF 35%. Stage I diastolic dysfunction. 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 Recommend cardiac MRI for further evaluation. __ Ordering Physician: Trudy Bryant Referring Physician: Vadim Jones Performed By: Cirilo Herron [facility] 07/11/241258 Date Trudy Bryant MD CC: Dr. Trudy Bryant MD; Dr. Vadim Jones MD Date Dictated: 07/11/24 1014 Date Transcribed: 07/11/241258 Registered Dental Hygienist: Signed [facility] MR/BMS.BPon 07-11-2024 MR/BMS.BP [address], [address] [place] [address] OFFICE VISIT Date of Service: 07/11/24 MR#: [id number] Acct: [id number] Name: NARGIS ERIC Rep #: [id number] : 1950 Provider: Dr. Larry Herrera se, DO Age/Sex: 74/F [place] [facility] [place] Status: Signed Intake Vital Signs 12/22/23 14:11 06/25/24 08:05 07/11/24 08:56 Height 5 ft 6 in 5 ft 6 in 5 ft 6 in Weight: 173 lb BMI 27.9 BP 111/76 Blood Pressure Location Lt brachial Position Sitting Respiration 16 Pulse 85 Pulse Source Monitor BP Intake Visit Reasons: Schizophrenia Accompanied by: Sister Allergies haloperidol (From Haldol) Allergy (Severe, Verified 07/11/24 08:59) Other Medications ???Medication ???Instructions ???Recorded ???Confirmed ???Type albuterol sulfate 90 mcg/actuation 1 - 2 puff inhalation Q4H PRN PRN 09/24/20 07/11/24 Rx aerosol inhaler Shortness Of Breath #18 grams cholecalciferol (vitamin D3) 25 25 mcg PO DAILY 01/22/21 07/11/24 History mcg (1,000 unit) tablet multivitamin 1 tab PO DAILY 01/22/21 07/11/24 History denosumab 60 mg/mL subcutaneous 60 mg subcut [id number] 08/22/23 07/11/24 History syringe (Prolia) lactobacillus combination no.4 3 3,000 mmu cells PO DAILY 08/22/23 07/11/24 History billion cell capsule (Probiotic) levothyroxine 75 mcg capsule 75 mcg PO DAILY 08/22/23 07/11/24 History omeprazole 20 mg capsule,delayed 20 mg PO DAILY 08/22/23 07/11/24 History release rosuvastatin 5 mg tablet (Crestor) 5 mg PO DAILY 08/22/23 07/11/24 History benztropine 0.5 mg tablet 0.5 mg PO BID #60 tabs 12/22/23 07/11/24 Rx umeclidinium 62.5 mcg-vilanterol 1 inh inhalation Q24H #60 ea 01/03/24 07/11/24 Rx 25 mcg/actuation powdr for inhalation (Anoro Ellipta) anastrozole 1 mg tablet 1 mg PO DAILY #180 tabs 02/01/24 07/11/24 Rx mecobalamin (vitamin B12) 1,000 2,000 mcg PO DAILY 06/18/24 07/11/24 History mcg chewable tablet meloxicam 7.5 mg tablet 7.5 - 15 mg PO QDAY PRN 06/18/24 07/11/24 History olanzapine 20 mg tablet 20 mg PO DAILY #90 tabs 07/11/24 07/11/24 Rx risperidone 0.5 mg tablet 0.5 mg PO QHS #90 tabs 07/11/24 07/11/24 Rx risperidone 2 mg tablet 2 mg PO DAILY 90 days #90 tabs 07/11/24 07/11/24 Rx Have you fallen in the past year?: Yes [facility] Medical History (Updated 06/25/24 @ 10:[address] 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 Grandfather No problems noted. Father Leukemia Social History Smoking Status: Former smoker (Quit 2016 ) quit date: 04/03/16 pack-years: 20 Tobacco: How many years used: 50 alcohol intake: current alcohol intake frequency: a few times a week HPI History of Present Illness History provided by: patient Chief complaint: Schizophrenia HPI: Nargis Eric is a 74 year old female who presents today as a new patient evaluation. Patient states that she presents today [facility]. Currently being treated for schizophrenia. Was diagnosed in the 1970s. Admits to history of hallucinations both AH and VH. However states that she has memory loss so is very nonspecific in history. States she doesn't remember last times she had any psychotic symptoms. that she feels like she might need to change medication. Currently taking olanzapine and risperidone and has been on for 2-3 years. Reports to having cramps in muscles nearly every night. Feels her mood as ok. Does have intermittent depression. Admits to some intermittent anxiety. Does demonstrate some facial grimacing throughout encounter and is has some mild dysphonia.Is currently taking benztropine for EPS symptoms. Did bring sister in snf through appointment. She reports that sister may have been somewhat more forgetful in recent past. Sister states that she has been slower moving. Denies any acute behavioral concerns at this time. Sleep: gets about 8 hours of (more content not included)... Normal [facility] 12 Lead EKG performed [place] [facility] [place]-2024 12 Lead EKG performed by [facility] [address] [facility] [place] [address] 12 Lead EKG performed by [facility] 06/25/24 1455 MR#: [id number] Acct: [id number] Name: NARGIS ERIC Rep #: [id number] : 1950 74 From: Trudy Bryant MD Attending Dr: Dr. Trudy Bryant MD Status: [facility]P [facility] Ordering Dr: Trudy Bryant MD Date: 06/25/24 [place] [facility] [place] F C [place]: [facility] Lead E[place] performed [place] [facility] ECG Report Interpretation -------Sinus Rhythm - Nonspecific T-abnormality. ABNORMAL Electronically signed on 09/10/2024 at 11:[address] Trudy Bryant [employer] Version 8610 09/10/24 1110 Date Trudy Bryant MD CC: Dr. Vadim Jones MD Date Dictated: 06/25/241454 Date Transcribed: 06/25/241454 Registered Dental Hygienist: ERIC Signed Normal [facility] Cardiology Visit Reporton Cardiology Visit Report [facility] [address] [place] [address] OFFICE VISIT Date of Service: 06/25/24 MR#: [id number] Acct: [id number] Name: NARGIS ERIC Rep #: [id number] : 1950 Provider: Dr. Trudy Bryant MD Age/Sex: 74/F [place] [facility] [place] Status: Signed HPI HPI History of Present Illness Details: This lady has past medical history significant for breast cancer, obstructive sleep apnea, COPD, hypothyroidism and schizophrenia. According to her, she has had an episode of palpitations couple of weeks ago. Per her, she felt her heart racing. This lasted for a few minutes. Subsequent to that, she had chest pain for about 10 minutes. No radiation to the arm neck or jaw. No associated shortness of breath. The symptoms were relieved on its own. No further symptoms. Per patient's attendant, she has had Holter monitoring done by her primary care physician. They were told that she had ventricular tachycardia. Subsequently he has been referred to us for evaluation and management. No history of exertional chest pain. Patient does complain of exertional shortness of breath. No orthopnea or PND. No ankle edema. No syncope or presyncope. Intake Vital Signs 05/03/24 07:59 06/04/24 13:43 06/25/24 08:05 Height 5 ft 6 in 5 ft 6 in 5 ft 6 in Weight: 172 lb 2 oz 172 lb BMI 27.8 27.7 BP 132/84 H 126/79 H Blood Pressure Location Lt brachial Lt brachial Position Sitting Sitting Respiration 16 16 Pulse 76 80 Pulse Source Monitor NIBP Temp 98.6 F Temperature Source Temporal Artery Pulse Oximetry (%) 92 Oxygen Delivery Method room air Intake Visit Reasons: TACHYCARDIA (MAHIN) Director Of Partnerships Required: No Accompanied by: Sister Is patient in pain?: Yes (Left arm) Pain scale (1-10): 8 Allergies haloperidol (From Haldol) Allergy (Severe, Verified 06/25/24 10:11) Other Medications ???Medication ???Instructions ???Recorded ???Confirmed ???Type albuterol sulfate 90 mcg/actuation 1 - 2 puff inhalation Q4H PRN PRN 09/24/20 06/25/24 Rx aerosol inhaler Shortness Of Breath #18 grams cholecalciferol (vitamin D3) 25 25 mcg PO DAILY 01/22/21 06/25/24 History mcg (1,000 unit) tablet multivitamin 1 tab PO DAILY 01/22/21 06/25/24 History denosumab 60 mg/mL subcutaneous 60 mg subcut [id number] 08/22/23 06/25/24 History syringe (Prolia) lactobacillus combination no.4 3 3,000 mmu cells PO DAILY 08/22/23 06/25/24 History billion cell capsule (Probiotic) levothyroxine 75 mcg capsule 75 mcg PO DAILY 08/22/23 06/25/24 History olanzapine 20 mg tablet 20 mg PO DAILY 08/22/23 06/25/24 History omeprazole 20 mg capsule,delayed 20 mg PO DAILY 08/22/23 06/25/24 History release rosuvastatin 5 mg tablet (Crestor) 5 mg PO DAILY 08/22/23 06/25/24 History benztropine 0.5 mg tablet 0.5 mg PO BID #60 tabs 12/22/23 06/25/24 Rx umeclidinium 62.5 mcg-vilanterol 1 inh inhalation Q24H #60 ea 01/03/24 06/25/24 Rx 25 mcg/actuation powdr for inhalation (Anoro Ellipta) anastrozole 1 mg tablet 1 mg PO DAILY #180 tabs 02/01/24 06/25/24 Rx mecobalamin (vitamin B12) 1,000 2,000 mcg PO DAILY 06/18/24 06/25/24 History mcg chewable tablet meloxicam 7.5 mg tablet 7.5 - 15 mg PO QDAY PRN 06/18/24 06/25/24 History risperidone 1 mg tablet 3 mg PO DAILY 06/18/24 06/25/24 History Have you fallen in the past year?: Yes (just the other day, loss of balance; no moraima inj) PFSH Medical History (Updated 06/25/24 @ 10:[address] 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 Grandfather No problems noted. Father Leukemia Social History Smoking Status: Former smoker (Quit 2016 ) quit date: 04/03/16 pack-years: 20 Tobacco: How many years used: 50 alcohol intake: current alcohol intake frequency: a few times a week ROS Const Const: Positive for fatigue; Negative for weakness, headache(s) o (more content not included)... Normal [facility] CBC W/Diff, Automatedon 05-16 Absolute Lymph 1.45 X10 3/uL Normal 0.83-4.51 [facility] Comment on above: Performed By: #### L 100.0100, L500.4050 ####[facility] [address] [place], [address] Absolute Neut 4.1 X10 3/uL Normal 2.0-7.7 [facility] Comment on above: Performed By: #### L 100.0100, L500.4050 ####[facility] [address] [place], [address] Basophils/100 WBC (Bld) 0.8 % Normal 0-1 [facility] Comment on above: Performed By: #### L 100.0100, L500.4050 ####[facility] [address] [place], [address] Eosinophils/100 WBC (Bld) 1.1 % Normal 0-5 [facility] Comment on above: Performed By: #### L 100.0100, L500.4050 ####[facility] [address] [place], [address] Erythrocyte distribution width (RBC) [Ratio] 13.0 % Normal 11.6-14.6 [facility] Comment on above: Performed By: #### L 100.0100, L500.4050 ####[facility] [address] [place], [address] Hematocrit (Bld) [Volume fraction] 38.3 % Normal 37-47 [facility] Comment on above: Performed By: #### L 100.0100, L500.4050 ####[facility] [address] [place], [address] Hemoglobin (Bld) [Mass/Vol] 12.3 g/dL Normal 12.0-15.0 [facility] Comment on above: Performed By: #### L 100.0100, L500.4050 ####[facility] [address] [place], [address] IG% 0.500 Normal 0.0-0.9 [facility] Comment on above: Result Comment: IG% - Immature Granulocytes (promyelocytes, myelocytes and metamyelocytes) > 1% indicates that a LEFT SHIFT is Present. Performed By: #### L 100.0100, L500.4050 ####[facility] [address] [place], [address] Lymphocytes/100 WBC (Bld) 23.1 % Normal 19-41 [facility] Comment on above: Performed By: #### L 100.0100, L500.4050 ####[facility] [address] [place], [address] MCH (RBC) [Entitic mass] 27.9 pg Normal 27.0-32.0 [facility] Comment on above: Performed By: #### L 100.0100, L500.4050 ####[facility] [address] [place], [address] MCHC (RBC) [Mass/Vol] 32.1 g/dL Normal 32-36 [facility] Comment on above: Performed By: #### L 100.0100, L500.4050 ####[facility] [address] [place], [address] MCV (RBC) [Entitic vol] 86.8 fL Normal 81-99 [facility] Comment on above: Performed By: #### L 100.0100, L500.4050 ####[facility] [address] [place], [address] Monocytes/100 WBC (Bld) 9.5 % Normal 0-10 [facility] Comment on above: Performed By: #### L 100.0100, L500.4050 ####[facility] [address] [place], [address] Neutrophils/100 WBC (Bld) 65.0 % Normal 47-70 [facility] Comment on above: Performed By: #### L 100.0100, L500.4050 ####[facility] [address] [place], [address] Nucleated RBC (Bld) [#/Vol] 0 10*3/uL Normal 0-5 [facility] Comment on above: Performed By: #### L 100.0100, L500.4050 ####[facility] [address] [place], [address] Platelet mean volume (Bld) [Entitic vol] 8.4 fL Normal 6.2-12.0 [facility] Comment on above: Performed By: #### L 100.0100, L500.4050 ####[facility] [address] [place], [address] Platelets (Bld) [#/Vol] 323 10*3/uL Normal 150-450 [facility] Comment on above: Performed By: #### L 100.0100, L500.4050 ####[facility] [address] [place], [address] RBC (Bld) [#/Vol] 4.41 10*6/uL Normal 4.2-5.4 [facility] Comment on above: Performed By: #### L 100.0100, L500.4050 ####[facility] [address] [place], [address] RDW SD 41.6 fl Normal 35.1-43.9 [facility] Comment on above: Performed By: #### L 100.0100, L500.4050 ####[facility] [address] [place], [address] WBC (Bld) [#/Vol] 6.3 10*3/uL Normal 4.4-11.0 [facility] Comment on above: Performed By: #### L 100.0100, L500.4050 ####[facility] [address] [place], [address] Comprehensive Metabolic [facility] 06-04-2024 Albumin [Mass/Vol] 3.5 g/dL Normal 3.2-5.0 [facility] Comment on above: Performed By: #### L 100.0100, L500.4050 ####[facility] [address] [place], [address] Albumin/Globulin [Mass ratio] 1.1 {ratio} Normal 0.9-2.4 [facility] Comment on above: Performed By: #### L 100.0100, L500.4050 ####[facility] [address] [place], [address] ALK P 35 U/L Low 45-117 [facility] Comment on above: Performed By: #### L 100.0100, L500.4050 ####[facility] [address] [place], [address] ALT [Catalytic activity/Vol] 19 U/L Normal 13-56 [facility] Comment on above: Performed By: #### L 100.0100, L500.4050 ####[facility] [address] [place], [address] AST [Catalytic activity/Vol] 13 U/L Low 15-37 [facility] Comment on above: Performed By: #### L 100.0100, L500.4050 ####[facility] [address] [place], [address] Bilirubin [Mass/Vol] 0.30 mg/dL Normal 0.20-1.00 [facility] Comment on above: Result Comment: For patients on eltrombopag therapy, use of Dimension [place] TBIL is not recommended. Performed By: #### L 100.0100, L500.4050 ####[facility] [address] [place], [address] BUN/CRE 13.3 RATIO Normal 10-20 [facility] Comment on above: Performed By: #### L 100.0100, L500.4050 ####[facility] [address] [place], [address] CA,Total 9.1 mg/dL Normal 8.5-10.1 [facility] Comment on above: Performed By: #### L 100.0100, L500.4050 ####[facility] [address] [place], [address] Chloride [Moles/Vol] 102 mmol/L Normal 98-107 [facility] Comment on above: Performed By: #### L 100.0100, L500.4050 ####[facility] [address] [place], [address] CO2 [Moles/Vol] 29.0 mmol/L Normal 21.0-32.0 [facility] Comment on above: Performed By: #### L 100.0100, L500.4050 ####[facility] [address] [place], [address] Creatinine [Mass/Vol] 0.60 mg/dL Normal 0.55-1.02 [facility] Comment on above: Result Comment: The validity of the calculated GFR GFRAA in patients over 70 years has not been determined. Clinical correlation is essential. Performed By: #### L 100.0100, L500.4050 ####[facility] [address] [place], [address] ECRCL 62.12 ml/min Normal [facility] Comment on above: Performed By: #### L 100.0100, L500.4050 ####[facility] [address] [place], [address] EST GFR - AA 125 mL/min Normal >60 [facility] Comment on above: Result Comment: Afri can Palauan GFR Calc Performed By: #### L 100.0100, L500.4050 ####[facility] [address] [place], [address] GAP 3 Low 5-15 [facility] Comment on above: Performed By: #### L 100.0100, L500.4050 ####[facility] [address] [place], [address] GFR/1.73 sq M.predicted among non-blacks MDRD (S/P/Bld) [Vol rate/Area] 103 mL/min/{1.73_m2} Normal >60 [facility] Comment on above: Result Comment: Non- GFR Calc Performed By: #### L 100.0100, L500.4050 ####[facility] [address] [place], [address] Globulin (S) [Mass/Vol] 3.2 g/dL Normal 2.2-4.2 [facility] Comment on above: Performed By: #### L 100.0100, L500.4050 ####[facility] [address] [place], [address] Glucose [Mass/Vol] 101 mg/dL Normal 74-106 [facility] Comment on above: Result Comment: Fast ing Glucose result from 100 to 125 mg/dL suggests IMPAIRED HOMEOSTASIS per A.D.A. criteria. Performed By: #### L 100.0100, L500.4050 ####[facility] [address] [place], [address] Potassium [Moles/Vol] 4.3 mmol/L Normal 3.5-5.1 [facility] Comment on above: Performed By: #### L 100.0100, L500.4050 ####[facility] [address] [place], [address] Sodium [Moles/Vol] 133 mmol/L Low 136-145 [facility] Comment on above: Performed By: #### L 100.0100, L500.4050 ####[facility] [address] [place], [address] T PROT 6.7 g/dL Normal 6.4-8.2 [facility] Comment on above: Performed By: #### L 100.0100, L500.4050 ####[facility] [address] [place], [address] Urea nitrogen [Mass/Vol] 8 mg/dL Normal 7-18 [facility] Comment on above: Performed By: #### L 100.0100, L500.4050 ####[facility] [address] [place], [address] Oncology Visit Reporton 05-16 Oncology Visit Report [facility] [address] [place] [address] OFFICE VISIT Date of Service: 06/04/24 1337 MR#: [id number] Acct: [id number] Name: NARGIS ERIC Rep #: [id number] : 1950 From: Oksana Weldon MD Age/Sex: 74/F [place] [facility] Status: Signed HPI Subjective Date of Service 06/04/24 Chief Complaint Breast cancer on treatment History of Present Illness 74-year-old female with a past medical history notable for schizophrenia medically controlled, COPD due to prior cigarette smoking (quit 2 years ago) and hypothyroidism. July 2019 she had a screening mammography and ultrasound that showed 2 adjacent abnormalities in the right breast, 9 o'clock position, with an expanse of 2 cm. September 06, 2019 a needle biopsy showed an invasive lobular carcinoma with tubular lobular features, well-differentiated measuring 1.5 cm in greatest dimension and involving 2 of 2 core fragments. Further testing including receptor status and had to antigen was not done due to insufficient specimen. August 2019: She then moved to [place] to be closer to family members from her prior residence in [place]. September 19, 2019 breasts MRI: RIGHT BREAST: The breast tissue is fatty with minimal background enhancement. At the 9:00 position of the right breast approximately 8.5 cm behind the nipple there is an irregular enhancing mass measuring 1.7 cm x 1.1 cm x 1.3 cm corresponding to the index lesion. LEFT BREAST: The breast tissue is fatty with minimal background enhancement. There are no abnormal enhancing masses or areas of non-mass enhancement in the left breast. There are no enlarged or abnormal lymph nodes. There is no abnormality in the visualized regions of the chest or liver. IMPRESSION: Irregular enhancing mass measuring 1.7 cm x 1.1 cm x 1.3 cm corresponding to the known index lesion. No other abnormalities in either breast. She has no prior personal history or family history of breast, colon or ovarian cancer. October 04, 2019 she underwent a right modified radical mastectomy with right axillary sentinel lymph node biopsy: MICROSCOPIC DIAGNOSIS A. Right axillary sentinel lymph nodes, biopsy: Two out of two lymph nodes, negative for metastatic carcinoma. See comment. B. Right breast, modified radical mastectomy: Invasive lobular carcinoma. Five out of five lymph nodes are negative for metastatic carcinoma. . BREAST CANCER SUMMARY Procedure: Total mastectomy (including nipple and skin) Specimen Laterality: Right Tumor site: Lower outer quadrant Tumor size: 1.5 x 1 x 0.7 cm Histologic type: Invasive lobular carcinoma. Histologic grade ([place] grade): Glandular/tubular differentiation score: 3 Nuclear pleomorphism score: 1 Mitotic count score: 1 Overall grade: 1 (score of 5) Tumor focality: single focus of invasive carcinoma. Ductal Carcinoma In Situ: Not identified Lobular Carcinoma In Situ: Not identified Tumor extension: Skin: Skin is present and uninvolved. Nipple: Ductal carcinoma in situ does not involve nipple epidermis. Skeletal muscle: No skeletal muscle is present. Margins Involved by Invasive Carcinoma: The tumor is 1.5 cm away from the closest inferior margin. Ductal carcinoma in situ margin: Not applicable Regional Lymph Nodes: Number of lymph nodes examined: 7 (including specimen A B) Number of sentinel lymph nodes examined: 2 Number of lymph nodes with macrometastases, micrometastases or isolated tumor cells: 0 Treatment Effect: No known presurgical therapy. Lymphvascular invasion: Not identified Dermal lymphvascular invasion: Not identified Distant metastasis: Not applicable Additional Pathologic Findings: Fibrocystic changes. Diffuse ductal ectasia with periductal chronic inflammation and focal dystrophic calcification. Ancillary Studies: Previously performed on same tumor ([id number]) ER: positive (>95%, strong intensity) [place]: negative (0) Her2: negative (0) Microcalcifications : Not identified Clinical History: Right breast, 9 o???clock, 7 cm from nipple ([facility] [id number]) with diagnosis of invasive lobular carcinoma with tubulolobular features, well differentiated. Carcinoma measures 0.5 cm in greatest dimension and involves 2 of 2 core fragments. Radiologic findings: As per EMR, breast ultrasound showed two irregular masses, right breast, 9 o???clock position. Pathologic Stage: pT1c pN0 Mx Treatment summary: October 04, 2019 right modified radical mastectomy with sentinel lymph node biopsy . Adjuvant anastrozole October 2019 Bone supportive therapy with Prolia April 2020 [facility] Medical History Encounter for screening for malignant neoplasm of lung Pain of left breast Wears glasses Cancer Thyroid disease Back pain Injury of head an (more content not included)... Normal [facility] Pulmonary Visit Reporton Pulmonary Visit Report [facility] [address] [place] [address] OFFICE VISIT Date of Service: 05/03/24 MR#: [id number] Acct: [id number] Name: NARGIS ERIC Rep #: [id number] : 1950 Provider: MANUEL Otero Age/Sex: 74/F [place] [facility] [place] Status: Signed Assessment and Plan Assessment and Plan (1) Chronic respiratory failure: Status: Chronic Qualifiers: Respiratory failure complication: hypoxia Qualified Code(s): J96.11 - Chronic respiratory failure with hypoxia Comment: Uses 2 L/min with activity Plan: She is using and benefiting from supplemental oxygen. No additional testing at this time. (2) COPD (chronic obstructive pulmonary disease) with emphysema: Status: Chronic Qualifiers: Emphysema type: centrilobular Qualified Code(s): J43.2 - Centrilobular emphysema Plan: Stable, she does not appear to be an exacerbation of COPD today. No need for prednisone or antibiotic. Continue current maintenance medication, symptomatically controlled with the use of Anoro. No additional testing at this time. Contact the office for any new or worsening symptoms. An acute visit and typically be arranged within 1-2 days. Follow-up in 6 months. Influenza vaccination provided in the office today. (3) Schizophrenia: Status: Chronic Qualifiers: Schizophrenia type: unspecified Qualified Code(s): F20.9 - Schizophrenia, unspecified Plan: Complicates exam, plan, care and prognosis. (4) Former smoker: Status: Acute Comment: >20 pack years Quit 2016 Plan: Encourage ongoing smoking cessation. The patient remains appropriate for LDCT which is due in March 2025, ordered accordingly. Orders: Orders Low Dose CT Lung Screening 03/15/25 F17.200 - Nicotine dependence, unspecified, uncomplicated, F17.210 - Nicotine dependence, cigarettes, uncomplicated Influenza Immunization Today J43.2 - Centrilobular emphysema, J44.9 - Chronic obstructive pulmonary disease, unspecified Plan Details Follow Up: 6 Months ([facility]) HPI 6 m fu Chief Complaint: shortness of breath HPI Comments Details: This patient presents to the office today for follow-up of her COPD with hypoxia. She is ambulatory, and accompanied today by her sister. She has not recently been seen in the ED or urgent care for any respiratory illness. She has not required any antibiotics or prednisone for any breathing problems. She is compliant with the use of Anoro 1 puff daily. She denies any medication side effects. She has not used her rescue inhaler in years. She continues complete smoking cessation. She quit March 2016. She has shortness of breath on exertion. She denies any coughing, sputum production or hemoptysis. She denies any wheezing, chest tightness, chest pain or palpitations. She also denies any fever, chills or body aches. She is compliant with supplemental oxygen wearing 2 L/min on exertion. She also sleeps with 2 L/min most nights. Test results personally reviewed with patient: Low-dose CT lung screening completed on March 20, 2024. Noted is hyperinflation managed with mild emphysematous changes. No suspicious nodules. Recommendation is continue screening with LDCT in 12 months. Intake Vital Signs 10/26/23 07:22 12/22/23 14:11 05/03/24 07:59 Height 5 ft 6 in 5 ft 6 in 5 ft 6 in Weight: 169 lb BMI 27.2 BP 155/95 H Blood Pressure Location Lt brachial Position Sitting Respiration 20 H Pulse 73 Pulse Source Monitor Temp 97.2 F L Temperature Source Temporal Artery Pulse Oximetry (%) 91 Oxygen Delivery Method room air Intake Visit Reasons: 6 m fu Chief Complaint: COPD DME Vendor: Baylee Accompanied by: Sister Is patient in pain?: Yes (left side and breast) Pain scale (1-10): 7 (improved with rest and medication) Allergies haloperidol (From Haldol) Allergy (Severe, Verified 05/03/24 10:44) Other Medications ???Medication ???Instructions ???Recorded ???Confirmed ???Type meloxicam 15 mg tablet 7.5 mg PO DAILY PRN Pain Or Fever 09/18/19 05/03/24 History albuterol sulfate 90 mcg/actuation 1 - 2 puff inhalation Q4H PRN PRN 09/24/20 05/03/24 Rx aerosol inhaler Shortness Of Breath #18 grams cholecalciferol (vitamin D3) 25 25 mcg PO DAILY 01/22/21 05/03/24 History mcg (1,000 unit) tablet multivitamin 1 tab PO DAILY 01/22/21 05/03/24 History dicyclomine 20 mg tablet 20 mg PO TID PRN DIARRHEA 03/25/21 05/03/24 History denosumab 60 mg/mL subcutaneous 60 mg subcut [id number] 08/22/23 05/03/24 History syringe (Prolia) lactobacillus combination no.4 3 3,000 mmu cells PO DAILY 08/22/23 05/03/24 History billion cell capsule (Probiotic) levothyroxine 75 mcg capsule 75 mcg PO DAILY 08/22/23 05/03/24 History olanzapine 20 mg tablet 20 mg PO DAILY 08/22/23 09 (more content not included)... Normal [facility] PROLACTIN 4465on 03-29-2024 PROLACTIN 29.3 ng/mL High 3.6-25.2 [facility] Comment on above: Result Comment: Perf ormed at: - [facility] [address] [id number] Instructional Support Technician: Toñito Crystal PhD, Phone: [phone] Performed By: #### L 500.4050, L500.4100, L501.9985, L100.0100, L3100.5400 #### [facility] [address] [place], [place], [id number] CBC W/Diff, Automatedon 03-15 Absolute Lymph 1.96 X10 3/uL Normal 0.83-4.51 [facility] Comment on above: Performed By: #### L 500.4050, L500.4100, L501.9985, L100.0100, L3100.5400 #### [facility] [address] [place], [address] Absolute Neut 2.7 X10 3/uL Normal 2.0-7.7 [facility] Comment on above: Performed By: #### L 500.4050, L500.4100, L501.9985, L100.0100, L3100.5400 #### [facility] [address] [place], [address] Basophils/100 WBC (Bld) 1.8 % High 0-1 [facility] Comment on above: Performed By: #### L 500.4050, L500.4100, L501.9985, L100.0100, L3100.5400 #### [facility] [address] [place], [address] Eosinophils/100 WBC (Bld) 2.4 % Normal 0-5 [facility] Comment on above: Performed By: #### L 500.4050, L500.4100, L501.9985, L100.0100, L3100.5400 #### [facility] [address] [place], [address] Erythrocyte distribution width (RBC) [Ratio] 12.7 % Normal 11.6-14.6 [facility] Comment on above: Performed By: #### L 500.4050, L500.4100, L501.9985, L100.0100, L3100.5400 #### [facility] [address] [place], [address] Hematocrit (Bld) [Volume fraction] 40.5 % Normal 37-47 [facility] Comment on above: Performed By: #### L 500.4050, L500.4100, L501.9985, L100.0100, L3100.5400 #### [facility] [address] [place], [address] Hemoglobin (Bld) [Mass/Vol] 13.0 g/dL Normal 12.0-15.0 [facility] Comment on above: Performed By: #### L 500.4050, L500.4100, L501.9985, L100.0100, L3100.5400 #### [facility] [address] [place], [address] IG% 0.500 Normal 0.0-0.9 [facility] Comment on above: Result Comment: IG% - Immature Granulocytes (promyelocytes, myelocytes and metamyelocytes) > 1% indicates that a LEFT SHIFT is Present. Performed By: #### L 500.4050, L500.4100, L501.9985, L100.0100, L3100.5400 #### [facility] [address] [facility] [place], [address] Lymphocytes/100 WBC (Bld) 35.6 % Normal 19-41 [facility] Comment on above: Performed By: #### L 500.4050, L500.4100, L501.9985, L100.0100, L3100.5400 #### [facility] [address] [place], [address] MCH (RBC) [Entitic mass] 27.6 pg Normal 27.0-32.0 [facility] Comment on above: Performed By: #### L 500.4050, L500.4100, L501.9985, L100.0100, L3100.5400 #### [facility] [address] [facility] [place], [address] MCHC (RBC) [Mass/Vol] 32.1 g/dL Normal 32-36 [facility] Comment on above: Performed By: #### L 500.4050, L500.4100, L501.9985, L100.0100, L3100.5400 #### [facility] [address] [place], [address] MCV (RBC) [Entitic vol] 86.0 fL Normal 81-99 [facility] Comment on above: Performed By: #### L 500.4050, L500.4100, L501.9985, L100.0100, L3100.5400 #### [facility] [address] [place], [address] Monocytes/100 WBC (Bld) 10.9 % High 0-10 [facility] Comment on above: Performed By: #### L 500.4050, L500.4100, L501.9985, L100.0100, L3100.5400 #### [facility] [address] [place], [address] Neutrophils/100 WBC (Bld) 48.8 % Normal 47-70 [facility] Comment on above: Performed By: #### L 500.4050, L500.4100, L501.9985, L100.0100, L3100.5400 #### [facility] [address] [place], [address] Nucleated RBC (Bld) [#/Vol] 0 10*3/uL Normal 0-5 [facility] Comment on above: Performed By: #### L 500.4050, L500.4100, L501.9985, L100.0100, L3100.5400 #### [facility] [address] [place], [address] Platelet mean volume (Bld) [Entitic vol] 9.0 fL Normal 6.2-12.0 [facility] Comment on above: Performed By: #### L 500.4050, L500.4100, L501.9985, L100.0100, L3100.5400 #### [facility] [address] [place], [address] Platelets (Bld) [#/Vol] 355 10*3/uL Normal 150-450 [facility] Comment on above: Performed By: #### L 500.4050, L500.4100, L501.9985, L100.0100, L3100.5400 #### [facility] [address] [place], [address] RBC (Bld) [#/Vol] 4.71 10*6/uL Normal 4.2-5.4 [facility] Comment on above: Performed By: #### L 500.4050, L500.4100, L501.9985, L100.0100, L3100.5400 #### [facility] [address] [place], [address] RDW SD 39.8 fl Normal 35.1-43.9 [facility] Comment on above: Performed By: #### L 500.4050, L500.4100, L501.9985, L100.0100, L3100.5400 #### [facility] [address] [place], [address] WBC (Bld) [#/Vol] 5.5 10*3/uL Normal 4.4-11.0 [facility] Comment on above: Performed By: #### L 500.4050, L500.4100, L501.9985, L100.0100, L3100.5400 #### [facility] [address] [place], [address] Comprehensive Metabolic [facility] 03-28-2024 Albumin [Mass/Vol] 3.6 g/dL Normal 3.2-5.0 [facility] Comment on above: Performed By: #### L 500.4050, L500.4100, L501.9985, L100.0100, L3100.5400 #### [facility] [address] [place], [address] Albumin/Globulin [Mass ratio] 1.2 {ratio} Normal 0.9-2.4 [facility] Comment on above: Performed By: #### L 500.4050, L500.4100, L501.9985, L100.0100, L3100.5400 #### [facility] [address] [place], [address] ALK P 46 U/L Normal 45-117 [facility] Comment on above: Performed By: #### L 500.4050, L500.4100, L501.9985, L100.0100, L3100.5400 #### [facility] [address] [place], [address] ALT [Catalytic activity/Vol] 18 U/L Normal 13-56 [facility] Comment on above: Performed By: #### L 500.4050, L500.4100, L501.9985, L100.0100, L3100.5400 #### [facility] [address] [place], [address] AST [Catalytic activity/Vol] 12 U/L Low 15-37 [facility] Comment on above: Performed By: #### L 500.4050, L500.4100, L501.9985, L100.0100, L3100.5400 #### [facility] [address] [place], [address] Bilirubin [Mass/Vol] 0.30 mg/dL Normal 0.20-1.00 [facility] Comment on above: Result Comment: For patients on eltrombopag therapy, use of Dimension [place] TBIL is not recommended. Performed By: #### L 500.4050, L500.4100, L501.9985, L100.0100, L3100.5400 #### [facility] [address] [place], [address] BUN/CRE 19.1 RATIO Normal 10-20 [facility] Comment on above: Performed By: #### L 500.4050, L500.4100, L501.9985, L100.0100, L3100.5400 #### [facility] [address] [place], [address] CA,Total 9.0 mg/dL Normal 8.5-10.1 [facility] Comment on above: Performed By: #### L 500.4050, L500.4100, L501.9985, L100.0100, L3100.5400 #### [facility] [address] [place], [address] Chloride [Moles/Vol] 101 mmol/L Normal 98-107 [facility] Comment on above: Performed By: #### L 500.4050, L500.4100, L501.9985, L100.0100, L3100.5400 #### [facility] [address] [place], [address] CO2 [Moles/Vol] 27.0 mmol/L Normal 21.0-32.0 [facility] Comment on above: Performed By: #### L 500.4050, L500.4100, L501.9985, L100.0100, L3100.5400 #### [facility] [address] [place], [address] Creatinine [Mass/Vol] 0.58 mg/dL Normal 0.55-1.02 [facility] Comment on above: Result Comment: The validity of the calculated GFR GFRAA in patients over 70 years has not been determined. Clinical correlation is essential. Performed By: #### L 500.4050, L500.4100, L501.9985, L100.0100, L3100.5400 #### [facility] [address] [place], [address] EST GFR - AA 131 mL/min Normal >60 [facility] Comment on above: Result Comment: Afri can Palauan GFR Calc Performed By: #### L 500.4050, L500.4100, L501.9985, L100.0100, L3100.5400 #### [facility] [address] [place], [address] GAP 5 Normal 5-15 [facility] Comment on above: Performed By: #### L 500.4050, L500.4100, L501.9985, L100.0100, L3100.5400 #### [facility] [address] [place], [address] GFR/1.73 sq M.predicted among non-blacks MDRD (S/P/Bld) [Vol rate/Area] 108 mL/min/{1.73_m2} Normal >60 [facility] Comment on above: Result Comment: Non- GFR Calc Performed By: #### L 500.4050, L500.4100, L501.9985, L100.0100, L3100.5400 #### [facility] [address] [place], [address] Globulin (S) [Mass/Vol] 3.1 g/dL Normal 2.2-4.2 [facility] Comment on above: Performed By: #### L 500.4050, L500.4100, L501.9985, L100.0100, L3100.5400 #### [facility] [address] [place], [address] Glucose [Mass/Vol] 102 mg/dL Normal 74-106 [facility] Comment on above: Result Comment: Fast ing Glucose result from 100 to 125 mg/dL suggests IMPAIRED HOMEOSTASIS per A.D.A. criteria. Performed By: #### L 500.4050, L500.4100, L501.9985, L100.0100, L3100.5400 #### [facility] [address] [place], [address] Potassium [Moles/Vol] 4.2 mmol/L Normal 3.5-5.1 [facility] Comment on above: Performed By: #### L 500.4050, L500.4100, L501.9985, L100.0100, L3100.5400 #### [facility] [address] [place], [address] Sodium [Moles/Vol] 133 mmol/L Low 136-145 [facility] Comment on above: Performed By: #### L 500.4050, L500.4100, L501.9985, L100.0100, L3100.5400 #### [facility] [address] [place], [address] T PROT 6.7 g/dL Normal 6.4-8.2 [facility] Comment on above: Performed By: #### L 500.4050, L500.4100, L501.9985, L100.0100, L3100.5400 #### [facility] [address] [place], [address] Urea nitrogen [Mass/Vol] 11 mg/dL Normal 7-18 [facility] Comment on above: Performed By: #### L 500.4050, L500.4100, L501.9985, L100.0100, L3100.5400 #### [facility] [address] [place], [address] Hemoglobin A1con 03-28-2024 HbA1c (Bld) [Mass fraction] 5.6 % Normal 3.8-5.6 [facility] Comment on above: Result Comment: Norm al < 5.7 % Prediabetic 5.7 - 6.4 % Diabetic >or= 6.5 % Please note range changes. Performed By: #### L 500.4050, L500.4100, L501.9985, L100.0100, L3100.5400 #### [facility] [address] [place], [address] Lipid Profileon 03-28-2024 Cholesterol [Mass/Vol] 190 mg/dL Normal 200 [facility] Comment on above: Result Comment: <200 mg/dL Desirable 200-240 mg/dL Borderline >240 mg/dL High Risk Performed By: #### L 500.4050, L500.4100, L501.9985, L100.0100, L3100.5400 #### [facility] [address] [place], [address] Cholesterol in HDL [Mass/Vol] 92 mg/dL Normal [facility] Comment on above: Result Comment: The drugs N-Acetylcysteine and Metamizole may falsely depress this assay. Reference Range HDL <40 mg/dL Low HDL Cholesterol HDL >or= 60 mg/dL High HDL Cholesterol Performed By: #### L 500.4050, L500.4100, L501.9985, L100.0100, L3100.5400 #### [facility] [address] [place], [address] Cholesterol in LDL [Mass/Vol] 84 mg/dL Normal 0-130 [facility] Comment on above: Performed By: #### L 500.4050, L500.4100, L501.9985, L100.0100, L3100.5400 #### [facility] [address] [place], [address] Cholesterol in VLDL [Mass/Vol] 14 mg/dL Normal 5-40 [facility] Comment on above: Performed By: #### L 500.4050, L500.4100, L501.9985, L100.0100, L3100.5400 #### [facility] [address] [place], [address] Triglyceride [Mass/Vol] 72 mg/dL Normal [facility] Comment on above: Result Comment: The drugs N-Acetylcysteine and Metamizole may falsely depress this assay. Serum Triglycerides Reference Interval Normal <150 mg/dL Borderline high 150 - 199 mg/dL High 200 - 499 mg/dL Very High > or = 500 mg/dL Performed By: #### L 500.4050, L500.4100, L501.9985, L100.0100, L3100.5400 #### [facility] [address] [place], [address] Lung Screeningon 03-20-[address] Lung Screening [facility] [address] [place], [place] [address] Low Dose CT Lung Screening MR#: [id number] Acct: [id number] Name: NARGIS ERIC Rep #: [id number] : 1950 F 73 From: Jason hodge MD PCP: Dr. Vadim Jones MD Status: REG CLI Study: Low Dose CT Lung Screening Date of Exam: 03/20 Exam# [id number] Ordering Dr: Nita Lopez NP DYE FEEDER -C -[id number] STUDY: LOW DOSE CT LUNG CANCER SCREENING REASON FOR EXAM: Female, 73 years old. Lung cancer screening -- and gt; 20 pk yr hx;former smoker; asymptomatic RADIATION DOSAGE (If Supplied By Facility): CTDIvol = ( 3.02 ) mGy, DLP = ( 102.69 ) mGycm TECHNIQUE: No contrast was administered. Low dose technique was utilized (average mAS-38 and kVp 120). 1.25 mm axial source images with a slice interval of 1.25-mm were reconstructed in lung windows. 2.5 mm axial source images with a slice interval of 2.5-mm were reconstructed in lung windows. 5.0 mm axial source images with a slice interval of 5.0-mm were reconstructed in soft tissue windows. COMPARISON: Comparison is made with prior study March 19, 2023. The right breast implant is seen. NODULES: No suspicious nodules are seen. Emphysema: Hyperinflation. Mild emphysematous changes. Stable linear scarring in the anterior medial aspect of the left upper lobe as well as the medial aspect of the right middle lobe and the lingular segment of the left upper lobe. Stable scarring in the posterior aspect of the right lower lobe. Endobronchial lesion: None Aorta: Mild atherosclerotic calcification of the aortic arch. CORONARY ARTERIES: Coronary artery calcification is seen. Heart: Marked Pulmonary artery: Unremarkable Mediastinal nodes: Small mediastinal lymph nodes. Other chest and abdominal findings: CT/Low Dose CT Lung Screening IMPRESSION: Lung-RADS category 2 - Continue annual screening with LDCT in 12 months. IMPORTANT NOTES FOR USE: ACR Lung-RADS Version 1.1 Assessment Categories Release Date: 2018 Category: Coded 0-4 bases on nodule(s) with highest degree of suspicion. Negative screen is defined as categories 1 and 2; a positive screen is defined as categories 3 and 4. Category 3 and 4A nodules that are unchanged on interval CT should be coded as category 2, and individuals returned to screening in 12 months. Category 4X: Category 3 or 4 nodules with additional imaging findings that increase the suspicion of lung cancer, such as spiculation, GGN that doubles in size in 1 year, enlarged lymph notes, etc. Category Modifiers: S (significant finding unrelated to lung cancer) Electronically Signed: Jason Oreilly MD at 15:18 EDT Reading Location ID and State: [address] [place] [address] , Service support , CC: DYE FEEDERAj Lopez; Dr. Vadim Jones MD Registered Dental Hygienist: Signed Normal [facility] Oncology Visit Reporton Oncology Visit Report [facility] [place] [address] OFFICE VISIT Date of Service: 03/20/24 1409 MR#: [id number] Acct: [id number] Name: NARGIS ERIC Rep #: [id number] : 1950 From: Nita Lopez NP DYE FEEDER -C Age/Sex: 73/F [place] [facility] [place] Status: Signed HPI HPI Reviewed eligibility criteria: 73 year old F with a 75 pack year smoking history (1.5 ppd x 50 years) Smoking Status: Former smoker (Quit 2016 ) Decision Making Engaged in shared decision making visit utilizing a visual aid. Discussed the risks and benefits of lung cancer screening including the total radiation exposure, false positive rate, over diagnosis and potential need for follow-up diagnostic testing all associated with low-dose chest CT. Comorbidities HIMANSHU, osteopenia, COPD, hypothyroid ROS Const Denies anorexia, Denies fatigue, Denies headache(s), Denies poor appetite and Denies weight loss ENT Denies headache(s) Card Denies chest pain, Reports dyspnea on exertion and Denies palpitations Resp Reports cough (occasional, non productive ), Reports dyspnea on exertion, Denies hemoptysis and Denies wheezing GI Reports system reviewed and no additional complaints, except as documented Musc Reports system reviewed and no additional complaints, except as documented Skin/Breast Reports system reviewed and no additional complaints, except as documented Neuro Yes system reviewed and no additional complaints, except as documented and No headache(s) Psych Reports system reviewed and no additional complaints, except as documented Endo Reports system reviewed and no additional complaints, except as documented, Denies fatigue and Denies palpitations Rajendra/Lymph Reports system reviewed and no additional complaints, except as documented Aller/Immun Denies wheezing Exam Const General: not in acute distress Orientation: alert and oriented x3 HENMT Head: normocephalic and atraumatic Neck Neck: trachea midline, supple and no lymphadenopathy noted Resp Auscultation: Bilateral: Clear to Auscultation Cardio Rate: regular rate Rhythm: regular rhythm Heart Sounds: S1 normal and S2 normal Psych Affect: normal affect Results Results March 20, [address] Lung Screening COMPARISON: Comparison is made with prior study March 19, 2023. The right breast implant is seen. NODULES: No suspicious nodules are seen. Emphysema: Hyperinflation. Mild emphysematous changes. Stable linear scarring in the anterior medial aspect of the left upper lobe as well as the medial aspect of the right middle lobe and the lingular segment of the left upper lobe. Stable scarring in the posterior aspect of the right lower lobe. Endobronchial lesion: None Aorta: Mild atherosclerotic calcification of the aortic arch. CORONARY ARTERIES: Coronary artery calcification is seen. Heart: Marked Pulmonary artery: Unremarkable Mediastinal nodes: Small mediastinal lymph nodes. Other chest and abdominal findings: IMPRESSION: Lung-RADS category 2 - Continue annual screening with LDCT in 12 months. IMPORTANT NOTES FOR USE: ACR Lung-RADS Version 1.1 Assessment Categories Release Date: 2018 Category: Coded 0-4 bases on nodule(s) with highest degree of suspicion. Negative screen is defined as categories 1 and 2; a positive screen is defined as categories 3 and 4. Category 3 and 4A nodules that are unchanged on interval CT should be coded as category 2, and individuals returned to screening in 12 months. Category 4X: Category 3 or 4 nodules with additional imaging findings that increase the suspicion of lung cancer, such as spiculation, GGN that doubles in size in 1 year, enlarged lymph notes, etc. Category Modifiers: S (significant finding unrelated to lung cancer) Intake Vital Signs 11/30/23 14:42 12/22/23 14:11 03/20/24 13:55 Height 5 ft 6 in 5 ft 6 in Weight: 170 lb 6 oz 166 lb 7 oz BMI 27.5 26.9 BP 120/80 147/82 H Blood Pressure Location Lt brachial Lt radial Position Sitting Sitting Respiration 17 18 Pulse 87 86 Pulse Source Monitor Monitor Temp 98.6 F 97.9 F Temp Source Temporal Pulse Oximetry (%) 91 91 Oxygen Delivery Method room air room air Intake Visit Reasons: Lung Cancer Screening Chief Complaint: Allergies haloperidol (From Haldol) Allergy (Severe, Verified 03/20/24 13:58) Other Medications ???Medication ???Instructions ???Recorded ???Confirmed ???Type meloxicam 15 mg tablet 7.5 mg PO DAILY PRN Pain Or Fever 09/18/19 03/20/24 History albuterol sulfate 90 mcg/actuation 1 - 2 puff inhalation Q4H PRN PRN 09/24/20 03/20/24 Rx aerosol inhaler Shortness Of Breath #18 grams cholecalciferol (vitamin D3) 25 25 mcg PO DAILY 01/22/21 03/20/24 History mcg (1,000 unit) table (more content not included)... Normal [facility] SCREEN MAMM (CAD) W/BHAVNA UNI Yadiel 03-20-2024 SCREEN MAMM (CAD) W/BHAVNA UNI L [facility] [address], [place] [id number] SCREEN MAMM (CAD) W/BHAVNA UNI L MR#: [id number] Acct: [id number] Name: NARGIS ERIC Rep #: [id number] : 1950 F 73 From: Jason hodge MD PCP: Dr. Vadim Jones MD Status: [facility] Study: SCREEN MAMM (CAD) W/BHAVNA UNI L Date of Exam: 0 03/20/24 Exam# [id number] Ordering Dr: Oksana Weldon MD -[id number] MAMMOGRAPHY - UNILATERAL SCREENING: LEFT BREAST REASON FOR EXAM: Female, 73 years old. Routine annual screening examination (unilateral). PERTINENT HISTORY: Personal history of breast cancer. Prior right mastectomy. Aunt with breast cancer. TECHNIQUE: Digital unilateral breast bhavna (3D mammographic acquisition) in the CC and MLO projections. 2-D mediolateral oblique (MLO) and craniocaudad (CC) views of both breasts were obtained. CAD: Full Field Digital Mammography with Computer Added Detection was performed. COMPARISON: Comparison is made with prior study dated March 16, 2023 and October 05, 2022. FINDINGS: Breast Composition: The breasts are heterogeneously dense, which may obscure small masses. There are no dominant masses or suspicious calcifications. No other significant abnormalities are identified. There has been no significant change since the prior study. BI/SCREEN MAMM (CAD) W/BHAVNA UNI L IMPRESSION: Stable unilateral screening mammogram. Yearly follow-up mammogram recommended. (A) ASSESSMENT CATEGORY: BIRADS Category 1: Negative. A letter regarding these results will be sent to the patient by the facility within 30 days. Approximately 10% of breast cancers are not detected by mammography. A normal mammogram should not delay biopsy of a clinically suspicious abnormality. [id number] Electronically Signed: Jason Oreilly MD at 13:28 EDT , CC: Dr. Vadim Jones MD; Dr. Oksana Weldon MD Registered Dental Hygienist: Signed Normal [facility] Basophil percentageOrdered B y: Chle Lynne on 07-04-2023 Cholesterol [Mass/Vol] 201 mg/dL <200 [facility] Comment on above: <200 mg/dL Desirable 200-240 mg/dL Borderline >240 mg/dL High Risk Triglyceride [Mass/Vol] 97 mg/dL <199 [facility] Comment on above: The drugs N-Acetylcy steine and Metamizole may falsely depress this assay.Serum Triglycerides Reference Interval Normal <150 mg/dL Borderline high 150 - 199 mg/dL High 200 - 499 mg/dL Very High > or = 500 mg/dL Laboratory - Chemistry and C hemistry - challengeOrdered By: Chel Lynne on 07-04-2023 Cobalamin (Vitamin B12) [Mass/Vol] 323 pg/mL 211-911 [facility] Free T4 [Mass/Vol] 1.09 ng/dL 0.76-1.46 [facility] No Panel InformationOrdered By: Chel Lynne on 07-04-2023 Thyroid Stimulating Hormone (TSH) 3.91 uIU/mL 0.358-3.74 [facility] Serum or plasma cholesterol in HDL measurement (mass/volume)Ordered By: Chel Lynne on 07-04-2023 Cholesterol in HDL [Mass/Vol] 89 mg/dL >40 [facility] Comment on above: The drugs N-Acetylcy steine and Metamizole may falsely depress this assay. Reference Range HDL <40 mg/dL Low HDL Cholesterol HDL >or= 60 mg/dL High HDL Cholesterol Serum or plasma cholesterol in VLDL measurement (mass/volume)Ordered By: Chel Lynne on 07-04-2023 Cholesterol in VLDL [Mass/Vol] 19 mg/dL 5-40 [facility] Serum or plasma low density lipoprotein (LDL) cholesterol measurement (mass/volume)Ordered By: Chel Lynne on 07-04-2023 Cholesterol in LDL [Mass/Vol] 93 mg/dL 0-130 [facility] Absolute lymphocyte countOrd ered By: Oksana Weldon on 05-04-2023 Lymphocytes Auto (Unsp spec) [#/Vol] 2.02 10*3/uL 0.83-4.51 [facility] Basophil percentageOrdered B y: Oksana Weldon on 05-04-2023 Basophils/100 WBC (Bld) 1.0 % 0-1 [facility] Bilirubin [Mass/Vol] 0.20 mg/dL 0.20-1.00 [facility] Comment on above: For patients on eltr ombopag therapy, use of Dimension [place] TBIL is not recommended. Chloride [Moles/Vol] 99 mmol/L 98-107 [facility] Eosinophils/100 WBC (Bld) 1.8 % 0-5 [facility] Glucose [Mass/Vol] 103 mg/dL 74-106 [facility] Comment on above: Fasting Glucose resu lt from 100 to 125 mg/dL suggests IMPAIRED HOMEOSTASIS per A.D.A. criteria. Neutrophils (Bld) [#/Vol] 3.3 10*3/uL 2.0-7.7 [facility] Neutrophils/100 WBC (Bld) 53.1 % 47-70 [facility] Potassium [Moles/Vol] 4.2 mmol/L 3.5-5.1 [facility] Protein [Mass/Vol] 6.6 g/dL 6.4-8.2 [facility] Sodium [Moles/Vol] 133 mmol/L 136-145 [facility] WBC (Bld) [#/Vol] 6.2 10*3/uL 4.4-11.0 [facility] Blood erythrocytes count (nu mber/volume)Ordered By: Oksana Weldon on 05-04-2023 RBC (Bld) [#/Vol] 4.54 10*6/uL 4.2-5.4 [facility] Blood hemoglobin measurement (mass/volume)Ordered By: Oksana Weldon on 05-04-2023 Hemoglobin (Bld) [Mass/Vol] 12.7 g/dL 12.0-15.0 [facility] Blood lymphocytes/100 leukoc ytesOrdered By: Oksana Weldon on 05-04-2023 Lymphocytes/100 WBC (Bld) 32.7 % 19-41 [facility] Blood monocytes/100 leukocyt esOrdered By: Oksana Weldon on 05-04-2023 Monocytes/100 WBC (Bld) 10.8 % 0-10 [facility] Blood platelet mean volumeOr dered By: Oksana Weldon on 05-04-2023 Platelet mean volume (Bld) [Entitic vol] 8.3 fL 6.2-12.0 [facility] Determination of erythrocyte mean corpuscular volume (MCV)Ordered By: Oksana Weldon on 05-04-2023 MCV (RBC) [Entitic vol] 88.1 fL 81-99 [facility] Hematocrit Auto (Bld) [Volum e fraction][facility] 05-[facility]-2023 Hematocrit (Bld) [Volume fraction] 40.0 % 37-47 [facility] Laboratory - Chemistry and C hemistry - challengeOrdered By: [facility] on 05-04-2023 ALP [Catalytic activity/Vol] 74 U/L 45-117 [facility] ALT [Catalytic activity/Vol] 23 U/L 13-56 [facility] CO2 [Moles/Vol] 30.0 mmol/L 21.0-32.0 [facility] Globulin (S) [Mass/Vol] 3.0 g/dL 2.2-4.2 [facility] Urea nitrogen/Creatinine [Mass ratio] 16.9 mg/mg 10-20 [facility] Laboratory - Hematology and Cell countsOrdered By: [facility] on 05-04-2023 Erythrocyte distribution width (RBC) [Entitic vol] 39.9 fL 35.1-43.9 [facility] Erythrocyte distribution width (RBC) [Ratio] 12.4 % 11.6-14.6 [facility] Immature granulocytes/100 WBC (Bld) 0.600 % 0.0-0.9 [facility] Comment on above: IG% - Immature Granu locytes (promyelocytes, myelocytes and metamyelocytes) > 1% indicates that a LEFT SHIFT is Present. MCH (RBC) [Entitic mass] 28.0 pg 27.0-32.0 [facility] Nucleated RBC/100 WBC (Bld) [Ratio] 0 % 0-5 [facility] MCHC Auto (RBC) [Mass/Vol]Or dered By: [facility] on 05-04-2023 MCHC (RBC) [Mass/Vol] 31.8 g/dL 32-36 [facility] No Panel InformationOrdered By: Oksana Weldon on 05-04-2023 Estimated Creatinine Clearance Calc 45.50 ml/min [facility] Estimated GFR (MDRD) Amer 144 mL/min >60 [facility] Comment on above: GFR Calc Estimated GFR (MDRD) Non-Af Amer 119 mL/min >60 [facility] Comment on above: Non- GFR Calc Platelets bldOrdered By: Julio Cesar Weldon on 05-04-2023 Platelets (Bld) [#/Vol] 319 10*3/uL 150-450 [facility] Serum or plasma albumin shanti urement (mass/volume)Ordered By: Oksana Weldon on 05-04-2023 Albumin [Mass/Vol] 3.6 g/dL 3.2-5.0 [facility] Serum or plasma albumin/glob ulin mass ratioOrdered By: Oksana Weldon on 05-04-2023 Albumin/Globulin [Mass ratio] 1.2 {ratio} 0.9-2.4 [facility] Serum or plasma calcium shanti urement (mass/volume)Ordered By: Oksana Weldon on 05-04-2023 Calcium [Mass/Vol] 8.7 mg/dL 8.5-10.1 [facility] Serum or plasma creatinine m easurement (mass/volume)Ordered By: Oksana Weldon on 05-04-2023 Creatinine [Mass/Vol] 0.53 mg/dL 0.55-1.02 [facility] Comment on above: The validity of the calculated GFR & GFRAA in patients over 70 years has not been determined. Clinical correlation is essential. Serum or plasma urea nitroge n measurement (mass/volume)Ordered By: Oksana Weldon on 05-04-2023 Urea nitrogen [Mass/Vol] 9 mg/dL 7-18 [facility] Thin prep Papanicolaou smear with manual screeningOrdered By: Oksana Weldon on 05-04-2023 Thin prep Papanicolaou smear with manual screening 10 U/L 15-37 [facility] Thin prep Papanicolaou smear with manual screening 4 5-15 [facility] Absolute lymphocyte countOrd ered By: Dr. Weldon on 04-26-2022 Lymphocytes Auto (Unsp spec) [#/Vol] 1.41 10*3/uL 0.83-4.51 [facility] Basophil percentageOrdered B y: Dr. Weldon on 04-26-2022 Basophils/100 WBC (Bld) 1.8 % 0-1 [facility] Bilirubin [Mass/Vol] 0.30 mg/dL 0.20-1.00 [facility] Comment on above: For patients on eltr ombopag therapy, use of Dimension [place] TBIL is not recommended. Chloride [Moles/Vol] 99 mmol/L 98-107 [facility] Eosinophils/100 WBC (Bld) 1.5 % 0-5 [facility] Glucose [Mass/Vol] 115 mg/dL 74-106 [facility] Comment on above: Fasting Glucose resu lt from 100 to 125 mg/dL suggests IMPAIRED HOMEOSTASIS per A.D.A. criteria. Neutrophils (Bld) [#/Vol] 4.5 10*3/uL 2.0-7.7 [facility] Neutrophils/100 WBC (Bld) 66.0 % 47-70 [facility] Potassium [Moles/Vol] 4.2 mmol/L 3.5-5.1 [facility] Protein [Mass/Vol] 6.7 g/dL 6.4-8.2 [facility] Sodium [Moles/Vol] 133 mmol/L 136-145 [facility] WBC (Bld) [#/Vol] 6.7 10*3/uL 4.4-11.0 [facility] Blood erythrocytes count (nu mber/volume)Ordered By: Dr. Weldon on 04-26-2022 RBC (Bld) [#/Vol] 4.36 10*6/uL 4.2-5.4 [facility] Blood hemoglobin measurement (mass/volume)Ordered By: Dr. Weldon on 04-26-2022 Hemoglobin (Bld) [Mass/Vol] 12.5 g/dL 12.0-15.0 [facility] Blood lymphocytes/100 leukoc ytesOrdered By: Dr. Weldon on 04-26-2022 Lymphocytes/100 WBC (Bld) 20.9 % 19-41 [facility] Blood monocytes/100 leukocyt esOrdered By: Dr. Weldon on 04-26-2022 Monocytes/100 WBC (Bld) 9.5 % 0-10 [facility] Blood platelet mean volumeOr dered By: Dr. Weldon on 04-26-2022 Platelet mean volume (Bld) [Entitic vol] 8.3 fL 6.2-12.0 [facility] Determination of erythrocyte mean corpuscular volume (MCV)Ordered By: Dr. Weldon on 04-26-2022 MCV (RBC) [Entitic vol] 87.4 fL 81-99 [facility] Hematocrit Auto (Bld) [Volum e fraction]Ordered By: Dr. Weldon on 04-26-2022 Hematocrit (Bld) [Volume fraction] 38.1 % 37-47 [facility] Laboratory - Chemistry and C hemistry - challengeOrdered By: Dr. Weldon on 04-26-2022 ALP [Catalytic activity/Vol] 62 U/L 45-117 [facility] ALT [Catalytic activity/Vol] 29 U/L 13-56 [facility] CO2 [Moles/Vol] 28.0 mmol/L 21.0-32.0 [facility] Globulin (S) [Mass/Vol] 3.2 g/dL 2.2-4.2 [facility] Urea nitrogen/Creatinine [Mass ratio] 22.1 mg/mg 10-20 [facility] Laboratory - Hematology and Cell countsOrdered By: Dr. Weldon on 04-26-2022 Erythrocyte distribution width (RBC) [Entitic vol] 42.1 fL 35.1-43.9 [facility] Erythrocyte distribution width (RBC) [Ratio] 13.1 % 11.6-14.6 [facility] Immature granulocytes/100 WBC (Bld) 0.300 % 0.0-0.9 [facility] Comment on above: IG% - Immature Granu locytes (promyelocytes, myelocytes and metamyelocytes) > 1% indicates that a LEFT SHIFT is Present. MCH (RBC) [Entitic mass] 28.7 pg 27.0-32.0 [facility] Nucleated RBC/100 WBC (Bld) [Ratio] 0 % 0-5 [facility] Auto (RBC) [Mass/Vol]Or dered By: Dr. Weldon on 04-26-2022 MCHC (RBC) [Mass/Vol] 32.8 g/dL 32-36 [facility] No Panel InformationOrdered By: Dr. Weldon on 04-26-2022 Estimated Creatinine Clearance Calc 46.20 ml/min [facility] Estimated GFR (MDRD) Amer 128 mL/min >60 [facility] Comment on above: GFR Calc Estimated GFR (MDRD) Non-Af Amer 106 mL/min >60 [facility] Comment on above: Non- GFR Calc Platelets bldOrdered By: Dr. Weldon on 04-26-2022 Platelets (Bld) [#/Vol] 382 10*3/uL 150-450 [facility] Serum or plasma albumin shanti urement (mass/volume)Ordered By: Dr. Weldon on 04-26-2022 Albumin [Mass/Vol] 3.5 g/dL 3.2-5.0 [facility] Serum or plasma albumin/glob ulin mass ratioOrdered By: Dr. Weldon on 04-26-2022 Albumin/Globulin [Mass ratio] 1.1 {ratio} 0.9-2.4 [facility] Serum or plasma calcium shanti urement (mass/volume)Ordered By: Dr. Weldon on 04-26-2022 Calcium [Mass/Vol] 9.3 mg/dL 8.5-10.1 [facility] Serum or plasma creatinine m easurement (mass/volume)Ordered By: Dr. Weldon on 04-26-2022 Creatinine [Mass/Vol] 0.59 mg/dL 0.55-1.02 [facility] Comment on above: The validity of the calculated GFR & GFRAA in patients over 70 years has not been determined. Clinical correlation is essential. Serum or plasma urea nitroge n measurement (mass/volume)Ordered By: Dr. Weldon on 04-26-2022 Urea nitrogen [Mass/Vol] 13 mg/dL 7-18 [facility] Thin prep Papanicolaou smear with manual screeningOrdered By: Dr. Weldon on 04-26-2022 Thin prep Papanicolaou smear with manual screening 11 U/L 15-37 [facility] Thin prep Papanicolaou smear with manual screening 6 5-15 [facility] Basophil percentageon 2021 Chloride [Moles/Vol] 102 mmol/L 98-107 [facility] Work Phone: Cholesterol [Mass/Vol] 243 mg/dL <200 [facility] Work Phone: Comment on above: <200 mg/dL Desirable 200-240 mg/dL Borderline >240 mg/dL High Risk Glucose [Mass/Vol] 100 mg/dL 74-106 [facility] Work Phone: Comment on above: Fasting Glucose resu lt from 100 to 125 mg/dL suggests IMPAIRED HOMEOSTASIS per A.D.A. criteria. Potassium [Moles/Vol] 4.2 mmol/L 3.5-5.1 [facility] Work Phone: Sodium [Moles/Vol] 135 mmol/L 136-145 [facility] Work Phone: Triglyceride [Mass/Vol] 126 mg/dL [facility] Work Phone: Comment on above: The drugs N-Acetylcy steine and Metamizole may falsely depress this assay.Serum Triglycerides Reference Interval Normal <150 mg/dL Borderline high 150 - 199 mg/dL High 200 - 499 mg/dL Very High > or = 500 mg/dL Laboratory - Chemistry and C hemistry - challengeon 11-05-2021 CO2 [Moles/Vol] 27.0 mmol/L 21.0-32.0 [facility] Work Phone: Free T4 [Mass/Vol] 1.23 ng/dL 0.76-1.46 [facility] Work Phone: Urea nitrogen/Creatinine [Mass ratio] 18.8 mg/mg 10-20 [facility] Work Phone: No Panel Informationon 11-05 Estimated GFR (MDRD) Amer 130 mL/min >60 [facility] Work Phone: Comment on above: GFR Calc Estimated GFR (MDRD) Non-Af Amer 107 mL/min >60 [facility] Work Phone: Comment on above: Non- GFR Calc Free Triiodothyronine (T3) pg/dL 2.4 pg/mL 2.18-3.98 [facility] Work Phone: Thyroid Stimulating Hormone (TSH) 2.50 uIU/mL 0.358-3.74 [facility] Work Phone: Serum or plasma calcium shanti urement (mass/volume)on 11-05-2021 Calcium [Mass/Vol] 9.5 mg/dL 8.5-10.1 [facility] Work Phone: Serum or plasma cholesterol in HDL measurement (mass/volume)on 11-05-2021 Cholesterol in HDL [Mass/Vol] 78 mg/dL [facility] Work Phone: Comment on above: The drugs N-Acetylcy steine and Metamizole may falsely depress this assay. Reference Range HDL <40 mg/dL Low HDL Cholesterol HDL >or= 60 mg/dL High HDL Cholesterol Serum or plasma cholesterol in VLDL measurement (mass/volume)on 11-05-2021 Cholesterol in VLDL [Mass/Vol] 25 mg/dL 5-40 [facility] Work Phone: Serum or plasma creatinine m easurement (mass/volume)on 11-05-2021 Creatinine [Mass/Vol] 0.58 mg/dL 0.55-1.02 [facility] Work Phone: Comment on above: The validity of the calculated GFR & GFRAA in patients over 70 years has not been determined. Clinical correlation is essential. Serum or plasma low density lipoprotein (LDL) cholesterol measurement (mass/volume)on 11-05-2021 Cholesterol in LDL [Mass/Vol] 140 mg/dL 0-130 [facility] Work Phone: Serum or plasma urea nitroge n measurement (mass/volume)on 11-05-2021 Urea nitrogen [Mass/Vol] 11 mg/dL 7-18 [facility] Work Phone: Thin prep Papanicolaou smear with manual screeningon 11-05-2021 Thin prep Papanicolaou smear with manual screening 6 5-15 [facility] Work Phone: No Panel Informationon 08-05 Thyroid Stimulating Hormone (TSH) 2.39 uIU/mL 0.358-3.74 [facility] Work Phone: Vitamin D 25-Hydroxy 30.6 ng/mL [facility] Work Phone: Comment on above: Vitamin D 25(OH) Sta tus Range Deficiency <20 ng/mL (50nmol/L) Insufficiency 20 - 30 ng/mL (50 - 75 nmol/L) Sufficiency 30 - 100 ng/mL (75 - 250 nmol/L) Toxicity >100 ng/mL (>250 nmol/L) Absolute lymphocyte counton 04-16-2021 Lymphocytes Auto (Unsp spec) [#/Vol] 2.01 10*3/uL 0.83-4.51 [facility] Work Phone: Basophil percentageon 2020 Bilirubin [Mass/Vol] 0.20 mg/dL 0.20-1.00 [facility] Work Phone: Comment on above: For patients on eltr ombopag therapy, use of Dimension [place] TBIL is not recommended. Chloride [Moles/Vol] 106 mmol/L 98-107 [facility] Work Phone: Eosinophils/100 WBC (Bld) 0.2 % 0-5 [facility] Work Phone: Glucose [Mass/Vol] 105 mg/dL 74-106 [facility] Work Phone: Comment on above: Fasting Glucose resu lt from 100 to 125 mg/dL suggests IMPAIRED HOMEOSTASIS per A.D.A. criteria.Please note revised GLUCOSE reference range effective 2017. Neutrophils (Bld) [#/Vol] 6.2 10*3/uL 2.0-7.7 [facility] Work Phone: Potassium [Moles/Vol] 4.0 mmol/L 3.5-5.1 [facility] Work Phone: Protein [Mass/Vol] 7.3 g/dL 6.4-8.2 [facility] Work Phone: Sodium [Moles/Vol] 139 mmol/L 136-145 [facility] Work Phone: WBC (Bld) [#/Vol] 9.1 10*3/uL 4.4-11.0 [facility] Work Phone: Blood erythrocytes count (nu mber/volume)on 04-16-2021 RBC (Bld) [#/Vol] 4.70 10*6/uL 4.2-5.4 [facility] Work Phone: Blood hemoglobin measurement (mass/volume)on 04-16-2021 Hemoglobin (Bld) [Mass/Vol] 13.2 g/dL 12.0-15.0 [facility] Work Phone: Blood lymphocytes/100 leukoc yteson 04-16-2021 Lymphocytes/100 WBC (Bld) 22.2 % 19-41 [facility] Work Phone: Blood monocytes/100 leukocyt eson 04-16-2021 Monocytes/100 WBC (Bld) 7.9 % 0-10 [facility] Work Phone: Blood platelet mean volumeon 04-16-2021 Platelet mean volume (Bld) [Entitic vol] 9.2 fL 6.2-12.0 [facility] Work Phone: Determination of erythrocyte mean corpuscular volume (MCV)on 04-16-2021 MCV (RBC) [Entitic vol] 88.1 fL 81-99 [facility] Work Phone: Hematocrit Auto (Bld) [Volum e fraction]on 04-16-2021 Hematocrit (Bld) [Volume fraction] 41.4 % 37-47 [facility] Work Phone: Laboratory - Chemistry and C hemistry - challengeon 04-16-2021 ALP [Catalytic activity/Vol] 52 U/L 45-117 [facility] Work Phone: ALT [Catalytic activity/Vol] 25 U/L 13-56 [facility] Work Phone: CO2 [Moles/Vol] 29.0 mmol/L 21.0-32.0 [facility] Work Phone: Globulin (S) [Mass/Vol] 3.4 g/dL 2.2-4.2 [facility] Work Phone: Urea nitrogen/Creatinine [Mass ratio] 18.8 mg/mg 10-20 [facility] Work Phone: Laboratory - Hematology and Cell countson 04-16-2021 Basophils/100 WBC (Unsp spec) 0.4 % 0-1 [facility] Work Phone: Erythrocyte distribution width (RBC) [Entitic vol] 41.6 fL 35.1-43.9 [facility] Work Phone: Erythrocyte distribution width (RBC) [Ratio] 12.8 % 11.6-14.6 [facility] Work Phone: Immature granulocytes/100 WBC (Bld) 0.400 % 0.0-0.9 [facility] Work Phone: Comment on above: IG% - Immature Granu locytes (promyelocytes, myelocytes and metamyelocytes) > 1% indicates that a LEFT SHIFT is Present. MCH (RBC) [Entitic mass] 28.1 pg 27.0-32.0 [facility] Work Phone: Neutrophils/100 WBC (Bld) 68.9 % 47-70 [facility] Work Phone: Nucleated RBC/100 WBC (Bld) [Ratio] 0 % 0-5 [facility] Work Phone: MCHC Auto (RBC) [Mass/Vol]on 04-16-2021 MCHC (RBC) [Mass/Vol] 31.9 g/dL 32-36 [facility] Work Phone: No Panel Informationon 04-16 Estimated Creatinine Clearance Calc 45.09 ml/min [facility] Work Phone: Estimated GFR (MDRD) Amer 107 mL/min >60 [facility] Work Phone: Comment on above: GFR Calc Estimated GFR (MDRD) Non-Af Amer 89 mL/min >60 [facility] Work Phone: Comment on above: Non- GFR Calc Platelets bldon 04-16-2021 Platelets (Bld) [#/Vol] 357 10*3/uL 150-450 [facility] Work Phone: Serum or plasma albumin shanti urement (mass/volume)on 04-16-2021 Albumin [Mass/Vol] 3.9 g/dL 3.2-5.0 [facility] Work Phone: Serum or plasma albumin/glob ulin mass ratioon 04-16-2021 Albumin/Globulin [Mass ratio] 1.1 {ratio} 0.9-2.4 [facility] Work Phone: Serum or plasma calcium shanti urement (mass/volume)on 04-16-2021 Calcium [Mass/Vol] 9.3 mg/dL 8.5-10.1 [facility] Work Phone: Serum or plasma creatinine m easurement (mass/volume)on 04-16-2021 Creatinine [Mass/Vol] 0.69 mg/dL 0.55-1.02 [facility] Work Phone: Comment on above: The validity of the calculated GFR & GFRAA in patients over 70 years has not been determined. Clinical correlation is essential. Serum or plasma urea nitroge n measurement (mass/volume)on 04-16-2021 Urea nitrogen [Mass/Vol] 13 mg/dL 7-18 [facility] Work Phone: Thin prep Papanicolaou smear with manual screeningon 04-16-2021 Thin prep Papanicolaou smear with manual screening 10 U/L 15-37 [facility] Work Phone: Thin prep Papanicolaou smear with manual screening 4 5-15 [facility] Work Phone: CNOVon 04-09-2021 CNOV Office Visit (OBGYWM) ---- NARGIS ERIC ([id number]) 1950 F Date Time Provider Department 04/09/21 4:40 PM YURY OAKLEY OBGYWM During your visit today, we recorded the following information about you: Referring Provider: YURY OAKLEY [[id number]] Allergies As of Date: 04/09/2021 Noted Allergy Reaction HALOPERIDOL 07/03/2020 1 - Mental Status Change Date Reviewed: 07/03/2020 Reviewed by: Zandra Nevarez - Fully Assessed Reason for Visit: Ovarian Cyst [288] Primary Visit Diagnosis:Cyst of ovary, unspecified laterality [N83.209] Prescriptions as of 04/09/2021 - levothyroxine (SYNTHROID) 50 mcg tablet Take 1 tablet by mouth once daily. - anastrozole (ARIMIDEX) 1 mg tablet Take 1 tablet by mouth once daily. - meloxicam (MOBIC) 7.5 mg tablet Take 1 tablet by mouth as needed. - OLANZapine orally disintegrating (ZYPREXA ZYDIS) 20 mg disintegrating tablet Take 1 tablet by mouth once daily. - OLANZapine orally disintegrating (ZYPREXA ZYDIS) 5 mg disintegrating tablet Take 1 tablet by mouth once daily. - risperiDONE (RISPERDAL) 0.5 mg tablet Take 1 tablet by mouth once daily. - risperiDONE (RISPERDAL) 1 mg tablet Take 1 tablet by mouth once daily. - risperiDONE (RISPERDAL) 3 mg tablet Take 1 tablet by mouth once daily. - ANORO ELLIPTA 62.5-25 mcg/actuation inhaler Inhale 1 Inhalation as instructed once daily. Problem List As Of Date: 04/09/2021 (None) Encounter Status:Closed by YURY OAKLEY on 04/09/21 [facility] 04-08-2021 CNPN Telephone (OBGYWM) ---- HERNESTONARGIS ([id number]) 1950 F Date Time Provider Department 04/08/21 YURY OAKLEY During your visit today, we recorded the following information about you: Alvina Gibson RN 04/08/2021 4:25 PM Signed Patient has follow-up pelvic US tomorrow. Please file pending order. Alvina Oakley MD 04/08/2021 5:02 PM Signed Filed Allergies As of Date: 04/08/2021 Noted Allergy Reaction HALOPERIDOL 07/03/2020 1 - Mental Status Change Date Reviewed: 07/03/2020 Reviewed by: Zandra Nevarez - Fully Assessed Reason for Visit: Orders [681] Primary Visit Diagnosis:History of ovarian cyst [Z87.42] Order(s):PELVIC US [facility] [[id number]] Order #: [id number]: 1 Prescriptions as of 04/08/2021 - levothyroxine (SYNTHROID) 50 mcg tablet Take 1 tablet by mouth once daily. - anastrozole (ARIMIDEX) 1 mg tablet Take 1 tablet by mouth once daily. - meloxicam (MOBIC) 7.5 mg tablet Take 1 tablet by mouth as needed. - OLANZapine orally disintegrating (ZYPREXA ZYDIS) 20 mg disintegrating tablet Take 1 tablet by mouth once daily. - OLANZapine orally disintegrating (ZYPREXA ZYDIS) 5 mg disintegrating tablet Take 1 tablet by mouth once daily. - risperiDONE (RISPERDAL) 0.5 mg tablet Take 1 tablet by mouth once daily. - risperiDONE (RISPERDAL) 1 mg tablet Take 1 tablet by mouth once daily. - risperiDONE (RISPERDAL) 3 mg tablet Take 1 tablet by mouth once daily. - ANORO ELLIPTA 62.5-25 mcg/actuation inhaler Inhale 1 Inhalation as instructed once daily. Problem List As Of Date: 04/08/2021 (None) Encounter Status:Closed by CASSIDY DOMINGUEZ RN on 04/08/21 Normal [facility] Clinical Summary: HMSPatient IDon 06-26-2019 OOP Nat [facility] Work Phone: Office Visit: New - 1st visi t with practice, Rm: 19on 06-26-2019 NEGATED: Highlighted rowMRI (magnetic resonance imaging) history of the lumbar spine on 06/14/2019 at [facility] Work Phone: Clinical Lists Update: Prelo ad Extendedon 06-25-2019 Tobacco smoking status [facility] Tobacco smoking status [facility] Work Phone: Clinical Summary: Data Submi tted by Patient in [place] 06-22-2019 #DEP CHLDRN No [facility] Work Phone: 3+ETOHDAILY less than 1 drink per day [facility] Work Phone: ALLERGY COMM Haldol [facility] Work Phone: ALLSPECINS I have not taken Haldol for many years, but it produced a strange effect. Regularly every 6 days, I would go into a stupor that would last for nearly a day. I was on a high dosage at the time. [facility] Work Phone: ASTHEHSZHOUS 1 floor [facility] Work Phone: [facility] Osteoporosis [facility] Work Phone: BRTH PM COM It might be osteopenia instead of osteoporosis. [facility] Work Phone: Cholesterol [Mass/Vol] COPD, Emphysema, Fractures, GERD, High cholesterol, Hypothyroidism, Obesity, Osteopenia [facility] Work Phone: DAD HX COMM at age 58, in 1984, when his type of leukemia had no cure; he lived 9.5 years after the diagnosis. He had been exposed to radiation on his job. [facility] Work Phone: DEATHCAU DAD chronic myelogenous leukemia [facility] Work Phone: DEATHCAU MOM cancer [facility] Work Phone: DEP ALG LIST I don't have any food allergies.,I don't have any environmental allergies. 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 [facility] Work Phone: DEP ETOH USE Yes [facility] Work Phone: DEP EXERCISE No [facility] Work Phone: DEP MED LIST Gabapentin 300 mg Tab, 1 times per day,Olanzapine 5 mg Tab, 1 times per day,Olanzapine 20 mg Tab, 1 times per day,Risperidone 0.5 mg Tab, 1 times per day,Risperidone 3 mg Tab, 1 times per day,Risperidone 1 mg Tab, 1 times per day,Levothyroxine 0.05 mg Tab, 1 times per day,ProAir 0.09 mg/actuat Metered Dose Inhaler, 1 times per day,Tylenol 325 mg Tab, 1 times per day,Meloxicam 7.5 mg Tab, 1 times per day [facility] Work Phone: DEP [facility] PM Alzheimer, Arthritis, Cancer, Hypothyroidism, Obesity, Osteoporosis, Vascular disease [facility] Work Phone: DEP CSMO former smoker [facility] [place] [facility] Work Phone: DEP FSMO 2018 [facility] Work Phone: DEP MAST single [facility] Work Phone: DEP SURGERY Tonsillectomy, Wrist surgery [facility] Work Phone: DEPADDLPROB My sister helped me fill out this form, but I provided the answers. In addition to the checked items above, I have schizophrenia and Meniere's disease. [facility] Work Phone: ETOHPERFRM wine [facility] Work Phone: EXERXY MobileIN COM Before my recent injury, I did jumping jacks and other moderate calisthenics and isometrics, 2-3 times a week. I also used a treadmill for short periods, like 2 minutes at a time. [facility] Work Phone: FATHER A/D [facility] Work Phone: [id number] There is an unfinished basement, but I don't need to go there often. [facility] Work Phone: MEDICCOMMNTS I'm taking *two* Meloxicam tablets at the same time, once per day, total 15 mg. The form wouldn't let me add: [employer] Inner Ear Plus supplement, 3 tablets per day. [employer] Spectravite multi-vitamin, 1 per day. Vitamin D, 2000 IUs per day. Calcium carbonate 1000 mg./ magnesium oxide 400 mg./ zinc sulfate monohydrate 10 mg. once per day. Vitamin E 1000 IU per day. Coenzyme Q-10 200 mg. per day. [facility] Work Phone: MOM HX COMM She in March 2019 at age 89. She lived alone, with help, until 2 months before her . [facility] Work Phone: MOTHER A/D [facility] Work Phone: RLATNSHPINFR Sister Nat [facility] Work Phone: SIS PMH COM One sister in 2013 of viral pneumonia; she had also been obese and had a large hernia. She had previously had 1/2 her colon removed when it got badly twisted. The other sister, still living, is somewhat overweight and has varicose veins, high cholesterol (treated with medication) and osteoporosis (also treated with medication). She was hospitalized a year ago for pulmonary embolisms and is permanently taking Eliquis. 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 The fistula was later removed, but there is some nerve damage. [facility] Work Phone: Vital Signs Date Time Vital Sign Value Performing Clinician Facility 11-30-2023 14:42-0400 Body height 167.64 cm DO Chel Lynne Work Phone: [facility] 11-30-2023 14:42-0400 Body mass index (BMI) [Ratio] 27.3 kg/m2 DO Chel Lynne Work Phone: [facility] 11-30-2023 14:42-0400 Body weight 76.82 kg DO Chel Lynne Work Phone: [facility] 11-30-2023 14:03-0400 Body mass index (BMI) [Ratio] 27.3 kg/m2 DO Chel Lynne Work Phone: [facility] 11-30-2023 14:03-0400 Body temperature 98.1 [degF] DO Chel Guera Work Phone: [facility] 11-30-2023 14:03-0400 Body weight 76.82 kg DO Chel Guera Work Phone: [facility] 11-30-2023 14:03-0400 Diastolic blood pressure 78 mm[Hg] DO Chel Guera Work Phone: [facility] 11-30-2023 14:03-0400 Heart rate 84 /min DO Chel Guera Work Phone: [facility] 11-30-2023 14:03-0400 Respiratory rate 18 /min DO Chel Guera Work Phone: [facility] 11-30-2023 14:03-0400 SaO2% (BldA) [Mass fraction] 90 % DO Chel Guera Work Phone: [facility] 11-30-2023 14:03-0400 Systolic blood pressure 113 mm[Hg] DO Chel Guera Work Phone: [facility] 10-26-2023 07:22-0400 Body height 167.64 cm DO Chel Guera Work Phone: [facility] 10-26-2023 07:22-0400 Body mass index (BMI) [Ratio] 26.4 kg/m2 DO Chel Guera Work Phone: [facility] 10-26-2023 07:22-0400 Body temperature 97.2 [degF] DO Chel Guera Work Phone: [facility] 10-26-2023 07:22-0400 Body weight 74.38 kg DO Chel Guera Work Phone: [facility] 10-26-2023 07:22-0400 Diastolic blood pressure 86 mm[Hg] DO Chel Guera Work Phone: [facility] 10-26-2023 07:22-0400 Heart rate 70 /min DO Chel Guera Work Phone: [facility] 10-26-2023 07:22-0400 Respiratory rate 18 /min DO Chel Guera Work Phone: [facility] 10-26-2023 07:22-0400 SaO2% (BldA) [Mass fraction] 93 % DO Chel Guera Work Phone: [facility] 10-26-2023 07:22-0400 Systolic blood pressure 155 mm[Hg] DO Chel Guera Work Phone: [facility] 08-22-2023 10:00-0500 Body height 167.64 cm DO Chel Guera Work Phone: [facility] 08-22-2023 10:00-0500 Body mass index (BMI) [Ratio] 27.8 kg/m2 DO Chel Guera Work Phone: [facility] 08-22-2023 10:00-0500 Body temperature 98 [degF] DO Chel Guera Work Phone: [facility] 08-22-2023 10:00-0500 Body weight 78.3 kg DO Chel Guera Work Phone: [facility] 08-22-2023 10:00-0500 Diastolic blood pressure 80 mm[Hg] DO Chel Guera Work Phone: [facility] 08-22-2023 10:00-0500 Heart rate 87 /min DO Chel Guera Work Phone: [facility] 08-22-2023 10:00-0500 Respiratory rate 17 /min DO Chel Guera Work Phone: [facility] 08-22-2023 10:00-0500 SaO2% (BldA) [Mass fraction] 92 % DO Chel Guera Work Phone: [facility] 08-22-2023 10:00-0500 Systolic blood pressure 122 mm[Hg] DO Chel Guera Work Phone: [facility] 06-01-2023 14:05-0400 Body height 167.[address] Alphonso Rodriguez Work Phone: [facility] 06-01-2023 14:05-0400 Body mass index (BMI) [Ratio] 26.3 kg/m2 Dr. Alphonso Rodriguez Work Phone: [facility] 06-01-2023 14:05-0400 Body temperature 96.2 [degF] Dr. Alphonso Rodriguez Work Phone: [facility] 06-01-2023 14:05-0400 Body weight 73.[address] Alphonso Rodriguez Work Phone: [facility] 06-01-2023 14:05-0400 Diastolic blood pressure 71 mm[Hg] Dr. Alphonso Rodriguez Work Phone: [facility] 06-01-2023 14:05-0400 Heart rate 83 /min Dr. Alphonso Rodriguez Work Phone: [facility] 06-01-2023 14:05-0400 Respiratory rate 16 /min Dr. Alphonso Rodriguez Work Phone: [facility] 06-01-2023 14:05-0400 SaO2% (BldA) [Mass fraction] 92 % Dr. Alphonso Rodriguez Work Phone: [facility] 06-01-2023 14:05-0400 Systolic blood pressure 122 mm[Hg] Dr. Alphonso Rodriguez Work Phone: [facility] 05-04-2023 09:52-0400 Body mass index (BMI) [Ratio] 27.3 kg/m2 Dr. Alphonso Rodriguez Work Phone: [facility] 05-04-2023 09:52-0400 Body temperature 97.7 [degF] Dr. Alphonso Rodriguez Work Phone: [facility] 05-04-2023 09:52-0400 Body weight 76.[address] Alphonso Rodriguez Work Phone: [facility] 05-04-2023 09:52-0400 Diastolic blood pressure 90 mm[Hg] Dr. Alphonso Rodriguez Work Phone: [facility] 05-04-2023 09:52-0400 Heart rate 82 /min Dr. Alphonso Rodriguez Work Phone: [facility] 05-04-2023 09:52-0400 Respiratory rate 16 /min Dr. Alphonso Rodriguez Work Phone: [facility] 05-04-2023 09:52-0400 SaO2% (BldA) [Mass fraction] 93 % Dr. Alphonso Rodriguez Work Phone: [facility] 05-04-2023 09:52-0400 Systolic blood pressure 144 mm[Hg] Dr. Alphonso Rodriguez Work Phone: [facility] 04-20-2023 05:46-0400 Body mass index (BMI) [Ratio] 26.1 kg/m2 Dr. Alphonso Rodriguez Work Phone: [facility] 04-20-2023 05:46-0400 Body temperature 97.5 [degF] Dr. Alphonso Rodriguez Work Phone: [facility] 04-20-2023 05:46-0400 Body weight 73.[address] Alphonso Rodriguez Work Phone: [facility] 04-20-2023 05:46-0400 Diastolic blood pressure 88 mm[Hg] Dr. Alphonso Rodriguez Work Phone: [facility] 04-20-2023 05:46-0400 Heart rate 86 /min Dr. Alphonso Rodriguez Work Phone: [facility] 04-20-2023 05:46-0400 Respiratory rate 16 /min Dr. Alphonso Rodriguez Work Phone: [facility] 04-20-2023 05:46-0400 SaO2% (BldA) [Mass fraction] 93 % Dr. Alphonso Rodriguez Work Phone: [facility] 04-20-2023 05:46-0400 Systolic blood pressure 142 mm[Hg] Dr. Alphonso Rodriguez Work Phone: [facility] 03-21-2023 13:34-0400 Body height 167.[address] Alphonso Rodriguez Work Phone: [facility] 03-21-2023 13:34-0400 Body mass index (BMI) [Ratio] 26.8 kg/m2 Dr. Alphonso Rodriguez Work Phone: [facility] 03-21-2023 13:34-0400 Body temperature 96.6 [degF] Dr. Alphonso Rodriguez Work Phone: 2(860)191-036247 [place] [address] 03-21-2023 13:34-0400 Body weight 75.[address] Alphonso Rodriguez Work Phone: 5(242)020-175782 [address] 03-21-2023 13:34-0400 Diastolic blood pressure 78 mm[Hg] Dr. Alphonso Rodriguez Work Phone: 8(423)743-833647 [place] [address] 03-21-2023 13:34-0400 Heart rate 90 /min Dr. Alphonso Rodriguez Work Phone: 2(072)088-921647 [place] [address] 03-21-2023 13:34-0400 Respiratory rate 18 /min Dr. Alphonso Rodriguez Work Phone: [facility] 03-21-2023 13:34-0400 SaO2% (BldA) [Mass fraction] 92 % Dr. Alphonso Rodriguez Work Phone: [facility] 03-21-2023 13:34-0400 Systolic blood pressure 120 mm[Hg] Dr. Alphonso Rodriguez Work Phone: [facility] 03-10-2023 15:26-0400 Body mass index (BMI) [Ratio] 26.3 kg/m2 Dr. Alphonso Rodriguez Work Phone: [facility] 03-10-2023 15:26-0400 Body temperature 98.6 [degF] Dr. Alphonso Rodriguez Work Phone: [facility] 03-10-2023 15:26-0400 Body weight 74.[address] Alphonso Rodriguez Work Phone: [facility] 03-10-2023 15:26-0400 Diastolic blood pressure 91 mm[Hg] Dr. Alphonso Rodriguez Work Phone: [facility] 03-10-2023 15:26-0400 Heart rate 85 /min Dr. Alphonso Rodriguez Work Phone: [facility] 03-10-2023 15:26-0400 Respiratory rate 16 /min Dr. Alphonso Rodriguez Work Phone: [facility] 03-10-2023 15:26-0400 SaO2% (BldA) [Mass fraction] 93 % Dr. Alphonso Rodriguez Work Phone: 9(297)701-205447 [place] [address] 03-10-2023 15:26-0400 Systolic blood pressure 146 mm[Hg] Dr. Alphonso Rodriguez Work Phone: 6(141)648-600982 [address] 11-01-2022 07:49-0400 Body height 167.[address] Alphonso Rodriguez Work Phone: 7(470)817-215982 [address] 11-01-2022 07:49-0400 Body mass index (BMI) [Ratio] 26.6 kg/m2 Dr. Alphonso Rodriguez Work Phone: 2(163)281-094882 [address] 11-01-2022 07:49-0400 Body temperature 97.5 [degF] Dr. Alphonso Rodriguez Work Phone: 3(846)128-144447 [place] [address] 11-01-2022 07:49-0400 Body weight 74.[address] Alphonso Rodriguez Work Phone: [facility] 11-01-2022 07:49-0400 Diastolic blood pressure 69 mm[Hg] Dr. Alphonso Rodriguez Work Phone: [facility] 11-01-2022 07:49-0400 Heart rate 90 /min Dr. Alphonso Rodriguez Work Phone: [facility] 11-01-2022 07:49-0400 Respiratory rate 20 /min Dr. Alphonso Rodriguez Work Phone: 0(033)514-206147 [place] [address] 11-01-2022 07:49-0400 SaO2% (BldA) [Mass fraction] 94 % Dr. Alphonso Rodriguez Work Phone: [facility] 11-01-2022 07:49-0400 Systolic blood pressure 113 mm[Hg] Dr. Alphonso Rodriguez Work Phone: 1(395)167-444247 [place] [address] 08-25-2022 15:34-0500 Body mass index (BMI) [Ratio] 26 kg/m2 Dr. Alphonso Rodriguez Work Phone: 7(058)461-195647 [place] [address] 08-25-2022 15:34-0500 Body temperature 97 [degF] Dr. Alphonso Rodriguez Work Phone: 7(336)690-024118 [place] [address] 08-25-2022 15:34-0500 Body weight 73.[address] Alphonso Rodriguez Work Phone: 0(024)878-742818 [place] [address] 08-25-2022 15:34-0500 Diastolic blood pressure 85 mm[Hg] Dr. Alphonso Rodriguez Work Phone: 0(411)650-636382 [address] 08-25-2022 15:34-0500 Heart rate 65 /min Dr. Alphonso Rodriguez Work Phone: 9(184)538-627818 [place] [address] 08-25-2022 15:34-0500 Respiratory rate 16 /min Dr. Alphonso Rodriguez Work Phone: 7(327)519-541147 [place] [address] 08-25-2022 15:34-0500 SaO2% (BldA) [Mass fraction] 91 % Dr. Alphonso Rodriguez Work Phone: 4(334)222-807347 [place] [address] 08-25-2022 15:34-0500 Systolic blood pressure 137 mm[Hg] Dr. Alphonso Rodriguez Work Phone: 0(125)638-230147 [place] [address] 04-26-2022 14:37-0400 Body mass index (BMI) [Ratio] 25.8 kg/m2 Dr. Alphonso Rodriguez Work Phone: 9(693)024-492447 [place] [address] 04-26-2022 14:37-0400 Body weight 72.[address] Alphonso Rodriguez Work Phone: 2(324)557-615547 [place] [address] 01-18-2022 14:03-0400 Body height 167.[address] Argenis Byrd Work Phone: [facility] Work Phone: 01-18-2022 14:03-0400 Body mass index (BMI) [Ratio] 27.2 kg/m2 Dr. Argenis Byrd Work Phone: [facility] Work Phone: 01-18-2022 14:03-0400 Body temperature 98 [degF] Dr. Argenis Byrd Work Phone: [facility] Work Phone: 01-18-2022 14:03-0400 Body weight 76.[address] Argenis Byrd Work Phone: [facility] Work Phone: 01-18-2022 14:03-0400 Diastolic blood pressure 71 mm[Hg] Dr. Argenis Byrd Work Phone: [facility] Work Phone: 01-18-2022 14:03-0400 Heart rate 83 /min Dr. Argenis Byrd Work Phone: [facility] Work Phone: 01-18-2022 14:03-0400 Respiratory rate 15 /min Dr. Argenis Byrd Work Phone: [facility] Work Phone: 01-18-2022 14:03-0400 SaO2% (BldA) [Mass fraction] 90 % Dr. Argenis Byrd Work Phone: [facility] Work Phone: 01-18-2022 14:03-0400 Systolic blood pressure 104 mm[Hg] Dr. Argenis Byrd Work Phone: [facility] Work Phone: 10-20-2021 10:18-0500 Body height 167.[address] Argenis Sanchez Work Phone: [facility] Work Phone: 10-20-2021 10:18-0500 Body mass index (BMI) [Ratio] 28.5 kg/m2 Dr. Argenis Sanchez Work Phone: [facility] Work Phone: 10-20-2021 10:18-0500 Body temperature 98.2 [degF] Dr. Argenis Sanchez Work Phone: [facility] Work Phone: 10-20-2021 10:18-0500 Body weight 80.[address] Argenis Sanchez Work Phone: [facility] Work Phone: 10-20-2021 10:18-0500 Diastolic blood pressure 82 mm[Hg] Dr. Argenis Sanchez Work Phone: [facility] Work Phone: 10-20-2021 10:18-0500 Heart rate 78 /min Dr. Argenis Sanchez Work Phone: [facility] Work Phone: 10-20-2021 10:18-0500 Respiratory rate 16 /min Dr. Argenis Sanchez Work Phone: [facility] Work Phone: 10-20-2021 10:18-0500 SaO2% (BldA) [Mass fraction] 93 % Dr. Argenis Sanchez Work Phone: [facility] Work Phone: 10-20-2021 10:18-0500 Systolic blood pressure 125 mm[Hg] Dr. Argenis Sanchez Work Phone: [facility] Work Phone: 10-19-2021 13:41-0500 Body mass index (BMI) [Ratio] 28.7 kg/m2 Dr. Argenis Sanchez Work Phone: [facility] Work Phone: 10-19-2021 13:41-0500 Body weight 80.[address] Argenis Sanchez Work Phone: [facility] Work Phone: 10-19-2021 13:13-0500 Body mass index (BMI) [Ratio] 28.7 kg/m2 Dr. Argenis Sanchez Work Phone: [facility] Work Phone: 10-19-2021 13:13-0500 Body temperature 97.4 [degF] Dr. Argenis Sanchez Work Phone: [facility] Work Phone: 10-19-2021 13:13-0500 Body weight 80.[address] Argenis Sanchez Work Phone: [facility] Work Phone: 10-19-2021 13:13-0500 Diastolic blood pressure 84 mm[Hg] Dr. Argenis Sanchez Work Phone: [facility] Work Phone: 10-19-2021 13:13-0500 Heart rate 80 /min Dr. Argenis Sanchez Work Phone: [facility] Work Phone: 10-19-2021 13:13-0500 Respiratory rate 16 /min Dr. Argenis Sanchez Work Phone: [facility] Work Phone: 10-19-2021 13:13-0500 SaO2% (BldA) [Mass fraction] 93 % Dr. Argenis Sanchez Work Phone: [facility] Work Phone: 10-19-2021 13:13-0500 Systolic blood pressure 134 mm[Hg] Dr. Argenis Sanchez Work Phone: [facility] Work Phone: 08-31-2021 12:23-0500 Body mass index (BMI) [Ratio] 28.3 kg/m2 Dr. Argenis Sanchez Work Phone: [facility] Work Phone: 08-31-2021 12:23-0500 Body temperature 96.2 [degF] Dr. Argenis Sanchez Work Phone: [facility] Work Phone: 08-31-2021 12:23-0500 Body weight 79.[address] Argenis Sanchez Work Phone: [facility] Work Phone: 08-31-2021 12:23-0500 Diastolic blood pressure 74 mm[Hg] Dr. Argenis Sanchez Work Phone: [facility] Work Phone: 08-31-2021 12:23-0500 Heart rate 96 /min Dr. Argenis Sanchez Work Phone: [facility] Work Phone: 08-31-2021 12:23-0500 Respiratory rate 20 /min Dr. Argenis Sanchez Work Phone: [facility] Work Phone: 08-31-2021 12:23-0500 SaO2% (BldA) [Mass fraction] 92 % Dr. Argenis Sanchez Work Phone: [facility] Work Phone: 08-31-2021 12:23-0500 Systolic blood pressure 115 mm[Hg] Dr. Argenis Sanchez Work Phone: [facility] Work Phone: 07-20-2021 13:26-0500 Body mass index (BMI) [Ratio] 28.4 kg/m2 Dr. Argenis Sanchez Work Phone: [facility] Work Phone: 07-20-2021 13:26-0500 Body temperature 97.7 [degF] Dr. Argenis Sanchez Work Phone: [facility] Work Phone: 07-20-2021 13:26-0500 Body weight 79.[address] Argenis Sanchez Work Phone: [facility] Work Phone: 07-20-2021 13:26-0500 Diastolic blood pressure 85 mm[Hg] Dr. Argenis Sanchez Work Phone: [facility] Work Phone: 07-20-2021 13:26-0500 Heart rate 78 /min Dr. Argenis Sanchez Work Phone: [facility] Work Phone: 07-20-2021 13:26-0500 Respiratory rate 16 /min Dr. Argenis Sanchez Work Phone: [facility] Work Phone: 07-20-2021 13:26-0500 SaO2% (BldA) [Mass fraction] 92 % Dr. Argenis Sanchez Work Phone: [facility] Work Phone: 07-20-2021 13:26-0500 Systolic blood pressure 143 mm[Hg] Dr. Argenis Sanchez Work Phone: [facility] Work Phone: 10-27-2020 15:08-0400 Body temperature 97.8 [degF] Dr. Argenis Sanchez Work Phone: [facility] 10-27-2020 15:08-0400 Diastolic blood pressure 67 mm[Hg] Dr. Argenis Sanchez Work Phone: [facility] 10-27-2020 15:08-0400 Heart rate 74 /min Dr. Argenis Sanchez Work Phone: [facility] 10-27-2020 15:08-0400 Respiratory rate 16 /min Dr. Argenis Sanchez Work Phone: [facility] 10-27-2020 15:08-0400 SaO2% (BldA) [Mass fraction] 98 % Dr. Argenis Sanchez Work Phone: [facility] 10-27-2020 15:08-0400 Systolic blood pressure 124 mm[Hg] Dr. Argenis Sanchez Work Phone: [facility] 10-17-2019 13:12-0500 Inhaled oxygen flow rate 2 L/min Dr. Alphonso Rodriguez Work Phone: [facility] NEGATED: Highlighted [id number] 10:04-0500 BMI (Body Mass Index) 28.72 kg/m2 Mishel Marie AT [facility] Work Phone: NEGATED: Highlighted [id number] 10:04-0500 Body weight 81.65 kg Mishel Marie AT [facility] Work Phone: NEGATED: Highlighted [id number] 10:04-0500 Body weight 82 kg Mishel Marie AT [facility] Work Phone: NEGATED: Highlighted [id number] 10:04-0500 BP Diastolic 71 mm[Hg] Mishel Marie AT [facility] Work Phone: NEGATED: Highlighted [id number] 10:04-0500 BP Systolic 122 mm[Hg] Mishel Marie AT [facility] Work Phone: NEGATED: Highlighted [id number] 10:04-0500 Heart rate 2+ Mishel Marie AT [facility] Work Phone: NEGATED: Highlighted [id number] 10:04-0500 Height 168.91 cm Mishel Marie AT [facility] Work Phone: NEGATED: Highlighted [id number] 10:04-0500 Height 169 cm Mishel Marie AT [facility] Work Phone: NEGATED: Highlighted [id number] 10:04-0500 Pulse (Heart Rate) 73 /min Mishel Marie AT [facility] [place] [facility] Work Phone: Encounters Encounter Date Encounter Type Care Provider Facility Start: 03-22-2025 ambulatory Chalon Mahin Facility:[facility] Start: 02-21-2025 End: 02-21-2025 ambulatory Chalon Mahin Facility:[facility] Start: 02-18-2025 End: 02-18-2025 ambulatory Chalon Mahin Facility:[facility] Start: 01-17-2025 End: 01-17-2025 ambulatory Chalon Mahin Facility:[facility] Start: 01-08-2025 End: 01-08-2025 ambulatory Trudy Manny Facility:[facility] Start: 12-18-2024 End: 12-18-2024 ambulatory Chalon Mahin Facility:[facility] Start: 12-14-2024 Encounter for other preprocedural examination Farzana Traore Patricia [facility] Start: 12-10-2024 End: 12-11-2024 ambulatory Chalon Mahin Facility:[facility] Start: 12-03-2024 End: 12-03-2024 ambulatory Chalon Mahin Facility:[facility] Start: 11-30-2024 End: 11-30-2024 ambulatory Chalon Mahin Facility:[facility] Start: 11-29-2024 ambulatory Chalon Mahin [facility] Start: 11-28-2024 End: 11-28-2024 ambulatory Chalon Mahin Facility:[facility] Start: 11-27-2024 End: 11-27-2024 ambulatory Chalon Mahin Facility:[facility] Start: 11-21-2024 End: 11-21-2024 ambulatory Chalon Mahin Facility:[facility] Start: 11-15-2024 End: 11-15-2024 ambulatory Chalon Mahin Facility:[facility] Start: 11-12-2024 ambulatory Chalon Mahin Facility:[facility] Start: 11-12-2024 End: 11-12-2024 ambulatory Chalon Mahin Facility:[facility] Start: 10-31-2024 End: 10-31-2024 ambulatory Chalon Mahin Facility:[facility] Start: 10-31-2024 End: 10-31-2024 ambulatory Chalon Mahin Facility:[facility] Start: 10-09-2024 End: 10-09-2024 ambulatory Trudy Manny Facility:[facility] Start: 10-09-2024 End: 10-09-2024 ambulatory Chalon Mahin Facility:[facility] Start: 10-01-2024 ambulatory ARGENIS ROOF Facility:[facility] Start: 10-01-2024 End: 10-01-2024 Subsequent hospital visit by physician Mri [facility] (I-Stat/Lg Bore/1.5t) [facility] Comment on above: Abnormal findings on diagnostic imaging of heart and coronary circulation [R93.1] Start: 09-25-2024 End: 09-25-2024 Telephone encounter Cassandra Moremadisynflakito secretary to the vice president [facility] Comment on above: Orders Start: 08-29-2024 ambulatory Trudy Manny Facility[facility] Start: 08-28-2024 ambulatory Chalon Mahin [facility] Start: 08-28-2024 End: 08-28-2024 ambulatory Trudy Manny Facility:[facility] Start: 07-11-2024 ambulatory Chalon Mahin [facility] Start: 07-11-2024 End: 07-11-2024 ambulatory Chalon Mahin Facility:[facility] Start: 07-11-2024 End: 07-11-2024 ambulatory Chalon Mahin Facility:[facility] Start: 06-25-2024 End: 06-25-2024 ambulatory Trudy Manny Facility:[facility] Start: 06-04-2024 End: 06-04-2024 ambulatory Chalon Mahin Facility:[facility] Start: 05-03-2024 End: 05-03-2024 ambulatory Chalon Mahin Facility:[facility] Start: 03-28-2024 End: 03-28-2024 ambulatory Chalon Mahin Facility:[facility] Start: 03-20-2024 End: 03-20-2024 ambulatory Chalon Mahin Facility:[facility] Start: 03-20-2024 End: 03-20-2024 ambulatory Chalon Mahin Facility:[facility] Start: 12-05-2023 End: 12-05-2023 ambulatory DO Chel Lynne Work Phone: [facility] Work Phone: Start: 12-05-2023 End: 12-05-2023 Patient encounter procedure DO Chel Franciscoer Work Phone: [facility] Work Phone: Start: 11-30-2023 Registered Recurring DO Maira Franciscoer Work Phone: [facility] Start: 11-30-2023 End: 11-30-2023 Patient encounter procedure DO Chel Franciscoer Work Phone: [facility] Work Phone: Start: 11-29-2023 Registered Recurring DO Maira n Guera Work Phone: [facility]-Speech Therapy Work Phone: Start: 11-24-2023 End: 11-24-2023 ambulatory DO Chel Lynne Work Phone: [facility] Work Phone: Start: 11-24-2023 End: 11-24-2023 Patient encounter procedure DO Chel Franciscoer Work Phone: [facility] Work Phone: Start: 10-26-2023 End: 10-26-2023 Patient encounter procedure DO Chel Lynne Work Phone: [facility] Work Phone: Start: 09-03-2023 End: 09-03-2023 ambulatory DO Chel Franciscoer Work Phone: [facility] Work Phone: Start: 09-03-2023 End: 09-03-2023 Patient encounter procedure DO Chel Franciscoer Work Phone: [facility] Work Phone: Start: 08-31-2023 Registered Recurring DO Maira n Guera Work Phone: [facility]-Physical Therapy Work Phone: Start: 08-22-2023 End: 08-22-2023 Patient encounter procedure DO Chel Lynne Work Phone: [facility] Work Phone: Start: 07-04-2023 End: 07-04-[address] Alphonso Rodriguez Work Phone: [facility] Work Phone: Start: 07-04-2023 End: 07-04-[address] Alphonso Rodriguez Work Phone: [facility] Start: 06-01-[address] Alphonso Rodriguez Work Phone: [facility] Start: 05-04-2023 End: 05-04-[address] Alphonso Rodriguez Work Phone: [facility] Work Phone: Start: 04-20-2023 End: 04-20-[address] Alphonso Rodriguez Work Phone: [facility] Work Phone: Start: 03-21-2023 End: 03-21-[address] Alphonso Rodriguez Work Phone: [facility] Work Phone: Start: 03-19-2023 End: 03-19-[address] Alphonso Rodriguez Work Phone: [facility] Work Phone: Start: 03-19-2023 End: 03-19-[address] Alphonso Rodriguez Work Phone: [facility]-Cat Scan, [facility] Work Phone: Start: 03-16-2023 End: 03-16-[address] Alphonso Rodriguez Work Phone: [facility]-Outpatient Breast Imaging Work Phone: Start: 03-10-2023 End: 03-10-[address] Alphonso Rodriguez Work Phone: [facility] Work Phone: Start: 11-01-2022 End: 11-01-[address] [facility] Start: 10-28-2022 End: 10-28-[address] Alphonso Rodriguez Work Phone: [facility] Work Phone: Start: 10-28-2022 End: 10-28-[address] Alphonso Rodriguez Work Phone: [facility]-Physical Therapy Start: 10-26-[address] Alphonso Rodriguez Work Phone: [facility] Start: 10-05-2022 End: 10-05-[address] Alphonso Rodriguez Work Phone: [facility]-Outpatient Breast Imaging Start: 08-25-2022 End: 08-25-[address] Alphonso Rodriguez Work Phone: [facility] Start: 03-31-2022 End: 03-31-[address] Argenis Byrd Work Phone: [facility] Start: 01-18-2022 End: 01-18-[address] Argeins Byrd Work Phone: [facility] Start: 11-05-2021 End: 11-05-[address] Argenis Sanchez Work Phone: [facility] Start: 10-20-2021 End: 10-20-[address] [facility] Start: 10-19-[address] Argenis Sanchez Work Phone: [facility] Start: 10-19-2021 End: 10-19-[address] Argenis Sanchez Work Phone: [facility] Start: 09-30-2021 End: 09-30-[address] Argenis Sanchez Work Phone: [facility]-Outpatient Bone Densitometry Start: 09-24-2021 Non-patient / Non-visit Dr. Vanessa Sanchez Work Phone: [facility] Start: 09-23-2021 End: 09-23-[address] Argenis Sanchez Work Phone: [facility]-Pulmonary Services/Neurology Start: 09-21-2021 End: 09-21-[address] Argenis Sanchez Work Phone: [facility]-Sleep Lab Start: 08-31-2021 End: 08-31-[address] [facility] Start: 08-05-[address] Argenis Sanchez Work Phone: [facility]-Laboratory, [facility] Start: 07-20-2021 End: 07-20-[address] Argenis Sanchez Work Phone: [facility] Start: 06-26-2019 End: 06-26-2019 Pt evaluation Alex Neil DO Work Phone: [facility] Work Phone: Procedures Date Procedure Procedure Detail Performing Clinician Start: 10-01-2024 Cardiac mri w/wo con trast & further seq Argenis Jordan MECHANICAL EQUIPMENT TEST ENGINEER.SALVATIONIST Work Phone: Start: 12-05-2023 MRI of joint of lowe r extremity DO Chel Lynne Work Phone: Start: 11-24-2023 Plain X-ray of shoulder DO Chel Lynne Work Phone: Start: 09-03-2023 Magnetic resonance angiography of head without contrast DO Chel Lynne Work Phone: Start: 09-03-2023 MRI of brain without contrast DO Chel Lynne Work Phone: Start: 03-19-[address] Alphonso cuadra Work Phone: Start: 03-16-[address] Alphonso cuadra Work Phone: Start: 03-16-[address] Alphonso Rodriguez Work Phone: Start: 10-05-2022 Screening mammograph y of left breast Dr. Alphonso Rodriguez Work Phone: Start: 03-31-2022 CT of chest without contrast Dr. Argenis Byrd Work Phone: Start: 09-30-2021 Dual energy X-ray absorptiometry Dr. Argenis Sanchez Work Phone: Start: 09-30-2021 Screening mammograph y of left breast Dr. Argenis Sanchez Work Phone: Start: 09-02-[address] Argenis mckeon Work Phone: Start: 06-26-2019 End: 06-26-2019 BASIC LUMBAR SUPPORT (BREG) Alex Neil DO Work Phone: NEGATED: Highlighted rowStart: 06-26-2019 End: 06-26-2019 Documentation of current medications Mishel Marie AT Plan of Treatment Date Care Activity Detail Author Start: 10-01-2024 End: 10-01-2024 Patient encounter procedure 10/01/2024 3:00 PM EST Appointment [facility] [address] [place] [address] VAH/Abnormal findings on diagnostic imaging of heart and coronary circulation [R93.1] [facility] Comment on above: VA/Abnormal finding s on diagnostic imaging of heart and coronary circulation [R93.1] Start: 08-15-2024 Advance Directive Discussion Advance Directive Discussion [facility] Start: 04-15-2024 Covid-19 Vaccine () Covid-19 Vaccine () [facility] Start: 04-15-2024 Covid-19 Vaccine () Covid-19 Vaccine () [facility] Start: 04-15-2024 Influenza vaccination Influenza Vacc ine (#1) [facility] Start: 09-15-2023 Patient referral [facility] Work Phone: Start: 08-22-2023 Patient referral [facility] Work Phone: Start: 2023 RSV Vaccine (1 - 1-d ose 75+ series) RSV Vaccine (1 - 1-dose 75+ series) [facility] Start: 06-26-2019 End: 06-26-2019 Radex spine lumbosacral minimum 4 views [facility] Work Phone: Start: 2013 Screening for osteoporosis Bone Density Screening [facility] Start: 1998 Pneumococcal Vaccine : 50+ (1 of 1 - PCV) Pneumococcal Vaccine: 50+ (1 of 1 - PCV) [facility] Start: 1998 Shingrix Vaccine (1 of 2) Shingrix Vaccine (1 of 2) [facility] Start: 1993 Diabetes Screening Diabetes Screenin g [facility] Start: 1967 Urine microalbumin profile DTaP,Tdap,Td Vaccine (1 - Tdap) [facility] Start: 1966 Anxiety Screening Anxiety Screening [facility] Start: 1966 Depression Screening Depression Scre ening [facility] Start: 1966 Hepatitis C screening Hepatitis C Sc vahid [facility] CBC W Auto Different ial panel - Blood [facility] Work Phone: CBC W Auto Different ial panel - Blood [facility] Complete blood count [facility] CT Chest [facility] CT Chest [facility] Folate [Mass/volume] in Serum or Plasma [facility] MG Breast - left Screening [facility] Patient referral [facility] Work Phone: T4 free measurement [facility] Thiamine measurement [facility] Thyroid stimulating hormone measurement [facility] Vitamin B12 measurement [facility] Immunizations Immunization Date Immunization Notes Care Provider Fa cili 07-04-2019 influenza, injectabl e, quadrivalent, preservative free Dr. Alphonso Rodriguez Work Phone: [facility] 07-04-2019 influenza, seasonal, injectable Dr. Argenis Sanchez Work Phone: [facility] 07-04-2019 influenza virus vaccine, unspecified formulation Cassandra Law [facility] Payers Date Payer Category Payer Self-pay [id number] 2019 Private Health Insurance [employer] Address: [address] [address] [id number] 2019 Private Health Insurance I [id number] 1979 Medicare MEDICARE [id number] 1979 Medicare [id number] Unknown [id number] Unknown [id number] 2.16.840.1.170771.3.579.2 .462 Unknown [id number] 2.16840.1.191352.3.579.2 .462 Unknown [id number] 2.16.840.1.627269.3.579.2 .462 Unknown [id number] 2.16840.1.987514.3.579.2 .462 Unknown [id number] 2.16840.1.452539.3.579.2 .462 Unknown [id number] 2.16.840.1.611626.3.579.2 .462 Unknown [id number] 2.16.840.1.908174.3.579.2 .462 Unknown [id number] 2.16840.1.735585.3.579.2 .462 Unknown [id number] 2.16840.1.618560.3.579.2 .462 Unknown [id number] 2.16.840.1.864165.3.579.2 .462 Unknown [id number] 2.16840.1.672156.3.579.2 .462 Unknown [id number] 2.16.840.1.433027.3.579.2 .462 Unknown [id number] 2.16840.1.846157.3.579.2 .462 Unknown [id number] 2.16840.1.640811.3.579.2 .462 Unknown [id number] 2.16.840.1.078326.3.579.2 .462 Unknown [id number] 2.16.840.1.904059.3.579.2 .462 Unknown [id number] 2.16.840.1.936182.3.579.2 .462 Unknown [id number] 2.16.840.1.113633.3.579.2 .462 Unknown [id number] 2.16.840.1.854538.3.579.2 .462 Unknown [id number] 2.16.840.1.918158.3.579.2 .462 Unknown [id number] 2.16.840.1.212444.3.579.2 .462 Unknown [id number] 2.840.1.538425.3.579.2 .462 Unknown [id number] 2..840.1.196070.3.579.2 .462 Unknown [id number] 2..840.1.991984.3.579.2 .462 Unknown [id number] 2.16.840.1.451924.3.579.2 .462 Unknown [id number] 2.16.840.1.989486.3.579.2 .462 Unknown [id number] 2.16.840.1.495629.3.579.2 .462 Unknown [id number] 2.840.1.761779.3.579.2 .462 Unknown [id number] 2.16.840.1.554890.3.579.2 .462 Unknown [id number] 2.16.840.1.712740.3.579.2 .462 Unknown [id number] 2.16.840.1.403116.3.579.2 .462 Unknown [id number] 2.16.840.1.246838.3.579.2 .462 Unknown [id number] 2.16.840.1.957068.3.579.2 .462 Unknown [id number] 2..840.1.052741.3.579.2 .462 Unknown [id number] 2..840.1.815212.3.579.2 .462 Unknown [id number] 2.16.840.1.324914.3.579.2 .462 Social History Date Type Detail Facility Start: 10-20-2021 End: 11-30-2023 Assertion Unknown if ever smoked [facility] Work Phone: Start: 10-22-2020 Cigarettes [facility] Start: 1950 Sex Assigned At Female [facility] Start: 07-03-2020 Tobacco smoking status NHIS Ex-smoker [facility] End: 08-15-1965 History of tobacco use Current smoker [facility] End: 08-15-1965 History of tobacco use Cigarette Smoker [facility] Start: 07-03-2020 Tobacco use and exposure Former smokeless tobacco user [facility] Start: 07-03-2020 Alcoholic beverage intake Current drinker of alcohol (finding) [facility] Start: 07-03-2020 End: 07-21-2020 History of Social function [place] [facility] Start: 07-03-2020 End: 07-21-2020 Social connection and isolation panel [facility] Do you belong to any clubs or organizations such as christianity groups, unions, fraternal or athletic groups, or school groups? Yes [facility] Are you now , , , , never or living with a partner? Never [facility] How often to you hav e a drink containing alcohol? 2-4 times a month [facility] How many standard dr inks containing alcohol do you have on a typical day? 1 or 2 [facility] How often do you hav e 6 or more drinks on 1 occasion? Never [facility] How hard is it for y ou to pay for the very basics like food, housing, medical care, and heating Somewhat hard [facility] Do you feel stress - tense, restless, nervous, or anxious, or unable to sleep at night because your mind is troubled all the time - these days [OSQ] Not at all [facility] (I/We) worried wheth er (my/our) food would run out before (I/we) got money to buy more. Never true [facility] In the past 12 month s, has lack of transportation kept you from medical appointments or from getting medications? No [facility] Start: 1950 Sex assigned at Not on file [facility] Medical Equipment Procedure Code Equipment Code Equipment Origin al Text Equipment Identifier Dates SUTURE,LIGA CLIP MED LT200 FDA Start: 10-04-2019 SUTURE,LIGA CLIP MED LT200 FDA Start: 10-04-2019 SUTURE,LIGA CLIP SM LT-100 FDA Start: 10-04-2019 SUTURE,LIGA CLIP SM LT-100 FDA Start: 10-04-2019 SUTURE,LIGA CLIP MED LT200 FDA Start: 10-04-2019 SUTURE,LIGA CLIP MED LT200 FDA Start: 10-04-2019 SUTURE,LIGA CLIP SM LT-100 FDA Start: 10-04-2019 SUTURE,LIGA CLIP SM LT-100 FDA Start: 10-04-2019 SUTURE,LIGA CLIP MED LT200 FDA Start: 10-04-2019 SUTURE,LIGA CLIP MED LT200 FDA Start: 10-04-2019 SUTURE,LIGA CLIP SM LT-100 FDA Start: 10-04-2019 SUTURE,LIGA CLIP SM LT-100 FDA Start: 10-04-2019 SUTURE,LIGA CLIP MED LT200 FDA Start: 10-04-2019 SUTURE,LIGA CLIP MED LT200 FDA Start: 10-04-2019 SUTURE,LIGA CLIP SM LT-100 FDA Start: 10-04-2019 SUTURE,LIGA CLIP SM LT-100 FDA Start: 10-04-2019 SUTURE,LIGA CLIP MED LT200 FDA Start: 10-04-2019 SUTURE,LIGA CLIP MED LT200 FDA Start: 10-04-2019 SUTURE,LIGA CLIP SM LT-100 FDA Start: 10-04-2019 SUTURE,LIGA CLIP SM LT-100 FDA Start: 10-04-2019 SUTURE,LIGA CLIP MED LT200 FDA Start: 10-04-2019 SUTURE,LIGA CLIP MED LT200 FDA Start: 10-04-2019 SUTURE,LIGA CLIP SM LT-100 FDA Start: 10-04-2019 SUTURE,LIGA CLIP SM LT-100 FDA Start: 10-04-2019 SUTURE,LIGA CLIP MED LT200 FDA Start: 10-04-2019 SUTURE,LIGA CLIP MED LT200 FDA Start: 10-04-2019 SUTURE,LIGA CLIP SM LT-100 FDA Start: 10-04-2019 SUTURE,LIGA CLIP SM LT-100 FDA Start: 10-04-2019 SUTURE,LIGA CLIP MED LT200 FDA Start: 10-04-2019 SUTURE,LIGA CLIP MED LT200 FDA Start: 10-04-2019 SUTURE,LIGA CLIP SM LT-100 FDA Start: 10-04-2019 SUTURE,LIGA CLIP SM LT-100 FDA Start: 10-04-2019 Mental Status Date Assessment Result Facility 11-30-2023 Cognitive function Awake;Alert;A ppropriate;Fol lows Commands [facility] Work Phone: 04-26-2022 Cognitive function Voice/Name [facility] Work Phone: 10-19-2021 Cognitive function Voice/Name [facility] Work Phone: Clinical Notes 10-10-2020 to 12-05-2024 PompeliaOpheliasa, secretary to the vice president - 10/01/2024 3:00 PM ESTTelephone Encounter - Cassandra Law, secretary to the vice president - 09/25/2024 8:10 PM ESTTelephone Encounter - Cassandra Law, secretary to the vice president - 09/25/2024 8:10 PM EST Note Date & Type Note Facility 12-05-2024 Note [facility] Medical Records Department [address] [place] [id number] History Physical Exam 12/05/24 1318 MR#: [id number] Acct: [id number] Name: NARGIS ERIC Rep #: [id number] From: Tacho EMANUEL PA-C PCP: Dr. Vadim Jones MD Status:[facility] Location: [place] [address] History and Physical History and Physical Patient Name: Nargis Eric : 1950From:??? TACHO HOOD PA-C DATE OF PRE-OPERATIVE EXAM: 12/05/2024 DATE OF SURGERY:??? 12/10/2024 SCHEDULED PROCEDURE:??? Left reverse shoulder arthroplasty HISTORY OF PRESENT ILLNESS: Preoperative history and physical exam was performed on December 05, 2024.??? This is a 74-year-old female who presents with a family member for her preoperative visit for her upcoming reverse left total shoulder arthroplasty.??? Patient has been having ongoing pain for over a year.??? She is right- hand dominant.??? Pain is been intermittent, aching, sharp and sore.??? She has difficulty and pain getting out of a chair or bed.??? Pain with reaching above her head or across her body with activities of daily living.??? She has difficulty with activities of daily living including bathing/showering, getting dressed, hygiene purposes, housework, and leisure activities.??? Patient has tried rest, he, corticosteroid injection with minimal relief.??? Her pain can reach 9/10 at worst.??? She gets popping and catching sensations in the shoulder.??? Patient denies past history of surgery on the left shoulder.??? She has tried physical therapy without relief.??? She has been through pain management in which she currently sees Dr. Matos.??? She is only using meloxicam from pain management.??? We did reach out to pain management and they would like orthopedics to manage postoperative pain medication for the first 2 weeks.??? Patient has also had clearance from the primary care provider Dr. Jones, medical insurance clerk Dr. Bryant, and pulmonology Jess Neil.??? Patient has medical history pertinent for gastroesophageal reflux disease, previous left breast cancer in which she currently uses anastrozole, schizophrenia, chronic obstructive pulmonary disease with chronic respiratory failure, osteoporosis, shortness of breath, coronary artery disease, nonischemic cardiomyopathy, ventricular tachycardia, dysphagia.??? Patient does report she uses nasal oxygen 2 L throughout the day followed by pulmonology.??? She denies past history of DVT or pulmonary embolism.??? No recent chest pain or fevers/chills.??? After failing conservative measures and discussing all treatment options was Dr. Larry Ellis, the patient does wish to proceed with a left reverse total shoulder arthroplasty. REVIEW OF SYSTEMS: Review Of Systems: Constitutional: Denies change in appetite, fever and weight change. Cardiovasular: Reports irregular heartbeat, but denies chest pain and heart murmur. Respiratory: Reports COPD, dyspnea on exertion and shortness of breath, but denies cough, pneumonia, tuberculosis and wheezing. Gastrointestinal: Reports constipation, heartburn, nausea and difficulty swallowing, but denies diarrhea, rectal itching, bloody stools and vomiting. Musculoskeletal: Reports gait disturbance, leg swelling, pain, trouble walking and weakness. Skin: Denies Raynaud's, history of shingles and tattoo. Neurological: Denies ambulatory dysfunction, dizziness, numbness/tingling and tremor. Psychiatric: Reports insomnia and schizophrenia, but denies anxiety and stress. Hematologic/Lymphatic: Denies anemia, bleeding/bruising tendency and past transfusion. Reviewed and updated. PAST MEDICAL HISTORY: Advance Care Plan: No Advance Directives Effective Date: 12/29/2023 Past Medical History: Medical Problems: Acid Reflux Cancer - left breast Chronic Obstructive Pulmonary Disease (COPD), Emphysema Mental Illness - schizophrenia??? - chronic Osteoporosis, Covid-19 Vaccine, Asthma, hypoxia, Thyroid Disease, shortness of breath on exertion, Coronary Artery Disease (CAD), hypokinesis, nonischemic cardiomyopathy, Nonsustained Ventricular Tachycardia, Osteopenia, constipation, Dysphagia, history of dialysis treatment for experimental research Accidents: Fracture - 2016 clavicle Fracture - (2002) left arm Other - head and cervical injury as a child Surgical Hx: Cataracts Mastectomy - (2019) Tonsillectomy - (1952) Anesthesia Complications: None Assistive Devices: Glasses, Oxygen - during the day and at night Reviewed and updated. SOCIAL HISTORY: Social History: Marital: Single.Occupation: Retired.Work Status: Retired.Hand Dominance: Right-handed. Personal Habits:??? Cigarette Use: Former, Heavy tobacco smoker (more than 10 cigarettes/day).Smokeless Tobacco: Never Used Smokeless Tobacco.E-Cigarette Use: Never used.Alcohol: Occasionally.Drug Use: Denies Use.Enjoy Exercising: Exercises 1-3 x/m (more content not included)... [facility] 10-01-2024 History of Presen t illness Narrative Radiology Service Progress Note DATE OF SERVICE: October 01, 2024 TIME: 3:41 PM PATIENT IDENTITY VERIFICATION COMPLETED USING TWO (2) STANDARD IDENTIFIERS: Name and Date of confirmed by patient verbally. FALL SCREENING: Has the patient had 2 falls in the last year or 1 fall with injury or currently using an Ambulatory Assistive Device (Walker, Cane, Wheelchair, Crutches, etc.)? No PATIENT GENDER DATA: Assigned female at . status: : No status: NO. PATIENT RELEVANT IMPLANT DATA REVIEWED: Yes PATIENT PRESENTS WITH AN IMPLANTABLE OR ATTACHED PRENATAL GENETIC COUNSELOR: No ALLERGIES: Reviewed and unchanged CONTRAST ALLERGY: NO. EXAM: MRI - CONTRAST TYPE: GROUP II PERIPHERAL IV DATA: Ambulatory: A peripheral IV was started in the Left with a Angio cath: 22 gauge. RADIOLOGY DEPARTMENT: MR; Exam(s) Completed: Cardiac: Cardiac SIGNATURE: YURIDIA Marina PATIENT NAME: Nargis Eric DATE: October 01, 2024 TIME: 3:41 PM documented in this encounter [facility] 10-01-2024 Note HNO ID: [id number] Author: DOMITILA WHITNEY MRI Tech Service: ? Author Type: Technologist Type: Progress Notes Filed: 10/01/2024 15:42 Note Text: Radiology Service Progress Note DATE OF SERVICE: October 01, 2024 TIME: 3:41 PM PATIENT IDENTITY VERIFICATION COMPLETED USING TWO (2) STANDARD IDENTIFIERS: Name and Date of confirmed by patient verbally. FALL SCREENING: Has the patient had 2 falls in the last year or 1 fall with injury or currently using an Ambulatory Assistive Device (Walker, Cane, Wheelchair, Crutches, etc.)? No PATIENT GENDER DATA: Assigned female at . status: : No status: NO. PATIENT RELEVANT IMPLANT DATA REVIEWED: Yes PATIENT PRESENTS WITH AN IMPLANTABLE OR ATTACHED PRENATAL GENETIC COUNSELOR: No ALLERGIES: Reviewed and unchanged CONTRAST ALLERGY: NO. EXAM: MRI - CONTRAST TYPE: GROUP II PERIPHERAL IV DATA: Ambulatory: A peripheral IV was started in the Left with a Angio cath: 22 gauge. RADIOLOGY DEPARTMENT: MR; Exam(s) Completed: Cardiac: Cardiac SIGNATURE: YURIDIA Marina PATIENT NAME: Nargis Eric DATE: October 01, 2024 TIME: 3:41 PM [facility] 09-25-2024 Telephone encount er Note Summary: CMR PROTOCOL Alexandria Marrufo, Please provide a CMR Protocol for Nargis Eric 1950. She is scheduled for a Cardiac MRI Tuesday at 3:00pm. Her orders can be found in scanned documents from 07/18/2024. Order appears to be from [facility] due to abnormal findings on dx imaging of heart and circulatory system. Thank you. Sincerely, Cassandra Law RT(R)MRVI [facility] 09-25-2024 Miscellaneous Notes Summary: CMR PROTOCOL Alexandria Marrufo, Please provide a CMR Protocol for Nargis Eric 1950. She is scheduled for a Cardiac MRI Tuesday at 3:00pm. Her orders can be found in scanned documents from 07/18/2024. Order appears to be from [facility] due to abnormal findings on dx imaging of heart and circulatory system. Thank you. Sincerely, Cassandra Law RT(R)MRVI documented in this encounter [facility] 11-04-2022 Discharge summary Note Date/Time October 28, 2022 11:00am [facility] Physical Therapy [facility] [address] [place] [address]. [address] [place] [address] / REHABILITATION SERVICES DISCHARGE SUMMARY MR#: [id number] Acct: [id number] Name: NARGIS ERIC Rep #: [id number] : 1950 72 From: Cert. FRANCOISE MccarthyT, [facility] Referring Dr.: Dr. Vivian Matos MD Status: REG RCR Insurance: MEDICARE PART A B [employer] SR SUPPLEMENT INS It has been my pleasure to treat NARGIS ERIC referred by Dr. Vivian Matos MD, with the diagnosis of BACK AND LEG PAIN for a total of 40 visit(s). Discharge Date: 10/28/22 Please see the following information for a summary of their discharge status. Subjective: Doing well ..ready for d/c. Sister states dizziness not related to vestibular Bilateral Back Pain Intensity (Out of 10): 0 Right Lower Extremity Pain Intensity (Out of 10): 0 stomach area Pain Intensity (Out of 10): 0 % Improvement: 95 Objective/Function: POSTURE: reciprocal pattern. MMT: quads/hams/hip /ankle 4/5. BALANCE : good -. LUMBAR ROM: flexion/extension WFL Goal 1:: Patient to be I with HEP for back Goal Progress: Goal Met Goal 2:: Patient to demonstrate 70% improvement with improved function and less pain. Goal Progress: Goal Met Goal 3:: Patient to improve lumbar ROM for function of recovery to tie shoes Goal Progress: Goal Met Goal 4:: Patient to improve MMT peak force right leg by 5-10 to improve gait Goal Progress: Goal Met Goal 5:: Patient to increase back oswestry by 5points to improve function and QOL( new goal) Goal Progress: Goal Met Plan: D/C TO HEP Discharge Comments: HEP If there are questions or concerns regarding this patient's physical therapy, please feel free to call me at [phone]. Thank you for the referral of thispatient. Sincerely, Boone Caro PT, Cert T, OCS Balance/Gait/Functional tests - Balance/Special Test Scores Oswestry Low Back Score: 9 <Electronically signed by Boone Caro PT, Cert. RAYMUNDO, OCS> 11/04/22 1950 CC: Dr. Vivian Matos MD; Dr. Alphonso Rodriguez MD ~ FERNANDO Signed [facility] Work Phone: [phone]) 697-703002-26-2021 NoteProcedure (OBGYWM) NARGIS ERIC ([id number]) 1950 F Date Time Provider Department 10/10/20 4:40 PM YURY OAKLEY During your visit today, we recorded the [...] Date: 10/10/2020 (None) Encounter Status:Closed by YURY OAKLEY MD on 10/10/20[facility] Evaluation note* Diagnosis Onset Date Resolution Status Nodule of right lung acute Cancer of right female breast chronic Osteopenia after menopause c hronic Nodule of right lung acute COPD (chronic obstructive pu lmonary disease) with emphysema chronic Nodule of right lung acute Cancer of right female breast chronic Osteopenia after menopause c hronic Encounter for education acut e Nodule of right lung acute Cancer of right female breast chronic Osteopenia after menopause c hronic Lung mass acute COPD (chronic obstructive pu lmonary disease) with emphysema chronic [facility] Work Phone: Evaluation note* Diagnosis Onset Date Resolution Status Nodule of right lung acute Cancer of right female breast chronic Osteopenia after menopause c hronic [facility] Work Phone: Evaluation note* Diagnosis Onset Date Resolution Status Nodule of right lung acute Cancer of right female breast chronic Osteopenia after menopause c hronic Encounter for education acut e Nodule of right lung acute Cancer of right female breast chronic Osteopenia after menopause c hronic Former smoker acute Chronic respiratory failure chronic COPD (chronic obstructive pu lmonary disease) with emphysema chronic Schizophrenia [facility] Work Phone: Evaluation note* Diagnosis Onset Date Resolution Status Cancer of right female breast chronic Osteopenia after menopause c hronic Cancer of right female breast chronic Osteopenia after menopause c [facility] Work Phone: Evaluation note* Diagnosis Onset Date Resolution Status Cancer of right female breast chronic Osteopenia after menopause c hronic Cancer of right female breast chronic Osteopenia after menopause c hronic Chronic respiratory failure chronic COPD (chronic obstructive pu lmonary disease) with emphysema chronic Cancer of right female breast chronic Osteopenia after menopause c hronic Encounter for education acut e Nodule of right lung acute Cancer of right female breast chronic Osteopenia after menopause c [facility] Work Phone: Evaluation note* Diagnosis Onset Date Resolution Status Encounter for education acut e Nodule of right lung acute Cancer of right female breast chronic Osteopenia after menopause c hronic Dysarthria acute Dysphagia acute Extrapyramidal and movement disorder acute Mild cognitive impairment ac [place] Parkinsonism acute Schizophrenia [facility] Work Phone: Evaluation note* Diagnosis Onset Date Resolution Status Dysarthria acute Dysphagia acute Extrapyramidal and movement disorder acute Mild cognitive impairment ac [place] Parkinsonism acute Schizophrenia chronic Former smoker acute Chronic respiratory failure chronic COPD (chronic obstructive pu lmonary disease) with emphysema chronic Schizophrenia [facility] Work Phone: Evaluation note* Diagnosis Onset Date Resolution Status Dysarthria acute Dysphagia acute Extrapyramidal and movement disorder acute Mild cognitive impairment ac [place] Parkinsonism acute Schizophrenia chronic Former smoker acute Chronic respiratory failure chronic COPD (chronic obstructive pu lmonary disease) with emphysema chronic Schizophrenia chronic Cancer of right female breast chronic Osteopenia after menopause c hronic Encounter for education acut e Nodule of right lung acute Cancer of right female breast chronic Osteopenia after menopause c [facility] Work Phone: Reason for visit Narrative* Diagnostic Procedure Only (Routine) - Pending Review Specialty Diagnoses / Procedures Referred By Contac t Referred To Contact [facility] Diagnoses Abnormal findings on diagnostic imaging of heart and coronary circulation [R93.1] ORDERS INDEXED FROM ONBASE Procedures MRI WWO CARD [address] Argenis Jordan, MECHANICAL EQUIPMENT TEST ENGINEER.SALVATIONIST [address] [place] [address] Phone: tel: fax: [facility] [address] [facility] [place] [address] Phone: tel: fax: Referral ID Status Reason Start Date Expiration Date V isits Requested Visits Authorized [id number] Pending Review 10/01/2024 11/30/2024 1 1 [facility] Chief Complaint Chief Complaint Description Start Date lower back pain Preliminary chief co mplaint data, not yet signed by the author as of Instructions Instruction Description Start Date CompletedPatient advised to follow-up with Primary Care Physician for BMI management. Advance Directives No Advanced Directives Records Found Advance Directive Response Recorded Date/ Time Living Will No March 25 1 10:55am Power of Install Technician No March 25, 021 10:55am Advance Directive Response Recorded Date/ Time Living Will No March 25 1 9:55am Power of Install Technician No March 25, 021 9:55am Advance Directive Response Recorded Date/ Time Living Will No November 30, 2023 2:26pm Power of Install Technician No November 29 2:26pm Assessments There may be information available, but it has not been provided by the sender. Review of System There may be information available, but it has not been provided by the sender. Family History No Family History Records Found Relationship Condition Age at Onset Recorded Date/T sharon father Leukemia Unknown History of Present Illness There may be information available, but it has not been provided by the sender. Summary Purpose Chief Complaint and Reason for Visit Chief Complaint 3 MO - NO LABS Sleep apnea HIMANSHU PULM EMPHYSEMA PULM EMPHYSEMA SCREENING 3 MO - NO LABS - REVIEW MAMMO/BONE DENSITY ONC/HEM 6 M FU Reason for Visit Nodule of right lung Cancer of right female breast Osteopenia after menopause Nodule of right lung COPD (chronic obstructive pulmonary disease) with emphysema Nodule of right lung Cancer of right female breast Osteopenia after menopause Encounter for education Nodule of right lung Cancer of right female breast Osteopenia after menopause Lung mass COPD (chronic obstructive pulmonary disease) with emphysema Chief Complaint 3 MO - NO LABS ABN FINDINGS IN LUNG FIELD Reason for Visit Nodule of right lung Cancer of right female breast Osteopenia after menopause Chief Complaint 4 MO - NO LABS SCREENING ONC/HEM BACK/ LEG PAIN. RX HERE 6 M FU Reason for Visit Nodule of right lung Cancer of right female breast Osteopenia after menopause Encounter for education Nodule of right lung Cancer of right female breast Osteopenia after menopause Former smoker Chronic respiratory failure COPD (chronic obstructive pulmonary disease) with emphysema Schizophrenia Chief Complaint ACUTE - NEW BREAST L UMP LEFT BREAST PAIN NICOTINE DEP REVIEW MAMM/US Reason for Visit Cancer of right fema le breast Osteopenia after menopause Cancer of right female breast Osteopenia after menopause Chief Complaint ACUTE - NEW BREAST L UMP LEFT BREAST PAIN NICOTINE DEP REVIEW MAMM/US 6 M FU 8MO - LABS - PROLIA prolia Reason for Visit Cancer of right fema le breast Osteopenia after menopause Cancer of right female breast Osteopenia after menopause Chronic respiratory failure COPD (chronic obstructive pulmonary disease) with emphysema Cancer of right female breast Osteopenia after menopause Encounter for education Nodule of right lung Cancer of right female breast Osteopenia after menopause Chief Complaint prolia SHUFFLING GAIT, NUMBNESS L LEG PARKINSONS DISEASE. RX HERE Schizophrenia, unspecified Reason for Visit Encounter for educat ion Nodule of right lung Cancer of right female breast Osteopenia after menopause Dysarthria Dysphagia Extrapyramidal and movement disorder Mild cognitive impairment Parkinsonism Schizophrenia Chief Complaint SHUFFLING GAIT, NUMB NESS L LEG Schizophrenia, unspecified 6 M FU L shoulder pain and decreased ROM PARKINSONS DISEASE. RX HERE Reason for Visit Dysarthria Dysphagia Extrapyramidal and movement disorder Mild cognitive impairment Parkinsonism Schizophrenia Former smoker Chronic respiratory failure COPD (chronic obstructive pulmonary disease) with emphysema Schizophrenia Chief Complaint SHUFFLING GAIT, NUMB NESS L LEG Schizophrenia, unspecified 6 M FU L shoulder pain and decreased ROM PARKINSONS DISEASE. RX HERE 6MO ?LABS? PROLIA prolia Pain in left shoulder Reason for Visit Dysarthria Dysphagia Extrapyramidal and movement disorder Mild cognitive impairment Parkinsonism Schizophrenia Former smoker Chronic respiratory failure COPD (chronic obstructive pulmonary disease) with emphysema Schizophrenia Cancer of right female breast Osteopenia after menopause Encounter for education Nodule of right lung Cancer of right female breast Osteopenia after menopause Additional Source Comments Reason for Visit (unrecogniz ed section and content) Reason For Visit Description New - 1st visit with practice Preliminary reason f or visit data, not yet signed by the author as of lower back pain Reason Comments Orders INFORMATION SOURCE (unrecogn ized section and content) DATE CREATED AUTHOR 09/07/2021 [facility] DATE CREATED AUTHOR AUTHOR'S ORGANIZ ATION 10/02/2024 [facility] DATE CREATED AUTHOR AUTHOR'S ORGANIZ ATION 03/08/2025 [facility] Goals (unrecognized section and content) Goals may be documented in a n alternate sectionGoals may be documented in an alternate sectionGoals may be documented in an alternate sectionGoals may be documented in an alternate sectionGoals may be documented in an alternate sectionGoals may be documented in an alternate sectionGoals may be documented in an alternate sectionGoals may be documented in an alternate section Care Teams (unrecognized sec tion and content) Team Status: Active Member Role Status Dates Dr. Argenis Sanchez MD Family Provider Active Dr. Alphonso Rodriguez MD Primary Care Provider Active Team Status: Inactive Member Role Status Dates Dr. Alphonso Rodriguez MD Primary Care Provider, Referring Provider Active Dr. Oksana Weldon MD Attending Provider Active Team Status: Inactive Member Role Status Dates Dr. Alphonso Rodriguez MD Primary Care Provider, Referring Provider Active Jess Otero NP, DYE FEEDER-C Attending Provider Active Team Status: Active Member Role Status Dates Dr. Oksana Weldon MD Attending Provider Active Dr. Barron Bailey MD Referring Provider Active Dr. Alphonso Rodriguez MD Primary Care Provider Active Team Status: Inactive Member Role Status Dates Dr. Alphonso Rodriguez MD Primary Care Provider Active Dr. Vivian Matos MD Attending Provider, Referring Pr ovider Active Team Status: Inactive Member Role Status Dates Dr. Alphonso Rodriguez MD Primary Care Provider Active Dr. Oksana Weldon MD Attending Provider Active Team Status: Active Member Role Status Dates Dr. Argenis Sanchez MD Family Provider Active Chel Lynne DO Primary Care Provider Active Team Status: Inactive Member Role Status Dates Dr. Alphonso Rodriguez MD Primary Care Provider, Referring Provider Active Nita Lopez DYE FEEDER, DYE FEEDER-C Attending Provider Active Team Status: Inactive Member Role Status Dates Chel Franciscoer , DO Primary Care Provider, Referring Provider Active Nita Lopez DYE FEEDER, DYE FEEDER-C Attending Provider Active Team Status: Inactive Member Role Status Dates Jess Otero DYE FEEDER, DYE FEEDER-C Attending Provider, Referrin g Provider Active Chel Lynne , DO Primary Care Provider Active Team Status: Inactive Member Role Status Dates Chel Lynne , DO Primary Care Provider Active Nita Lopez DYE FEEDER, DYE FEEDER-C Attending Provider, Referring Provider Active Team Status: Inactive Member Role Status Dates Dr. Alphonso Rodriguez MD Referring Provider Active Dr. Oksana Weldon MD Attending Provider Active Chel Lynne DO Primary Care Provider Active Team Status: Inactive Member Role Status Dates Dr. Alphonso Rodriguez MD Referring Provider Active Dr. Evan Morataya MD Attending Provider Active Chel Lynne DO Primary Care Provider Active Team Status: Inactive Member Role Status Dates Chel Lynne , DO Primary Care Provider, Attending Provider Active Team Status: Inactive Member Role Status Dates Chel Lynne , DO Primary Care Provider, Referring Provider Active Dr. Alphonse Chaudhary MD Attending Provider Active Team Status: Inactive Member Role Status Dates Chel Lynne , DO Primary Care Provider Active Dr. Alphonse Chaudhary MD Attending Provider, Referring Provider Active Team Status: Active Member Role Status Dates Chel Lynne , DO Primary Care Provider Active Dr. Alphonse Chaudhary MD Attending Provider Active Team Status: Inactive Member Role Status Dates Chel Lynne , DO Primary Care Provider, Referring Provider Active Jess Otero DYE FEEDER, DYE FEEDER-C Attending Provider Active Team Status: Inactive Member Role Status Dates Chel Lynne , DO Primary Care Provi paradise, Attending Provider, Referring Provider Active Team Status: Inactive Member Role Status Dates Chel Lynne , DO Primary Care Provider, Referring Provider Active Dr. Oksana Weldon MD Attending Provider Active Source Comments (unrecognize d section and content) In the event this informatio n is protected by the Federal Confidentiality of Alcohol and Drug Abuse Patient Records regulations: The Federal rules restrict any use of the information to criminally investigate or prosecute any alcohol or drug abuse patient.[facility] the event this information is protected by the Federal Confidentiality of Alcohol and Drug Abuse Patient Records regulations: The Federal rules restrict any use of the information to criminally investigate or prosecute any alcohol or drug abuse patient.[facility] FOR RECORDS PERTAINING TO PATIENTS WHO ARE [...] BE BASED ON THE PRIMARY CLINICAL RECORDS. [facility] [employer] [facility]. provides no warranty or guarantee of the accuracy or completeness of information in this document.
== END | disposition home or self-care (01) ==
PROVIDERS: PCP Family Medicine; Referring Provider Family Medicine; Visit Provider Nurse Practitioner Acute Care
DX: Z12.2 Encounter for screening for malignant neoplasm of respiratory organs (principal); F17.210 Nicotine dependence, cigarettes, uncomplicated
CPT/HCPCS: 71271

== ENCOUNTER → 2025-04-02 | Outpatient (CLI) | payer MEDICARE, OTHER, SELFPAY ==
--- NOTE | 2025-04-02 12:05 | BI_ITS ---
EXAM: SCREEN MAMM (CAD) W/BHAVNA UNI L DATE: 04/02/2025 CLINICAL HISTORY: F, Age 74 y/o , ANNUAL SCREENING Personal history of breast cancer. Prior right mastectomy. Aunt with breast cancer. TECHNIQUE: SCREEN MAMM (CAD) W/BHAVNA UNI L COMPARISON: Prior exam(s) dated March 20, 2024.. FINDINGS: TISSUE DENSITY: The breasts are heterogeneously dense, which may obscure small masses. Bilateral Breast Mammographic Findings: No significant masses, calcifications or other abnormalities are identified. No suspicious masses, areas of developing architectural distortion, or suspicious calcifications. There has been no significant interval change. BI/SCREEN MAMM (CAD) W/BHAVNA UNI L IMPRESSION: Stable examination. OVERALL FINAL ASSESSMENT BI-RADS 1: NEGATIVE. RECOMMENDATION: Routine annual follow-up in 1 Year A letter with findings and recommendations will be mailed to the patient. Reading Location: [id number]
== END | disposition home or self-care (01) ==
LOC: OPBI 12:04
PROVIDERS: PCP Family Medicine; Referring Provider Internal Medicine Hematology & Oncology; Visit Provider Internal Medicine Hematology & Oncology
DX: Z12.31 Encounter for screening mammogram for malignant neoplasm of breast (principal)
CPT/HCPCS: 77063; 77067

== ENCOUNTER → 2025-07-04 | Outpatient (CLI) | payer MEDICARE, OTHER, SELFPAY ==
--- NOTE | 2025-07-04 12:57 | ECHOD_ITS ---
Reason For Study Reason For Study: CHEST PAIN Procedure This was a 2D Doppler, Color Flow transthoracic echocardiogram. The study was technically difficult. The patient was scanned supine. Contrast injection was performed. Exam performed in department. Left Ventricle Normal size and thickness. The left ventricular ejection fraction is 55 %. Right Ventricle Normal right ventricle. Atria The left and right atria are normal. Mitral Valve Normal mitral valve. Tricuspid Valve Trivial tricuspid valve insufficiency. Right ventricular systolic pressure estimated to be 37 mmHg. Aortic Valve Trisinus/trileaflet aortic valve. Pulmonic Valve The pulmonic valve is not well visualized. Great Vessels Normal sized aortic root. Pericardium/Pleural No pericardial effusion. Medication 22 gauge I.V. with prn adaptor inserted into right arm. Diluted definity 2.0ml given slow IV push to enhance endocardial definition. MMode/2D Measurements & Calculations LVIDd: 4.6 cm IVSd: 0.90 cm Ao root diam: 3.4 cm LVIDs: 3.0 cm LVPWd: 0.91 cm RVDd: 3.2 cm FS: 35.1 % LAV(MOD-bp): 36.9 ml LVAd ap4: 31.8 cm2 LVAd ap2: 27.6 cm2 LAV(MOD-bp) Indexed: 19.9 ml/m2 LVLd ap4: 8.3 cm LVLd ap2: 7.9 cm LAV(MOD-sp2): 29.5 ml EDV(MOD-sp4): 96.8 ml EDV(MOD-sp2): 77.6 ml LAV(MOD-sp4): 34.8 ml EDV(sp4-el): 103.2 ml EDV(sp2-el): 81.8 ml LVAs ap4: 20.0 cm2 LVAs ap2: 15.7 cm2 LVLs ap4: 7.4 cm LVLs ap2: 6.9 cm ESV(MOD-sp4): 45.8 ml ESV(MOD-sp2): 30.6 ml ESV(sp4-el): 46.0 ml ESV(sp2-el): 30.6 ml EF(MOD-sp4): 52.7 % EF(MOD-sp2): 60.5 % EF(sp4-el): 55.4 % SV(MOD-sp4): 51.0 ml SV(MOD-sp2): 47.0 ml SV(sp4-el): 57.1 ml SI(MOD-sp4): 27.4 ml/m2 SI(MOD-sp2): 25.3 ml/m2 LA A4 area: 13.1 cm2 LA dimension(2D): 2.9 cm RA A4 area: 12.8 cm2 TAPSE: 1.7 cm Doppler Measurements & Calculations Lat Peak E' Jorge L: 10.4 cm/sec Med Peak E' Jorge L: 8.7 cm/sec MV V2 max: 74.3 cm/sec MV max P.2 mmHg MV V2 mean: 45.1 cm/sec MV mean P.92 mmHg MV V2 VTI: 16.4 cm MV P1/2t max jorge l: 58.7 cm/sec Ao V2 max: 134.1 cm/sec LV V1 max: 109.4 cm/sec MV P1/2t: 57.0 msec Ao max P.2 mmHg LV V1 max P.8 mmHg Ao V2 mean: 102.8 cm/sec LV V1 mean P.7 mmHg MV dec slope: 301.8 cm/sec2 Ao mean P.5 mmHg LV V1 mean: 77.4 cm/sec MVA(P1/2t): 3.9 cm2 Ao V2 VTI: 26.6 cm LV V1 VTI: 21.7 cm AV (velocity ratio): 0.82 PA V2 max: 120.9 cm/sec TR max jorge l: 232.8 cm/sec TR max P.7 mmHg ECHO/Echo Complete W/ Contrast Interpretation Summary The left ventricular ejection fraction is 55 %. The study was technically difficult. Ordering Physician: Trudy Bryant Referring Physician: Vadim Jones Performed By: Misti Simpson RDCS, RVT
== END | disposition home or self-care (01) ==
LOC: CVS 12:53
PROVIDERS: PCP Family Medicine; Referring Provider Internal Medicine Cardiovascular Disease; Visit Provider Internal Medicine Cardiovascular Disease
DX: R07.9 Chest pain, unspecified (principal); R06.02 Shortness of breath; R42 Dizziness and giddiness
CPT/HCPCS: 93306; Q9957; A4216; C8929